=== PATIENT | male | born 1960 | race Caucasian/White ===

== ENCOUNTER 2018-08-04 04:44 | Emergency (ER) | payer BC, OTHER ==
[2018-08-04 05:49] LABS: #Basophils 0.1 thou/uL (0.0-0.2); #Eosinphils 0.1 thou/uL (0.0-0.7); #Lymphocytes 2.5 thou/uL (1.20-3.40); #Monocytes 0.6 thou/uL (0.11-0.59); #Neutrophils 7.9 thou/uL (1.40-6.50); %Basophils 0.7 % (0.0-1.0); %Eosinophils 1.3 % (0.0-10.0); %Lymphocytes 22.4 % (21.0-51.0); %Monocytes 5.3 % (0.0-10.0); %Neutrophils 70.4 % (42.0-75.0); Hemoglobin 14.5 g/dL (14.0-18.0); Mean Corpuscular HGB CONC 32.4 g/dL (32.0-36.0); Mean Corpuscular Hemoglobin 28.9 pg (27.0-31.0); Mean Corpuscular Volume 89.2 fL (78.0-98.0); Mean Platelet Volume 8.7 fL (7.4-10.4); Platelet Count 233 thou/uL (130-400); RBC Distribution Width 12.1 % (11.5-14.5); Red Blood Cell (RBC) Count 5.01 mill/uL (4.70-6.10); White Blood Cell (WBC) Count 11.2 thou/uL (4.8-10.8)
[2018-08-04 06:09] LABS: Acetaminophen Less than 6.0 mcg/mL (10.0-30.0); Alcohol Less than 10 mg/dL (Less than 10); Salicylate Less than 8.0 mg/dL (15.0-30.0)
[2018-08-04 06:10] LABS: ALT (SGPT) 14 U/L (8-55); AST (SGOT) 13 U/L (5-34); Albumin 3.9 g/dL (3.5-5.0); Alkaline Phosphatase 89 U/L (40-150); Anion Gap 16 mmol/L (10-20); BUN (Urea Nitrogen) 16 mg/dL (8.4-25.7); Bilirubin, Total 0.4 mg/dL (0.2-1.2); Calc. Creatinine Clearance 0 mL/min (70-130); Calcium 9.7 mg/dL (7.8-10.44); Carbon Dioxide 24 mmol/L (22-29); Chloride 101 mmol/L (98-107); Estimated GFR-MDRD 76; Globulin 3.4 g/dL (2.4-3.5); Glucose 103 mg/dL (70-105); Lipase 8 U/L (8-78); Magnesium 1.6 mg/dL (1.6-2.6); Potassium 3.8 mmol/L (3.5-5.1); Protein, Total 7.3 g/dL (6.0-8.3); Sodium 137 mmol/L (136-145)
[2018-08-04] MEDS ORDERED: Aspirin Chewable 81 MG TAB ONE (06:43)
[2018-08-04 06:58] LABS: Bilirubin Negative (Negative); Blood, Urine Trace (Negative); Clarity CLEAR (Clear); Glucose, Urine (Dipstick) Negative (Negative); Leukocyte Negative (Negative); Nitrite Negative (Negative); Protein, Urine (Dipstick) 100 mg/dL (Neg-Trace); Specific Gravity, Urine 1.013 (1.002-1.036); pH, Urine 5.5 (5.0-9.0)
[2018-08-04 07:01] LABS: Bacteria/HPF None Seen HPF (None Seen); Hyaline Casts/LPF 4-6 HYALINE CAST LPF (0-3 Hyaline); Pathc Cast-AUWi Flag 0.68 (0-2.49); Squamous Epithelial None Seen HPF (0-3)
--- NOTE | 2018-08-04 07:46 | CT ---
CT OF HEAD NONCONTRAST: INDICATION: Lethargy, altered mental status. COMPARISON: 10/10/2011. FINDINGS: There are multifocal small areas of decreased attenuation involving the bilateral deep wakefield nuclei an d the adjacent white matter. There is no acute intracranial hemorrhage or mass effect. There is a m ega cisterna magna. No ventriculomegaly. Grossly stable pineal cyst is noted. IMPRESSION: Multifocal age-indeterminate bilateral lacunar infarctions. Recommend brain MRI for further characte rization, as these findings have developed since the interval, comparison exam. POS: VALERIE
--- NOTE | 2018-08-04 07:48 | RAD ---
XR Chest 1 View Portable HISTORY: Altered mental status COMPARISON: 10/10/2011 FINDINGS: The heart size is normal. The lungs are well expanded without focal areas of consolidation, pneumothorax or pleural effusions. IMPRESSION: No radiographic evidence of acute cardiopulmonary process.
--- NOTE | 2018-08-09 12:26 | EKG ---
Test Reason : AMS Blood Pressure : / mmHG Vent. Rate : 085 BPM Atrial Rate : 085 BPM P-R Int : 140 ms QRS Dur : 088 ms QT Int : 402 ms P-R-T Axes : 044 -08 092 degrees QTc Int : 478 ms Normal sinus rhythm Nonspecific ST and T wave abnormality Prolonged QT Abnormal ECG Confirmed by GISELLE SANTOS ([id number]), health editor DIDIER HUNTER ([id number]) on 08/09/2018 12:26:15 PM Referred By: Confirmed By:GISELLE SANTOS
== END 2018-08-04 06:59 | disposition home or self-care (01) ==
LOC: ERS 04:44
DX: G45.9 Transient cerebral ischemic attack, unspecified (principal); E10.9 Type 1 diabetes mellitus without complications; F41.9 Anxiety disorder, unspecified; Z79.84 Long term (current) use of oral hypoglycemic drugs
CPT/HCPCS: 36415; 36416; 70450; 71045; 80053; 80307; 81003; 81015; 83690; 83735; 84443; 84484; 85025; 87040; 87086; 93005

== ENCOUNTER 2019-09-08 15:30 | Observation (INO) | payer BC ==
[2019-09-08] MEDS ORDERED: Dextrose 50% Abboject 50 ML SYRINGE ONE (15:45)
[2019-09-08 16:23] LABS: #Eosinphils 0.1 thou/uL (0.0-0.7); #Lymphocytes 1.7 thou/uL (1.20-3.40); #Monocytes 0.6 thou/uL (0.11-0.59); #Neutrophils 5.9 thou/uL (1.40-6.50); %Basophils 0.3 % (0.0-1.0); %Eosinophils 1.4 % (0.0-10.0); %Lymphocytes 20.9 % (21.0-51.0); %Monocytes 6.6 % (0.0-10.0); %Neutrophils 70.8 % (42.0-75.0); Hemoglobin 14.6 g/dL (14.0-18.0); Mean Corpuscular HGB CONC 32.1 g/dL (32.0-36.0); Mean Corpuscular Hemoglobin 28.3 pg (27.0-31.0); Mean Corpuscular Volume 88.1 fL (78.0-98.0); Mean Platelet Volume 9.5 fL (7.4-10.4); Platelet Count 194 thou/uL (130-400); RBC Distribution Width 14.6 % (11.5-14.5); Red Blood Cell (RBC) Count 5.16 mill/uL (4.70-6.10); White Blood Cell (WBC) Count 8.3 thou/uL (4.8-10.8)
[2019-09-08] MEDS ORDERED: Dextrose 5 % And 0.9 % NaCl 1,000 ML IV SCH (16:30)
[2019-09-08 16:49] LABS: ALT (SGPT) 12 U/L (8-55); AST (SGOT) 17 U/L (5-34); Albumin 3.4 g/dL (3.4-4.8); Alcohol Less than 10 mg/dL (Less than 10); Alkaline Phosphatase 91 U/L (40-110); Anion Gap 13 mmol/L (10-20); BUN (Urea Nitrogen) 17 mg/dL (8.4-25.7); Bilirubin, Total 0.7 mg/dL (0.2-1.2); CK (CPK) 188 U/L (30-200); Calc. Creatinine Clearance 0 mL/min (70-130); Calcium 8.8 mg/dL (7.8-10.44); Carbon Dioxide 26 mmol/L (23-31); Chloride 104 mmol/L (98-107); Estimated GFR-MDRD 88; Globulin 3.3 g/dL (2.4-3.5); Glucose 152 mg/dL (80-115); Lipase Less than 4 U/L (8-78); Potassium 3.8 mmol/L (3.5-5.1); Protein, Total 6.7 g/dL (5.8-8.1); Sodium 139 mmol/L (136-145)
[2019-09-08 17:06] LABS: CKMB 5.4 ng/mL (0-6.6)
[2019-09-08 17:20] LABS: Bacteria/HPF None Seen HPF (None Seen); Bilirubin Negative (Negative); Blood, Urine 1+ (Negative); Clarity Clear (Clear); Glucose, Urine (Dipstick) 100 mg/dL (Negative); Ketone, Urine Negative (Negative); Leukocyte Negative Leu/uL (Negative); Nitrite Negative (Negative); Protein, Urine (Dipstick) 300 mg/dL (Neg-Trace); RBC/HPF 0-3 HPF (0-3); Specific Gravity, Urine 1.014 (1.002-1.036); Squamous Epithelial 0-3 HPF (0-3); Urobilinogen Normal mg/dL (Less than 2); WBC/HPF 0-3 HPF (0-3); pH, Urine 6.5 (5.0-9.0)
[2019-09-08 17:24] LABS: Medtox Reader # READER 4
[2019-09-08 17:25] LABS: Amphetamine Not Detected (NotDetected); Barbiturates Screen Not Detected (NotDetected); Benzodiazepine Screen Not Detected (NotDetected); Cocaine Metabolite Screen Not Detected (NotDetected); Medtox Control Line Valid? VALID (VALID); Methadone Not Detected (NotDetected); Methamphetamine Not Detected (NotDetected); Opiate Screen Not Detected (NotDetected); Oxycodone Screen Not Detected (NotDetected); Phencyclidine (PCP) Not Detected (NotDetected); THC/Cannabinoid Screen Not Detected (NotDetected); Tricyclic Screen Not Detected (NotDetected)
[2019-09-08 17:34] LABS: Sperm/HPF Rare HPF (None Seen)
--- NOTE | 2019-09-08 18:08 | PDOC.FPRHP ---
- History of Present Illness Chief Complaint: Found down History of Present Illness: 59-year-old male presents for altered mental status and hypoglycemia. Patient was found by family today unresponsive, EMS arrived and his blood sugar was 50, they gave him multiple rounds of D10 NS at 100 mL's, patient's blood sugar initially eventually improved to 120s. They report patient continued to be somewhat confused even after getting the dextrose. Patient does not remember anything besides getting in the ambulance. They report patient lives by himself. Patient denies taking more medications that he was supposed to. Patient takes glyburide, metformin combination for diabetes, denies insulin use. He thinks that he has been having hypoglycemia and feels out of it when that happens,stating he has had more falls lately. Notes that he only eats 1 meal a day. He reports that he does not take all of his prescribed medication bc it makes him feel shaky that improves with food. pt reports BG is 120 in the morning when he does check it. Denies any trauma to the head. He also endorses concerns that his legs are becoming weaker. His bilateral leg weakness is not new but is progressing. Patient say he is a "loner" and that he last thought about suicide in the last month. Denies depression at this time, just "wants to go home". Patient reports that he sleeps 3 hrs a night 2/2 anxiety, eats 1 meal/day. Per ER report, patient had 2 empty bottles of sulfonylureas at house, unable to confirm with family. Per nruse, pt states he recently put a gun to his head and considered suicide. Per son, he found patient last week with a knife in his hand stating that he was going to kill himself and he had low sugars at the time and after eating was okay. Patient states he wants no lifesaving measures, notes that he has discussed this with his son. Called his son, and son denied ever having that conversation. ED Course: Patient given 1 amp of D50 in ED, started on drip, last sugar in 120s, patient also given ocreotide - Allergies/Adverse Reactions Allergies Allergy/AdvReac Type Severity Reaction Status Date / Time No Known Allergies Allergy Unverified 09/08/19 16:24 - History PMHx: diabetes (possible peripheral neuropathy), anxiety, HTN, TIA (2019) PSHx: none FHx: noncontributory Social: endorses tobacco use, dips, goes through 1 can every couple days. denies etoh, ellicit drug use - Review of Systems General: reports: weight/appetite/sleep changes, fatigue. denies: fever/chills Eyes: denies: eye pain, vision changes ENT: denies: nasal congestion, rhinorrhea Respiratory: denies: cough, congestion, shortness of breath Cardiovascular: denies: chest pain, palpitation, edema Gastrointestinal: denies: nausea, vomiting, diarrhea Genitourinary: denies: incontinence, dysuria, polyuria Skin: denies: rashes, lesions Musculoskeletal: denies: pain, tenderness Neurological: reports: weakness (in BLE). denies: numbness, syncope, seizure Psychological: reports: anxiety. denies: depression - Vital signs BP: H 196/110 R: 92 RR: 18 Tmax: 98.3 Pox: 98% on RA Wt: 86.2kg - Physical Exam Constitutional: NAD, awake, alert and oriented, well developed HEENT: normocephalic and atraumatic, PERRLA, EOMI, conjunctiva clear Neck: supple, FROM Chest: no-tender to palpation, no lesions Heart: RRR, normal S1/S2, no murmurs/rubs/gallops Lungs: CTAB, no respiratory distress, good air movement Abdomen: soft, non-tender, bowel sounds present Musculoskeletal: other (Exam limited by L shoulder pain d/t rotator cuff injury , R leg 3-4/5 strength, L leg 5/5 strenght; however poor effort on exam) Neurological: CN II-XII intact, other (decreased sensation in bilateral LEs below the knee) Skin: no rash/lesions, good turgor Heme/Lymphatic: no unusual bruising or bleeding Psychiatric: other (AxO x 4) FMR H&P: Results - Labs Result Diagrams: 09/08/19 16:11 09/08/19 16:11 Lab results: WBC 8.3 thou/uL (4.8-10.8) 09/08/19 16:11 Hgb 14.6 g/dL (14.0-18.0) 09/08/19 16:11 Hct 45.5 % (42.0-52.0) 09/08/19 16:11 MCV 88.1 fL (78.0-98.0) 09/08/19 16:11 Plt Count 194 thou/uL (130-400) 09/08/19 16:11 Neutrophils % 70.8 % (42.0-75.0) 09/08/19 16:11 Sodium 139 mmol/L (136-145) 09/08/19 16:11 Potassium 3.8 mmol/L (3.5-5.1) 09/08/19 16:11 Chloride 104 mmol/L (98-107) 09/08/19 16:11 Carbon Dioxide 26 mmol/L (23-31) 09/08/19 16:11 BUN 17 mg/dL (8.4-25.7) 09/08/19 16:11 Creatinine 0.88 mg/dL (0.7-1.3) 09/08/19 16:11 Glucose 152 mg/dL (80-115) H 09/08/19 16:11 Lactic Acid 1.2 mmol/L (0.5-2.2) 09/08/19 16:11 Calcium 8.8 mg/dL (7.8-10.44) 09/08/19 16:11 Total Bilirubin 0.7 mg/dL (0.2-1.2) 09/08/19 16:11 AST 17 U/L (5-34) 09/08/19 16:11 ALT 12 U/L (8-55) 09/08/19 16:11 Alkaline Phosphatase 91 U/L (40-110) 09/08/19 16:11 Creatine Kinase 188 U/L (30-200) 09/08/19 16:11 CK-MB (CK-2) 5.4 ng/mL (0-6.6) 09/08/19 16:11 Serum Total Protein 6.7 g/dL (5.8-8.1) 09/08/19 16:11 Albumin 3.4 g/dL (3.4-4.8) 09/08/19 16:11 Lipase Less than 4 U/L (8-78) L 09/08/19 16:11 Urine Ketones Negative mg/dL (Negative) 09/08/19 17:00 Urine Blood 1+ (Negative) A 09/08/19 17:00 Urine Nitrite Negative (Negative) 09/08/19 17:00 Ur Leukocyte Esterase Negative Clyde/uL (Negative) 09/08/19 17:00 Urine RBC 0-3 HPF (0-3) 09/08/19 17:00 Urine WBC 0-3 HPF (0-3) 09/08/19 17:00 Ur Squamous Epith Cells 0-3 HPF (0-3) 09/08/19 17:00 Urine Bacteria None Seen HPF (None Seen) 09/08/19 17:00 - EKG Interpretation EKG: NS, LAD FMR H&P: A/P - Plan Hypoglycemia Possibly 2/2 medication overdose, per ER report 2 empty bottles of sulfonlyureas found, unable to confirm this BG 50 on arrival of EMS, patient unresponsive, now Ax0 x4 with BG in 120s Per patient only eats one meal per day, frequent hypoglycemia, takes 2 of his 4 sugar pills - On D5 drip @100, will give amp D50 if sugars drop again - glucose checks q2hr - hold SS/ home meds, will likely need to adjust home meds at d/c Anxiety/Depression, Reported SI - report from son that patient attempted suicided last week, per nurse patient reported holding a gun to his head a few days ago, patient denies recent attempts, notes he considered suicide 1 month ago, unwilling to further discuss it - sitter in room - [facility] consult once patient is medically stable Weakness Previous TIA in 2019, CT Brain showed lacunar infarcts, patient left AMA, L sided weakness at that time Poor effort on exam, some R sided weakness detected - Reevaluate weakness in the am, once sugars have stabilized - PT/OT consulted HTN 196/110 on admission - hydralazine prn - will restart home bp medications after med rec, order for med rec placed DMII - on glyburide and metformin at home, holding - a1c ordered - q2hr glucose checks Dispo: admit to medical, obs. LOS pending [facility] consult, patient currently lives home alone Code Status: Full code due to SI Prophylaxis: lovenox PCP: Richard Case discussed with Dr. Cleaning. FMR H&P: Upper Level - Plan Date/Time: 09/08/19 1801 I, Alessia aGmboa MD, have evaluated this patient and agree with findings/plan as outlined by creative intern resident. Pertinent changes/additions are listed here. This is a 59yo M here today with PMH of DM1, HTN who was found altered by family. Patient states that he has been taking glyburide for his DM and has been taking his medications as directed. No recent changes in medications. Patient denied any SI or HI. Denied hallucinations/delusions. Patient reports hx of SI. Per nurse, he told her that he put a gun to his head earlier in the week. Patient denied this. Son also reported knife in his hand earlier in the week and wanted to hurt himself. Patient denies. PE: General: sitting up on side of bed, NAD Cardio:RRR, no murmurs, rubs or gallops Resp: CTAB Abd: soft, non distended, normal BS MSK: FROM, no edema Neuro: dec sensation in LE, R sided motor 4/5 vs L side 5/5 - poor effort overall Psych: axox4, denies depresssion, endorses anxiety, denies SI/HI/hallucinations/ delusions Plan: Encephalopathy 2/2 Hypoglycemia likely due to sulfonurea Sugars 50 per EMS. - Started on D5 drip in the ER. Will continue this and slowly titrate down. Will give amps of D50 as needed. Can increase to D10 if needed as well. - q2hr glucose checks, will space out as long as sugars increasing. - Will need to adjust DM medication regimen. Likely dc sulfonurea. A1c pending. Reported Suicidal Ideation - Will consult [facility] in the AM after sugars have improved DM - A1c pending HTN - aware, restart home meds Dispo: admit to medical, obs. LOS < 48hrs PCP: Richard ([facility]) Diet: CC Ppx: lovenox Case discussed with Dr. Cleaning Addendum - Attending - Attending Attestation Date/Time: 09/08/192128 I personally evaluated the patient and discussed the management with the team. I agree with the History, Examination, Assessment and Plan documented above with any addition or exceptions noted below. Acute encephalopathy 2/2 hypoglycemia, improved -continue d5, inc to d10 prn with d50 if recurrent symptomatic hypoglycemia C/f suicidal behavior -sitter at bedside, cannot leave hospital AMA, [facility] when medically cleared
--- NOTE | 2019-09-08 18:10 | CT ---
CT BRAIN WITHOUT CONTRAST: 09/08/19 HISTORY: Altered mental status. COMPARISON: 08/04/18. Changes of chronic small vessel ischemic disease and old lacunar infarcts are again seen. The ventric ular size is stable and the basilar cisterns are patent. No evidence of acute infarct, hemorrhage, mi dline shift, or abnormal extra-axial fluid collections are seen. A pineal cyst is stable. Geovany cister na magna is again seen. IMPRESSION: Stable exam. No CT evidence of acute intracranial process. POS: MACYA
[2019-09-08 20:10] LABS: Troponin I 0.071 ng/mL (< 0.028)
[2019-09-08 20:58] LABS: Hemoglobin A1c 7.6 % (4.0-6.0)
[2019-09-08] MEDS ORDERED: Acetaminophen 325 MG TAB PO PRN (21:31)
[2019-09-08] MEDS ORDERED: Enoxaparin Sodium 40 MG/0.4 ML SYRINGE SC SCH (21:39)
[2019-09-08] MEDS ORDERED: hydrALAZINE 20 MG/ML VIAL SLOW IVP PRN (21:39)
[2019-09-08] MEDS ORDERED: Dextrose 50% Abboject 50 ML SYRINGE SLOW IVP PRN (21:39)
[2019-09-08] MEDS ORDERED: Dextrose 5 %-0.45 % NaCl 1,000 ML IV SCH (21:45)
[2019-09-08 22:30] VITALS: BMI 32.2
[2019-09-08 22:41] LABS: Troponin I 0.069 ng/mL (< 0.028)
--- NOTE | 2019-09-09 05:47 | PDOC.FM ---
- Subjective Subjective: Pt seen sitting in chair next to bed this morning. He stated that he wanted to go home because he is worried about paying his medical bills. Upon further questioning, pt states that he feels like he is a burden to his family and has a lot of worries related to him having to be dependent on them. He also stated that he eats about 1 meal per day because he does not usually have an appetite. He cannot remember what happened yesterday to bring him into the hospital and denies taking his DM medication at all yesterday as he usually takes this medication at night. He states that he is feeling better today with no complaints. - Objective Vital Signs & Weight: Vital Signs (12 hours) Temp Pulse Resp BP BP BP Pulse Ox 09/09/19 04:29 98.8 F 81 16 160/85 H 95 09/09/19 00:05 87 157/83 H 09/08/19 22:37 187/102 H 09/08/19 22:34 83 187/102 H 09/08/19 21:39 99.0 F 83 18 196/113 H 98 Weight Weight 96.1 kg Result Diagrams: 09/08/19 16:11 09/08/19 16:11 Phys Exam - Physical Examination Constitutional: NAD HEENT: PERRLA Respiratory: no wheezing, no rales, no rhonchi, clear to auscultation bilateral Cardiovascular: RRR, no significant murmur Gastrointestinal: soft, non-tender, no distention, positive bowel sounds Musculoskeletal: no edema Neurological: moves all 4 limbs (pt has decreased sense of touch to R leg. UE strength 4/5 bl LE strength 4/5 bl) Psychiatric: A&O x 3 (flat affect) Dx/Plan - Plan Plan: 59 y/o M with PMHx of DM, Depression, TIA, HTN presented to ED for hypoglycemia after being found down by family yesterday. ##Hypoglycemia Possibly 2/2 medication overdose, per ER report 2 empty bottles of sulfonlyureas found, unable to confirm this Per patient only eats one meal per day, frequent hypoglycemia, takes 2 of his 4 sugar pills - On D5 drip @100, will give amp D50 if sugars drop again - glucose checks q2hr - hold SS/ home meds, will likely need to adjust home meds at d/c ##Anxiety/Depression, Reported SI Report from son that patient attempted suicided last week, per nurse patient reported holding a gun to his head a few days ago, patient denies recent attempts, notes he considered suicide 1 month ago, unwilling to further discuss it - sitter in room - MR consult once patient is medically stable - home medication sertraline ##Weakness Previous TIA in 2019, CT Brain showed lacunar infarcts, patient left AMA, L sided weakness at that time Poor effort on exam, some R sided weakness detected - PT/OT consulted ##HTN 196/110 on admission - hydralazine prn - home medication amlodipine 2.5mg restarted, may need additional med for BP control ##DMII - on glyburide and metformin at home, holding - a1c 7.6 - q2hr glucose checks - UA showed protein, glucose, hyaline casts - microalbumin/patient liaison ratio Code Status: Full code due to SI VTE PPX: Lovenox Diet: CC PCP: Richard Dispo: monitor glucose closely. glucagon ordered. BP control. pending MR consult Addendum - Attending - Attending Attestation Date/Time: 09/09/19 1200 I personally evaluated the patient and discussed the management with Dr. Stewart. I agree with the History, Examination, Assessment and Plan documented above with any addition or exceptions noted below. Patient stable. Ensuring his glucose levels stay stable and then can have evaluation by MR.
[2019-09-09] MEDS ORDERED: Lisinopril 10 MG TAB PO SCH (09:00)
[2019-09-09] MEDS ORDERED: Multivit, Therapeutic 1 TAB PO SCH (09:00)
[2019-09-09] MEDS ORDERED: Aspirin 81 mg Enteric Coated Tablet PO SCH (09:00)
[2019-09-09 18:46] LABS: Creatinine, Urine 124.39 mg/dL (63-166); Microalbumin Urine Greater than 200.0 mg/dL (0.5-50.0)
[2019-09-09] MEDS ORDERED: Amlodipine 5 MG TAB PO SCH (21:00)
[2019-09-09 22:14] VITALS: BP 173/98; TEMP 98.7
--- NOTE | 2019-09-10 13:44 | DIS ---
DATE OF ADMISSION: 09/08/2019 DATE OF DISCHARGE: 09/09/2019 RESIDENT: Rhiannon Stewart DO ADMITTING ATTENDING: Meet Cleaning MD DISCHARGE ATTENDING: Nirav Graff MD. PROCEDURES: CT brain without contrast showed stable exam, no CT evidence of acute intracranial process. PRIMARY DIAGNOSES: Hypoglycemia, depression, reported suicidal ideation, weakness. SECONDARY. DIAGNOSES: Hypertension and diabetes mellitus, type 2. DISCHARGE MEDICATIONS: 1. Aspirin 81 mg p.o. daily. 2. Multivitamin 1 tab p.o. daily. 3. Zoloft 50 mg p.o. daily. 4. Amlodipine 2.5 mg p.o. at bedtime. 5. Metformin 1000 mg p.o. b.i.d. 6. Lisinopril 10 mg p.o. daily. DISCONTINUED MEDICATIONS: Glyburide/metformin. HISTORY OF PRESENT ILLNESS: This is a 59-year-old male who presented for altered mental status and hypoglycemia. He was found by family unresponsive with a blood sugar of 50. The patient said that he did not remember anything besides getting into ambulance. He denied taking medication prior to this episode and stated that he takes glyburide-metformin combination for diabetes and denies insulin use. He thought that he had been having hypoglycemia episodes more often and feels out of it, stating that the has had more falls lately and notes that he only eats one meal a day. While in the ED, he said that he has a lot of depression and just wanted to go home because he was worried that his medical expenses were going to increase during his stay in the hospital. In addition, per a conversation had with son upon admission, he had found the patient last week with a knife in his hands, stating he wanted to kill himself and had also held a gun to his head earlier in the week, but attributed that to the patient's hypoglycemic episodes. For this reason [facility] was consulted. HOSPITAL COURSE: During the patient's hospitalization, he was given multiple rounds of D50 initially until his BS improved and then patient started eating well on his own. He had to be given one dose of glucagon and afterwards, his BS stabled out. Pt UA showed proteinuria, glucosuria, and a microalbumin greater than 200. Lisinopril 10mg was started due to this, and added to his medication regimen with amlodipine. He was cleared medically for MR who went through a safety plan with the patient and deemed him stable for discharge. DISPOSITION: Stable. DISCHARGE INSTRUCTIONS: 1. Location: Home. 2. Diet: Consistent carb. 3. Activity: As tolerated. 4. Followup: In 1-2 week with, Dr. Luiz Ramos. Job ID: [id number] MTDD
== END 2019-09-09 20:20 | disposition home or self-care (01) ==
LOC: ERS 15:30 → 2NO 17:31
PROVIDERS: ADMIT Emergency Medicine; ATTEND Emergency Medicine
DX: E11.649 Type 2 diabetes mellitus with hypoglycemia without coma (principal); G93.40 Encephalopathy, unspecified; R45.851 Suicidal ideations; I10 Essential (primary) hypertension; F41.9 Anxiety disorder, unspecified; F32.9 Major depressive disorder, single episode, unspecified; F17.220 Nicotine dependence, chewing tobacco, uncomplicated; Z79.82 Long term (current) use of aspirin; Z79.84 Long term (current) use of oral hypoglycemic drugs; Z79.899 Other long term (current) drug therapy; Z86.73 Personal history of transient ischemic attack (TIA), and cerebral infarction without residual deficits
CPT/HCPCS: 36415; 36416; 70450; 80053; 80306; 80307; 81003; 81015; 82043; 82550; 82553; 82607; 83036; 83605; 83690; 84443; 84484; 85025; 93005; 96372; 96375; 96376; G0378; J0360; J1610; J1650

== ENCOUNTER 2019-11-25 17:27 | Inpatient (IN) | payer MEDICARE, OTHER ==
[~2019-11-25 17:27] MED LIST: Iopamidol-370 76% 500 ML 1 ML ONE
[2019-11-25 18:04] LABS: #Basophils 0.1 thou/uL (0.0-0.2); #Eosinphils 0.1 thou/uL (0.0-0.7); #Lymphocytes 2.4 thou/uL (1.20-3.40); #Monocytes 0.7 thou/uL (0.11-0.59); #Neutrophils 5.6 thou/uL (1.40-6.50); %Basophils 0.6 % (0.0-1.0); %Eosinophils 0.7 % (0.0-10.0); %Lymphocytes 27.1 % (21.0-51.0); %Monocytes 7.7 % (0.0-10.0); Hemoglobin 15.1 g/dL (14.0-18.0); Mean Corpuscular HGB CONC 33.8 g/dL (32.0-36.0); Mean Corpuscular Volume 88.8 fL (78.0-98.0); Mean Platelet Volume 9.4 fL (7.4-10.4); Platelet Count 211 thou/uL (130-400); RBC Distribution Width 12.2 % (11.5-14.5); Red Blood Cell (RBC) Count 5.03 mill/uL (4.70-6.10); White Blood Cell (WBC) Count 8.8 thou/uL (4.8-10.8)
--- NOTE | 2019-11-25 18:10 | RAD ---
Exam: Chest one view HISTORY:Increased weakness. Multiple falls. Decreased appetite. Comparison: 08/04/2018 FINDINGS: Cardiac silhouette: Normal Aorta: Unremarkable Pulmonary vessels: Normal Costophrenic angles: Clear LUNGS: No masses or consolidation. Pneumothorax: None Osseous abnormalities: Old left rib fractures. Chronic changes involving both shoulders. IMPRESSION: No acute cardiopulmonary process.
[2019-11-25 18:20] LABS: ALT (SGPT) 11 U/L (8-55); AST (SGOT) 20 U/L (5-34); Albumin 3.2 g/dL (3.4-4.8); Alkaline Phosphatase 121 U/L (40-110); Anion Gap 12 mmol/L (10-20); BUN (Urea Nitrogen) 16 mg/dL (8.4-25.7); Bilirubin, Total 1.1 mg/dL (0.2-1.2); Calc. Creatinine Clearance 0 mL/min (70-130); Calcium 8.5 mg/dL (7.8-10.44); Carbon Dioxide 28 mmol/L (23-31); Chloride 97 mmol/L (98-107); Estimated GFR-MDRD 66; Globulin 3.1 g/dL (2.4-3.5); Glucose 178 mg/dL (80-115); Lipase 6 U/L (8-78); Magnesium 1.2 mg/dL (1.6-2.6); Potassium 3.5 mmol/L (3.5-5.1); Protein, Total 6.3 g/dL (5.8-8.1); Sodium 133 mmol/L (136-145)
[2019-11-25 18:28] LABS: CKMB 6.8 ng/mL (0-6.6)
--- NOTE | 2019-11-25 19:18 | CT ---
Exam: Head CT without contrast HISTORY: Fall. Pain. COMPARISON: 09/08/2019 FINDINGS: Hemorrhage: There is an intraparenchymal hematoma centered in the right deep wakefield matter structures m easuring 1.6 x 1.0 cm. Brain parenchyma: Cortical wakefield-white matter differentiation is preserved. No mass effect or midline shift. Basilar cisterns are patent.Hypodensities involving the deep wakefield structures due to remote lacunar infarcts. Chronic small vessel ischemic changes of white matter Ventricular system: Ventricles and sulci are patent and symmetric. Calvarium: Intact. Sinuses and mastoid air cells: Adequate aeration. IMPRESSION: 1. Parenchymal hemorrhage centered in the right deep wakefield matter structures. Results study discussed with Dr. Bolanos 11/25/2019 at 7:12 PM Code CR
--- NOTE | 2019-11-25 19:24 | CT ---
Exam: Chest CT with contrast Abdomen CT with contrast Pelvic CT with contrast HISTORY: Weight loss Correlation: None COMPARISON: None FINDINGS: Chest CT: Mediastinum: No mass, lymphadenopathy, hematoma. Aorta: Scattered atherosclerosis. No aneurysm, dissection or periaortic fat stranding Heart: Normal heart size. There are coronary calcifications. No significant pericardial fluid Trachea and central bronchi: Patent Pleural spaces: No effusion Right lung: Dependent atelectatic changes. No masses or consolidation. Left lung:Minimal linear densities in the lingula likely representing scar or atelectasis. Dependent atelectatic changes. No masses or consolidation. Pneumothorax: None Abdomen CT: Gallbladder: Unremarkable Portal vein: Patent Liver: Appropriate enhancement. Spleen: Appropriate enhancement Pancreas: Appropriate enhancement Adrenal glands: Appropriate enhancement Lymphadenopathy: No gastrohepatic, retrocrural or periportal lymphadenopathy Kidneys: Symmetric enhancement. Bilaterally no obstructive uropathy. Incompletely evaluated hypodensi ty in the left renal pelvis measuring 2.0 x 2.1 cm. The possibility of a complex parapelvic cyst is raised. Mesentery: No mass, lymphadenopathy, free air or free fluid Alimentary canal: Limited evaluation by the lack of oral contrast. Gastric mucosa and duodenum and sm all bowel loops are grossly unremarkable. Ileocecal junction appears to be grossly unremarkable. Normal caliber appendix. Scattered fecal material in a nondistended, nondilated colon. Occasional div erticulum. No diverticulitis. Pelvis CT: Normal-appearing urinary bladder. No pelvic mass, lymphadenopathy, free air or free fluid. Presacral fat is preserved. Osseous structures:No lytic or blastic lesions in the osseous structures. There are extensive degener ative changes throughout the thoracic and lumbar spine. There does appear to be a indeterminate L4 vertebral body fracture without significant loss of vertebral body height. Right ribs are intact There are fractures involving the left eighth, ninth, tenth ribs. IMPRESSION: 1. Left rib fractures 2. Indeterminate L4 vertebral body fracture. 3. Indeterminate complex parapelvic cyst involving the left kidney. Better interrogation with abdomen MRI. Transcribed Date/Time: 11/25/2019 7:55 PM
[2019-11-25] MEDS ORDERED: Magnesium 2 GM/50 ML BAG (IN WATER) ONE (19:28)
[2019-11-25] MEDS ORDERED: niCARdipine 20MG In NaCl 20 MG/200 ML BAG ONE (19:28)
--- NOTE | 2019-11-25 20:14 | PDOC.FPRHP ---
- History of Present Illness Chief Complaint: Gneralized weakness and falls x severl months History of Present Illness: Pt presented d/t generalized weakness that started several months ago and has been worsening. Currently, he is too weak to stand and is non-weight bearing. At baseline, he can walk with a cane. He has also noticed a decreased appetite stating 1 can of [place] soup lasts him 2 days and if I drink a Dr. Pepper that will make me full for 2 days. He has lost considerable weight over the last few months, but is unsure how much. He has a hx of T2DM but has not taken his Metformin in about 2mo because he has not been eating. He has HTN but does not take any medications because, per patient, he is too sensitive to him. On arrival to the ED, his SBP was 189 so he was started on a Cardene drip with a goal SBP <150. Head CT showed a R-sided parietal hemorrhage which is suspected to be d/t his HTN. He denies recent falls or hitting his head. His other vitals were nml and stable. Endorses difficulty initiating urinary stream; endorses peripheral neuropathy. Denies WATERS/vision changes, N/V/D, hematochezia/melena, hematuria. A&O x4. Trauma was consulted and they said they would follow although they suspect the ICH isnt d/t trauma. Neurosurgery was consulted and recommended BP management, agreeing with a goal SBP <150. ED Course: Mg sulfate 2g, Cardene drip - Allergies/Adverse Reactions Allergies Allergy/AdvReac Type Severity Reaction Status Date / Time No Known Allergies Allergy Verified 09/08/19 23:39 - Home Medications Medication Instructions Recorded Confirmed Type Amlodipine [Norvasc] 2.5 mg PO HS 09/08/19 11/26/19 History Sertraline HCl [Zoloft] 50 mg PO DAILY 09/08/19 11/26/19 History Lisinopril [Zestril] 10 mg PO DAILY 30 Days #30 tab 09/09/19 11/26/19 Rx metFORMIN [Glucophage] 500 mg PO BID-WM 11/26/19 11/26/19 History tiZANidine HCl [Tizanidine HCl] 4 mg PO HS PRN 11/26/19 11/26/19 History - History PMHx: T2DM, HTN, depression/anxiety. No hx of heart/kidney/liver disease or cancer PSHx: "Something as a teenager" Social: Tobacco (dip) since 13yo, no other drugs/EtOH. Lives home alone Allergies: None Meds: ASA 325, Metformin 500, possible SSRI? - Review of Systems General: reports: weight/appetite/sleep changes. denies: fever/chills Eyes: denies: vision changes ENT: denies: nasal congestion Respiratory: denies: cough, shortness of breath Cardiovascular: denies: chest pain, edema Gastrointestinal: denies: nausea, vomiting, diarrhea, GI bleeding Genitourinary: reports: other (Difficulty inititating stream). denies: dysuria Neurological: reports: numbness (peripheral), weakness. denies: syncope, seizure Psychological: reports: anxiety, depression - Vital signs BP 122-133/74-86, HR 92-99, RR 15-25, SpO2 97-98% RA - Physical Exam Constitutional: NAD, awake, alert and oriented, well developed HEENT: normocephalic and atraumatic, PERRLA, EOMI, MMM (Mildly dry), oropharynx clear Neck: supple, no LAD (supraclavicular, posterior auricular, submental, submandibular), no thyromegaly -Neck: No visible or palpable masses in neck Chest: no-tender to palpation, no lesions Heart: RRR (Difficult to auscultate), normal S1/S2, no murmurs/rubs/gallops Lungs: CTAB, no respiratory distress, good air movement Abdomen: soft, non-tender, bowel sounds present, no masses/distention Musculoskeletal: normal structure, normal tone -Musculoskeletal: ROM decreased, appears to be d/t weakness inhibiting movement Neurological: no focal deficit -Skin: Has 2 healed lesions on L foot and one on R foot. Pt says his shoes had not been removed in ~1 mo. Significantly dry skin with sloughing. Inspected back/sacrum, did not see any ulcer Heme/Lymphatic: no unusual bruising or bleeding Psychiatric: intact recent and remote memory -Psychiatric: Has hx of depression/anxiety. Repeatedly states he does not want to be and does not like to be a burden to anyone. States he is DNAR because he does not want to be a burden to anyone, but also because "I don't want any of that unnatural stuff. If it's my time to go, I want to go". A&O x4. FMR H&P: Results - Labs Result Diagrams: 11/26/19 01:43 11/26/19 01:43 Lab results: WBC 8.8 thou/uL (4.8-10.8) 11/25/19 17:52 Hgb 15.1 g/dL (14.0-18.0) 11/25/19 17:52 Hct 44.7 % (42.0-52.0) 11/25/19 17:52 MCV 88.8 fL (78.0-98.0) 11/25/19 17:52 Plt Count 211 thou/uL (130-400) 11/25/19 17:52 Neutrophils % 64.0 % (42.0-75.0) 11/25/19 17:52 Sodium 133 mmol/L (136-145) L 11/25/19 17:52 Potassium 3.5 mmol/L (3.5-5.1) 11/25/19 17:52 Chloride 97 mmol/L (98-107) L 11/25/19 17:52 Carbon Dioxide 28 mmol/L (23-31) 11/25/19 17:52 BUN 16 mg/dL (8.4-25.7) 11/25/19 17:52 Creatinine 1.13 mg/dL (0.7-1.3) 11/25/19 17:52 Glucose 178 mg/dL (80-115) H 11/25/19 17:52 Calcium 8.5 mg/dL (7.8-10.44) 11/25/19 17:52 Total Bilirubin 1.1 mg/dL (0.2-1.2) 11/25/19 17:52 AST 20 U/L (5-34) 11/25/19 17:52 ALT 11 U/L (8-55) 11/25/19 17:52 Alkaline Phosphatase 121 U/L (40-110) H 11/25/19 17:52 CK-MB (CK-2) 6.8 ng/mL (0-6.6) H* 11/25/19 17:52 Serum Total Protein 6.3 g/dL (5.8-8.1) 11/25/19 17:52 Albumin 3.2 g/dL (3.4-4.8) L 11/25/19 17:52 Lipase 6 U/L (8-78) L 11/25/19 17:52 FMR H&P: A/P - Plan Intraparenchymal hemorrhage Head CT w/o contrast showed R sided parietal hemorrhage measuring 1.6x1.0 cm, likely 2/2 HTN Trauma consulted and will follow although suspect this is not d/t trauma. Appreciate recs Neurosurgery consulted Recommend BP management with goal SBP <[address] in am Admit to ICU for [facility] Pulmonology consulted, appreciate recs Q2h neuro checks Precautions: fall, seizure, stroke NPO for PIECE MAKER evaluation for dysphagia Hypertensive emergency SBP 189 on arrival Likely the cause of his hemorrhage, see above Generalized weakness Diffuse, possibly from stroke vs intraparenchymal hemorrhage vs physical deconditioning vs neuromuscular degenerative disease vs. peripheral neuropathy Unclear whether peripheral neuropathy is 2/2 T2DM. A1c ordered Postacute screen ordered PIECE MAKER ordered to evaluate for dysphagia CK elev at 590 TSH nml at 0.8815 fT3 and fT4 ordered Vit B6 and B12 ordered HIV, RPR, Hep C Ab ordered UA and UCx ordered Hypomagnesemia Mg 1.2 on arrival Received 2g Mg sulfate in ED Continue to monitor with am labs and replace as needed Anorexia and weight loss Concern for possible malignancy CT chest/abd/pelvis with contrast showed L rib fx, indeterminate L4 vertebral body fx, indeterminate complex parapelvic cyst involving L kidney HIV, RPR, Hep C ordered TSH nml. fT3 and fT4 ordered Anxiety MD aware Verify is he takes home medication for this Will likely require outpt f/u Mild hyponatremia Likely 2/2 malnutrition. Consult dietary in am Receiving LR @ 125mL/h Will monitor with am labs and replace as needed Mild hyperphosphatasemia Alk Phos 121 GGT ordered T2DM Home Metformin 500, although he has not taken it x2 mo. Will restart Mild SSI A1c ordered Hyperglycemia protocol ordered AcHS glucose checks Dispo: ICU, LOS > 48hrs PCP: None Diet: NPO for PIECE MAKER eval, then based on dietary recs DVT Ppx: SCDs GI Ppx: Pepcid Code: DNAR FMR H&P: Upper Level - Plan I, Susana Botello MD, have evaluated this patient and agree with findings/plan as outlined by internet researcher resident. Pertinent changes/additions are listed here. HPI: 59 yo M with PMH of uncontrolled HTN, DM2, anxiety, and tobacco abuse presents for generalized weakness that has been worsening over the past month. He reports he has not been taking any of his medications for HTN or DM2. Patient reports his weakness in his arms and legs is now so bad that he cannot get out of bed. Associated symptoms include numbness of the hands and feet. He reports decreased appetite and weight loss for the past few months. He denies fever, headache, vision changes, chest pain, palpitations, abdominal pain, nausea/vomiting, or rashes. Reports an isolated episode of SOB yesterday evening. He has used chewing tobacco since age 13, up to 1 container/day, now he states a pack lasts him 3 weeks. Physical exam: Vitals: BP 122/86, HR 87, RR 15, O2 98% General: Cachectic male, poor hygiene Head: NCAT, poor dentition Lungs: BCTA Cardiac: RRR Abd: soft and nontender Neuro/MSK: 2/5 weakness BLE, 4/5 weakness BUE. Muscle wasting of hands. Numbness of hands/feet bilat Labs: Trop: 0.085-> 0.079-> 0.098 A1C 8.1 CBC: Nml Na 133 K 3.5 Mg 1.2 Cl 97 Lipase 6 Alk Phos 121 CK-MB 6.8 TSH 0.882 Vit B6, B12, TSH, fT3, fT4: WNL CK: 590 A1C 8.1 Phos: 2.7 LA: 1.1 A/P: Intraparenchymal Hemorrhage likely 2/2 HTN Emergency -Hx uncontrolled HTN, BP 180s on arrival -CT head shows Intraparenchymal hemorrhage -Neurosurgery consulted, appreciate recs -monitoring SBP tightly, keep SBP <150 per neuro -CT head in AM -Transfer to ICU on Cardene drip -Trauma consulted from ED, appreciate recs -Pulmonology consulted, appreciate recs -NPO for speech -Neuro checks q2h -PT/PTT/INR -Seizure precautions Generalized Weakness -diffuse; from neuromuscular disorder vs stroke vs deconditioning vs vitamin deficiency vs diabetic neuropathy vs other -PT/OT consulted, strict bed rest -TSH, B12 wnl. CK mildly elevated. -A1C 8.1 -HIV/RPR/Hep C pending -UA and U Cx pending -Request records from PCP/BS&W in AM -Consider neurology consult Indeterminate trop, likely 2/2 NSTEMI type 2 -Elevated CKMB, Trop indeterminate -EKG shows NSR, LAD, nonspecific ST and T wave abnormality. -CXR no acute findings. -Trend troponin HTN Emergency -currently on cardene drip -BP goal SBP <150 per neurosurgery -Will need to be started on a home regimen prior to discharge with close follow up Hypomagnesemia -Monitor and replace Weight loss Severe protein/calorie malnutrition -Patient is only eating 1 can of soup per 2 days, cooks for himself -CT chest abd/pelv did not show any obvious malignancy -HIV/RPR/hep C pending -TSH wnl -B6 and B12 pending -May need further work up outpatient Anxiety -aware, on an unknown medication, possibly a benzo Mild hyponatremia -suspect malnutrition, consult fruit and vegetable classer -Monitor Alk phos elevation -121 -consider GGT Diabetes Mellitus Type 2 -A1C 8.1 -Hyperglycemia protocol, ACHS accuchecks, mild SSI -will need to be restarted on metformin prior to DC L4 Vertebral fracture -aware -consider MRI follow up per rads recs Diet: NPO for speech DVT ppx: SCDs, NO GI ppx: famotidine Code status: DNAR PCP: none Dispo: Admit to ICU. LOS likely >48 hours L Ayan LOPEZ PGY3 Addendum - Attending - Attending Attestation Date/Time: 11/26/192006 I personally evaluated the patient and discussed the management with Dr. Gaines and Ayan last night at time of admission. See separate note.
[2019-11-25] MEDS ORDERED: Dextrose 5% in Water 1,000 ML IV PRN (20:57)
[2019-11-25] MEDS ORDERED: Dextrose 50% Abboject 50 ML SYRINGE SLOW IVP PRN (20:57)
[2019-11-25] MEDS ORDERED: Lactated Ringer's 1,000 ML IV SCH (21:00)
[2019-11-25] MEDS ORDERED: Electrolyte Replacement Protoc 1 EACH EACH IVPB PRN (22:17)
[2019-11-25 22:18] LABS: Troponin I 0.079 ng/mL (< 0.028)
[2019-11-25] MEDS ORDERED: Famotidine/PF 20 mg/2ml Vial SLOW IVP SCH (22:30)
[2019-11-25 22:43] LABS: Hemoglobin A1c 8.1 % (4.0-6.0)
[2019-11-25 22:48] LABS: CK (CPK) 590 U/L (30-200); Phosphorus 2.7 mg/dL (2.3-4.7)
[2019-11-25 22:51] LABS: Lactic Acid 1.1 mmol/L (0.5-2.2)
[2019-11-25 22:59] LABS: Troponin I 0.098 ng/mL (< 0.028)
[2019-11-25 23:14] LABS: Free T4 (Free Thyroxine) 1.09 ng/dL (0.70-1.48)
[2019-11-25 23:15] LABS: Syphilis Antibody Nonreactive (Nonreactive)
[2019-11-25] MEDS: Sodium Chloride 0.9% 1,000 ML IV SCH (23:19)
[2019-11-25 23:21] LABS: Vitamin B12 454 pg/mL (211-911)
[2019-11-25 23:22] LABS: HIV (1/2) Antibody/Antigen Non-Reactive (NonReactive); HIV 1/2 INDEX 0.24 S/CO (<1.00); Hep C IgG Ab Non-Reactive (NonReactive); Hep C Index 0.07 S/CO (0-0.79)
--- NOTE | 2019-11-26 | PDOC.BPN ---
- Brief Progress Note Date/Time: 11/25/19 5953 I personally evaluated the patient and discussed the management with Dr. Gaines at time of admission. I agree with the History, Examination, Assessment and Plan documented above with any addition or exceptions noted below. His weakness has been progressive over the past several years. Has followed with Dr Victor Manuel Ramos at [facility] for many years, but recently stopped seeing him. 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 He denies ever seeing a neurologist and does not think any neurodegenerative diagnosis was ever made. He is on disability for his weakness. 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 He affirmed his code status as DNR. He is willing to have some rehab as long as it is not too long.
--- NOTE | 2019-11-26 00:55 | CON ---
DATE OF CONSULTATION: 11/25/2019 CHIEF COMPLAINT: Generalized weakness, multiple recent falls. HISTORY OF PRESENT ILLNESS: Mr. Angel is a 59-year-old gentleman who presents for generalized weakness and multiple falls over recent months. 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 He also reports bilateral leg weakness. He is no longer able to stand or ambulate. He reports longstanding loss of sensation in his bilateral lower legs and feet. Given his history of diabetes, this sounds consistent with diabetic neuropathy. He denies headache, dizziness, or vision changes at this time. He was found to have a right thalamic hemorrhage on CT scan completed this evening. His blood pressure upon arrival was reported as 189/112. He was started on a Cardene drip with improvement of blood pressure to 136/63. He reports taking 325 mg aspirin daily. He denies any other anticoagulant use. PHYSICAL EXAMINATION: GENERAL: The patient is awake, alert, and appropriate. He appears to be comfortable, resting in bed, in no acute distress. HEENT: Pupils are 2 mm, equal, round, and reactive to light. Extraocular movements are intact. NEUROLOGIC: Cranial nerves 2 through 12 are grossly intact. The patient exhibits decreased strength in triceps and hand supervisor airplane flight attendant bilaterally. He has bilateral hand contractures. He exhibits good strength in his biceps bilaterally. He has weakness throughout his bilateral lower extremity myotomes. He is barely able to bend his knees up off the bed. Gait was not assessed. He reports a subjective loss of sensation from both knees down. Sensation to light touch is intact in the bilateral thighs. IMPRESSION: 1. Right thalamic hemorrhage, likely hypertensive. 2. Generalized weakness. 3. Multiple recent falls. 4. History of hypertension. 5. History of diabetes mellitus. 6. On 325 mg aspirin daily. PLAN: The case has been discussed and imaging reviewed with Dr. Juarez. As noted above, CT of the brain completed upon ED presentation reveals a right thalamic hemorrhage measuring approximately 1.6 x 1.0 cm. This is likely hypertensive in nature given its thalamic location, the patient's history of hypertension, and the patient's elevated blood pressure upon presentation. No emergent neurosurgical intervention is necessary at this time. A repeat CT of brain without contrast will be obtained tomorrow morning. Blood pressure parameters will be to maintain systolic less than 150 mmHg and diastolic less than 90 mmHg. Hold aspirin and all anticoagulation. Head of bed 30 degrees. Given the patient's reports of multiple recent falls along with his weakness throughout his upper and lower extremities on examination, consideration could be given to obtaining an MRIs of the cervical and lumbar spines at some point during his hospitalization. However, we will hold on this at this time and focus our attention on his right thalamic bleed for the time being. Please call for any neurologic changes or other concerns. This was a 50-minute initial consult note, in which 50% of the time was spent in review of records, review of imaging, evaluation, examination, and formulation of a plan. The remaining time was spent in counseling and coordination of care. Job ID: [id number] [facility]OVE HOSPITALSushila
[2019-11-26 06:30] LABS: #Basophils 0.1 thou/uL (0.0-0.2); #Eosinphils 0.1 thou/uL (0.0-0.7); #Lymphocytes 2.5 thou/uL (1.20-3.40); #Monocytes 0.7 thou/uL (0.11-0.59); #Neutrophils 5.2 thou/uL (1.40-6.50); %Basophils 1.1 % (0.0-1.0); %Eosinophils 0.9 % (0.0-10.0); %Lymphocytes 29.2 % (21.0-51.0); %Monocytes 8.2 % (0.0-10.0); %Neutrophils 60.7 % (42.0-75.0); Hemoglobin 14.9 g/dL (14.0-18.0); Mean Corpuscular HGB CONC 33.2 g/dL (32.0-36.0); Mean Corpuscular Volume 90.5 fL (78.0-98.0); Mean Platelet Volume 9.1 fL (7.4-10.4); Platelet Count 192 thou/uL (130-400); RBC Distribution Width 12.3 % (11.5-14.5); Red Blood Cell (RBC) Count 4.96 mill/uL (4.70-6.10); White Blood Cell (WBC) Count 8.6 thou/uL (4.8-10.8)
[2019-11-26 07:25] LABS: Anion Gap 13 mmol/L (10-20); BUN (Urea Nitrogen) 17 mg/dL (8.4-25.7); Calc. Creatinine Clearance 77 mL/min (70-130); Calcium 8.7 mg/dL (7.8-10.44); Carbon Dioxide 28 mmol/L (23-31); Chloride 96 mmol/L (98-107); Estimated GFR-MDRD 66; Glucose 119 mg/dL (80-115); Potassium 3.3 mmol/L (3.5-5.1); Sodium 134 mmol/L (136-145)
[2019-11-26 07:29] LABS: Troponin I 0.104 ng/mL (< 0.028)
[2019-11-26] MEDS: Sodium Chloride 0.9% 1,000 ML IV SCH ×2 (07:29→07:56)
--- NOTE | 2019-11-26 07:29 | CT ---
PRELIMINARY REPORT/[facility]/EMERGENCY AFTER HOURS PROCEDURE: EXAM: CT Head Without Intravenous Contrast. CLINICAL HISTORY: F/U RT THALLAMIC HEMORRHAGE TECHNIQUE: Axial computed tomography images of the head/brain without intravenous contrast. COMPARISON: November 25, 2019 FINDINGS: BRAIN: Small intraparenchymal hematoma within the periphery of the right thalamus is again noted and is unch anged. No newly appearing intraparenchymal abnormalities identified. VENTRICLES: No hydrocephalus. ORBITS: The orbits are unremarkable. SINUSES AND MASTOIDS: The paranasal sinuses and mastoid air cells are clear. SOFT TISSUES: No significant facial or scalp soft tissue swelling evident. No radiopaque foreign body is seen. BONES: No acute skull fracture. IMPRESSION: Stable exam. ELECTRONICALLY SIGNED BY: Joseluis Ortiz MD Nov 26, 2019 3:43:01 AM CDT This report is intended for review by the ordering physician only, in accordance of law. If you recei ve this report in error, please call [facility] at [phone]. FINAL REPORT EMERGENCY AFTER HOURS CT BRAIN: I agree with the preliminary report provided by [facility]. The intraparenchymal hematoma centered within the region of the right posterior globus pallidus is st able in size. No midline shift or hydrocephalus is evident. Chronic ischemic change is similar appear ing. Mastoid air cells are clear. Paranasal sinuses are clear. IMPRESSION: Stable intraparenchymal hematoma. POS: YAZ
--- NOTE | 2019-11-26 07:42 | PDOC.FM ---
- Subjective Subjective: Pt states that he is doing ok this morning. He has problems with his hands where he is unable to open them, and he feels weakness in his legs. - Objective MAR Reviewed: Yes Vital Signs & Weight: Vital Signs (12 hours) Temp Pulse Ox 11/26/19 04:00 98.8 F 11/26/19 00:00 98.7 F 11/25/19 22:00 98.6 F 100 Weight Weight 79 kg Most Recent Monitor Data Heart Rate from ECG 89 NIBP 143/79 NIBP BP-Mean 100 Respiration from ECG 11 SpO2 97 I&O: 11/25/19 11/26/19 11/27/19 06:59 06:59 06:59 Intake Total 571.2 Output Total 870 Balance -298.8 Result Diagrams: 11/26/19 01:43 11/26/19 01:43 Phys Exam - Physical Examination Constitutional: NAD HEENT: moist MMs, sclera anicteric Neck: no nodes, supple Respiratory: no wheezing, no rales, no rhonchi, clear to auscultation bilateral Cardiovascular: RRR, no significant murmur Gastrointestinal: soft, non-tender, positive bowel sounds Musculoskeletal: no edema strength is 3-4/5 in all extremities, he does not have any internet marketer strength Lymphatic: no nodes Psychiatric: normal affect Skin: no rash, normal turgor Dx/Plan (1) Intraparenchymal hemorrhage of brain Code(s): I61.9 - NONTRAUMATIC INTRACEREBRAL HEMORRHAGE, UNSPECIFIED Status: Acute (2) Generalized weakness Code(s): R53.1 - WEAKNESS Status: Acute (3) Hypertensive emergency Code(s): I16.1 - HYPERTENSIVE EMERGENCY Status: Acute (4) Weight loss Status: Acute (5) Diabetes mellitus Code(s): E11.9 - TYPE 2 DIABETES MELLITUS WITHOUT COMPLICATIONS Status: Acute (6) Anxiety Code(s): F41.9 - ANXIETY DISORDER, UNSPECIFIED Status: Acute (7) Alkaline phosphatase elevation Code(s): R74.8 - ABNORMAL LEVELS OF OTHER SERUM ENZYMES Status: Acute (8) Vertebral fracture Code(s): QSS1109 - Status: Acute Qualifiers: Lumbar vertebra fracture level: L4 - Plan Plan: Mr. Angel is a 59 yo M who presents with generalized weakness 1. Intraparenchymal Hemorrhage likely 2/2 HTN Emergency -Hx uncontrolled HTN, BP 180s on arrival -CT head shows Intraparenchymal hemorrhage -Neurosurgery consulted, appreciate recs -monitoring SBP tightly, keep SBP <150 per neuro -CT head in AM -Transfer to ICU on Cardene drip -Trauma consulted from ED, appreciate recs -Pulmonology consulted, appreciate recs -NPO for speech -Neuro checks q2h -PT/PTT/INR -Seizure precautions -Neurology consulted -Medication Management: * Started Statin * Will hold ASA * A1C was 8.1 we will treat with sliding scale insulin for now. D/c on Metformin 2. Generalized Weakness -diffuse; from neuromuscular disorder vs stroke vs deconditioning vs vitamin deficiency vs diabetic neuropathy vs other -PT/OT consulted, up with assist. Chair as tolerated -TSH, B12 wnl. CK mildly elevated. -A1C 8.1 -HIV/RPR/Hep C: Non-reactive -UA and U Cx: pending -Request records from PCP/BS&W in AM -Neurology Consulted * Recommend outpt EEG & Nerve conduction studies -Hx of chemical and lead exposure. Will check 3. Indeterminate trop, likely 2/2 NSTEMI type 2 due to Stroke -Elevated CKMB, Trop indeterminate -EKG shows NSR, LAD, nonspecific ST and T wave abnormality. -CXR no acute findings. 4. HTN Emergency -Currently on cardene drip -BP goal SBP <150 per neurosurgery -Will start medications once speech comes by and evaluates 5. Hypomagnesemia -Monitor and replace 6. Weight loss Severe protein/calorie malnutrition -Patient is only eating 1 can of soup per 2 days, cooks for himself -CT chest abd/pelv: cyst present in L kidney -HIV/RPR/hep C pending -TSH wnl -B6 pending and B12 wnl -May need further work up outpatient 7. Anxiety -aware, on an unknown medication, possibly a benzo 8. Mild hyponatremia -suspect malnutrition, consult quarrying specialist -Monitor 9. Alk phos elevation -121 -consider GGT 10. Diabetes Mellitus Type 2 -A1C 8.1 -Hyperglycemia protocol, ACHS accuchecks, mild SSI -will need to be restarted on metformin prior to DC 11. L4 Vertebral fracture -aware -consider MRI follow up per rads recs Diet: NPO for speech DVT ppx: SCDs GI ppx: Famotidine Code Status: DNAR PCP: None Dispo: Will start blood pressure medications PO once he has been evaluated by speech. Consulted Neurology due to weakness and stroke. Will get PT/OT recommendations. Addendum - Attending - Attending Attestation Date/Time: 11/26/19 1121 I personally evaluated the patient and discussed the management with Dr. Parish. I agree with the History, Examination, Assessment and Plan documented above with any addition or exceptions noted below.
[2019-11-26] MEDS: niCARdipine 25 MG in Sodium Chloride 0.9% 250 ML 240 ML IVPB PRN ×2 (07:56→14:18)
[2019-11-26] MEDS: Potassium Chloride 20 MEQ in Premix Bag 1 BAG IVPB SCH ×2 (07:57→10:59)
[2019-11-26] MEDS: Famotidine/PF 20 mg/2ml Vial SLOW IVP SCH (07:58)
--- NOTE | 2019-11-26 09:39 | CON ---
DATE OF CONSULTATION: 11/26/2019 REQUESTING: Family Medicine. CHIEF COMPLAINT: Generalized weakness and falls for several months, rib fractures. HISTORY OF PRESENT ILLNESS: The patient presented to the emergency room with generalized weakness that started several months ago which has worsened. The patient has been too weak to stand. The patient reports a decreased appetite, only eating 1 can of Joseph soup that last him 2 days. The patient reports that he is not eating because he does not want his family to have to help clean him up. The patient previously had an injury with left-sided rib fractures. The patient also sustained a hypertensive intracranial hemorrhage. Trauma Services was consulted for rib fractures. Neurosurgical Services also consulted in managing his intracranial hemorrhage. The patient denies any rib pain, chest pain or shortness of breath at this time. REVIEW OF SYSTEMS: A 10-point review of systems is negative unless otherwise indicated in the above HPI. ALLERGIES: NO KNOWN DRUG ALLERGIES. HOME MEDICATIONS: 1. Norvasc 2.5 mg p.o. at bedtime. 2. Aspirin 81 mg p.o. daily. 3. Multivitamin 1 tab daily. PAST MEDICAL HISTORY: Type 2 diabetes, hypertension, depression, anxiety. SURGICAL HISTORY: None. SOCIAL HISTORY: Oral tobacco since 13 years old. Denies drug use, denies alcohol use. Lives at home alone. PHYSICAL EXAMINATION: VITAL SIGNS: Pulse 87, blood pressure 118/73, respirations 18, SpO2 of 96% on room air. GENERAL: Awake, alert, in no distress, middle-aged male, frail appearing. HEENT: Head is atraumatic, normocephalic. Pupils equal bilateral. Oropharynx is clear. Mucous membranes slightly dry. NECK: Normal range of motion. No posterior tenderness. Trachea midline. No JVD. RESPIRATORY: Equal chest rise and fall. Bilateral breath sounds clear. No wheezing, rales or rhonchi. No distress. ABDOMEN: Soft, nontender, nondistended. No peritoneal signs. EXTREMITIES: Moves all extremities. Neurovascularly intact x4. Generalized weakness. Healed lesions to the left foot and right foot. NEUROLOGIC: No focal deficits. GCS 15. LABORATORY DATA: WBC 8.6, RBC 4.91, hemoglobin 14.9, hematocrit 44.9, platelets 192. Sodium 134, potassium 3.3, chloride 96, creatinine 1.13, estimated GFR 66, BUN 17, glucose 119, calcium 8.7. DIAGNOSTIC DATA: Chest x-ray, impression, no acute cardiopulmonary process. Old left rib fractures. Chest, abdomen and pelvis CT, fractures involving the left 8th, 9th and 10th ribs. ASSESSMENT: 1. Generalized weakness with multiple falls. 2. Left-sided rib fractures, 8th, 9th and 10th ribs, denies pain. 3. Intraparenchymal hemorrhage, likely secondary to hypertensive emergency. PLAN: Recommend incentive spirometer use every hour x10 while awake. Increase activity. Pain control with rib fracture protocol as needed, Tylenol, tramadol, and gabapentin. Trauma Services will sign off at this time. Thank you for the consult. Please let us know if we can be of further assistance. The plan was discussed with Dr. Olmedo. Job ID: [id number] [facility]ITALS[facility]ila
[2019-11-26] MEDS ORDERED: Magnesium 2 GM/50 ML 2 GM in Premix Bag 1 BAG IVPB SCH (10:15)
--- NOTE | 2019-11-26 11:16 | CON ---
DATE OF CONSULTATION: 11/26/2019 CONSULTING: [employer] Professor Service. REASON FOR CONSULTATION: ICU placement after the patient had an intracranial hemorrhage. HISTORY OF PRESENT ILLNESS: The patient is a 59-year-old male, who presents from home with generalized weakness after multiple recent falls, found to have a right thalamic hemorrhage on CT scan. He had a grossly elevated blood pressure at time of admission and was placed on a nicardipine drip. PAST MEDICAL HISTORY: 1. Hypertension. 2. Diabetes mellitus type 2. 3. Depression. 4. Anxiety. PAST SURGICAL HISTORY: Not known. SOCIAL HISTORY: Uses smokeless tobacco. Does not consume alcohol. Lives alone. ALLERGIES: NONE. MEDICATIONS: 1. Aspirin. 2. Metformin. 3. Possibly antidepressant. REVIEW OF SYSTEMS: Remarkable for weakness, difficulty ambulating, multiple falls. PHYSICAL EXAMINATION: VITAL SIGNS: Pulse 89, blood pressure 146/73, O2 saturation 97%, respiratory rate 18, and temperature 98.8. GENERAL: He is a pleasant gentleman who is in no distress. HEENT: Pupils reactive. Sclerae anicteric. Oropharynx clear. NECK: No adenopathy or JVD. LUNGS: Clear anteriorly. CARDIOVASCULAR: S1 and S2. Regular. ABDOMEN: Soft, nontender to palpation. EXTREMITIES: No clubbing, cyanosis, or edema. 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 LABORATORY DATA: White blood cell count 8.6, hematocrit 44, platelet count 192. Sodium 134, potassium 3.3, chloride 96, CO2 of 28, BUN 17, creatinine 1.1, and glucose 102. HIV was negative. CT shows a right thalamic hemorrhage. ASSESSMENT: 1. Hypertension, out of control. 2. Right thalamic hemorrhage. PLAN: 1. Blood pressure control with nicardipine with eventual conversion to oral medications. 2. Needs a coronavirus test. 3. Stroke care per Neurology/Neurosurgery. Job ID: [id number]
--- NOTE | 2019-11-26 12:11 | CON ---
NEUROLOGY CONSULTATION DATE OF CONSULTATION: 11/26/2019 REASON FOR CONSULTATION: Intraparenchymal hemorrhage/generalized weakness and falls. HISTORY OF PRESENT ILLNESS: Mr. Abran Angel is a 59-year-old male with medical history significant for hypertension, depression, anxiety, diabetes, presented with generalized weakness. Per the patient, he is able to walk with a cane, but since the last 2 days, he was unable to walk and felt extremely weak. He did lose considerable weight over the last few months and reports generalized weakness. He also has not taken his hypertensive medications since he was concerned about the side effects. On arrival to the emergency room, his systolic blood pressure was 189, so Cardene drip was started with a goal of systolic blood pressure less than 150. Head CT was done in the emergency room, which shows right-sided hemorrhage, likely due to hypertension. The patient denies recent falls or hitting his head. He denies any focal numbness, focal paresthesias, nausea, vomiting, headache, chest pain, abdominal pain, but does report numbness and paresthesias in the stocking distribution. The patient denies loss of vision or loss of consciousness or involuntary movements. Neurosurgery was consulted and recommended conservative measures with blood pressure management. In the Emergency, he was given 2 g of magnesium sulfate and Cardene drip and transferred to CCU for further management. ALLERGIES: NO KNOWN DRUG ALLERGIES. HOME MEDICATIONS: 1. Amlodipine 2.5 mg p.o. at bedtime. 2. Aspirin 81 mg p.o. daily. 3. Multivitamin one tab p.o. daily. 4. Lisinopril 10 mg p.o. daily. 5. Sertraline 50 mg p.o. daily. 6. Metformin 1000 mg p.o. b.i.d. PAST MEDICAL HISTORY: Diabetes mellitus, hypertension, depression, and anxiety. PAST SURGICAL HISTORY: He had some operation as a teenager, but does not recall the details. SOCIAL HISTORY: Tobacco dip since 13 years of age. Denies alcohol or illegal drug use. He lives alone at home. ALLERGIES: NO KNOWN DRUG ALLERGIES. REVIEW OF SYSTEMS: All 14 systems were reviewed and were negative except the pertinent positives and negatives mentioned per the HPI. Vital Signs & Weight: Vital Signs (12 hours) Temp Pulse Ox 11/26/19 04:00 98.8 F 11/26/19 00:00 98.7 F 11/25/19 22:00 98.6 F 100 Weight Weight 79 kg Most Recent Monitor Data Heart Rate from ECG 89 NIBP 143/79 NIBP BP-Mean 100 Respiration from ECG 11 SpO2 97 I&O: 11/25/19 11/26/19 11/27/19 06:59 06:59 06:59 Intake Total 571.2 Output Total 870 Balance -298.8 - Physical Examination Constitutional: NAD HEENT: moist MMs, sclera anicteric Neck: no nodes, supple Respiratory: no wheezing, no rales, no rhonchi, clear to auscultation bilateral Cardiovascular: RRR, no significant murmur Gastrointestinal: soft, non-tender, positive bowel sounds Musculoskeletal: no edema strength is 3-4/5 in all extremities, he does not have any felt cutter strength Lymphatic: no nodes Psychiatric: normal affect Skin: no rash, normal turgor NEUROLOGIC: Mental status, the patient is alert and oriented to person, place, and time. Speech is clear. Cranial nerves 2 through 12 intact. Motor, muscle tone and bulk are normal. Limited movements of all 4 extremities. Cerebellar, did not cooperate secondary to weakness. Gait deferred due to the patient's safety reason. Sensory, decreased sensation to pinprick, light touch in a stocking distribution. DATA REVIEWED: I reviewed the labs, which were significant for hyponatremia 133 and hyperglycemia 176. Rest of the labs were essentially unremarkable. ASSESSMENT AND PLAN: (1) Intraparenchymal hemorrhage of brain Code(s): I61.9 - NONTRAUMATIC INTRACEREBRAL HEMORRHAGE, UNSPECIFIED Status: Acute (2) Generalized weakness Code(s): R53.1 - WEAKNESS Status: Acute (3) Hypertensive emergency Code(s): I16.1 - HYPERTENSIVE EMERGENCY Status: Acute (4) Weight loss Status: Acute (5) Diabetes mellitus Code(s): E11.9 - TYPE 2 DIABETES MELLITUS WITHOUT COMPLICATIONS Status: Acute (6) Anxiety Code(s): F41.9 - ANXIETY DISORDER, UNSPECIFIED Status: Acute (7) Alkaline phosphatase elevation Code(s): R74.8 - ABNORMAL LEVELS OF OTHER SERUM ENZYMES Status: Acute (8) Vertebral fracture Code(s): CIJ6728 - Status: Acute Qualifiers: Lumbar vertebra fracture level: L4 Mr. Abran Angel is a 59-year-old male with a history significant for hypertension, diabetes, and depression, presented with progressive weakness and head CT shows intraparenchymal hemorrhage. Neurosurgery on board and they do not feel the need of surgical intervention at this time. Strict control of blood pressure with goal of systolic blood pressure less than 150. Neuro checks every 2 hours. Observe seizure precautions. Consider Keppra 500 mg p.o. b.i.d. for seizure prophylaxis. EEG to rule out cortical irritability due to intraparenchymal hemorrhage. N.p.o. until cleared by Speech. No anticoagulants or antiplatelets at this time because of the bleed. Continue home medications. Continue medical management. Strict control of blood glucose. Check hemoglobin A1c for generalized weakness, ongoing issue. The patient needs extensive neuromuscular workup as outpatient including the EMG nerve conduction study by an outpatient neurologist. We do not have the capability to perform neuromuscular testing at our inpatient facility. Continue medical management per primary team and Neurosurgery, PT/OT/Speech. Continue home medications. Continue malignancy workup for unintentional weight loss per primary team. Correct metabolic abnormalities. We will continue to follow. Thank you for the consult. Job ID: [id number] MTDD
--- NOTE | 2019-11-26 15:48 | EEG ---
DATE OF SERVICE: 11/26/2019 ATTENDING PHYSICIAN: Quyen Mayberry MD. This EEG was performed using 24-channel fl3ur video digital EEG machine with 24-disk electrodes. This was an extended 2 hours 5 minutes of inpatient video EEG recording. Digital analysis of the EEG was done for spike and seizure detection, which revealed no abnormalities. BACKGROUND: There is a nonsustained posterior background rhythm of 7-8 hertz. Minimal reactivity seen with eye opening and closure. HYPERVENTILATION: Not performed. PHOTIC STIMULATION: No significant response seen with photic stimulation. SLEEP: Drowsiness is observed. EEG DIAGNOSES: 1. Intermittent irregular theta activity seen during the recording. 2. Slow nonsustained posterior background rhythm. CLINICAL INTERPRETATION: This EEG is consistent with [id number] generalized nonspecific cerebral dysfunction. Job ID: [id number]
[2019-11-26] MEDS ORDERED: tiZANidine HCl 4 MG TAB PO PRN (16:10)
[2019-11-26] MEDS ORDERED: Lactated Ringer's 1,000 ML IV SCH (16:15)
[2019-11-26 17:34] LABS: SARS-CoV-2 MS2 Positive; SARS-CoV-2 N Gene Negative; SARS-CoV-2 S Gene Negative; SARS-CoV-2 by NAA Not Detected (NotDetected); SARS-CoV-2 orf1ab Negative
--- NOTE | 2019-11-26 19:33 | CT ---
Exam: Head CT without contrast HISTORY: Increased confusion. Change in mental status. Known parenchymal hemorrhage COMPARISON: 11/26/2019 FINDINGS: Hemorrhage: Stable intraparenchymal hemorrhage, measuring 1.5 x 0.8 cm, previous the measuring 1.0 x 1.6 cm. Stable associated adjacent edema. No new parenchymal hemorrhage or extra-axial hematoma. Brain parenchyma: Cortical [place]-white matter differentiation is preserved. No mass effect or midline shift. Basilar cisterns are patent.Stable hypodensities in the left and right márquez radiata. Ventricular system: Ventricles and sulci are patent and symmetric. Calvarium: Intact. Sinuses and mastoid air cells: Adequate aeration. IMPRESSION: Stable intracranial hemorrhage. No significant interval change.
[2019-11-26 20:12] LABS: Potassium 3.7 mmol/L (3.5-5.1)
[2019-11-26 20:24] LABS: Troponin I 0.067 ng/mL (< 0.028)
[2019-11-27] MEDS: Amlodipine 5 MG TAB PO SCH ×2 (00:39→21:36)
[2019-11-27] MEDS: Atorvastatin Calcium 40 MG TAB PO SCH ×2 (00:41→21:38)
[2019-11-27] MEDS: Famotidine/PF 20 mg/2ml Vial SLOW IVP SCH ×3 (00:42→21:36)
[2019-11-27 01:09] LABS: Bacteria/HPF None Seen HPF (None Seen); Bilirubin Negative (Negative); Blood, Urine 1+ (Negative); Clarity Clear (Clear); Glucose, Urine (Dipstick) 30 mg/dL (Negative); Ketone, Urine Trace mg/dL (Negative); Leukocyte 75 Leu/uL (Negative); Nitrite Negative (Negative); Protein, Urine (Dipstick) 100 mg/dL (Neg-Trace); RBC/HPF 0-3 HPF (0-3); Specific Gravity, Urine 1.035 (1.002-1.036); Squamous Epithelial None Seen HPF (0-3); Urobilinogen Normal mg/dL (Less than 2); pH, Urine 5.5 (5.0-9.0)
[2019-11-27] MEDS: Sodium Chloride 0.9% 1,000 ML IV SCH ×3 (01:25→21:38)
[2019-11-27] MEDS: Labetalol HCl 100 MG/20 ML VIAL SLOW IVP PRN ×3 (04:00→23:41)
[2019-11-27] MEDS: niCARdipine 25 MG in Sodium Chloride 0.9% 250 ML 240 ML IVPB PRN (05:25)
--- NOTE | 2019-11-27 06:35 | PDOC.FM ---
- Subjective Subjective: Pt complains of no pain currently. He states that he is hungry this morning. Discussed more in depth the work up he had with his doctor and he said that he never actually worked up his neuromuscular problems. - Objective MAR Reviewed: Yes Vital Signs & Weight: Vital Signs (12 hours) Temp Pulse BP Pulse Ox 11/27/19 04:00 98.6 F 85 150/61 H 11/27/19 00:39 85 127/63 11/27/19 00:00 98.4 F 98 11/26/19 20:00 98.1 F 100 Weight Admit Weight 78.925 kg Weight 82.7 kg Most Recent Monitor Data Heart Rate from ECG 85 NIBP 136/71 NIBP BP-Mean 92 Respiration from ECG 14 SpO2 100 I&O: 11/25/19 11/26/19 11/27/19 06:59 06:59 06:59 Intake Total 571.2 3614 Output Total 870 519 Balance -298.8 3095 Result Diagrams: 11/26/19 01:43 11/26/19 19:44 Phys Exam - Physical Examination anxious this morning HEENT: PERRLA, moist MMs, sclera anicteric Neck: no nodes, supple Respiratory: no wheezing, no rales, no rhonchi, clear to auscultation bilateral Cardiovascular: RRR, no significant murmur Gastrointestinal: soft, non-tender, positive bowel sounds Musculoskeletal: no edema, pulses present generalized weakness 3-4/5 U&LE Lymphatic: no nodes Psychiatric: A&O x 3 Deviation from normal: he is seeing things that are not there Skin: no rash, normal turgor Dx/Plan (1) Intraparenchymal hemorrhage of brain Code(s): I61.9 - NONTRAUMATIC INTRACEREBRAL HEMORRHAGE, UNSPECIFIED Status: Acute (2) Generalized weakness Code(s): R53.1 - WEAKNESS Status: Acute (3) Hypertensive emergency Code(s): I16.1 - HYPERTENSIVE EMERGENCY Status: Acute (4) Weight loss Status: Acute (5) Diabetes mellitus Code(s): E11.9 - TYPE 2 DIABETES MELLITUS WITHOUT COMPLICATIONS Status: Acute (6) Anxiety Code(s): F41.9 - ANXIETY DISORDER, UNSPECIFIED Status: Acute (7) Alkaline phosphatase elevation Code(s): R74.8 - ABNORMAL LEVELS OF OTHER SERUM ENZYMES Status: Acute (8) Vertebral fracture Code(s): [id number] - Status: Acute Qualifiers: Lumbar vertebra fracture level: L4 - Plan Plan: Mr. Angel is a 59 yo M who presents with generalized weakness 1. Intraparenchymal Hemorrhage likely 2/2 HTN Emergency -Hx uncontrolled HTN, BP 180s on arrival -CT head shows Intraparenchymal hemorrhage -Neurosurgery consulted, appreciate recs -monitoring SBP tightly, keep SBP <150 per neuro -CT head in AM -Transfer to ICU on Cardene drip -Trauma consulted from ED, appreciate recs -Pulmonology consulted, appreciate recs -NPO for speech -Neuro checks q2h -PT/PTT/INR -Seizure precautions -Neurology consulted -Medication Management: * Started Statin * Will hold ASA * A1C was 8.1 we will treat with sliding scale insulin for now. D/c on Metformin * Started home meds and d/c cardene drip 11/26 2. Generalized Weakness -diffuse; from neuromuscular disorder vs stroke vs deconditioning vs vitamin deficiency vs diabetic neuropathy vs other -PT/OT consulted, up with assist. Chair as tolerated -TSH, B12 wnl. CK mildly elevated. -A1C 8.1 -HIV/RPR/Hep C: Non-reactive -UA and U Cx: pending -Request records from PCP/[facility] in AM -Neurology Consulted * Recommend outpt EEG & Nerve conduction studies -Hx of chemical and lead exposure. Will check 3. Indeterminate trop, likely 2/2 NSTEMI type 2 due to Stroke -Elevated CKMB, Trop indeterminate -EKG shows NSR, LAD, nonspecific ST and T wave abnormality. -CXR no acute findings. 4. HTN Emergency -Currently on cardene drip -BP goal SBP <150 per neurosurgery 5. Hypomagnesemia -Monitor and replace 6. Weight loss Severe protein/calorie malnutrition -Patient is only eating 1 can of soup per 2 days, cooks for himself -CT chest abd/pelv: cyst present in L kidney -HIV/RPR/hep C pending -TSH wnl -B6 pending and B12 wnl -May need further work up outpatient 7. Anxiety -aware, on an unknown medication, possibly a benzo 8. Mild hyponatremia -suspect malnutrition, consult hematology supervisor -Monitor 9. Alk phos elevation -Will get labs and re-evaluate today. 10. Diabetes Mellitus Type 2 -A1C 8.1 -Hyperglycemia protocol, ACHS accuchecks, mild SSI -will need to be restarted on metformin prior to DC 11. L4 Vertebral fracture -aware -consider MRI follow up per rads recs Diet: NPO for speech DVT ppx: SCDs GI ppx: Famotidine Code Status: DNAR PCP: None Dispo: Will transfer to the floor with restarted home meds for blood pressure. Periods of decreased output, I believe he is behind on fluids, we will monitor output. Continue therapy. MRI today. Addendum - Attending - Attending Attestation Date/Time: 11/27/19 1234 I personally evaluated the patient and discussed the management with Dr. Parish. I agree with the History, Examination, Assessment and Plan documented above with any addition or exceptions noted below.
[2019-11-27] MEDS ORDERED: Lisinopril 10 MG TAB PO SCH (09:00)
[2019-11-27] MEDS ORDERED: FLU VACC QS2020-21(6MOS UP)/PF 60 MCG/0.5 ML SYRINGE IM ONE (09:00)
--- NOTE | 2019-11-27 09:06 | PRG ---
DATE OF SERVICE: 11/27/2019 SUBJECTIVE: The patient is doing relatively okay, all things considered. He remains on nicardipine drip. OBJECTIVE: VITAL SIGNS: Temperature 98.7, pulse 87, blood pressure 133/75, O2 saturation 98%. NEUROLOGICAL: He is generally weak throughout, but his exam is nonfocal except for the neuromuscular weakness. HEENT: Otherwise unremarkable. NECK: No JVD. CHEST: Clear. CARDIAC: S1, S2. Regular. ABDOMEN: Soft. EXTREMITIES: No edema. LABORATORY DATA: No labs were obtained today. ASSESSMENT: 1. Thalamic stroke. 2. Severe neuromuscular weakness. PLAN: 1. Wean off nicardipine as tolerated. 2. May need other investigation in the future regarding weakness - possibly cervical spine workup or ALS workup. 3. We will follow as long he is in the ICU. Job ID: [id number]
[2019-11-27] MEDS ORDERED: Bupropion 150 MG XL TAB PO SCH (10:00)
[2019-11-27] MEDS: Bupropion 150 MG XL TAB PO SCH (12:16)
--- NOTE | 2019-11-27 13:05 | PRG ---
DATE OF SERVICE: 11/27/2019 Mr. Angel is a 59-year-old man admitted for a right thalamic hemorrhage, likely related to hypertension. He also has findings of myelopathy and essentially generalized wasting on exam. He is alert and appropriate, and a head CT has been stable. I am in favor of an MRI of the cervical and lumbar spine. Job ID: [id number]
--- NOTE | 2019-11-27 15:03 | MRI ---
MRI BRAIN NONCONTRAST: DATE: 11/27/2019 HISTORY: 59-year-old male with acute hemorrhagic stroke COMPARISON: No prior brain MRIs. FINDINGS: All images are degraded by patient motion, some worse than others. There is an approximately 1.9 x 0.8 x 1.6 cm well-circumscribed lesion at the posterior lateral aspec t of the right basal ganglia involving the junction between the posterior limb of the right internal capsule and the right external capsule, with T1 hypointensity, signal void on T2 WI and FLAI R, and magnetic susceptibility blooming artifact on gradient echo sequence. The signal characteristics are consistent with deoxyhemoglobin, consistent with hemorrhage from several hours to 3 days old. (Review of CT of 11/25/2019 that this is now 3 days old). There is a thin surrounding halo of vasogenic edema. Small old lacunar infarctions with hemosiderin stains at posterior limb of right internal capsule and right thalamus. The old lacunar infarct at posterior limb of right internal capsule extends superiorly to involve the body of the right caudate nucleus. Small old lacunar infarction at upper left basal ganglia reaching periventricular white matter. Small old lacunar infarction in left thalamus. Flow voids are grossly maintained in the major arteries of [place]. No obstructive hydrocephalus. Mild to moderate chronic ischemic white matter changes of centrum semiovale, márquez radiata, and brai nstem. No mass effect or midline shift. Negative cisterna magna. No restricted diffusion: No acute ischemic infarction. IMPRESSION: 1) acute intra-axial hemorrhage near the posterior aspect of the right basal ganglia, 3 days old. 2) small old lacunar infarctions in bilateral corpus striatum and bilateral thalami. 2 of the ones on the right had prior hemorrhage
[2019-11-28] MEDS ORDERED: Amlodipine 5 MG TAB PO SCH ×2 (00:28→00:30)
[2019-11-28] MEDS ORDERED: Labetalol HCl 100 MG/20 ML VIAL SLOW IVP SCH (00:45)
[2019-11-28] MEDS: cloNIDine 0.1 MG TAB PO PRN ×2 (01:59→16:25)
[2019-11-28] MEDS: Labetalol HCl 100 MG/20 ML VIAL SLOW IVP PRN ×4 (02:52→21:47)
[2019-11-28 04:55] LABS: #Basophils 0.1 thou/uL (0.0-0.2); #Eosinphils 0.1 thou/uL (0.0-0.7); #Lymphocytes 2.1 thou/uL (1.20-3.40); #Monocytes 0.7 thou/uL (0.11-0.59); #Neutrophils 4.5 thou/uL (1.40-6.50); %Basophils 0.7 % (0.0-1.0); %Eosinophils 1.3 % (0.0-10.0); %Monocytes 9.2 % (0.0-10.0); %Neutrophils 60.8 % (42.0-75.0); Hemoglobin 12.9 g/dL (14.0-18.0); Mean Corpuscular HGB CONC 33.6 g/dL (32.0-36.0); Mean Corpuscular Hemoglobin 30.7 pg (27.0-31.0); Mean Corpuscular Volume 91.4 fL (78.0-98.0); Mean Platelet Volume 8.8 fL (7.4-10.4); Platelet Count 176 thou/uL (130-400); RBC Distribution Width 12.1 % (11.5-14.5); Red Blood Cell (RBC) Count 4.21 mill/uL (4.70-6.10); White Blood Cell (WBC) Count 7.5 thou/uL (4.8-10.8)
[2019-11-28 05:20] LABS: ALT (SGPT) 12 U/L (8-55); AST (SGOT) 23 U/L (5-34); Albumin 2.6 g/dL (3.4-4.8); Alkaline Phosphatase 94 U/L (40-110); Anion Gap 11 mmol/L (10-20); BUN (Urea Nitrogen) 14 mg/dL (8.4-25.7); Bilirubin, Total 1.1 mg/dL (0.2-1.2); Calc. Creatinine Clearance 128 mL/min (70-130); Calcium 8.2 mg/dL (7.8-10.44); Carbon Dioxide 24 mmol/L (23-31); Chloride 105 mmol/L (98-107); Estimated GFR-MDRD Greater than 90; Globulin 2.9 g/dL (2.4-3.5); Glucose 100 mg/dL (80-115); Potassium 3.4 mmol/L (3.5-5.1); Protein, Total 5.5 g/dL (5.8-8.1); Sodium 137 mmol/L (136-145)
--- NOTE | 2019-11-28 05:25 | PDOC.FM ---
- Subjective Subjective: Mr. Angel is doing well this morning. He has no complaints. He still feels weak all over. - Objective Vital Signs & Weight: Vital Signs (12 hours) Temp Pulse Resp BP BP Pulse Ox 11/28/19 03:24 98.3 F 80 16 177/84 H 95 11/28/19 02:52 81 175/96 H 11/28/19 01:59 173/94 H 11/28/19 01:05 85 170/94 H 11/27/19 23:41 178/96 H 11/27/19 21:35 86 182/96 H 11/27/19 20:00 97.7 F 86 13 193/106 H 96 Weight Admit Weight 78.925 kg Weight 82.7 kg Most Recent Monitor Data Heart Rate from ECG 89 NIBP 135/75 NIBP BP-Mean 95 Respiration from ECG 14 SpO2 98 I&O: 11/26/19 11/27/19 11/28/19 06:59 06:59 06:59 Intake Total 571.2 3614 1289 Output Total 870 519 180 Balance -298.8 3095 1109 Result Diagrams: 11/28/19 04:38 11/28/19 04:38 EKG Reviewed by me: Yes (tele: intermittent PVCs) Phys Exam - Physical Examination Constitutional: NAD HEENT: moist MMs, sclera anicteric Respiratory: no wheezing, clear to auscultation bilateral Cardiovascular: RRR, no significant murmur Gastrointestinal: soft, non-tender Musculoskeletal: no edema, pulses present decreased strength in lower limbs Psychiatric: normal affect, A&O x 3 Dx/Plan - Plan Plan: Mr. Angel is a 59 yo M who presents with generalized weakness 1. Intraparenchymal Hemorrhage likely 2/2 HTN Emergency -Hx uncontrolled HTN, BP 180s on arrival -CT head shows Intraparenchymal hemorrhage -Neurosurgery consulted, appreciate recs -repeat CT stable -was placed on cardene for BP control. Has since been discontinued and patient transferred back to floor. BPs in 170-180s/90s and not responding to clonidine and labetalol. Increased amlodipine and labetolol. -Trauma consulted from ED, appreciate recs -Pulmonology consulted, appreciate recs -Neuro checks q2h -PT/PTT/INR -Seizure precautions -Neurology consulted -Medication Management: * Started Statin * Will hold ASA * A1C was 8.1 we will treat with sliding scale insulin for now. D/c on Metformin * Started home meds and d/c cardene drip 11/26 -MRI: sub-acute basal ganglia infarct, sub-acute w/remote corpus striatum/thalamic infarcts 2. Generalized Weakness -diffuse; from neuromuscular disorder vs stroke vs deconditioning vs vitamin def iciency vs diabetic neuropathy vs other -PT/OT consulted, up with assist. Chair as tolerated -TSH, B12 wnl. CK mildly elevated. -A1C 8.1 -HIV/RPR/Hep C: Non-reactive -UA neg and U Cx pending -Request records from PCP/BS&W in AM -Neurology Consulted * Recommend outpt EEG & Nerve conduction studies -Hx of chemical and lead exposure. Lead level <1 3. Indeterminate trop, likely 2/2 NSTEMI type 2 due to Stroke -Elevated CKMB, Trop indeterminate -EKG shows NSR, LAD, nonspecific ST and T wave abnormality. -CXR no acute findings. 4. HTN Emergency -D/C cardene drip yesterday -BP goal SBP <150 per neurosurgery -Has been 170-180s/90s, not responding to prn clonidine and labetalol -increased amlodipine and lisinopril 5. Hyperkalemia -Monitor and replace 6. Hypomagnesemia -Monitor and replace 7. Weight loss Severe protein/calorie malnutrition -Patient is only eating 1 can of soup per 2 days, cooks for himself -CT chest abd/pelv: cyst present in L kidney -HIV/RPR/hep C pending -TSH wnl -B6 pending and B12 wnl -May need further work up outpatient 8. Anxiety -aware, on an unknown medication, possibly a benzo 9. Mild hyponatremia -suspect malnutrition, consult roping tender -Monitor 10. Alk phos elevation -Will get labs and re-evaluate today. 11. Diabetes Mellitus Type 2 -A1C 8.1 -Hyperglycemia protocol, ACHS accuchecks, mild SSI -will need to be restarted on metformin prior to DC 12. L4 Vertebral fracture -aware -MRI cervical and lumbar spine pending Diet: CC DVT ppx: SCDs GI ppx: Famotidine Code Status: DNAR PCP: None Dispo: Work on better blood pressure control today. MRI cervical spine pending. Addendum - Attending - Attending Attestation Date/Time: 11/28/19 [id number] I personally evaluated the patient and discussed the management with Dr. Duran. I agree with the History, Examination, Assessment and Plan documented above with any addition or exceptions noted below. Pt remains hypertensive, adjusting oral bp meds. Appreciate NS recs. Continue therapy. Getting Lumbar MRI but Cervical MRI will wait until tomorrow.
[2019-11-28] MEDS: Sodium Chloride 0.9% 1,000 ML IV SCH ×2 (07:38→16:40)
[2019-11-28] MEDS ORDERED: Potassium Chloride 40 MEQ in Sodium Chloride 0.9% 250 ML 250 ML IVPB SCH (08:00)
[2019-11-28 08:38] LABS: Lead-Whole Blood Less than 1 ug/dL (0-4)
[2019-11-28] MEDS: Famotidine/PF 20 mg/2ml Vial SLOW IVP SCH (08:59)
[2019-11-28] MEDS ORDERED: Lisinopril 20 MG TAB PO SCH (09:00)
--- NOTE | 2019-11-28 11:29 | PRG ---
DATE OF SERVICE: 11/28/2019 Brain MRI on Mr. Angel demonstrates evidence of prior infarct and a small hemorrhage again in the basal ganglia thalamic region. Evidently, an MRI of the cervical spine was not performed. Followup would be repeat head CT and we could talk to him more about spinal imaging, although he does not seem to be very enthused in regard to pursuance of that. Job ID: [id number]
[2019-11-28] MEDS: Bupropion 150 MG XL TAB PO SCH (11:52)
--- NOTE | 2019-11-28 15:39 | MRI ---
MRI lumbar spine noncontrast HISTORY: Back pain. Weakness. FINDINGS: The conus medullaris has a normal appearance. Motion artifact limits evaluation of the retr operitoneal structures. There is desiccation of the lowest 3 intervertebral discs. Ill-defined increased T2 signal and decreased T1 signal is present within the L4 and L5 vertebral bod ies. An irregular linear signal void containing small amount of fluid anteriorly correlates with a defect on the CT images from 11/25/2019 that may represent an old fracture. There is no significant lo ss of height. There is also subtle edematous signal within the bilateral paraspinal posterior musculature at the L2-L5 levels. No focal fluid collections. Extensive motion artifact at the level of the upper lumbar spine. T12-L1: Mild disc space narrowing. Posterior disc bulge and circumferential degenerative changes. Mil d to moderate stenosis of the central canal and each neural foramen. L1-2: Minimal degenerative spondylolisthesis. Posterior disc bulge and circumferential degenerative c hanges. Moderate stenosis of the central canal and each neural foramen. L2-3: Disc space narrowing. Posterior disc bulge and circumferential degenerative changes. Severe davonte nosis of the central canal. Moderate stenosis of each neural foramen. L3-4: Disc space narrowing and minimal degenerative retrolisthesis. Posterior disc bulge and circumfe rential degenerative changes. Severe stenosis of the central canal and each neural foramen. L4-5: Posterior disc bulge and circumferential degenerative changes. Mild to moderate stenosis of the central canal. Severe stenosis of each neural foramen, left greater than right. L5-S1: Posterior disc protrusion with slight inferior extension. Osteophytosis of each facet. Thecal sac is patent. Severe stenosis of each neural foramen. IMPRESSION : Prominent multilevel degenerative changes throughout the lumbar spine as detailed above, including se fabien central canal and foraminal stenoses. No acute nerve root compression is apparent. Edematous signal within the L4 and L5 vertebral bodies with the appearance of subacute injury not res ulting in significant compression deformity. Edematous signal within the posterior paraspinous musculature may also be related to an acute/subacute injury.
[2019-11-28] MEDS ORDERED: Amlodipine 10 MG TAB PO SCH (18:00)
--- NOTE | 2019-11-28 19:10 | CT ---
CT Brain WO Con History: Intraparenchymal hemorrhage Comparison: CT brain 2 days prior Findings: No significant enlargement of the right basal ganglia ovoid intraparenchymal hemorrhage giv en differences in the head angulation within the gantry. No new foci of hemorrhage. Moderate microvascular ischemic changes. Small volume vasogenic edema along the right basal ganglia hemorrhage . Calvarium is intact. Paranasal sinuses and mastoids are clear. No midline shift or mass effect Impression: No significant interval growth of the right basal ganglia hemorrhage.
[2019-11-28] MEDS: Famotidine 20 MG TAB PO SCH (21:37)
[2019-11-28] MEDS: Atorvastatin Calcium 40 MG TAB PO SCH (21:37)
[2019-11-28] MEDS: Amlodipine 10 MG TAB PO SCH (21:40)
[2019-11-29] MEDS ORDERED: Chlorthalidone 25 MG TAB PO SCH ×3 (00:10→21:00)
[2019-11-29] MEDS ORDERED: Labetalol HCl 100 MG/20 ML VIAL SLOW IVP SCH (00:15)
[2019-11-29] MEDS: cloNIDine 0.1 MG TAB PO PRN ×2 (00:22→16:10)
--- NOTE | 2019-11-29 05:37 | PDOC.FM ---
- Subjective Subjective: Mr. Angel complains of back pain this morning. He explains there's always been a problem controlling his blood pressure. - Objective Vital Signs & Weight: Vital Signs (12 hours) Temp Pulse Resp BP BP Pulse Ox 11/29/19 04:00 97.8 F 68 17 176/106 H 94 L 11/29/19 01:33 72 14 166/97 H 11/29/19 00:23 76 185/102 H 11/29/19 00:22 185/102 H 11/28/19 21:47 77 182/78 H 11/28/19 20:00 98.2 F 78 12 212/115 H 11/28/19 18:01 81 196/114 H Weight Admit Weight 78.925 kg Weight 82.7 kg Most Recent Monitor Data Heart Rate from ECG 89 NIBP 135/75 NIBP BP-Mean 95 Respiration from ECG 14 SpO2 98 I&O: 11/27/19 11/28/19 11/29/19 06:59 06:59 06:59 Intake Total 3614 1289 1291.25 Output Total 557 539 8753 Balance 3095 1109 241.25 Result Diagrams: 11/28/19 04:38 11/28/19 04:38 EKG Reviewed by me: Yes (tele: 60-70s) Radiology Reviewed by me: Yes (CT head: no growth of hemorrhage) Phys Exam - Physical Examination lying in bed complaining of back pain HEENT: moist MMs, sclera anicteric Neck: no JVD Respiratory: no wheezing, clear to auscultation bilateral Cardiovascular: RRR, no significant murmur Gastrointestinal: soft Musculoskeletal: pulses present LE weakness decreased strength throughout Psychiatric: A&O x 3 Dx/Plan - Plan Plan: Mr. Angel is a 59 yo M who presents with generalized weakness 1. Intraparenchymal Hemorrhage likely 2/2 HTN Emergency -Hx uncontrolled HTN, BP 180s on arrival -CT head shows Intraparenchymal hemorrhage -Neurosurgery consulted, appreciate recs -repeat CT stable, repeat on 11/27 showed no growth of hemorrhage -was placed on cardene for BP control. Has since been discontinued and patient transferred back to floor. -Trauma consulted from ED, appreciate recs -Pulmonology consulted, appreciate recs -Neuro checks q2h -PT/PTT/INR -Seizure precautions -Neurology consulted -Medication Management: * Started Statin * Will hold ASA * A1C was 8.1 we will treat with sliding scale insulin for now. D/c on Metformin * Started home meds and d/c cardene drip 11/26 -MRI: sub-acute basal ganglia infarct, sub-acute w/remote corpus striatum/thalamic infarcts 2. HTN BP 170-180s/100-110s. Very poor control -Current medications: amlodipine 10mg HS, lisinopril 20mg, labetolol 20mg prn, clonidine 0.1mg BID prn -Will add atenolol 25mg and chlorthalidone 12.5mg today and increase lisinopril to 40mg -BP goal SBP <150 per neurosurgery -Renal ultrasound with dopplers pending 3. Generalized Weakness -diffuse; from neuromuscular disorder vs stroke vs deconditioning vs vitamin deficiency vs diabetic neuropathy vs other -PT/OT consulted, up with assist. Chair as tolerated -TSH, B12 wnl. CK mildly elevated. -A1C 8.1 -HIV/RPR/Hep C: Non-reactive -UA neg and U Cx pending -Request records from PCP/BS&W in AM -Neurology Consulted * Recommend outpt EEG & Nerve conduction studies -Hx of chemical and lead exposure. Lead level <1, alcohol negative 4. Indeterminate trop, likely 2/2 NSTEMI type 2 due to Stroke -Elevated CKMB, Trop indeterminate -EKG shows NSR, LAD, nonspecific ST and T wave abnormality. -CXR no acute findings. 5. Hypokalemia -Monitor and replace 6. Hypomagnesemia -Monitor and replace 7. Weight loss Severe protein/calorie malnutrition -Patient is only eating 1 can of soup per 2 days, cooks for himself -CT chest abd/pelv: cyst present in L kidney -HIV/RPR/hep C pending -TSH wnl -B6 pending and B12 wnl -May need further work up outpatient 8. Anxiety -aware, on an unknown medication, possibly a benzo 9. Mild hyponatremia -suspect malnutrition, consult skin fitter -Monitor 10. Diabetes Mellitus Type 2 -A1C 8.1 -Hyperglycemia protocol, ACHS accuchecks, mild SSI -will need to be restarted on metformin prior to DC 12. L4 Vertebral fracture -aware -MRI lumbar spine: severe central canal and foraminal stenosis w/o nerve compression, subacute L4/L% and posterior paraspinal injury -MRI cervical spine pending Diet: CC DVT ppx: SCDs GI ppx: Famotidine Code Status: DNAR PCP: None Dispo: Work on better blood pressure control today. MRI cervical spine pending. Addendum - Attending - Attending Attestation Date/Time: 11/29/19 0789 I personally evaluated the patient and discussed the management with Dr. Duran. I agree with the History, Examination, Assessment and Plan documented above with any addition or exceptions noted below. Blood pressures are even higher today despite adjustments to bp regimen. Will increase lisinopril, add atenolol adn chlorthalidone and continue to titrate as indicated. CT brain was stable. Checking renal u/s with doppler to r/o renal artery stenosis.
[2019-11-29] MEDS: Labetalol HCl 100 MG/20 ML VIAL SLOW IVP PRN ×4 (07:44→20:32)
[2019-11-29] MEDS ORDERED: Potassium Chloride 40 MEQ in Sodium Chloride 0.9% 250 ML 250 ML IVPB SCH (09:00)
--- NOTE | 2019-11-29 09:58 | ULT ---
Renal sonogram with duplex evaluation HISTORY: Hypertension. FINDINGS: The right kidney is 11.5 cm length with a normal appearance. Left kidney is 11.8 cm. Parapelvic cysts are 2.6 and 2.5 cm greatest diameter. No solid mass or perin ephric fluid collection. Good color and spectral Doppler flow within the abdominal aorta and each renal artery. No abnormally elevated peak systolic velocities evident. Resistive index associated with the arcuate arteries of the right kidney is 0.6 and the left kidney is 0.7. IMPRESSION : No acute abnormalities are demonstrated. Left renal cysts.
[2019-11-29] MEDS: Atenolol 25 MG TAB PO SCH (10:04)
[2019-11-29] MEDS: Lisinopril 20 MG TAB PO SCH (10:05)
[2019-11-29] MEDS: Famotidine 20 MG TAB PO SCH ×2 (10:05→20:28)
[2019-11-29] MEDS: Bupropion 150 MG XL TAB PO SCH (10:05)
[2019-11-29] MEDS: Chlorthalidone 25 MG TAB PO SCH (10:05)
[2019-11-29] MEDS ORDERED: Carvedilol 6.25 MG TAB PO SCH (17:00)
[2019-11-29] MEDS: Atorvastatin Calcium 40 MG TAB PO SCH (20:29)
[2019-11-29] MEDS: Amlodipine 10 MG TAB PO SCH (20:29)
--- NOTE | 2019-11-30 06:11 | PDOC.FM ---
- Subjective Subjective: Mr. Angel complains of back pain this morning and stiffness in his hands. His brother lives nearby and has been coming to see him every day. Night team reported that patient complained of a black curtain covering his eye but that it has happened before and is a chronic problem. - Objective Vital Signs & Weight: Vital Signs (12 hours) Temp Pulse Resp BP BP Pulse Ox 11/30/19 03:56 97.7 F 72 18 157/91 H 98 11/29/19 23:47 97.5 F L 73 20 160/100 H 100 11/29/19 20:32 71 168/103 H 11/29/19 20:29 69 168/103 H 11/29/19 20:00 97.5 F L 69 18 168/103 H 100 Weight Admit Weight 78.925 kg Weight 84.187 kg Most Recent Monitor Data Heart Rate from ECG 89 NIBP 135/75 NIBP BP-Mean 95 Respiration from ECG 14 SpO2 98 I&O: 11/28/19 11/29/19 11/30/19 06:59 06:59 06:59 Intake Total 1289 1531.25 840 Output Total 180 2550 410 Balance 1109 -1018.75 430 Result Diagrams: 11/30/19 06:18 11/30/19 06:18 EKG Reviewed by me: Yes (tele: , DIANN) Phys Exam - Physical Examination Constitutional: NAD HEENT: moist MMs, sclera anicteric Respiratory: no wheezing, clear to auscultation bilateral Cardiovascular: RRR, no significant murmur Gastrointestinal: soft, non-tender Musculoskeletal: no edema, pulses present decreased weakness throughout Psychiatric: normal affect, A&O x 3 Dx/Plan - Plan Plan: Mr. Angel is a 59 yo M who presents with generalized weakness 1. Intraparenchymal Hemorrhage likely 2/2 HTN Emergency -Hx uncontrolled HTN, BP 180s on arrival -CT head shows Intraparenchymal hemorrhage -Neurosurgery consulted, appreciate recs -repeat CT stable, repeat on 11/27 showed no growth of hemorrhage -was placed on cardene for BP control. Has since been discontinued and patient transferred back to floor. -Trauma consulted from ED, appreciate recs -Pulmonology consulted, appreciate recs -Neuro checks q2h -PT/PTT/INR -Seizure precautions -Neurology consulted -Medication Management: * Started Statin * Will hold ASA * A1C was 8.1 we will treat with sliding scale insulin for now. D/c on Metformin * Started home meds and d/c cardene drip 11/26 -MRI: sub-acute basal ganglia infarct, sub-acute w/remote corpus striatum/thalamic infarcts 2. HTN BP 170-180s/100-110s. Very poor control -Current medications: amlodipine 10mg HS, lisinopril 40mg, atenolol 25mg, c hlorthalidone 12.5mg, labetolol 20mg prn, clonidine 0.1mg BID prn -Renal ultrasound with dopplers negative -Increase chlorthalidone to 25mg today -BP goal SBP <150 per neurosurgery 3. Generalized Weakness -diffuse; from neuromuscular disorder vs stroke vs deconditioning vs vitamin deficiency vs diabetic neuropathy vs other -PT/OT consulted, up with assist. Chair as tolerated -TSH, B12 wnl. CK mildly elevated. -A1C 8.1 -HIV/RPR/Hep C: Non-reactive -UA neg and U Cx pending -Request records from PCP/BS&W in AM -Neurology Consulted * Recommend outpt EEG & Nerve conduction studies -Hx of chemical and lead exposure. Lead level <1, alcohol negative 4. Indeterminate trop, likely 2/2 NSTEMI type 2 due to Stroke -Elevated CKMB, Trop indeterminate -EKG shows NSR, LAD, nonspecific ST and T wave abnormality. -CXR no acute findings. 5. Hypokalemia -Monitor and replace 6. Hypomagnesemia -Monitor and replace 7. Weight loss Severe protein/calorie malnutrition -Patient is only eating 1 can of soup per 2 days, cooks for himself -CT chest abd/pelv: cyst present in L kidney -HIV/RPR/hep C negative -TSH wnl -B6 pending and B12 wnl -May need further work up outpatient 8. Anxiety -aware, on an unknown medication, possibly a benzo 9. Mild hyponatremia -suspect malnutrition, consult rand tacker -Monitor 10. Diabetes Mellitus Type 2 -A1C 8.1 -Hyperglycemia protocol, ACHS accuchecks, mild SSI -will need to be restarted on metformin prior to DC 12. L4 Vertebral fracture -aware -MRI lumbar spine: severe central canal and foraminal stenosis w/o nerve compression, subacute L4/L% and posterior paraspinal injury -MRI cervical spine pending Diet: CC DVT ppx: SCDs GI ppx: Famotidine Code Status: DNAR PCP: None Dispo: Work on better blood pressure control today. MRI cervical spine pending.
[2019-11-30 06:31] LABS: #Basophils 0.1 thou/uL (0.0-0.2); #Eosinphils 0.3 thou/uL (0.0-0.7); #Monocytes 0.6 thou/uL (0.11-0.59); #Neutrophils 4.4 thou/uL (1.40-6.50); %Basophils 1.1 % (0.0-1.0); %Eosinophils 3.6 % (0.0-10.0); %Lymphocytes 27.2 % (21.0-51.0); %Monocytes 8.7 % (0.0-10.0); %Neutrophils 59.4 % (42.0-75.0); Hemoglobin 14.2 g/dL (14.0-18.0); Mean Corpuscular HGB CONC 33.2 g/dL (32.0-36.0); Mean Corpuscular Hemoglobin 30.2 pg (27.0-31.0); Mean Corpuscular Volume 90.7 fL (78.0-98.0); Mean Platelet Volume 9.3 fL (7.4-10.4); Platelet Count 203 thou/uL (130-400); RBC Distribution Width 12.2 % (11.5-14.5); Red Blood Cell (RBC) Count 4.71 mill/uL (4.70-6.10); White Blood Cell (WBC) Count 7.4 thou/uL (4.8-10.8)
[2019-11-30 06:52] LABS: ALT (SGPT) 14 U/L (8-55); AST (SGOT) 22 U/L (5-34); Albumin 2.9 g/dL (3.4-4.8); Alkaline Phosphatase 112 U/L (40-110); Anion Gap 11 mmol/L (10-20); BUN (Urea Nitrogen) 9 mg/dL (8.4-25.7); Calc. Creatinine Clearance 134 mL/min (70-130); Calcium 8.8 mg/dL (7.8-10.44); Carbon Dioxide 28 mmol/L (23-31); Chloride 101 mmol/L (98-107); Estimated GFR-MDRD Greater than 90; Globulin 3.2 g/dL (2.4-3.5); Glucose 78 mg/dL (80-115); Potassium 3.9 mmol/L (3.5-5.1); Protein, Total 6.1 g/dL (5.8-8.1); Sodium 136 mmol/L (136-145)
[2019-11-30] MEDS: Chlorthalidone 25 MG TAB PO SCH ×2 (09:36→10:37)
[2019-11-30] MEDS: Bupropion 150 MG XL TAB PO SCH (09:36)
[2019-11-30] MEDS: Atenolol 25 MG TAB PO SCH ×2 (09:36→23:00)
[2019-11-30] MEDS: Lisinopril 20 MG TAB PO SCH (09:37)
[2019-11-30] MEDS: Famotidine 20 MG TAB PO SCH ×2 (09:37→23:00)
--- NOTE | 2019-11-30 11:58 | PRG ---
DATE OF SERVICE: 11/26/2019 SUBJECTIVE: The patient was seen this afternoon. He was resting in bed, in no acute distress, however he reported significant low back pain. He states that this has been chronic for "all of his life." He states that occasionally he has bilateral leg pain that is equal in severity, localized to the anterior thighs and shins. He denies any headache, neck pain, or arm pain. Again, he has bilateral hand contractures. Discussed with the patient that his CT of the brain completed this morning revealed stable right thalamic hemorrhage. DICTATION ENDS HERE. Job ID: [id number] [facility]
--- NOTE | 2019-11-30 12:49 | ULT ---
Renal sonogram with duplex evaluation HISTORY: Hypertension. FINDINGS: The right kidney is 11.5 cm length with a normal appearance. Left kidney is 11.8 cm. Parapelvic cysts are 2.6 and 2.5 cm greatest diameter. No solid mass or perin ephric fluid collection. Good color and spectral Doppler flow within the abdominal aorta and each renal artery. No abnormally elevated peak systolic velocities evident. Resistive index associated with the arcuate arteries of the right kidney is 0.6 and the left kidney is 0.7. IMPRESSION : No acute abnormalities are demonstrated. Left renal cysts. Transcribed Date/Time: 11/30/2019 12:49 PM
[2019-11-30] MEDS: Labetalol HCl 100 MG/20 ML VIAL SLOW IVP PRN ×2 (13:00→20:01)
--- NOTE | 2019-11-30 13:49 | PRG ---
DATE OF SERVICE: 11/30/2019 Mr. Angel is in good spirits this morning. He looks remarkably well for someone who has had a hemorrhagic stroke. We are still making nearly daily changes in his antihypertensive regimen. I have also reviewed the note of Dr. Lit Duran and agree with her assessment and plan. We discussed the case. Job ID: [id number]
[2019-11-30] MEDS: Lorazepam 0.5 MG TAB PO PRN (15:21)
--- NOTE | 2019-11-30 17:38 | MRI ---
MRI CERVICAL SPINE WITHOUT CONTRAST: Indications: Weakness Comparison: None FINDINGS: Exam severely degraded due to motion artifact. Cervical vertebrae maintain height and alignment. Moderate to severe degenerative disc changes at C5- 6, C6-7, and C7-T1. Loss of disc space with prominent osteophytes at these levels. C2-3: Disc bulge and spondylosis abut the anterior cord and mildly compress the anterior cord. Mild f oraminal narrowing due to hypertrophic change. C3-4: Evidence of disc bulge and spondylosis compressing the cord. Evaluation is severely limited due to motion artifact but there appears to be significant cord compression and central canal stenosis. Evidence of left foraminal stenosis. C4-5: Evidence of disc bulge/protrusion severely compressing the cord centrally and to the left. Bila teral foraminal stenosis. Disc protrusion to the left at this level. C5-6: Posterior disc bulge and spondylosis mildly impinge on the anterior cord. Bilateral foraminal s tenosis. C6-7: Disc bulge and spondylosis abut the anterior cord. C7-T1: Posterior disc bulge and spondylosis abut the anterior cord. Review of the cord signal does not show definite evidence of myelomalacia although evaluation of the cord is severely limited. IMPRESSION: 1. Severe central canal stenosis with severe cord compression at C3-4 and C4-5. Evidence of disc prot rusion to the left at C4-5. Exam is severely limited due to motion artifact. Recommend CT cervical spine which will limit motion artifact. Recommend neurosurgical consultation and consider post myelogram CT cervical spine. POS: OFF
[2019-11-30] MEDS: cloNIDine 0.1 MG TAB PO PRN (17:48)
--- NOTE | 2019-11-30 20:18 | PDOC.EVN ---
Event Note - Event Note Event Note: Lindsay pichardo called around 0750. Went to patient bedside. Patient is usually A&O x4 but was A&Ox0 and hard to arouse as per nursing report. BP 194/110, Pulse 70, Glucose 156 @0758. On physical exam, patient's feet are flexed, pupils fixed. Heart and Lungs WNL. No withdrawl to pain or response from sternal rub. Concern for extension of his intraparenchymal hemorrhage. EKG, labs ordered. Stat CT non con head. 1x Labetalol given. Will follow up with results and proceed as indicated. Dr. Li and Dr. Agarwal present on exam.
[2019-11-30 21:12] LABS: Actual Bicarbonate (HCO3a) 27.7 mEq/L (22-28); Base Excess (BEa) 2.3 mEq/L (-2.0 to +3.0); CO2 Tension 45.5 mmHg (35.0-45.0); Calcium, Ionized (arterial) 1.18 mmol/L (1.12-1.30); Carboxyhemoglobin (COHb) 0.5 gm% (0.0-3.0); Hemoglobin (Hb) 14.4 g/dL (14.0-18.0); O2 Tension (PaO2), arterial 83.8 mmHg (> 80.0); Potassium - ABG Lab 3.82 mmol/L (3.70-5.30)
[2019-11-30 21:14] LABS: ALV-art Gradient 9.055 mmHg (0-20); Puncture Site LRA
--- NOTE | 2019-11-30 21:26 | CT ---
CT OF BRAIN PERFORMED WITHOUT CONTRAST ENHANCEMENT: History: Change in mental status. Comparison: 11-28-2019 FINDINGS: Generalized ventricular and sulcal prominence with chronic white matter change and small areas of old lacunar infarct again noted in the periventricular white matter. The bleed which is just along the r ight basal ganglia region is stable in size. No new process identified. The mastoid air cells are elyse ar. Minimal mucosal change in the ethmoid and maxillary sinuses. IMPRESSION: Stable exam. No change in the intraaxial hemorrhage near the right basal ganglia region. POS: OFF
[2019-11-30 21:35] LABS: #Eosinphils 0.2 thou/uL (0.0-0.7); #Lymphocytes 1.6 thou/uL (1.20-3.40); #Monocytes 0.5 thou/uL (0.11-0.59); #Neutrophils 4.8 thou/uL (1.40-6.50); %Basophils 0.5 % (0.0-1.0); %Eosinophils 2.9 % (0.0-10.0); %Lymphocytes 21.6 % (21.0-51.0); %Monocytes 7.5 % (0.0-10.0); %Neutrophils 67.5 % (42.0-75.0); Mean Corpuscular HGB CONC 32.3 g/dL (32.0-36.0); Mean Corpuscular Hemoglobin 29.5 pg (27.0-31.0); Mean Corpuscular Volume 91.5 fL (78.0-98.0); Mean Platelet Volume 9.8 fL (7.4-10.4); Platelet Count 211 thou/uL (130-400); RBC Distribution Width 12.3 % (11.5-14.5); Red Blood Cell (RBC) Count 4.74 mill/uL (4.70-6.10); White Blood Cell (WBC) Count 7.2 thou/uL (4.8-10.8)
[2019-11-30 21:44] LABS: ALT (SGPT) 14 U/L (8-55); AST (SGOT) 23 U/L (5-34); Albumin 3.1 g/dL (3.4-4.8); Alkaline Phosphatase 122 U/L (40-110); Anion Gap 14 mmol/L (10-20); BUN (Urea Nitrogen) 11 mg/dL (8.4-25.7); Bilirubin, Total 0.8 mg/dL (0.2-1.2); Calc. Creatinine Clearance 104 mL/min (70-130); Calcium 8.9 mg/dL (7.8-10.44); Carbon Dioxide 25 mmol/L (23-31); Chloride 99 mmol/L (98-107); Estimated GFR-MDRD 87; Globulin 3.3 g/dL (2.4-3.5); Glucose 151 mg/dL (80-115); Potassium 3.9 mmol/L (3.5-5.1); Protein, Total 6.4 g/dL (5.8-8.1); Sodium 134 mmol/L (136-145)
[2019-11-30] MEDS ORDERED: niCARdipine 25 MG in Sodium Chloride 0.9% 250 ML 250 ML IVPB SCH (22:00)
[2019-11-30 22:31] LABS: Troponin I 0.032 ng/mL (< 0.028)
[2019-11-30] MEDS: Atorvastatin Calcium 40 MG TAB PO SCH (23:00)
[2019-11-30] MEDS: Amlodipine 10 MG TAB PO SCH (23:00)
--- NOTE | 2019-12-01 07:34 | PDOC.FM ---
- Subjective Subjective: Mr. Angel is A&Ox3 this morning. He complains of back pain but otherwise feels well. - Objective Vital Signs & Weight: Vital Signs (12 hours) Temp Temp Pulse Pulse Pulse Pulse Resp 12/01/19 04:00 97.8 F 12/01/19 00:00 97.4 F L 11/30/19 22:10 11/30/19 20:01 11/30/19 19:55 97 F L 72 71 68 70 12 Resp Resp BP BP BP BP BP 12/01/19 04:00 12/01/19 00:00 11/30/19 22:10 11/30/19 20:01 191/110 H 11/30/19 19:55 12 10 L 162/90 H 173/92 H 194/110 H 177/109 H Pulse Ox Pulse Ox Pulse Ox Pulse Ox 12/01/19 04:00 12/01/19 00:00 11/30/19 22:10 100 11/30/19 20:01 11/30/19 19:55 98 96 97 Weight Admit Weight 78.925 kg Weight 84.1 kg Most Recent Monitor Data Heart Rate from ECG 73 NIBP 131/78 NIBP BP-Mean 95 Respiration from ECG 21 SpO2 100 I&O: 11/30/19 12/01/19 12/02/19 06:59 06:59 06:59 Intake Total 840 1472 Output Total 410 Balance 430 1472 Result Diagrams: 11/30/19 20:04 11/30/19 20:04 Radiology Reviewed by me: Yes Radiology: Brain Ct - no change in hemorrhage Cervical MRI - canal stenosis at C3-C4 and C4-C5, recommends Cervical CT because of artifact Phys Exam - Physical Examination Constitutional: NAD HEENT: PERRLA, moist MMs, sclera anicteric Neck: no nodes, supple Respiratory: no wheezing, no rales, no rhonchi, clear to auscultation bilateral Cardiovascular: RRR, no significant murmur Gastrointestinal: soft, non-tender, positive bowel sounds Musculoskeletal: no edema, pulses present decreased strength in upper and lower extremities Lymphatic: no nodes Dx/Plan - Plan Plan: Mr. Angel is a 59 yo M who presents with generalized weakness 1. Intraparenchymal Hemorrhage likely 2/2 HTN Emergency -Hx uncontrolled HTN-BP 180s on arrival, CT head showed Intraparenchymal hemorrhage. Patient was admitted to ICU and placed on cardene drip. He was transferred to the floor for a time but continued to have poor BP control. Repeat CT stable, repeat on 11/27 showed no growth of hemorrhage -Patient became unresponsive and hypertensive to the 190s/110s on the evening of 11/29. A repeat CT head was stable, patient was transferred by to ICU and initiated a cardene drip. -Neurosurgery consulted, appreciate recs -Trauma consulted from ED, appreciate recs -Pulmonology consulted, appreciate recs -Neurology consulted, appreciate recs -Neuro checks q2h -PT/PTT/INR -Seizure precautions -Medication Management: * Started Statin * Will hold ASA * A1C was 8.1 we will treat with sliding scale insulin for now. D/c on Metformin * Started home meds and d/c cardene drip 11/26 -MRI: sub-acute basal ganglia infarct, sub-acute w/remote corpus striatum/thalamic infarcts 2. HTN BP 170-180s/100-110s. Very poor control -Patient became unresponsive and hypertensive to the 190s/110s on the evening of 11/29. A repeat CT head was stable, patient was transferred by to ICU and initiated a cardene drip. -Will restart oral medications today: amlodipine 10mg HS, lisinopril 40mg, atenolol 25mg, chlorthalidone 25mg, labetolol 20mg prn, clonidine 0.1mg BID prn -Renal ultrasound with dopplers negative -titrate cardene drip -BP goal SBP <150 per neurosurgery 3. Generalized Weakness -diffuse; from neuromuscular disorder vs stroke vs deconditioning vs vitamin deficiency vs diabetic neuropathy vs other -PT/OT consulted, up with assist. Chair as tolerated -TSH, B12 wnl. CK mildly elevated. -A1C 8.1 -HIV/RPR/Hep C: Non-reactive -UA neg and U Cx pending -Neurology Consulted * Recommend outpt EEG & Nerve conduction studies -Hx of chemical and lead exposure. Lead level <1, alcohol negative 4. Indeterminate trop, likely 2/2 NSTEMI type 2 due to Stroke -Elevated CKMB, Trop indeterminate -EKG shows NSR, LAD, nonspecific ST and T wave abnormality. -CXR no acute findings. 5. Hypokalemia -Monitor and replace 6. Hypomagnesemia -Monitor and replace 7. Weight loss Severe protein/calorie malnutrition -Patient is only eating 1 can of soup per 2 days, cooks for himself -CT chest abd/pelv: cyst present in L kidney -HIV/RPR/hep C negative -TSH wnl -B6 pending and B12 wnl -May need further work up outpatient 8. Anxiety -aware, on an unknown medication, possibly a benzo 9. Mild hyponatremia -suspect malnutrition, consult workforce planner -Monitor 10. Diabetes Mellitus Type 2 -A1C 8.1 -Hyperglycemia protocol, ACHS accuchecks, mild SSI -will need to be restarted on metformin prior to DC 12. L4 Vertebral fracture -aware -MRI lumbar spine: severe central canal and foraminal stenosis w/o nerve compression, subacute L4/L% and posterior paraspinal injury -MRI cervical spine canal stenosis at C3-C4 and C4-C5, recommends CT cervical spine because of artifact Diet: CC DVT ppx: SCDs GI ppx: Famotidine Code Status: DNAR PCP: None Dispo: Work on better blood pressure control this morning. Will restart oral meds and titrate off cardene drip. Contact CM regarding placement.
[2019-12-01] MEDS: Bupropion 150 MG XL TAB PO SCH (09:21)
[2019-12-01] MEDS: Famotidine 20 MG TAB PO SCH ×2 (09:21→20:22)
[2019-12-01] MEDS: Atenolol 25 MG TAB PO SCH ×2 (09:21→20:22)
[2019-12-01] MEDS: Lisinopril 20 MG TAB PO SCH (09:21)
[2019-12-01] MEDS: Chlorthalidone 25 MG TAB PO SCH (09:22)
--- NOTE | 2019-12-01 15:25 | PRG ---
DATE OF SERVICE: 12/01/2019 Around 10 o'clock last night, Mr. Angel had a code green called on him. He had become very difficult to arouse and was noted to have systolic blood pressure of 194. There was concern for an extension of his bleed, which was ruled out by a stat brain CT. He was transferred to ICU, placed back on a Cardene drip, and with the bringing down of his blood pressure, he became much more oriented and alert. This morning, he is completely awake and alert, as always seemingly slightly confused. His MRI of the cervical spine is back and does show some significant cervical stenosis. We are waiting for input from the Neurosurgery team. Job ID: [id number]
[2019-12-01] MEDS: Acetaminophen 325 MG TAB PO PRN (16:56)
[2019-12-01] MEDS: Atorvastatin Calcium 40 MG TAB PO SCH (20:22)
[2019-12-01] MEDS: Amlodipine 10 MG TAB PO SCH (20:22)
--- NOTE | 2019-12-02 06:20 | PDOC.FM ---
- Subjective Subjective: Mr. Angel complains of back pain this morning. He explains that he does not want to eat because he does not want to use the bathroom because that means people have to help clean him up and he can tell that it annoys them to do so. - Objective Vital Signs & Weight: Vital Signs (12 hours) Temp Pulse Resp BP Pulse Ox 12/02/19 04:26 143/86 H 12/02/19 04:10 97.9 F 68 18 163/97 H 98 12/01/19 23:51 98.0 F 65 18 152/92 H 97 12/01/19 21:41 141/87 H 12/01/19 20:20 98 12/01/19 20:00 97.1 F L 66 12 175/99 H 98 Weight Admit Weight 78.925 kg Weight 83.915 kg Most Recent Monitor Data Heart Rate from ECG 67 NIBP 171/94 NIBP BP-Mean 119 Respiration from ECG 0 SpO2 99 I&O: 11/30/19 12/01/19 12/02/19 06:59 06:59 06:59 Intake Total 840 1472 840 Output Total 410 900 Balance 430 1472 -60 Result Diagrams: 11/30/19 20:04 11/30/19 20:04 EKG Reviewed by me: Yes (tele: , DIANN) Phys Exam - Physical Examination Constitutional: NAD HEENT: moist MMs, sclera anicteric Neck: no nodes Respiratory: no wheezing, no rales, no rhonchi, clear to auscultation bilateral Cardiovascular: RRR, no significant murmur Gastrointestinal: soft, non-tender, no distention Musculoskeletal: no edema decreased strength in all extremities Psychiatric: normal affect, A&O x 3 Dx/Plan - Plan Plan: Mr. Angel is a 59 yo M who presents with generalized weakness 1. Intraparenchymal Hemorrhage likely 2/2 HTN Emergency -Hx uncontrolled HTN-BP 180s on arrival, CT head showed Intraparenchymal hemorrhage. Patient was admitted to ICU and placed on cardene drip. He was transferred to the floor for a time but continued to have poor BP control. Repeat CT stable, repeat on 11/27 showed no growth of hemorrhage. Patient became unresponsive and hypertensive to the 190s/110s on the evening of 11/29. A repeat CT head was stable, patient was transferred by to ICU and initiated a cardene drip. He was titrated off and transferred back to stroke floor on PO medi cations. -Neurosurgery consulted, appreciate recs -Trauma consulted from ED, appreciate recs -Pulmonology consulted, appreciate recs -Neurology consulted, appreciate recs -Neuro checks q2h -PT/PTT/INR -Seizure precautions -Medication Management: * Started Statin * Will hold ASA * A1C was 8.1 we will treat with sliding scale insulin for now. D/c on Metformin -MRI: sub-acute basal ganglia infarct, sub-acute w/remote corpus striatum/thalamic infarcts 2. HTN BP 140-160s/90s. Very poor control -Oral medications: amlodipine 10mg HS, lisinopril 40mg daily, atenolol 50mg BID, chlorthalidone 25mg, labetolol 20mg prn -Renal ultrasound with dopplers negative -BP goal SBP <150 per neurosurgery 3. Generalized Weakness -diffuse; from neuromuscular disorder vs stroke vs deconditioning vs vitamin deficiency vs diabetic neuropathy vs other -PT/OT consulted, up with assist. Chair as tolerated -TSH, B12 wnl. CK mildly elevated. -A1C 8.1 -HIV/RPR/Hep C: Non-reactive -UA neg and U Cx pending -Neurology Consulted * Recommend outpt EEG & Nerve conduction studies -Hx of chemical and lead exposure. Lead level <1, alcohol negative 4. Indeterminate trop, likely 2/2 NSTEMI type 2 due to Stroke -Elevated CKMB, Trop indeterminate -EKG shows NSR, LAD, nonspecific ST and T wave abnormality. -CXR no acute findings. 5. Hypokalemia -Monitor and replace 6. Hypomagnesemia -Monitor and replace 7. Weight loss Severe protein/calorie malnutrition -Patient is only eating 1 can of soup per 2 days, cooks for himself -CT chest abd/pelv: cyst present in L kidney -HIV/RPR/hep C negative -TSH wnl -B6 pending and B12 wnl -May need further work up outpatient 8. Anxiety -aware, on an unknown medication, possibly a benzo 9. Mild hyponatremia -suspect malnutrition, consult baggage screener -Monitor 10. Diabetes Mellitus Type 2 -A1C 8.1 -Hyperglycemia protocol, ACHS accuchecks, mild SSI -will need to be restarted on metformin prior to DC 12. L4 Vertebral fracture -aware -MRI lumbar spine: severe central canal and foraminal stenosis w/o nerve compression, subacute L4/L% and posterior paraspinal injury -MRI cervical spine canal stenosis at C3-C4 and C4-C5, recommends CT cervical spine because of artifact Diet: CC DVT ppx: SCDs GI ppx: Famotidine Code Status: DNAR PCP: None Dispo: Consider discharge to rehab today. Will touch base with neurosurgery to see if discharge is appropriate.
[2019-12-02] MEDS ORDERED: Atenolol 25 MG TAB PO SCH (08:51)
[2019-12-02] MEDS: Lisinopril 20 MG TAB PO SCH (09:27)
[2019-12-02] MEDS: Famotidine 20 MG TAB PO SCH ×2 (09:27→20:50)
[2019-12-02] MEDS: Atenolol 50 MG TAB PO SCH ×2 (09:27→20:50)
[2019-12-02] MEDS: Chlorthalidone 25 MG TAB PO SCH (09:28)
[2019-12-02] MEDS: Bupropion 150 MG XL TAB PO SCH (09:28)
--- NOTE | 2019-12-02 13:51 | PRG ---
DATE OF SERVICE: 12/02/2019 Mr. Angel is awake and alert this morning in no acute distress. He has been returned from the ICU for the last two days following a mild episode of hypertensive encephalopathy. A repeat CT of the brain done at that time did not show any extension of his bleed. He is also undergoing PT, OT, and we are awaiting further placement. We were making nearly daily changes in his blood pressure regimen in order to gain better control. He is still running in the 140 to 160s over 90s. Job ID: [id number]
[2019-12-02] MEDS: Amlodipine 10 MG TAB PO SCH (20:50)
[2019-12-02] MEDS: Atorvastatin Calcium 40 MG TAB PO SCH (20:50)
--- NOTE | 2019-12-03 06:16 | PDOC.FM ---
- Subjective Subjective: Mr. Angel complains of back pain but otherwise has no complaints. He is eager to leave the hospital. - Objective Vital Signs & Weight: Vital Signs (12 hours) Temp Pulse Resp BP Pulse Ox 12/03/19 03:35 98.4 F 68 18 152/93 H 97 12/03/19 02:10 149/89 H 12/02/19 20:50 98 12/02/19 19:55 98.2 F 68 18 159/61 H 98 Weight Admit Weight 78.925 kg Weight 83.915 kg Most Recent Monitor Data Heart Rate from ECG 67 NIBP 171/94 NIBP BP-Mean 119 Respiration from ECG 0 SpO2 99 I&O: 12/01/19 12/02/19 12/03/19 06:59 06:59 06:59 Intake Total 1472 840 616 Output Total 900 1250 Balance 1472 -60 -634 Result Diagrams: 12/03/19 06:28 12/03/19 06:28 EKG Reviewed by me: Yes (tele: SR) Phys Exam - Physical Examination Constitutional: NAD HEENT: moist MMs, sclera anicteric Neck: no nodes, supple Respiratory: no wheezing, no rales, no rhonchi, clear to auscultation bilateral Cardiovascular: RRR, no significant murmur Gastrointestinal: soft, non-tender, no distention, positive bowel sounds Musculoskeletal: pulses present, edema present diffuse weakness throughout Psychiatric: normal affect, A&O x 3 Dx/Plan - Plan Plan: Mr. Angel is a 59 yo M who presents with generalized weakness 1. Intraparenchymal Hemorrhage likely 2/2 HTN Emergency -Hx uncontrolled HTN-BP 180s on arrival, CT head showed Intraparenchymal hemorrhage. Patient was admitted to ICU and placed on cardene drip. He was transferred to the floor for a time but continued to have poor BP control. Repeat CT stable, repeat on 11/27 showed no growth of hemorrhage. Patient became unresponsive and hypertensive to the 190s/110s on the evening of 11/29. A repeat CT head was stable, patient was transferred by to ICU and initiated a cardene drip. He was titrated off and transferred back to stroke floor on PO medications. -Neurosurgery consulted, will follow outpatient. Spoke with Dakota Abarca today who said he would communicate MRI results with Nadine and Dr. Juarez and have them follow him outpatient at [facility]. -Trauma consulted from ED, signed off -Pulmonology consulted, signed off -Neurology consulted, recommends outpatient follow up for possible degenerative neuromuscular disorder -Neuro checks q2h -PT/PTT/INR -Seizure precautions -Medication Management: * Started Statin * Will hold ASA * A1C was 8.1 we will treat with sliding scale insulin for now. D/c on Metformin -MRI: sub-acute basal ganglia infarct, sub-acute w/remote corpus striatum/thalamic infarcts 2. HTN BP 140-160s/90s. Very poor control -Oral medications: amlodipine 10mg HS, lisinopril 40mg daily, atenolol 50mg BID, chlorthalidone 25mg, labetolol 20mg prn -Renal ultrasound with dopplers negative -BP goal SBP <150 per neurosurgery -Will check renin-aldosterone ration then add spironolactone 25mg daily after it is completed 3. Generalized Weakness -diffuse; from neuromuscular disorder vs stroke vs deconditioning vs vitamin deficiency vs diabetic neuropathy vs other -PT/OT consulted, up with assist. Chair as tolerated -TSH, B12 wnl. CK mildly elevated. -A1C 8.1 -HIV/RPR/Hep C: Non-reactive -UA neg and U Cx pending -Neurology Consulted * Recommend outpt EEG & Nerve conduction studies -Hx of chemical and lead exposure. Lead level <1, alcohol negative 4. Indeterminate trop, likely 2/2 NSTEMI type 2 due to Stroke -Elevated CKMB, Trop indeterminate -EKG shows NSR, LAD, nonspecific ST and T wave abnormality. -CXR no acute findings. 5. Hypokalemia -Monitor and replace 6. Hypomagnesemia -Monitor and replace 7. Weight loss Severe protein/calorie malnutrition -Patient is only eating 1 can of soup per 2 days, cooks for himself -CT chest abd/pelv: cyst present in L kidney -HIV/RPR/hep C negative -TSH wnl -B6 pending and B12 wnl -May need further work up outpatient 8. Anxiety -aware, on an unknown medication, possibly a benzo 9. Mild hyponatremia -suspect malnutrition, consult civil design technician -Monitor 10. Diabetes Mellitus Type 2 -A1C 8.1 -Hyperglycemia protocol, ACHS accuchecks, mild SSI -will need to be restarted on metformin prior to DC 12. L4 Vertebral fracture -aware -MRI lumbar spine: severe central canal and foraminal stenosis w/o nerve compression, subacute L4/L% and posterior paraspinal injury -MRI cervical spine canal stenosis at C3-C4 and C4-C5, recommends CT cervical spine because of artifact Diet: CC DVT ppx: SCDs GI ppx: Famotidine Code Status: DNAR PCP: None Dispo: [facility] does not believe patient will benefit from PT. They feel he will only benefit from PT if he has surgery to correct is cervical stenosis and cord compression. Otherwise rehab would mostly be about teaching his family how to care for him and he will require 24/7 care once he goes home. Patient is adamant that he does not desire surgery. Will return to discuss further with he and his sister.
[2019-12-03 06:48] LABS: #Basophils 0.1 thou/uL (0.0-0.2); #Eosinphils 0.1 thou/uL (0.0-0.7); #Lymphocytes 2.5 thou/uL (1.20-3.40); #Monocytes 0.7 thou/uL (0.11-0.59); #Neutrophils 4.3 thou/uL (1.40-6.50); %Basophils 0.9 % (0.0-1.0); %Eosinophils 1.8 % (0.0-10.0); %Lymphocytes 32.1 % (21.0-51.0); %Monocytes 9.3 % (0.0-10.0); %Neutrophils 55.9 % (42.0-75.0); Hemoglobin 14.3 g/dL (14.0-18.0); Mean Corpuscular HGB CONC 34.1 g/dL (32.0-36.0); Mean Corpuscular Hemoglobin 31.4 pg (27.0-31.0); Mean Corpuscular Volume 92.1 fL (78.0-98.0); Mean Platelet Volume 8.6 fL (7.4-10.4); Platelet Count 233 thou/uL (130-400); RBC Distribution Width 12.1 % (11.5-14.5); Red Blood Cell (RBC) Count 4.54 mill/uL (4.70-6.10); White Blood Cell (WBC) Count 7.7 thou/uL (4.8-10.8)
[2019-12-03 07:14] LABS: Anion Gap 10 mmol/L (10-20); BUN (Urea Nitrogen) 12 mg/dL (8.4-25.7); Calc. Creatinine Clearance 118 mL/min (70-130); Calcium 8.9 mg/dL (7.8-10.44); Carbon Dioxide 30 mmol/L (23-31); Chloride 100 mmol/L (98-107); Estimated GFR-MDRD Greater than 90; Glucose 95 mg/dL (80-115); Potassium 3.8 mmol/L (3.5-5.1); Sodium 136 mmol/L (136-145)
[2019-12-03] MEDS: Atenolol 50 MG TAB PO SCH ×2 (08:55→20:22)
[2019-12-03] MEDS: Chlorthalidone 25 MG TAB PO SCH (08:55)
[2019-12-03] MEDS: Famotidine 20 MG TAB PO SCH ×2 (08:56→20:22)
[2019-12-03] MEDS: Lisinopril 20 MG TAB PO SCH (08:56)
[2019-12-03] MEDS: Bupropion 150 MG XL TAB PO SCH (08:57)
[2019-12-03] MEDS ORDERED: Spironolactone 25 MG TAB PO SCH (09:15)
--- NOTE | 2019-12-03 14:27 | PRG ---
DATE OF SERVICE: 12/03/2019 had a very long discussion with Mr. Angel about his cervical stenosis and the possible benefits of surgery. Mr. Angel is adamant. He does not want surgery feeling that there would be a poor outcome. We explained to him that while this was a possibility, he could probably expect progressive worsening of his symptoms to the point even of paralysis possibly with his current condition. Despite this, he is still adamant and refusing any surgery. Job ID: [id number]
[2019-12-03] MEDS: hydrALAZINE 25 MG TAB PO SCH ×2 (18:44→20:22)
[2019-12-03] MEDS: Atorvastatin Calcium 40 MG TAB PO SCH (20:22)
[2019-12-03] MEDS: Amlodipine 10 MG TAB PO SCH (20:22)
--- NOTE | 2019-12-04 06:34 | PDOC.FM ---
- Subjective Subjective: Mr. Angel says he wants to "get out of here." He feels that he is a burden on people here because he says he can hear them complain and express frustrations at taking care of him. He desires to go home and when asked who will take care of him at home he says, "that's my problem." - Objective Vital Signs & Weight: Vital Signs (12 hours) Temp Pulse Resp BP BP Pulse Ox 12/03/19 20:22 67 147/85 H 12/03/19 20:00 98.4 F 67 18 170/89 H 98 12/03/19 18:44 67 147/85 H Weight Admit Weight 78.925 kg Weight 83.915 kg Most Recent Monitor Data Heart Rate from ECG 67 NIBP 171/94 NIBP BP-Mean 119 Respiration from ECG 0 SpO2 99 I&O: 12/02/19 12/03/19 12/04/19 06:59 06:59 06:59 Intake Total 840 866 240 Output Total 900 1425 1500 Balance -60 -594 -9680 Result Diagrams: 12/03/19 06:28 12/03/19 06:28 EKG Reviewed by me: Yes (tele: SR, DIANN) Phys Exam - Physical Examination Constitutional: NAD HEENT: moist MMs, sclera anicteric Neck: no nodes, supple Respiratory: no wheezing, no rales, no rhonchi, clear to auscultation bilateral Cardiovascular: RRR, no significant murmur Gastrointestinal: soft, non-tender, no distention, positive bowel sounds Musculoskeletal: no edema, pulses present generalized weakness Psychiatric: normal affect, A&O x 3 Dx/Plan - Plan Plan: Mr. Angel is a 59 yo M who presents with generalized weakness 1. Intraparenchymal Hemorrhage likely 2/2 HTN Emergency -Hx uncontrolled HTN-BP 180s on arrival, CT head showed Intraparenchymal hemorrhage. Patient was admitted to ICU and placed on cardene drip. He was transferred to the floor for a time but continued to have poor BP control. Repeat CT stable, repeat on 11/27 showed no growth of hemorrhage. Patient became unresponsive and hypertensive to the 190s/110s on the evening of 11/29. A repeat CT head was stable, patient was transferred by to ICU and initiated a cardene drip. He was titrated off and transferred back to stroke floor on PO medications. -Neurosurgery consulted, will follow outpatient. Followed up with Dakota Abarca yesterday who expressed he would communicate to Nadine Duvall and Dr. Juarez to evaluate him for surgery. Patient does desire surgery but expresses he wants to wait until he gets his Medicare straightened out. -Trauma consulted from ED, signed off -Pulmonology consulted, signed off -Neurology consulted, recommends outpatient follow up for possible degenerative neuromuscular disorder -Neuro checks q2h -PT/PTT/INR -Seizure precautions -Medication Management: * Started Statin * Will hold ASA * A1C was 8.1 we will treat with sliding scale insulin for now. D/c on Metformin -MRI: sub-acute basal ganglia infarct, sub-acute w/remote corpus st riatum/thalamic infarcts 2. HTN BP 140-160s/90s. Very poor control -Oral medications: amlodipine 10mg HS, lisinopril 40mg daily, atenolol 50mg BID, chlorthalidone 25mg, labetolol 20mg prn -Renal ultrasound with dopplers negative -BP goal SBP <150 per neurosurgery -Will check renin-aldosterone ration then add spironolactone 25mg daily after it is completed. -Added hydralazine 25mg QID yesterday. 3. Generalized Weakness -diffuse; from neuromuscular disorder vs stroke vs deconditioning vs vitamin deficiency vs diabetic neuropathy vs other -PT/OT consulted, up with assist. Chair as tolerated -TSH, B12 wnl. CK mildly elevated. -A1C 8.1 -HIV/RPR/Hep C: Non-reactive -UA neg and U Cx pending -Neurology Consulted * Recommend outpt EEG & Nerve conduction studies -Hx of chemical and lead exposure. Lead level <1, alcohol negative 4. Indeterminate trop, likely 2/2 NSTEMI type 2 due to Stroke -Elevated CKMB, Trop indeterminate -EKG shows NSR, LAD, nonspecific ST and T wave abnormality. -CXR no acute findings. 5. Hypokalemia -Monitor and replace 6. Hypomagnesemia -Monitor and replace 7. Weight loss Severe protein/calorie malnutrition -Patient is only eating 1 can of soup per 2 days, cooks for himself -CT chest abd/pelv: cyst present in L kidney -HIV/RPR/hep C negative -TSH wnl -B6 pending and B12 wnl -May need further work up outpatient 8. Anxiety -aware, on an unknown medication, possibly a benzo 9. Mild hyponatremia -suspect malnutrition, consult chucking and sawing machine operator -Monitor 10. Diabetes Mellitus Type 2 -A1C 8.1 -Hyperglycemia protocol, ACHS accuchecks, mild SSI -will need to be restarted on metformin prior to DC 12. L4 Vertebral fracture -aware -MRI lumbar spine: severe central canal and foraminal stenosis w/o nerve compression, subacute L4/L% and posterior paraspinal injury -MRI cervical spine canal stenosis at C3-C4 and C4-C5, recommends CT cervical spine because of artifact Diet: CC DVT ppx: SCDs GI ppx: Famotidine Code Status: DNAR PCP: None Dispo: [facility] does not believe patient will benefit from PT. They feel he will only benefit from PT if he has surgery to correct is cervical stenosis and cord compression. Otherwise rehab would mostly be about teaching his family how to care for him and he will require 24/7 care once he goes home. Patient is agreeable to surgery but does not seem interested in completing it during this hospitalization. Will follow-up with CM today regarding placement options for the patient.
[2019-12-04] MEDS: Bupropion 150 MG XL TAB PO SCH (08:46)
[2019-12-04] MEDS: Atenolol 50 MG TAB PO SCH ×2 (08:46→23:28)
[2019-12-04] MEDS: Lisinopril 20 MG TAB PO SCH (08:46)
[2019-12-04] MEDS: Famotidine 20 MG TAB PO SCH ×2 (08:47→23:28)
[2019-12-04] MEDS: hydrALAZINE 25 MG TAB PO SCH ×4 (08:47→23:27)
[2019-12-04] MEDS: Chlorthalidone 25 MG TAB PO SCH (08:47)
[2019-12-04] MEDS ORDERED: Spironolactone 25 MG TAB PO SCH (09:00)
[2019-12-04] MEDS: Acetaminophen 325 MG TAB PO PRN (11:14)
--- NOTE | 2019-12-04 11:39 | PRG ---
DATE OF SERVICE: 12/04/2019 Mr. Angel is in good spirits this morning with no distress. Evidently, he had a discussion with his sister regarding his cervical stenosis and now wants to consider surgery. We have been trying to contact Neurosurgery to come by and discuss this with the patient. We will continue to do so. Job ID: [id number]
--- NOTE | 2019-12-04 16:13 | PDOC.BPN ---
- Brief Progress Note Transition of Care Note: 59 yo M with a history of DMII, HTN, and depression/anxiety who presented for generalized weakness that started several months ago and has been worsening to the point that he is non-weight bearing and too weak to stand when he could previously walk with a cane. Patient also reported a decrease in appetite only eating 1 can of campbells soup over 2 days and significant weight loss. Patient has not been taking his diabetes medicine because he has not been eating much and has not been taking his blood pressure medicine because he is too sensitive to them. On arrival to the ED, his SBP was 189 and he was placed on a cardene drip. Head CT revealed a R-sided parietal hemorrhage. Patient denies any recent falls or hitting his head and the bleed was suspected to be due to HTN. Patient was admitted to ICU and placed on cardene drip. He was transferred to the floor for a time but continued to have poor BP control. Repeat CT stable, repeat on 11/27 showed no growth of hemorrhage. Patient became unresponsive and hypertensive to the 190s/110s on the evening of 11/29. A repeat CT head was stable, patient was transferred back to ICU and initiated a cardene drip. He was titrated off and transferred back to stroke floor the next morning on PO medications, including amlodipine, lisinopril, hydralazine chlorthalidone, atenolol, spironolactone, and prn labetolol. MRI brain revealed a sub-acute basal ganglia infarct and sub-acute w/ remote corpus striatum and thalamic infarcts. Workup for patients generalized weakness included normal TSH and B12, a negative HIV, RPR, and Hep C, and a negative lead and alcohol level. Neurology recommended outpatient work-up for patients generalized weakness, including EEG and nerve conduction studies. Neurosurgery required MRI cervical and lumbar spine which revealed canal stenosis in C3-C5 with cord compression and severe central canal and foraminal stenosis w/o nerve compression as well as a subacute L4/L5 and posterior paraspinal injury. Neurosurgery plans to speak with patient on Sunday 12/03 regarding his options for surgery. Patient is not a candidate for inpatient rehab as he cannot participate in PT. Patient requires 24/7 care due to his weakness. Consider snf placement. Patient is interested in possible surgery to treat his cervical cord compression but it is unknown if that will be completed during this hospitalization or at a later date. Regarding patients refractory hypertension, renal ultrasound with dopplers was negative and renin- aldosterone ratio labs have been drawn and are pending.
[2019-12-04 20:43] LABS: Actual Bicarbonate (HCO3a) 31.3 mEq/L (22-28); Base Excess (BEa) 5.2 mEq/L (-2.0 to +3.0); CO2 Tension 51.4 mmHg (35.0-45.0); Carboxyhemoglobin (COHb) 0.7 gm% (0.0-3.0); Hemoglobin (Hb) 14.9 g/dL (14.0-18.0); O2 Tension (PaO2), arterial 83.3 mmHg (> 80.0); Potassium - ABG Lab 3.58 mmol/L (3.70-5.30)
[2019-12-04 20:46] LABS: Puncture Site RRA
[2019-12-04 21:07] LABS: Troponin I 0.039 ng/mL (< 0.028)
--- NOTE | 2019-12-04 21:08 | CT ---
CT head noncontrast HISTORY: Altered mental status. COMPARISON: 11/30/2019. FINDINGS: The oval hyperdense fluid collection at the lateral aspect of the right basal ganglia is no w 1.9 cm greatest AP diameter and shows less well defined margins than on the prior study. No new areas of hemorrhage. Chronic ischemic small vessel disease and old lacunar infarcts are again demonstrated. Ventricles are unremarkable. IMPRESSION : Interval evolution/retraction of the right basal ganglia hematoma. No new abnormalities.
--- NOTE | 2019-12-04 21:27 | PDOC.BPN ---
- Brief Progress Note Encounter Date: 12/04/19 Encounter Time: 08:30 Called to bedside for decreased responsiveness. Nurse reports GCS of 14 on shift change. R 10, O2 Sat 97% on RA, SBP 150s, P 60s. Code green was called. On exam Eyes PERRLA, minimally reactive to sternal rub. Pulses 2+ in all extremities. GCS 7. BS was 147. EKG showed nonspecific ST changes, LAD Ordered CBC, CMP, Trop, ABG, and head CT.
[2019-12-04] MEDS ORDERED: LEVETIRACETAM IVPB SCH (22:45)
[2019-12-04] MEDS ORDERED: NACL IVPB SCH (22:45)
[2019-12-04 22:48] LABS: #Eosinphils 0.2 thou/uL (0.0-0.7); #Lymphocytes 2.1 thou/uL (1.20-3.40); #Monocytes 0.6 thou/uL (0.11-0.59); #Neutrophils 3.4 thou/uL (1.40-6.50); %Basophils 0.6 % (0.0-1.0); %Eosinophils 3.1 % (0.0-10.0); %Lymphocytes 33.3 % (21.0-51.0); %Neutrophils 53.9 % (42.0-75.0); Hemoglobin 14.5 g/dL (14.0-18.0); Mean Corpuscular HGB CONC 33.1 g/dL (32.0-36.0); Mean Corpuscular Hemoglobin 29.9 pg (27.0-31.0); Mean Corpuscular Volume 90.4 fL (78.0-98.0); Platelet Count 260 thou/uL (130-400); RBC Distribution Width 12.1 % (11.5-14.5); Red Blood Cell (RBC) Count 4.83 mill/uL (4.70-6.10); White Blood Cell (WBC) Count 6.3 thou/uL (4.8-10.8)
[2019-12-04 23:10] LABS: ALT (SGPT) 18 U/L (8-55); AST (SGOT) 21 U/L (5-34); Albumin 3.1 g/dL (3.4-4.8); Alkaline Phosphatase 135 U/L (40-110); Anion Gap 11 mmol/L (10-20); BUN (Urea Nitrogen) 15 mg/dL (8.4-25.7); Bilirubin, Total 0.5 mg/dL (0.2-1.2); Calc. Creatinine Clearance 98 mL/min (70-130); Calcium 8.6 mg/dL (7.8-10.44); Carbon Dioxide 30 mmol/L (23-31); Chloride 98 mmol/L (98-107); Estimated GFR-MDRD 82; Glucose 172 mg/dL (80-115); Protein, Total 6.1 g/dL (5.8-8.1); Sodium 135 mmol/L (136-145)
[2019-12-04] MEDS: Amlodipine 10 MG TAB PO SCH (23:26)
[2019-12-04] MEDS: levETIRAcetam 1,750 MG in Sodium Chloride 0.9% 100 ML IVPB SCH (23:28)
[2019-12-04] MEDS: Atorvastatin Calcium 40 MG TAB PO SCH (23:28)
[2019-12-04] MEDS ORDERED: levETIRAcetam 500 MG in Sodium Chloride 0.9% 100 ML IVPB SCH (23:45)
[2019-12-05 01:46] LABS: Troponin I 0.028 ng/mL (< 0.028)
[2019-12-05] MEDS: levETIRAcetam 1,750 MG in Sodium Chloride 0.9% 100 ML IVPB SCH (03:15)
--- NOTE | 2019-12-05 05:57 | PDOC.FM ---
- Subjective Subjective: Pt resting comfortably this morning. Able to awaken. Sleepy but AO x3. No complaints - Objective Vital Signs & Weight: Vital Signs (12 hours) Temp Pulse Pulse Pulse Pulse Resp Resp 12/05/19 04:08 98 F 63 12 12/05/19 02:19 12/05/19 00:17 98 F 61 12 12/04/19 23:27 64 12/04/19 23:26 64 12/04/19 22:18 61 12/04/19 21:03 59 L 59 L 61 10 L 12/04/19 20:44 97.9 F 62 10 L 12/04/19 19:25 BP BP BP BP BP Pulse Ox Pulse Ox 12/05/19 04:08 147/83 H 98 12/05/19 02:19 160/85 H 12/05/19 00:17 191/94 H 99 12/04/19 23:27 175/89 H 12/04/19 23:26 175/89 H 12/04/19 22:18 175/84 H 12/04/19 21:03 152/86 H 144/90 H 153/87 H 96 12/04/19 20:44 138/83 93 L 12/04/19 19:25 98 Weight Admit Weight 78.925 kg Weight 83.915 kg Most Recent Monitor Data Heart Rate from ECG 67 NIBP 171/94 NIBP BP-Mean 119 Respiration from ECG 0 SpO2 99 I&O: 12/03/19 12/04/19 12/05/19 06:59 06:59 06:59 Intake Total 866 240 558 Output Total 1425 1500 Balance -559 -1269 558 Result Diagrams: 12/04/19 20:42 12/04/19 20:42 Phys Exam - Physical Examination Constitutional: NAD sleepy, kept eyes closed throughout exam but responded to questions HEENT: moist MMs, sclera anicteric Neck: supple, full ROM Respiratory: no wheezing, clear to auscultation bilateral Cardiovascular: RRR, no significant murmur Gastrointestinal: soft, non-tender, no distention Musculoskeletal: no edema, pulses present generalized weakness, pupils equal and reactive Psychiatric: A&O x 3 Skin: no rash, cap refill <2 seconds Dx/Plan - Plan Plan: 1. Intraparenchymal Hemorrhage likely 2/2 HTN Emergency -Hx uncontrolled HTN-BP 180s on arrival, CT head showed Intraparenchymal hemorrhage. - last night code green: Patient became unresponsive and hypertensive, Repeat CT stable/slight improvement, this was the second time this happened during current hospitalization. Started on keppra -Neurosurgery consulted, Dr Juarez plans to see patient on Saturday. Pt has some concern about insurance coverage -Trauma consulted from ED, signed off -Pulmonology consulted, signed off -Neurology consulted, recommends outpatient follow up for possible degenerative neuromuscular disorder -Neuro checks q2h -PT/PTT/INR -Seizure precautions -Medication Management: * Started Statin * Will hold ASA * A1C was 8.1 we will treat with sliding scale insulin for now. D/c on Metformin -MRI: sub-acute basal ganglia infarct, sub-acute w/remote corpus striatum/thalamic infarcts 2. HTN BP 140-160s/90s. Very poor control -Oral medications: amlodipine 10mg HS, lisinopril 40mg daily, atenolol 50mg BID, chlorthalidone 25mg, labetolol 20mg prn -Renal ultrasound with dopplers negative -BP goal SBP <150 per neurosurgery -Will check renin-aldosterone ration then add spironolactone 25mg daily after it is completed. 3. Generalized Weakness -diffuse; from neuromuscular disorder vs stroke vs deconditioning vs vitamin deficiency vs diabetic neuropathy vs other -PT/OT consulted, up with assist. Chair as tolerated -TSH, B12 wnl. CK mildly elevated. -A1C 8.1 -HIV/RPR/Hep C: Non-reactive -UA neg and U Cx pending -Neurology Consulted * Recommend outpt EEG & Nerve conduction studies -Hx of chemical and lead exposure. Lead level <1, alcohol negative 4. Indeterminate trop, likely 2/2 NSTEMI type 2 due to Stroke -Elevated CKMB, Trop indeterminate -EKG shows NSR, LAD, nonspecific ST and T wave abnormality. -CXR no acute findings. 5. Hypokalemia -Monitor and replace 6. Hypomagnesemia -Monitor and replace 7. Weight loss Severe protein/calorie malnutrition -Patient is only eating 1 can of soup per 2 days, cooks for himself -CT chest abd/pelv: cyst present in L kidney -HIV/RPR/hep C negative -TSH wnl -B6 pending and B12 wnl -May need further work up outpatient 8. Anxiety -aware, on an unknown medication, possibly a benzo 9. Mild hyponatremia -suspect malnutrition, consult picking machine operator helper -Monitor 10. Diabetes Mellitus Type 2 -A1C 8.1 -Hyperglycemia protocol, ACHS accuchecks, mild SSI -will need to be restarted on metformin prior to DC 12. L4 Vertebral fracture -aware -MRI lumbar spine: severe central canal and foraminal stenosis w/o nerve compression, subacute L4/L% and posterior paraspinal injury -MRI cervical spine canal stenosis at C3-C4 and C4-C5, recommends CT cervical spine because of artifact Diet: CC DVT ppx: SCDs GI ppx: Famotidine Code Status: DNAR PCP: None Dispo: Code green last night, sleepy on exam today but arousable, continue to monitor mental status, neurosurg to see on Saturday Addendum - Attending - Attending Attestation Date/Time: 12/05/19 0081 I personally evaluated the patient and discussed the management with Dr. Sifuentes I agree with the History, Examination, Assessment and Plan documented above with any addition or exceptions noted below.
[2019-12-05] MEDS: Famotidine 20 MG TAB PO SCH ×2 (10:07→22:34)
[2019-12-05] MEDS: Lisinopril 20 MG TAB PO SCH (10:07)
[2019-12-05] MEDS: Bupropion 150 MG XL TAB PO SCH (10:08)
[2019-12-05] MEDS: Chlorthalidone 25 MG TAB PO SCH (10:08)
[2019-12-05] MEDS: Atenolol 50 MG TAB PO SCH ×2 (10:09→22:34)
[2019-12-05] MEDS: Spironolactone 25 MG TAB PO SCH (10:09)
[2019-12-05] MEDS: hydrALAZINE 25 MG TAB PO SCH ×4 (10:09→22:35)
--- NOTE | 2019-12-05 13:03 | EKG ---
Test Reason : Blood Pressure : / mmHG Vent. Rate : 088 BPM Atrial Rate : 088 BPM P-R Int : 150 ms QRS Dur : 092 ms QT Int : 386 ms P-R-T Axes : -21 -30 200 degrees QTc Int : 467 ms Normal sinus rhythm Left axis deviation Septal infarct , age undetermined Abnormal ECG Confirmed by SUSAN LOPEZ, BRIANNA ([id number]), news video editor DIDIER HUNTER ([id number]) on 12/05/2019 1:02:32 PM Referred By: Confirmed By:BRIANNA DAVIS MD
[2019-12-05] MEDS: Atorvastatin Calcium 40 MG TAB PO SCH (22:34)
[2019-12-05] MEDS: Acetaminophen 325 MG TAB PO PRN (22:34)
[2019-12-05] MEDS: Amlodipine 10 MG TAB PO SCH (22:34)
--- NOTE | 2019-12-06 05:46 | PDOC.FM ---
- Subjective Subjective: Pt awake this morning, AOx2. Feeling frustrated with being in hospital, wanting to go home. States he is hungry. No acute events overnight. - Objective Vital Signs & Weight: Vital Signs (12 hours) Temp Pulse Resp BP BP Pulse Ox 12/06/19 04:00 96.8 F L 53 L 16 139/79 98 12/06/19 00:00 97.5 F L 62 12 132/71 97 12/05/19 22:34 61 159/95 H 12/05/19 20:00 97.7 F 62 12 150/80 H 96 12/05/19 18:05 59 L 107/82 12/05/19 18:00 59 L 107/82 Weight Admit Weight 78.925 kg Weight 83.915 kg Most Recent Monitor Data Heart Rate from ECG 67 NIBP 171/94 NIBP BP-Mean 119 Respiration from ECG 0 SpO2 99 I&O: 12/04/19 12/05/19 12/06/19 06:59 06:59 06:59 Intake Total 240 658 100 Output Total 1500 800 375 Balance -5105 -149 -333 Result Diagrams: 12/04/19 20:42 12/04/19 20:42 Phys Exam - Physical Examination Constitutional: NAD HEENT: moist MMs, sclera anicteric Neck: supple, full ROM Respiratory: no wheezing, clear to auscultation bilateral Cardiovascular: RRR, no significant murmur Gastrointestinal: soft, non-tender, no distention Musculoskeletal: no edema, pulses present diffuse weakness UE and LE, decreased sensation LE Deviation from normal: oriented to person and place Skin: no rash, cap refill <2 seconds Dx/Plan - Plan Plan: 1. Intraparenchymal Hemorrhage likely 2/2 HTN Emergency -Hx uncontrolled HTN, CT head showed Intraparenchymal hemorrhage. -episode of decreased responsiveness on 12/04, thought possible postictal state following unwitnessed seizure, keppra started, seizure precautions -Neurosurgery consulted, Dr Juarez plans to see patient on Saturday to evaluate for surgery for spinal stenosis -Trauma consulted from ED, signed off -Pulmonology consulted, signed off -Neurology consulted, recommends outpatient follow up for possible degenerative neuromuscular disorder -Neuro checks q2h -Medication Management: * Started Statin * Will hold ASA * A1C was 8.1 we will treat with sliding scale insulin for now. D/c on Metformin -MRI: sub-acute basal ganglia infarct, sub-acute w/remote corpus striatum/thalamic infarcts 2. HTN - BP 140-160s/90s. Very poor control -Oral medications: amlodipine 10mg HS, lisinopril 40mg daily, atenolol 50mg BID, chlorthalidone 25mg -labetolol 20mg IV q4h prn SBP >160 -Renal ultrasound with dopplers negative -BP goal SBP <150 per neurosurgery -pending renin-aldosterone 3. Generalized Weakness -diffuse; from cervical stenosis vs deconditioning vs vitamin deficiency vs anthony betic neuropathy -PT/OT consulted, up with assist. Chair as tolerated -TSH, B12 wnl. CK mildly elevated, HIV/RPR/Hep C: Non-reactive -A1C 8.1 -UA neg and U Cx no growth -Neurology Consulted: Recommend outpt EEG & Nerve conduction studies -neurosurg as above -Lead level <1, alcohol negative 4. Indeterminate trop, likely 2/2 NSTEMI type 2 due to Stroke -Elevated CKMB, Trop indeterminate -EKG shows NSR, LAD, nonspecific ST and T wave abnormality. -CXR no acute findings. 5. Hypokalemia -resolved, continue to monitor 6. Hypomagnesemia -1.2 on admission, given replacement in ED -repeat Mg pending, will treat as needed 7. Weight loss -Severe protein/calorie malnutrition -Patient is only eating 1 can of soup per 2 days, cooks for himself -CT chest abd/pelv: cyst present in L kidney -HIV/RPR/hep C negative -TSH wnl -B6 pending and B12 wnl -May need further work up outpatient 8. Anxiety -aware, on an unknown medication, possibly a benzo 9. Mild hyponatremia -suspect malnutrition, consult meter/relay technician -Monitor 10. Diabetes Mellitus Type 2 -A1C 8.1 -Hyperglycemia protocol, ACHS accuchecks, mild SSI -will need to be restarted on metformin prior to DC Diet: CC DVT ppx: SCDs GI ppx: Famotidine Code Status: DNAR PCP: None Dispo: admit to stroke, stable, continue to monitor mental status, neurosurg to see on Saturday Addendum - Attending - Attending Attestation Date/Time: 12/06/19 1514 I personally evaluated the patient and discussed the management with Dr. Sifuentes I agree with the History, Examination, Assessment and Plan documented above with any addition or exceptions noted below. Patient more alert and responsive discussed care plan.
[2019-12-06] MEDS ORDERED: Magnesium 2 GM/50 ML 2 GM in Premix Bag 1 BAG IVPB SCH (07:45)
[2019-12-06] MEDS ORDERED: Magnesium Oxide 400 MG TAB PO SCH (08:15)
[2019-12-06] MEDS: Lisinopril 20 MG TAB PO SCH (09:25)
[2019-12-06] MEDS: Atenolol 50 MG TAB PO SCH ×2 (09:26→22:11)
[2019-12-06] MEDS: Bupropion 150 MG XL TAB PO SCH (09:26)
[2019-12-06] MEDS: Famotidine 20 MG TAB PO SCH ×2 (09:26→22:11)
[2019-12-06] MEDS: hydrALAZINE 25 MG TAB PO SCH ×4 (09:28→22:11)
[2019-12-06] MEDS: Chlorthalidone 25 MG TAB PO SCH (09:29)
[2019-12-06] MEDS: Spironolactone 25 MG TAB PO SCH (09:29)
[2019-12-06] MEDS: Atorvastatin Calcium 40 MG TAB PO SCH (22:11)
[2019-12-06] MEDS: Amlodipine 10 MG TAB PO SCH (22:12)
[2019-12-07 04:32] LABS: #Basophils 0.1 thou/uL (0.0-0.2); #Eosinphils 0.3 thou/uL (0.0-0.7); #Lymphocytes 2.4 thou/uL (1.20-3.40); #Monocytes 0.6 thou/uL (0.11-0.59); #Neutrophils 3.1 thou/uL (1.40-6.50); %Eosinophils 3.9 % (0.0-10.0); %Lymphocytes 37.3 % (21.0-51.0); %Monocytes 9.5 % (0.0-10.0); %Neutrophils 48.3 % (42.0-75.0); Hemoglobin 14.3 g/dL (14.0-18.0); Mean Corpuscular HGB CONC 32.9 g/dL (32.0-36.0); Mean Corpuscular Hemoglobin 29.7 pg (27.0-31.0); Mean Corpuscular Volume 90.3 fL (78.0-98.0); Mean Platelet Volume 8.3 fL (7.4-10.4); Platelet Count 278 thou/uL (130-400); Red Blood Cell (RBC) Count 4.81 mill/uL (4.70-6.10); White Blood Cell (WBC) Count 6.4 thou/uL (4.8-10.8)
[2019-12-07 04:57] LABS: Anion Gap 11 mmol/L (10-20); BUN (Urea Nitrogen) 14 mg/dL (8.4-25.7); Calc. Creatinine Clearance 102 mL/min (70-130); Calcium 8.8 mg/dL (7.8-10.44); Carbon Dioxide 30 mmol/L (23-31); Chloride 96 mmol/L (98-107); Estimated GFR-MDRD 83; Glucose 188 mg/dL (80-115); Potassium 3.8 mmol/L (3.5-5.1); Sodium 133 mmol/L (136-145)
--- NOTE | 2019-12-07 05:21 | PDOC.FM ---
- Subjective Subjective: Pt awake and alert. Denies pain, N/V, diarrhea, headache. Has multiple questions about neurosurgery and is nervous about "getting cut on". - Objective Vital Signs & Weight: Vital Signs (12 hours) Temp Pulse Resp BP Pulse Ox 12/07/19 04:32 97.6 F 60 12 143/84 H 98 12/07/19 01:08 97.6 F 62 14 156/88 H 97 12/06/19 22:12 62 12/06/19 22:11 62 12/06/19 22:09 97.7 F 62 12 129/73 96 Weight Admit Weight 78.925 kg Weight 86.183 kg Most Recent Monitor Data Heart Rate from ECG 67 NIBP 171/94 NIBP BP-Mean 119 Respiration from ECG 0 SpO2 99 I&O: 12/05/19 12/06/19 12/07/19 06:59 06:59 06:59 Intake Total 658 220 510 Output Total 800 375 225 Balance -142 -155 285 Result Diagrams: 12/07/19 04:20 12/07/19 04:20 Phys Exam - Physical Examination Constitutional: NAD HEENT: moist MMs, sclera anicteric Neck: supple, full ROM Respiratory: no wheezing, clear to auscultation bilateral Cardiovascular: RRR, no significant murmur Gastrointestinal: soft, non-tender, no distention Musculoskeletal: no edema, pulses present motor deficit UE and LE, decreased sensation LE Psychiatric: A&O x 3 Deviation from normal: flat affect Skin: no rash, cap refill <2 seconds Dx/Plan - Plan Plan: 59yo male w/ cerebral hemorrhage 2/2 HTN emergency 1. Intraparenchymal Hemorrhage likely 2/2 HTN Emergency -Hx uncontrolled HTN, CT head showed Intraparenchymal hemorrhage. -Neurosurgery consulted, Dr Juarez will see today after repeat imaging -Neurology consulted, recommends outpatient follow up for possible degenerative neuromuscular disorder 2. HTN -BP goal SBP <150 per neurosurgery -labetolol 20mg IV q4h prn SBP >150 -Renal ultrasound with dopplers negative, pending renin-aldosterone 3. Generalized Weakness -PT/OT consulted, up with assist. Chair as tolerated -Neurology Consulted: Recommend outpt EEG & Nerve conduction studies -neurosurg as above -CM consulted for placement 4. Indeterminate trop, likely 2/2 NSTEMI type 2 due to Stroke -Elevated CKMB, Trop indeterminate -EKG shows NSR, LAD, nonspecific ST and T wave abnormality. -CXR no acute findings. 5. Hypokalemia -resolved, continue to monitor 6. Hypomagnesemia -resolved, 1.2-->1.5-->2.0 -will continue to monitor 7. Weight loss -Severe protein/calorie malnutrition, pt lives alone and has not eating well -May need further work up outpatient 8. Anxiety -aware, on an unknown medication, possibly a benzo 9. Mild hyponatremia -on chlorthalidone, consider stopping it if continues to decline -Monitor 10. Diabetes Mellitus Type 2 -A1C 8.1 -Hyperglycemia protocol, ACHS accuchecks, mild SSI -will need to be restarted on metformin prior to DC Diet: CC DVT ppx: SCDs GI ppx: Famotidine Code Status: DNAR PCP: None Dispo: admit to stroke, stable, continue to monitor mental status, neurosurg to see today, appreciate recs, will need placement.
[2019-12-07] MEDS ORDERED: Magnesium 2 GM/50 ML 2 GM in Premix Bag 1 BAG IVPB SCH (06:30)
[2019-12-07] MEDS: Famotidine 20 MG TAB PO SCH ×2 (08:26→23:03)
[2019-12-07] MEDS: Bupropion 150 MG XL TAB PO SCH (08:26)
[2019-12-07] MEDS: Spironolactone 25 MG TAB PO SCH (08:26)
[2019-12-07] MEDS: hydrALAZINE 25 MG TAB PO SCH ×4 (08:26→23:04)
[2019-12-07] MEDS: Lisinopril 20 MG TAB PO SCH (08:26)
[2019-12-07] MEDS: Atenolol 50 MG TAB PO SCH ×2 (08:26→23:03)
[2019-12-07] MEDS: Chlorthalidone 25 MG TAB PO SCH (08:27)
--- NOTE | 2019-12-07 10:32 | CT ---
CT angiogram neck: 12/07/2019 HISTORY: Recent intracranial hemorrhage, cervical spine degenerative change TECHNIQUE: Axial CT imaging at 1.25 mm intervals from skull base through lung apices with IV contrast using CT angiogram protocol. Coronal and sagittal 3-D reformatted imaging obtained. FINDINGS: The imaged lung apices appear grossly unremarkable. The partially imaged paranasal sinuses/mastoid air cells are well aerated. The retroantral fat and parapharyngeal fat appears clear bilaterally. The parotid glands and submandi bular glands appear grossly unremarkable as does the epiglottis, the preepiglottic fat, hyoid bone, the thyroid cartilage, the cricoid cartilage, the level of the glottis, and the thyroid gland. The origin of the innominate artery, right subclavian artery, right common carotid artery, left commo n carotid artery, and left subclavian artery demonstrate no hemodynamically significant stenosis. There is no significant stenosis seen at the origin of either vertebral artery. Bilateral vertebral a rteries are patent with no hemodynamically significant stenosis noted. The common carotid artery demonstrates no evidence for hemodynamically significant stenosis on either side on the basis of NASCET criteria. The internal carotid artery is patent bilaterally and demonstrates no hemodynamically significant davonte nosis on the basis of NASCET criteria. Partially imaged intracranial arterial structures appear grossly unremarkable. No lymphadenopathy is noted within the neck. Review of the osseous structures demonstrates severe degenerative change within the cervical spine. At C2-3 there is mild bilateral uncovertebral osteophyte formation. At C3-4 there is disc space narrowing with disc bulge. There is bilateral uncovertebral and facet ost eophyte formation, right greater than left. Significant central canal stenosis is suspected at C3-4. At C4-5 there is disc space narrowing with disc bulge and bilateral facet/uncovertebral osteophyte fo rmation leading to prominent bilateral neural foraminal stenosis, right greater than left, as well as severe central canal stenosis, not optimally assessed on this exam. Vacuum disc formation noted. At C5-6 there is anterior osteophyte formation and prominent bilateral uncovertebral osteophyte forma tion with severe bilateral neural foraminal stenosis. Disc osteophyte complex causes at least moderate central canal stenosis. At the C6-7 level there is a disc osteophyte complex causing at least mild central canal stenosis. Th ere is disc space narrowing and anterior osteophyte formation. There is significant bilateral neural foraminal stenosis on the basis of facet and uncovertebral osteophyte formation. At C7-T1 there is disc space narrowing and degenerative endplate change with anterior and posterior o steophyte formation as well as bilateral facet and uncovertebral osteophyte formation leading to at least mild bilateral neural foraminal stenosis and mild central canal stenosis. Evaluation for central canal and/or neural foraminal stenosis is limited on this exam. CT myelogram o r cervical spine MRI would be required for full assessment. IMPRESSION: No hemodynamically significant stenosis involving the arterial structures on the of the n [place] on the basis of NASCET criteria. Severe cervical spine degenerative change which appears most prominent at C3-4 and C4-5, incompletely assessed on this examination.
--- NOTE | 2019-12-07 10:37 | PRG ---
DATE OF SERVICE: 12/07/2019 Mr. 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 He fits this clinically as well. CTA of the neck demonstrates calcification as well of the yellow ligament, which would make an anterior approach individually very difficult to complete or to satisfactorily decompress some. Further, his neural foramina mainly made up of osteophytic spurring. I recommended a C3-C7 ACDF and C3-C7 laminectomy and fusion posteriorly. We could do this tomorrow. We will talk with the patient to see if he would like to do this. I do think the chance of improvement in his quality of life is substantial with surgery, although the patient has been very reluctant to discuss any surgical options. We will speak with him today that we have the imaging. Job ID: [id number]
[2019-12-07] MEDS ORDERED: Iopamidol-370 76% 500 ML 1 ML ONE (10:50)
[2019-12-07] MEDS: Amlodipine 10 MG TAB PO SCH (23:04)
[2019-12-07] MEDS: Atorvastatin Calcium 40 MG TAB PO SCH (23:04)
--- NOTE | 2019-12-08 05:38 | PDOC.FM ---
- Subjective Subjective: Pt resting comfortably. He was talking to his son on the phone. He told me he was ready to have the surgery. I then spoke to his son on the phone and answered all of his questions. I answered all of pt's questions and he was then consented by the nurse and Dr Juarez for surgery. - Objective Vital Signs & Weight: Vital Signs (12 hours) Temp Pulse Resp BP BP Pulse Ox 12/07/19 23:03 60 124/68 12/07/19 20:53 97.6 F 63 14 125/71 96 12/07/19 20:00 97.7 F 62 13 130/91 H 98 Weight Admit Weight 78.925 kg Weight 87.09 kg Most Recent Monitor Data Heart Rate from ECG 67 NIBP 171/94 NIBP BP-Mean 119 Respiration from ECG 0 SpO2 99 I&O: 12/06/19 12/07/19 12/08/19 06:59 06:59 06:59 Intake Total 220 510 376 Output Total 375 455 225 Balance -155 55 151 Result Diagrams: 12/07/19 04:20 12/08/19 05:53 Phys Exam - Physical Examination Constitutional: NAD HEENT: moist MMs, sclera anicteric Neck: supple, full ROM Respiratory: no wheezing, clear to auscultation bilateral Cardiovascular: RRR, no significant murmur Gastrointestinal: soft, non-tender, no distention Musculoskeletal: no edema, pulses present decreased motor of UE and LE, decreased senation LE Psychiatric: A&O x 3 Deviation from normal: flat affect Skin: no rash, cap refill <2 seconds Dx/Plan - Plan Plan: 59yo male w/ cerebral hemorrhage 2/2 HTN emergency 1. Generalized Weakness 2/2 spinal stenosis -Neurosurgery: Dr Juarez plans for surgery today -CTA neck: no hemodynamically significant stenosis of arteries of neck -MRI: severe stenosis C3-C5 -CM consulted for placement -PT/OT consulted, up with assist. Chair as tolerated 2. Intraparenchymal Hemorrhage likely 2/2 HTN Emergency -Hx uncontrolled HTN, CT head: Intraparenchymal hemorrhage. -neurosugery consulted 3. HTN -BP goal SBP <150 per neurosurgery -labetolol 20mg IV q4h prn SBP >150 -pending renin-aldosterone 4. Indeterminate trop, likely 2/2 NSTEMI type 2 due to Stroke -Elevated CKMB, Trop indeterminate -EKG shows NSR, LAD, nonspecific ST and T wave abnormality. -CXR no acute findings. 5. Hypokalemia -resolved, continue to monitor 6. Hypomagnesemia -resolved, 1.2-->1.5-->2.0 -will continue to monitor 7. Weight loss -Severe protein/calorie malnutrition, pt lives alone and has not eating well -May need further work up outpatient 8. Anxiety -aware, on an unknown medication, possibly a benzo 9. Mild hyponatremia -on chlorthalidone, consider stopping it if continues to decline -Monitor 10. Diabetes Mellitus Type 2 -A1C 8.1 -Hyperglycemia protocol, ACHS accuchecks, mild SSI -will need to be restarted on metformin prior to DC Diet: NPO DVT ppx: SCDs GI ppx: Famotidine Code Status: DNAR PCP: None Dispo: admit to stroke, stable, Dr Juarez surgery today, will need placement.
[2019-12-08 06:33] LABS: Anion Gap 10 mmol/L (10-20); BUN (Urea Nitrogen) 15 mg/dL (8.4-25.7); Calc. Creatinine Clearance 90 mL/min (70-130); Calcium 8.8 mg/dL (7.8-10.44); Carbon Dioxide 32 mmol/L (23-31); Chloride 98 mmol/L (98-107); Estimated GFR-MDRD 71; Glucose 108 mg/dL (80-115); Potassium 3.8 mmol/L (3.5-5.1); Sodium 136 mmol/L (136-145)
[2019-12-08] MEDS ORDERED: Esmolol 100 MG/10 ML VIAL ONE (08:44)
[2019-12-08] MEDS ORDERED: PROPOFOL 200 MG/20 ML VIAL ONE (08:44)
[2019-12-08] MEDS ORDERED: Lidocaine 1% PF 5 ML VIAL ONE (08:44)
[2019-12-08] MEDS ORDERED: Ondansetron PF 4 MG/2 ML Vial ONE (08:44)
[2019-12-08] MEDS ORDERED: Rocuronium Bromide 10 MG/ML (10ML VIAL) ONE (08:44)
[2019-12-08] MEDS ORDERED: Dexamethasone 20 MG/5 ML VIAL ONE (08:44)
[2019-12-08] MEDS ORDERED: Glycopyrrolate 0.2 MG/ML 5 ML SYRINGE ONE (08:44)
[2019-12-08] MEDS ORDERED: EPHEDRINE 25 MG/5 ML SYRINGE ONE (08:44)
[2019-12-08] MEDS ORDERED: PHENYLEPHRINE-NS 100 MCG/ML 10 ML SYRINGE ONE ×3 (08:44→11:12)
[2019-12-08] MEDS ORDERED: Bacitracin Zinc Ointment 30 gm TUBE ONE (10:16)
[2019-12-08] MEDS ORDERED: Thrombin 5000 UNITS/5 ML VIAL ONE (10:16)
[2019-12-08] MEDS ORDERED: Meperidine HCl/PF 25 MG/ML VIAL SLOW IVP PRN (10:28)
[2019-12-08] MEDS ORDERED: Promethazine HCl 25 MG/ML VIAL SLOW IVP PRN ×2 (10:28→17:56)
[2019-12-08] MEDS ORDERED: Promethazine HCl 25 MG/ML VIAL IM PRN ×2 (10:28→17:56)
[2019-12-08] MEDS ORDERED: Ondansetron HCl/PF 4 MG/2 ML Vial IVP PRN ×2 (10:28→17:56)
[2019-12-08] MEDS ORDERED: Fentanyl 250 MCG/5 ML VIAL ONE (11:11)
[2019-12-08] MEDS ORDERED: Phenylephrine 10 MG/ML VIAL ONE (11:12)
[2019-12-08] MEDS: Spironolactone 25 MG TAB PO SCH (11:21)
[2019-12-08] MEDS: Atenolol 50 MG TAB PO SCH ×2 (11:22→22:05)
[2019-12-08] MEDS: Chlorthalidone 25 MG TAB PO SCH (11:22)
[2019-12-08] MEDS: hydrALAZINE 25 MG TAB PO SCH ×3 (11:22→22:06)
[2019-12-08] MEDS: Bupropion 150 MG XL TAB PO SCH (11:22)
[2019-12-08] MEDS: Famotidine 20 MG TAB PO SCH ×2 (11:22→22:05)
[2019-12-08] MEDS: Lisinopril 20 MG TAB PO SCH (11:23)
[2019-12-08] MEDS ORDERED: SUGAMMADEX SODIUM 200 MG/2 ML VIAL ONE (12:49)
[2019-12-08] MEDS ORDERED: Rocuronium Bromide 50 MG/5 ML VIAL ONE (15:30)
[2019-12-08] MEDS ORDERED: Fentanyl 100 MCG/2 ML VIAL ONE ×2 (15:44→18:42)
--- NOTE | 2019-12-08 16:16 | PRG ---
DATE OF SERVICE: 12/08/2019 I extensively reviewed Mr. Angel's craniospinal imaging. He has a right basal ganglia hemorrhage due to hypertension, but also has not ambulated in 10 months due to profound myelopathy. He has reluctance to pursue care as he states he is mistrustful of doctors. When I inquire about this he really does not provide any more of a reason. However, I have let him know that he has severe spinal cord compression. I would explain his profound weakness in all 4 limbs in particular his hand intrinsics. On exam, he is alert this morning. He is oriented. He states that he is his decision maker. I have reached out to his son and a sister. I have been unsuccessful in getting a hold of them to discuss the patient's care, although the patient is able to partially antigravity lift his arms up at the shoulders and bend his elbows partially but has significant wrist drop and hand weakness with really no movement. In his legs, he is able to barely hip flex in the left and is contractured on the right with very little movement throughout his leg, essentially has significant quadriparesis related to his C3 through C7 circumferential stenosis. The C3 through C5 stenosis is the worst. However, he has profound neuroforaminal stenosis from C5 through C7. I recommended an anterior-posterior decompression fusion to adequately decompress his cord and maximize his recovery. We discussed in the presence of Dr. Sifuentes, the chance of improvement. I think it is certainly substantial, but not as great as the chance of our clinical worsening if he does nothing. After much deliberation, the patient would like to pursue surgery. He is able to consent to this and both Dr. Sifuentes and I have spoken with the patient together in the presence of the nursing team. The patient again understands that the he will require a period of time of recovery and there will be pain involved in the recovery, but that pain typically subsides as it heals. Rehab will be very important to him in recovering any type of function is high risk given his diabetes and his overall poor health status, but again the option is do nothing or do something and I have let the patient know this. The goals, indications, risks, alternatives, and complications were discussed in detail with the patient. He understands the risks are up to and including, but not limited to, wound healing issues like infection, bleeding, spinal fluid leak, injury to the spinal cord, both temporary and permanent neurologic deficit beyond what he has now, but also understands the chance of him improving, I think is substantial. The goal is to try and get him some independence, but again it will require not only the surgery but extended rehab. Again, he wishes to proceed with surgery. There are no barriers to our discussion. He understands the risks of medical complications are also there. He will proceed with the surgery. DIAGNOSIS: 1. Cervical stenosis myelopathy. 2. Right basal ganglia hemorrhage, resolving. Job ID: [id number]
[2019-12-08] MEDS ORDERED: Morphine 2 MG/ML VIAL SLOW IVP PRN (17:36)
[2019-12-08] MEDS ORDERED: Acetaminophen/Codeine 30-300mg Tablet PO PRN (17:36)
[2019-12-08] MEDS ORDERED: traMADol HCl 50 MG TAB PO PRN (17:36)
[2019-12-08] MEDS ORDERED: Diazepam 5 MG TAB PO PRN (17:36)
[2019-12-08] MEDS ORDERED: PACU-Morphine 4MG/ML VIAL SLOW IVP PRN (17:56)
[2019-12-08 18:08] LABS: Actual Bicarbonate (HCO3a) 25.5 mEq/L (22-28); Base Excess (BEa) 2.7 mEq/L (-2.0 to +3.0); CO2 Tension 33.6 mmHg (35.0-45.0); Calcium, Ionized (arterial) 1.14 mmol/L (1.12-1.30); Carboxyhemoglobin (COHb) 0.1 gm% (0.0-3.0); O2 Tension (PaO2), arterial 243.2 mmHg (> 80.0)
[2019-12-08 18:09] LABS: Puncture Site LINE
[2019-12-08] MEDS ORDERED: Naloxone HCl 0.4 mg/ml Vial ONE (19:19)
[2019-12-08] MEDS: CEFAZOLIN 2 GM in Premix Bag 1 BAG IVPB SCH (21:59)
[2019-12-08] MEDS: Atorvastatin Calcium 40 MG TAB PO SCH (22:05)
[2019-12-08] MEDS: Amlodipine 10 MG TAB PO SCH (22:06)
[2019-12-09] MEDS: Ondansetron PF 4 MG/2 ML Vial IVP PRN (02:48)
[2019-12-09] MEDS: CEFAZOLIN 2 GM in Premix Bag 1 BAG IVPB SCH ×3 (02:52→18:47)
[2019-12-09] MEDS: Lactated Ringer's 1,000 ML IV SCH ×3 (02:53→18:47)
[2019-12-09] MEDS: HYDROcodone/Acetaminophen 7.5/325 mg Tablet PO PRN ×2 (03:46→11:15)
[2019-12-09] MEDS: Lorazepam 0.5 MG TAB PO PRN (03:49)
[2019-12-09] MEDS: Labetalol HCl 100 MG/20 ML VIAL SLOW IVP PRN (04:04)
--- NOTE | 2019-12-09 05:31 | PDOC.FM ---
- Subjective Subjective: Pt drowsy this morning s/p ativan and morphine. - Objective Vital Signs & Weight: Vital Signs (12 hours) Temp Pulse Pulse Ox 12/09/19 04:20 98.1 F 12/09/19 00:00 100 12/08/19 22:06 57 L 12/08/19 22:05 57 L Weight Admit Weight 78.925 kg Weight 87.09 kg Most Recent Monitor Data Heart Rate from ECG 67 NIBP 171/94 NIBP BP-Mean 119 Respiration from ECG 0 SpO2 99 I&O: 12/07/19 12/08/19 12/09/19 06:59 06:59 06:59 Intake Total 510 376 Output Total 455 225 115 Balance 55 151 -115 Result Diagrams: 12/07/19 04:20 12/08/19 05:53 Phys Exam - Physical Examination Constitutional: NAD drowsy HEENT: moist MMs, sclera anicteric venti mask bandage on anterior neck, minimal fluid in DESTINI drain Respiratory: no wheezing, clear to auscultation bilateral Cardiovascular: RRR, no significant murmur Gastrointestinal: soft, non-tender, no distention Musculoskeletal: no edema, pulses present Neurological: non-focal decreased motor UE and LE Psychiatric: A&O x 3 Deviation from normal: flat affect Skin: no rash, cap refill <2 seconds Dx/Plan - Plan Plan: 59yo male w/ cerebral hemorrhage 2/2 HTN emergency 1. Spinal Stenosis s/p ACDF C3-C7 on 12/07 -Neurosurgery: Dr Juarez, C3-C7 ACDF, laminectomies and partial facetectomies. will follow recs -transferred from PACU to IMCU due to lengthened response to surgical sedation -Abx: Cefazolin -pain: tylenol #3 prn, norco prn, tramadol prn -on venti mask 8L, has periods on room air, seems to be related to when given sedating meds, will monitor closely and wean as tolerated 2. Intraparenchymal Hemorrhage likely 2/2 HTN Emergency -Hx uncontrolled HTN, CT head: Intraparenchymal hemorrhage. -neurosugery consulted 3. HTN -BP goal SBP <150 per neurosurgery -pending renin-aldosterone 4. Indeterminate trop, likely 2/2 NSTEMI type 2 due to Stroke -Elevated CKMB, Trop indeterminate -EKG no acute changes -CXR no acute findings. 5. Hypokalemia -resolved, continue to monitor 6. Hypomagnesemia -resolved, 1.2-->1.5-->2.0 -will continue to monitor 7. Weight loss -Severe protein/calorie malnutrition -May need further work up outpatient 8. Anxiety -aware 9. Mild hyponatremia -on chlorthalidone, consider stopping it if continues to decline -Monitor 10. Diabetes Mellitus Type 2 -A1C 8.1 -Hyperglycemia protocol, ACHS accuchecks, mild SSI -will need to be restarted on metformin prior to DC Diet: Full liquid IVF: LR @ 100ml/hr DVT ppx: SCDs GI ppx: Famotidine Code Status: DNAR PCP: None Dispo: postop day 1 s/p ACDF in IMCU, will transfer to medical when appropriate. will need placement.
[2019-12-09] MEDS: HumaLOG 300 UNITS/3 ML VIAL SC PRN (06:02)
[2019-12-09] MEDS ORDERED: Diazepam 5 MG TAB PO PRN (08:05)
--- NOTE | 2019-12-09 09:36 | PRG ---
DATE OF SERVICE: 12/09/2019 Mr. Angel is postoperative day 1 from C3 to C7 anterior-posterior decompression and fusion. Surgery went well. Initially, after he was extubated, he had to be re-intubated due to a slow emergence from anesthesia. He has not been extubated. He is on closed face mask. His oxygen saturation is 100%. His hemodynamics are stable. He is obtunded this morning; however, the nurse states that he recently got morphine and Ativan. I think this is medication-induced. He does weakly try and open his eyes, but does not move his arms and legs. We need to let him wake up more, and I have encouraged the nursing to abstain from more sedation and pain medication at this point. Job ID: [id number]
[2019-12-09] MEDS: Spironolactone 25 MG TAB PO SCH (10:48)
--- NOTE | 2019-12-09 10:51 | ULT ---
EXAM: Bilateral lower extremity venous ultrasound HISTORY: Immobilization COMPARISON: None TECHNIQUE: Multiplanar grayscale and color Doppler images were obtained in a bilateral lower extremit y venous ultrasound. Spectral analysis of the Doppler waveforms were performed. FINDINGS: The bilateral common femoral vein, profunda femoral veins, superficial femoral veins, and p opliteal veins are normal in appearance without visible thrombus. These vessels demonstrate normal compression, flow, and augmentation. The bilateral posterior tibial veins, profunda femoral veins and greater saphenous veins are patent w ithout evidence of DVT. IMPRESSION: No evidence of DVT in the left or right lower extremity.
[2019-12-09] MEDS: Atenolol 50 MG TAB PO SCH ×2 (10:52→22:47)
[2019-12-09] MEDS: Famotidine 20 MG TAB PO SCH ×2 (10:54→22:48)
[2019-12-09] MEDS: Bupropion 150 MG XL TAB PO SCH (10:54)
[2019-12-09] MEDS: Chlorthalidone 25 MG TAB PO SCH (10:54)
[2019-12-09] MEDS: hydrALAZINE 25 MG TAB PO SCH ×4 (10:55→22:48)
[2019-12-09] MEDS: Lisinopril 20 MG TAB PO SCH (10:55)
[2019-12-09] MEDS: Morphine 2 MG/ML VIAL SLOW IVP PRN ×3 (11:50→21:59)
[2019-12-09] MEDS ORDERED: Enoxaparin Sodium 40 MG/0.4 ML SYRINGE SC SCH (12:15)
[2019-12-09] MEDS ORDERED: Ketorolac Tromethamine 30 MG/ML VIAL IVP SCH (13:15)
--- NOTE | 2019-12-09 16:39 | CT ---
Exam: Head CT without contrast HISTORY: Follow-up intracranial hemorrhage. Mental status change. COMPARISON: 12/04/2019 FINDINGS: Hemorrhage: Redemonstration of intraparenchymal hemorrhage centered in the right deep wakefield matter str uctures. Currently, the hemorrhage measures 1.1 x 0.6 cm (previously measuring 1.4 x 0.8 cm). Mild associated vasogenic edema. The overall degree of hyperdensity has decreased suggesting expected evol utionary changes of a intraparenchymal hemorrhage. There are no new intraparenchymal hemorrhages or extra-axial hematomas. Brain parenchyma: Cortical wakefield-white matter differentiation is preserved. No mass effect or midline shift. Basilar cisterns are patent.Chronic small vessel ischemic changes of the white matter Ventricular system: Ventricles and sulci are patent and symmetric. Calvarium: Intact. Sinuses and mastoid air cells: Adequate aeration. IMPRESSION: 1. Redemonstration of a intraparenchymal hemorrhage centered in the right deep wakefield matter structures . Hematoma is decreasing in size. 2. No new intracranial hemorrhage.
[2019-12-09] MEDS: Amlodipine 10 MG TAB PO SCH (22:47)
[2019-12-09] MEDS: Atorvastatin Calcium 40 MG TAB PO SCH (22:48)
[2019-12-10] MEDS: CEFAZOLIN 2 GM in Premix Bag 1 BAG IVPB SCH ×2 (02:12→09:14)
[2019-12-10] MEDS: Morphine 2 MG/ML VIAL SLOW IVP PRN ×3 (02:13→23:04)
[2019-12-10] MEDS: Labetalol HCl 100 MG/20 ML VIAL SLOW IVP PRN (05:27)
--- NOTE | 2019-12-10 05:44 | PDOC.FM ---
- Subjective Subjective: Pt sitting up in bed repeating same phrase over and over "help me mama". Will follow basic commands. When asked if he was in pain he stated "no". Not able to take po medications - Objective Vital Signs & Weight: Vital Signs (12 hours) Temp Pulse BP Pulse Ox 12/10/19 05:27 86 164/93 H 12/10/19 04:40 97.6 F 12/09/19 23:30 98.4 F 12/09/19 22:48 57 L 124/68 12/09/19 22:47 57 L 124/68 12/09/19 20:00 100 12/09/19 19:48 98.4 F Weight Admit Weight 79 kg Weight 88.314 kg Most Recent Monitor Data Heart Rate from ECG 87 NIBP 164/93 NIBP BP-Mean 116 Respiration from ECG 31 SpO2 100 I&O: 12/08/19 12/09/19 12/10/19 06:59 06:59 06:59 Intake Total 376 1349 1360 Output Total 225 465 220 Balance 221 979 3279 Result Diagrams: 12/10/19 06:06 12/10/19 06:06 Phys Exam - Physical Examination awake, altered HEENT: PERRLA, sclera anicteric wound dressing on ant neck, minimal drainage in DESTINI drain Respiratory: no wheezing, clear to auscultation bilateral Cardiovascular: RRR, no significant murmur Gastrointestinal: soft, non-tender, no distention Musculoskeletal: no edema, pulses present Neurological: non-focal, normal sensation Deviation from normal: A&O x 0 Skin: no rash, cap refill <2 seconds Dx/Plan - Plan Plan: 59yo male w/ cerebral hemorrhage 2/2 HTN emergency #Spinal Stenosis s/p ACDF C3-C7 on 12/07 -Neurosurgery: Dr Juarez, will follow recs -continued stay in IMCU due to altered mentation, repeat brain CT showed improvement of intercerebral hemorrhage, no acute process -CXR 12/09: no acute process -Abx: Cefazolin -pain: tylenol #3 prn, norco prn, tramadol prn, valium prn #AMS -likely due to medications, brain CT as above -pending CBC and CMP to r/o other causes #GHASSAN -BUN/Cr 32/2.05 -on LR @ 100ml/hr -not tolerating po intake -considered fluid overload but CXR normal, and clinically does not appear fluid overloaded -will continue to monitor closely #Intraparenchymal Hemorrhage likely 2/2 HTN Emergency -Hx uncontrolled HTN, CT head: Intraparenchymal hemorrhage. -neurosugery consulted #HTN -164/93 today, not able to take his po medications due to AMS, has IV labetalol prn, will continue to monitor -BP goal SBP <150 per neurosurgery -pending renin-aldosterone #Indeterminate trop, likely 2/2 NSTEMI type 2 due to Stroke -Elevated CKMB, Trop indeterminate -EKG no acute changes -CXR no acute findings. #Hypokalemia -resolved, continue to monitor # Hypomagnesemia -resolved, 1.2-->1.5-->2.0 -will continue to monitor #Weight loss -Severe protein/calorie malnutrition -May need further work up outpatient #Anxiety -aware #Mild hyponatremia -on chlorthalidone, consider stopping it if continues to decline -Monitor #Diabetes Mellitus Type 2 -A1C 8.1 -Hyperglycemia protocol, ACHS accuchecks, mild SSI -will need to be restarted on metformin prior to DC Diet: Full liquid IVF: LR @ 100ml/hr DVT ppx: SCDs GI ppx: Famotidine Code Status: DNAR PCP: None Dispo: postop day 1 s/p ACDF in IMCU, will transfer to medical when appropriate. will need placement.
[2019-12-10 06:19] LABS: #Lymphocytes 2.4 thou/uL (1.20-3.40); #Monocytes 1.1 thou/uL (0.11-0.59); #Neutrophils 9.8 thou/uL (1.40-6.50); %Basophils 0.3 % (0.0-1.0); %Eosinophils 0.1 % (0.0-10.0); %Lymphocytes 17.7 % (21.0-51.0); %Monocytes 8.2 % (0.0-10.0); %Neutrophils 73.7 % (42.0-75.0); Hemoglobin 11.8 g/dL (14.0-18.0); Mean Corpuscular HGB CONC 32.1 g/dL (32.0-36.0); Mean Corpuscular Hemoglobin 28.9 pg (27.0-31.0); Mean Corpuscular Volume 90.1 fL (78.0-98.0); Mean Platelet Volume 8.8 fL (7.4-10.4); Platelet Count 237 thou/uL (130-400); RBC Distribution Width 12.2 % (11.5-14.5); Red Blood Cell (RBC) Count 4.08 mill/uL (4.70-6.10); White Blood Cell (WBC) Count 13.3 thou/uL (4.8-10.8)
[2019-12-10 06:38] LABS: ALT (SGPT) Less than 7 U/L (8-55); AST (SGOT) 31 U/L (5-34); Albumin 2.8 g/dL (3.4-4.8); Alkaline Phosphatase 104 U/L (40-110); Anion Gap 16 mmol/L (10-20); BUN (Urea Nitrogen) 32 mg/dL (8.4-25.7); Bilirubin, Total 0.8 mg/dL (0.2-1.2); Calc. Creatinine Clearance 47 mL/min (70-130); Calcium 8.4 mg/dL (7.8-10.44); Carbon Dioxide 21 mmol/L (23-31); Chloride 101 mmol/L (98-107); Estimated GFR-MDRD 33; Globulin 3.2 g/dL (2.4-3.5); Glucose 116 mg/dL (80-115); Potassium 3.8 mmol/L (3.5-5.1); Sodium 134 mmol/L (136-145)
--- NOTE | 2019-12-10 08:35 | RAD ---
Portable frontal chest radiograph: 12/10/2019 COMPARISON: 11/25/2019 HISTORY: Hypoxia FINDINGS: Incompletely imaged cervical spine fusion hardware is present. No pneumothorax is seen. Hea rt and mediastinal contours are grossly unremarkable. Lungs appear clear. IMPRESSION: No radiographic evidence of acute cardiopulmonary disease.
[2019-12-10] MEDS: Enoxaparin Sodium 40 MG/0.4 ML SYRINGE SC SCH (09:27)
[2019-12-10] MEDS: Spironolactone 25 MG TAB PO SCH (09:27)
[2019-12-10] MEDS: Atenolol 50 MG TAB PO SCH ×2 (09:27→21:42)
[2019-12-10] MEDS: Bupropion 150 MG XL TAB PO SCH (09:27)
[2019-12-10] MEDS: Chlorthalidone 25 MG TAB PO SCH (09:27)
[2019-12-10] MEDS: Famotidine 20 MG TAB PO SCH (09:28)
[2019-12-10] MEDS: hydrALAZINE 25 MG TAB PO SCH ×4 (09:28→21:41)
[2019-12-10] MEDS: Lisinopril 20 MG TAB PO SCH (09:28)
[2019-12-10] MEDS: Insulin Glargine 10 UNITS in Pre-Filled Syringe SC SCH (09:28)
[2019-12-10] MEDS ORDERED: Multivit, Adult Inj 10 ML VIAL IV SCH (09:45)
--- NOTE | 2019-12-10 10:23 | OP ---
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 PROCEDURES PERFORMED: 1. Anterior C3-C4, C4-C5, C5-C6, and C6-C7 diskectomies for decompression of spinal cord nerve roots. 2. Anterior C3, C4, C5, C6, and C7 placement of interbody spacers x4 separate from plate for arthrodesis and fusion with spacers separate from plate, packed with local bone autograft obtained with the same incision, allograft C3 through C7. 3. Anterior cervical plate and screw fixation; C3, C4, C5, C6, and C7. 4. Use of operative microscope for microdissection. 5. C3, C4, C5, C6, and C7 laminectomies, partial facetectomies, and foraminotomies. 6. Placement of screw liliana fixation posterolateral; C3, C4, C5, C6, and C7. 7. Posterolateral arthrodesis C3-C4, C4-C5, C5-C6, and C6-C7 with allograft. DESCRIPTION OF PROCEDURE: After informed consent was obtained from the patient, the patient was brought to the OR. Proper patient, pause, and identification were carried out. He was placed under excellent general endotracheal anesthesia and positioned supine on the OR table. All appropriate points were padded. A right anterior oblique francisco was drawn out, this region was sterilely cleansed, prepared, and draped. Proper patient, pause, and identification were carried out. The wound was then opened with a combination of sharp, monopolar, and blunt dissection. We proceeded lateral to the larynx, pharynx, tracheoesophageal bundle medial to the right carotid sheath. We identified the prevertebral layer of deep cervical fascia and the longus colli muscles. Localization film confirmed area of interest. We then performed distraction at C3-C4 and the microscope was brought in for microdissection. A C3-C4 diskectomy was performed with decompression of spinal cord nerve roots into the plate. Endplates were prepared and interbody spacer appropriate dimension was placed at C3-C4, packed with local bone autograft, obtained same incision allograft C3 for arthrodesis initiation. This was separate from the plate. This was then repeated at C4-C5, C5-C6, and C6-C7 with diskectomies, decompression of spinal cord nerve roots, preparation of the endplates, and placement of interbody spacers at C3, C4, C5, C6, and C7. I got all separate from the plate. Microscope was removed and anterior cervical plate screw fixation at C3, C4, C5, C6, and C7 then occurred. This again was separate plate separate from the spacers. The wound was then closed in anatomic layers following meticulous hemostasis and copious irrigation. The wound was closed over drain. The patient was then positioned prone with the Yo Kristal head of business development secured and posterior incision was drawn out from C3 through C7. This region was sterilely cleansed, prepared, and draped. Proper patient, pause, and identification were carried out. The wound was then opened with combination of sharp, monopolar, and blunt dissection. We then exposed in subperiosteal fashion, C3, C4, C5, C6, and C7. Localization film confirmed our area of interest. We then performed C3, C4, C5, C6, and C7 laminectomies, partial facetectomies, foraminotomies, and lateral mass screw fixation C3, C4, C5, C6, and C7 with rods placed and tightening of the cap screws. Posterolateral arthrodesis was initiated by placing local bone autograft over decorticated lateral masses at C3, C4, C5, C6, and C7. Copious irrigation occurred throughout as did maximizing hemostasis. The wound was then closed in anatomic layers. The patient then emerged from anesthesia. Job ID: [id number]
--- NOTE | 2019-12-10 10:44 | PRG ---
DATE OF SERVICE: 12/10/2019 Mr. Angel is postoperative day 2 following anterior-posterior decompression and stabilization. He states that he would like somebody to help him and he flails both arms, certainly moving them better than preoperatively. He remains plegic or severely paretic in the legs. Our Family Medicine colleagues obtained a head CT. It demonstrates continued interval resolution of his basal ganglia and thalamic hemorrhage, otherwise negative. I think from a myelopathic standpoint, he is certainly improving. He is going to need inpatient rehab. We have initiated Lovenox for DVT prophylaxis. Job ID: [id number]
[2019-12-10] MEDS ORDERED: Vancomycin HCl 1.75 GM in Sodium Chloride 0.9% 500 ML IVPB SCH (11:00)
[2019-12-10] MEDS: Lactated Ringer's 1,000 ML IV SCH ×2 (12:01→14:04)
[2019-12-10] MEDS: Cefepime 2 GM in Sodium Chloride 0.9% 100 ML IVPB SCH ×2 (12:07→22:46)
[2019-12-10] MEDS: Multivitamins, Adult 10 ML, Folic Acid 1 MG, Thiamine HCl 100 MG in Dextrose 5 %-0.45 %... IV SCH (12:09)
[2019-12-10] MEDS: Acetaminophen 325 MG TAB PO PRN (12:14)
--- NOTE | 2019-12-10 13:18 | PDOC.NEUPN ---
- Subjective Encounter Date: 12/10/19 Subjective: Stanley is a 59-year-old male with history significant for stable intrapa renchymal hemorrhage was seen again for acute onset altered mental status status post surgery. The patient seems to be confused and does not follow commands. EEG at bedside reviewed briefly which did not reveal acute seizure activity. Formal report to follow after the completion of the study. Head CT reviewed which was negative for acute intracranial pathology and stable intraparenchymal hemorrhage. - Objective Vital Signs & Weight: Vital Signs (12 hours) Temp Pulse Pulse Pulse BP BP BP 12/10/19 12:09 86 164/93 H 12/10/19 09:35 88 87 134/85 157/94 H 12/10/19 09:34 87 87 157/94 H 134/85 12/10/19 09:30 99.9 F H 12/10/19 09:28 86 164/93 H 12/10/19 09:27 86 164/93 H 12/10/19 08:00 12/10/19 05:27 86 164/93 H 12/10/19 04:40 97.6 F Pulse Ox Pulse Ox 12/10/19 12:09 12/10/19 09:35 100 12/10/19 09:34 12/10/19 09:30 12/10/19 09:28 12/10/19 09:27 12/10/19 08:00 100 12/10/19 05:27 12/10/19 04:40 Weight Admit Weight 174 lb 2.643 oz Weight 189 lb 1.6 oz Most Recent Monitor Data Heart Rate from ECG 87 NIBP 148/108 NIBP BP-Mean 121 Respiration from ECG 16 SpO2 100 I&O: 12/09/19 12/10/19 12/11/19 06:59 06:59 06:59 Intake Total 1349 2610 Output Total 465 885 Balance 884 1725 Result Diagrams: 12/10/19 06:06 12/10/19 06:06 Additional Labs: Accuchecks 12/10/19 12/09/19 12/09/19 05:47 20:35 18:54 POC Glucose 110 H 140 H 138 H 12/09/19 12/08/19 16:07 18:04 POC Glucose 158 H 142 H Radiology Reviewed by me: Yes EKG Reviewed by me: Yes ROS - Review of Systems ROS unobtainable: due to mental status - Medication Medications: Active Medications Generic Name Dose Route Start Last Admin Trade Name Freq PRN Reason Stop Dose Admin Acetaminophen 650 mg 12/01/19 15:19 12/10/19 12:14 Acetaminophen 325 Mg Tab PO 650 mg Q6H PRN Administration Mild-Moderate Pain (1-5) Hydrocodone Bitart/Acetaminophen 1 tab 12/08/19 17:36 12/09/19 03:46 Hydrocodone/Acetaminophen 7.5/325 Mg Tablet PO 1 tab Q4H PRN Administration Severe Pain (7-10) Amlodipine Besylate 10 mg 11/28/19 21:00 12/09/19 22:47 Amlodipine 10 Mg Tab PO Not Given HS ALEXANDREA Atenolol 50 mg 12/02/19 09:00 12/10/19 09:27 Atenolol 50 Mg Tab PO 50 mg BID ALEXANDREA Administration Atorvastatin Calcium 40 mg 11/26/19 21:00 12/09/19 22:48 Atorvastatin Calcium 40 Mg Tab PO Not Given HS ALEXANDREA Bupropion HCl 150 mg 11/28/19 09:00 12/10/19 09:27 Bupropion 150 Mg Xl Tab PO 150 mg DAILY ALEXANDREA Administration Chlorthalidone 25 mg 11/30/19 09:00 12/10/19 09:27 Chlorthalidone 25 Mg Tab PO 25 mg DAILY ALEXANDREA Administration Enoxaparin Sodium 40 mg 12/10/19 09:00 12/10/19 09:27 Enoxaparin Sodium 40 Mg/0.4 Ml Syringe SC 40 mg 0900 ALEXANDREA Administration Famotidine 20 mg 11/28/19 21:00 12/10/19 09:28 Famotidine 20 Mg Tab PO 20 mg BID ALEXANDREA Administration Hydralazine HCl 25 mg 12/03/19 17:00 12/10/19 12:09 Hydralazine 25 Mg Tab PO 25 mg QID ALEXANDREA Administration Nicardipine HCl 25 mg/ Sodium 260 mls @ 0 mls/hr 11/30/19 22:00 11/30/19 22:46 Chloride IVPB 260 mls INF ALEXANDREA Administration Protocol Titrate Lactated Ringer's 1,000 mls @ 100 mls/hr 12/08/19 22:15 12/10/19 12:01 Lactated Ringer's IV Not Given .Q10H ALEXANDREA Insulin Glargine 10 units/ 0.1 mls @ 0 mls/hr 12/10/19 09:00 12/10/19 09:28 Miscellaneous Medication SC 0.1 mls QAM ALEXANDREA Administration Multivitamins 10 ml/ Folic 1,011.2 mls @ 100 mls/hr 12/10/19 11:00 12/10/19 12:09 Acid 1 mg/ Thiamine HCl 100 mg IV 1,011.2 mls / Dextrose/Sodium Chloride Q24HR ALEXANDREA Administration Cefepime HCl 2 gm/ Sodium 100 mls @ 200 mls/hr 12/10/19 10:00 12/10/19 12:07 Chloride IVPB 100 mls 1000,2200 ALEXANDREA Administration Insulin Human Lispro 0 units 11/25/19 20:57 12/09/19 06:02 Humalog 300 Units/3 Ml Vial SC 3 unit .MILD SLIDING SCALE PRN Administration Mild Correctional Scale Labetalol HCl 20 mg 12/06/19 08:42 12/10/19 05:27 Labetalol Hcl 100 Mg/20 Ml Vial SLOW IVP 20 mg Q4H PRN Administration Hypertension Lisinopril 40 mg 11/29/19 06:17 12/10/19 09:28 Lisinopril 20 Mg Tab PO 40 mg DAILY ALEXANDREA Administration Morphine Sulfate 2 mg 12/08/19 17:36 12/09/19 02:48 Morphine 2 Mg/Ml Vial SLOW IVP 12/11/19 17:37 2 mg ONE PRN Administration Breakthrough Pain Morphine Sulfate 2 mg 12/09/19 11:35 12/10/19 02:13 Morphine 2 Mg/Ml Vial SLOW IVP 2 mg Q2H PRN Administration Severe Pain (7-10) Ondansetron HCl 4 mg 11/25/19 22:17 12/09/19 02:48 Ondansetron Pf 4 Mg/2 Ml Vial IVP 4 mg BIDPRN PRN Administration Nausea/Vomiting Sertraline HCl 100 mg 12/05/19 09:00 12/10/19 09:28 Sertraline Hcl 100 Mg Tab PO 100 mg DAILY ALEXANDREA Administration Sodium Chloride 10 ml 11/25/19 22:17 12/06/19 22:12 Flush - Normal Saline 10 Ml Syringe IVF 10 ml PRN PRN Administration Saline Flush Spironolactone 25 mg 12/05/19 08:00 12/10/19 09:27 Spironolactone 25 Mg Tab PO 25 mg QAM-WM [facility] Administration - Exam General Appearance: ill appearing Eye: PERRL ENT: normocephalic atraumatic Neck: supple Respiratory: CTAB Cardiovascular: RRR Gastrointestinal: soft Extremities: no cyanosis Skin: normal turgor Neurological: no new deficit Musculoskeletal: normal tone, no muscle wasting PSYCH: not oriented Results - Labs Result Diagrams: 12/10/19 06:06 12/10/19 06:06 Lab results: WBC 13.3 thou/uL (4.8-10.8) H 12/10/19 06:06 Hgb 11.8 g/dL (14.0-18.0) L 12/10/19 06:06 Hct 36.8 % (42.0-52.0) L 12/10/19 06:06 MCV 90.1 fL (78.0-98.0) 12/10/19 06:06 Plt Count 237 thou/uL (130-400) 12/10/19 06:06 Neutrophils % 73.7 % (42.0-75.0) 12/10/19 06:06 ABG pH 7.50 (7.35-7.45) H 12/08/19 17:56 ABG pCO2 33.6 mmHg (35.0-45.0) L 12/08/19 17:56 ABG pO2 243.2 mmHg (> 80.0) H 12/08/19 17:56 Sodium 134 mmol/L (136-145) L 12/10/19 06:06 Potassium 3.8 mmol/L (3.5-5.1) 12/10/19 06:06 Chloride 101 mmol/L (98-107) 12/10/19 06:06 Carbon Dioxide 21 mmol/L (23-31) L 12/10/19 06:06 BUN 32 mg/dL (8.4-25.7) H 12/10/19 06:06 Creatinine 2.05 mg/dL (0.7-1.3) H 12/10/19 06:06 Glucose 116 mg/dL (80-115) H 12/10/19 06:06 Lactic Acid 1.1 mmol/L (0.5-2.2) 11/25/19 22:13 Calcium 8.4 mg/dL (7.8-10.44) 12/10/19 06:06 Total Bilirubin 0.8 mg/dL (0.2-1.2) 12/10/19 06:06 AST 31 U/L (5-34) 12/10/19 06:06 ALT Less than 7 U/L (8-55) L 12/10/19 06:06 Alkaline Phosphatase 104 U/L (40-110) 12/10/19 06:06 Ammonia 24 umol/L (18-72) 11/30/19 21:06 Creatine Kinase 590 U/L (30-200) H 11/25/19 22:12 CK-MB (CK-2) 6.8 ng/mL (0-6.6) H* 11/25/19 17:52 Troponin I 0.028 ng/mL (< 0.028) 12/05/19 00:35 Serum Total Protein 6.0 g/dL (5.8-8.1) 12/10/19 06:06 Albumin 2.8 g/dL (3.4-4.8) L 12/10/19 06:06 Lipase 6 U/L (8-78) L 11/25/19 17:52 Urine Ketones Trace mg/dL (Negative) A 11/27/19 00:52 Urine Blood 1+ (Negative) A 11/27/19 00:52 Urine Nitrite Negative (Negative) 11/27/19 00:52 Ur Leukocyte Esterase 75 Clyde/uL (Negative) A 11/27/19 00:52 Urine RBC 0-3 HPF (0-3) 11/27/19 00:52 Urine WBC 7-10 HPF (0-3) A 11/27/19 00:52 Ur Squamous Epith Cells None Seen HPF (0-3) 11/27/19 00:52 Urine Bacteria None Seen HPF (None Seen) 11/27/19 00:52 - Radiology Interpretation CT scan - head Status: image reviewed by me, report reviewed by me Additional Comment: No acute stroke or acute bleed. PN A/P - Plan Daily Plan: PT/OT, speech therapy, DVT proph w/SCDs Mr. Abran Angel s a 59-year-old male with history significant for intracranial hemorrhage consulted again for acute onset mental status changes s/p spinal surgery. Head CT reviewed did not reveal any acute intracranial changes or extension of hemorrhage. EEG reviewed briefly at bedside which did not reveal any ongoing seizure activity. Formal report to follow after completion of the study. Continue neurochecks every 2 hours. Pain control to see if that improves the mental status. Continue medical management per primary team and neurosurgery PT/OT/speech. N.p.o. till cleared by speech. Further recommendations depend on the results of the testing. Plan discussed with the primary team Dr. Gomez and Dr. Sifuentes.
--- NOTE | 2019-12-10 15:26 | PDOC.EEG ---
Neurology EEG Report - Report Report: This EEG was performed using 24 channel [employer] video digital EEG machine with 24 disc electrodes. This was an extended 2 hours 46 minutes of inpatient video EEG recording. Digital analysis of the EEG was done for Yuval and seizure detection which revealed no abnormalities. Background: The posterior background rhythm was not observed. Photic stimulation: No significant response seen with photic stimulation. Hyperventilation: Not performed. Sleep: No stage change was observed. EEG diagnosis: Intermittent irregular theta activity seen throughout the recording. Absence of posterior background rhythm. Clinical interpretation: This EEG is consistent with moderate generalized nonspecific cerebral dysfunction.
[2019-12-10] MEDS ORDERED: Vancomycin 1 GM in Premix Bag 1 BAG IVPB SCH (21:00)
[2019-12-10] MEDS: Amlodipine 10 MG TAB PO SCH (21:41)
[2019-12-10] MEDS: Atorvastatin Calcium 40 MG TAB PO SCH (21:42)
[2019-12-11] MEDS: Lactated Ringer's 1,000 ML IV SCH (03:22)
[2019-12-11] MEDS: Labetalol HCl 100 MG/20 ML VIAL SLOW IVP PRN ×3 (03:23→17:55)
--- NOTE | 2019-12-11 06:31 | PDOC.FM ---
- Subjective Subjective: Pt awake this morning. Continues to moan "mama, help". A&O x1, did answer some questions appropriately, such as his sister's name. Denies pain. Nurse stated he was able to take some of his po meds last night. - Objective Vital Signs & Weight: Vital Signs (12 hours) Temp Pulse BP Pulse Ox 12/11/19 03:46 97.4 F L 12/11/19 03:23 77 176/103 H 12/11/19 01:10 100 12/10/19 23:43 97.5 F L 12/10/19 21:42 86 164/93 H 12/10/19 21:41 86 164/93 H 12/10/19 19:47 99 12/10/19 19:26 97.2 F L Weight Admit Weight 79 kg Weight 87.18 kg Most Recent Monitor Data Heart Rate from ECG 76 NIBP 166/97 NIBP BP-Mean 120 Respiration from ECG 24 SpO2 100 I&O: 12/09/19 12/10/19 12/11/19 06:59 06:59 06:59 Intake Total 1349 2610 2418 Output Total 925 825 2387 Balance 884 7428 -201 Result Diagrams: 12/10/19 06:06 12/11/19 07:26 Phys Exam - Physical Examination moaning, repeating phrases, cooperative with parts of exam HEENT: sclera anicteric C collar in place Respiratory: no wheezing, clear to auscultation bilateral Cardiovascular: RRR, no significant murmur Gastrointestinal: soft, non-tender, no distention Musculoskeletal: no edema, pulses present decreased motor and sensation LE, decreased motor UE Deviation from normal: A&O x 1 Skin: no rash, cap refill <2 seconds Dx/Plan - Plan Plan: 59yo male w/ cerebral hemorrhage 2/2 HTN emergency #Spinal Stenosis s/p ACDF C3-C7 on 12/07 -Neurosurgery: Dr Juarez, will follow recs -continued stay in IMCU due to altered mentation, plan is to balance controlling pain vs increasing encephalopathy -abx: vanc, cefepime- increased coverage yesterday due to encephalopathy -pain: tylenol #3 prn, norco prn, tramadol prn, valium prn #AMS -likely due to medications, brain CT on 12/08 showed improvement of hemorrhage, no acute process -Dr. Mayberry saw him yesterday, EEG normal, recommend better pain control -pending BCx, UCX. Abx as above #GHASSAN -BUN/Cr 32/2.05 -on LR @ 100ml/hr -not tolerating po intake -considered fluid overload but CXR normal, and clinically does not appear fluid overloaded -will continue to monitor closely #Intraparenchymal Hemorrhage likely 2/2 HTN Emergency -Hx uncontrolled HTN, CT head: Intraparenchymal hemorrhage. -neurosugery consulted #HTN -164/93 today, not able to take his po medications due to AMS, has IV labetalol prn, will continue to monitor -BP goal SBP <150 per neurosurgery -pending renin-aldosterone #Indeterminate trop, likely 2/2 NSTEMI type 2 due to Stroke -Elevated CKMB, Trop indeterminate -EKG no acute changes -CXR no acute findings. #Hypokalemia -resolved, continue to monitor # Hypomagnesemia -resolved, 1.2-->1.5-->2.0 -will continue to monitor #Weight loss -Severe protein/calorie malnutrition -given thiamine and banana bag on 12/09 #Anxiety -aware #Mild hyponatremia -on chlorthalidone, consider stopping it if continues to decline -Monitor #Diabetes Mellitus Type 2 -A1C 8.1 -Hyperglycemia protocol, ACHS accuchecks, mild SSI -will need to be restarted on metformin prior to DC Diet: Full liquid IVF: LR @ 100ml/hr DVT ppx: SCDs GI ppx: Famotidine Code Status: DNAR PCP: None Dispo: postop day 1 s/p ACDF in IMCU, will transfer to medical when appropriate. will need placement.
[2019-12-11 07:48] LABS: Glucose 61 mg/dL (80-115)
[2019-12-11] MEDS: hydrALAZINE 25 MG TAB PO SCH ×5 (08:45→20:44)
[2019-12-11] MEDS: Lisinopril 20 MG TAB PO SCH ×2 (08:46→10:36)
[2019-12-11] MEDS: Spironolactone 25 MG TAB PO SCH ×2 (08:47→10:35)
[2019-12-11] MEDS: Famotidine 20 MG TAB PO SCH ×3 (08:47→20:45)
[2019-12-11] MEDS: Atenolol 50 MG TAB PO SCH ×3 (08:47→20:45)
[2019-12-11] MEDS: Bupropion 150 MG XL TAB PO SCH ×2 (08:48→10:35)
[2019-12-11] MEDS: Chlorthalidone 25 MG TAB PO SCH ×2 (08:48→10:35)
[2019-12-11] MEDS: Insulin Glargine 10 UNITS in Pre-Filled Syringe SC SCH (08:51)
[2019-12-11] MEDS: Enoxaparin Sodium 40 MG/0.4 ML SYRINGE SC SCH (08:53)
[2019-12-11] MEDS: Cefepime 2 GM in Sodium Chloride 0.9% 100 ML IVPB SCH ×2 (08:59→23:20)
[2019-12-11 09:36] LABS: Albumin 2.7 g/dL (3.4-4.8)
[2019-12-11 09:37] LABS: Chloride 101 mmol/L (98-107); Sodium 133 mmol/L (136-145)
[2019-12-11 09:38] LABS: Calcium 8.6 mg/dL (7.8-10.44); Glucose 69 mg/dL (80-115)
[2019-12-11 09:39] LABS: Globulin 3.3 g/dL (2.4-3.5)
[2019-12-11 09:40] LABS: Anion Gap 14 mmol/L (10-20); Bilirubin, Total 1.1 mg/dL (0.2-1.2); Carbon Dioxide 21 mmol/L (23-31)
[2019-12-11 09:41] LABS: Alkaline Phosphatase 97 U/L (40-110)
[2019-12-11 09:42] LABS: BUN (Urea Nitrogen) 23 mg/dL (8.4-25.7); Calc. Creatinine Clearance 86 mL/min (70-130); Estimated GFR-MDRD 67; Potassium 2.8 mmol/L (3.5-5.1)
[2019-12-11 09:44] LABS: ALT (SGPT) 7 U/L (8-55); AST (SGOT) 40 U/L (5-34)
[2019-12-11 11:16] LABS: Renin Activity 0.408 ng/mL/hr (0.167-5.380)
--- NOTE | 2019-12-11 11:26 | PRG ---
DATE OF SERVICE: 12/11/2019 Mr. Angel is now 2 days out from his front-back neck decompression and fusion. He is moving his arms better than he did before surgery, in which he had profound weakness in his arms and even worse in his legs. He is able to raise his right arm at the shoulder up to almost the 90-degree range. He is able to bend his elbow on both sides as well. His left shoulder and left elbow function are bit reduced compared to the right. He has profound hand intrinsic weakness. All of this is longstanding, but improved overall. He is even able to wiggle his toes weakly, which is frankly very impressive. I have removed his collar. We will remove his drain. His collar only needs to be worn along with his LSO brace when he is out of bed. He may remain on low-dose Lovenox, and at this point, he needs inpatient rehab. Job ID: [id number]
[2019-12-11] MEDS: Potassium Chloride 20 MEQ in Premix Bag 1 BAG IVPB SCH ×4 (11:30→20:08)
[2019-12-11] MEDS: Dextrose 5% in Water 1,000 ML IV SCH (11:30)
--- NOTE | 2019-12-11 11:53 | PDOC.NEUPN ---
- Subjective Encounter Date: 12/11/19 Subjective: Patient awake today and altered mental status seems to be much improved. He is oriented to his name, place and month November but thinks the year is 2020. He is somewhat agitated because he wants to eat and is currently n.p.o. because of severe aspiration risk. He is able to speak in full word sentences. - Objective Vital Signs & Weight: Vital Signs (12 hours) Temp Pulse BP Pulse Ox 12/11/19 11:30 97.0 F L 12/11/19 10:36 170/106 H 12/11/19 10:35 74 170/106 H 12/11/19 10:34 74 170/106 H 12/11/19 07:49 98.2 F 12/11/19 03:46 97.4 F L 12/11/19 03:23 77 176/103 H 12/11/19 01:10 100 Weight Admit Weight 174 lb 2.643 oz Weight 192 lb 3.2 oz Most Recent Monitor Data Heart Rate from ECG 75 NIBP 161/92 NIBP BP-Mean 115 Respiration from ECG 31 SpO2 100 I&O: 12/10/19 12/11/19 12/12/19 06:59 06:59 06:59 Intake Total 2610 2418 Output Total 885 2963 Balance 1725 -545 Result Diagrams: 12/10/19 06:06 12/11/19 09:11 Additional Labs: Accuchecks 12/10/19 12/10/19 12/10/19 20:47 16:59 14:07 POC Glucose 78 88 80 12/09/19 16:07 POC Glucose 158 H Radiology Reviewed by me: Yes EKG Reviewed by me: Yes ROS - Review of Systems Constitutional: denies: fever, chills, sweats, weakness, malaise, other Eyes: denies: pain, vision change, conjunctivae inflammation, eyelid inflammation, redness, other ENT: denies: ear pain, ear discharge, nose pain, nose discharge, nose congestion, mouth pain, mouth swelling, throat pain, throat swelling, other Respiratory: denies: cough, dry, shortness of breath, hemoptysis, SOB with excertion, pleuritic pain, sputum, wheezing, other Musculoskeletal: reports: neck pain, arm pain. denies: shoulder pain, back pain, hand pain, leg pain, foot pain, other Neurological: reports: weakness - Medication Medications: Active Medications Generic Name Dose Route Start Last Admin Trade Name Freq PRN Reason Stop Dose Admin Acetaminophen 650 mg 12/01/19 15:19 12/10/19 12:14 Acetaminophen 325 Mg Tab PO 650 mg Q6H PRN Administration Mild-Moderate Pain (1-5) Hydrocodone Bitart/Acetaminophen 1 tab 12/08/19 17:36 12/09/19 03:46 Hydrocodone/Acetaminophen 7.5/325 Mg Tablet PO 1 tab Q4H PRN Administration Severe Pain (7-10) Amlodipine Besylate 10 mg 11/28/19 21:00 12/10/19 21:41 Amlodipine 10 Mg Tab PO 10 mg HS ALEXANDREA Administration Atenolol 50 mg 12/02/19 09:00 12/11/19 10:35 Atenolol 50 Mg Tab PO Not Given BID ALEXANDREA Atorvastatin Calcium 40 mg 11/26/19 21:00 12/10/19 21:42 Atorvastatin Calcium 40 Mg Tab PO 40 mg HS ALEXANDREA Administration Bupropion HCl 150 mg 11/28/19 09:00 12/11/19 10:35 Bupropion 150 Mg Xl Tab PO Not Given DAILY ALEXANDREA Chlorthalidone 25 mg 11/30/19 09:00 12/11/19 10:35 Chlorthalidone 25 Mg Tab PO Not Given DAILY ALEXANDREA Dextrose/Water 25 gm 11/25/19 20:57 12/11/19 09:00 Dextrose 50% Abboject 50 Ml Syringe SLOW IVP 25 gm PRN PRN Administration Hypoglycemia Enoxaparin Sodium 40 mg 12/10/19 09:00 12/11/19 08:53 Enoxaparin Sodium 40 Mg/0.4 Ml Syringe SC 40 mg 0900 ALEXANDREA Administration Hydralazine HCl 25 mg 12/03/19 17:00 12/11/19 10:34 Hydralazine 25 Mg Tab PO Not Given QID ALEXANDREA Nicardipine HCl 25 mg/ Sodium 260 mls @ 0 mls/hr 11/30/19 22:00 11/30/19 22:46 Chloride IVPB 260 mls INF ALEXANDREA Administration Protocol Titrate Insulin Glargine 10 units/ 0.1 mls @ 0 mls/hr 12/10/19 09:00 12/11/19 08:51 Miscellaneous Medication SC Not Given QAM [facility] Multivitamins 10 ml/ Folic 1,011.2 mls @ 100 mls/hr 12/10/19 11:00 12/10/19 12:09 Acid 1 mg/ Thiamine HCl 100 mg IV 1,011.2 mls / Dextrose/Sodium Chloride Q24HR ALEXANDREA Administration Thiamine HCl 500 mg/ Sodium 55 mls @ 100 mls/hr 12/10/19 15:00 12/11/19 08:50 Chloride IVPB 12/12/19 09:32 55 mls TID ALEXANDREA Administration Cefepime HCl 2 gm/ Sodium 100 mls @ 200 mls/hr 12/10/19 10:00 12/11/19 08:59 Chloride IVPB 100 mls 1000,2200 ALEXANDREA Administration Potassium Chloride 20 meq/ 100 mls @ 50 mls/hr 12/11/19 11:00 12/11/19 11:30 Device IVPB 12/11/19 18:59 100 mls Q2H ALEXANDREA Administration Dextrose/Water 1,000 mls @ 100 mls/hr 12/11/19 10:30 12/11/19 11:30 D5w IV 1,000 mls .Q10H ALEXANDREA Administration Insulin Human Lispro 0 units 11/25/19 20:57 12/09/19 06:02 Humalog 300 Units/3 Ml Vial SC 3 unit .MILD SLIDING SCALE PRN Administration Mild Correctional Scale Labetalol HCl 20 mg 12/06/19 08:42 12/11/19 03:23 Labetalol Hcl 100 Mg/20 Ml Vial SLOW IVP 20 mg Q4H PRN Administration Hypertension Lisinopril 40 mg 11/29/19 06:17 12/11/19 10:36 Lisinopril 20 Mg Tab PO Not Given DAILY [facility] Morphine Sulfate 2 mg 12/08/19 17:36 12/09/19 02:48 Morphine 2 Mg/Ml Vial SLOW IVP 12/11/19 17:37 2 mg ONE PRN Administration Breakthrough Pain Morphine Sulfate 2 mg 12/09/19 11:35 12/10/19 23:04 Morphine 2 Mg/Ml Vial SLOW IVP 2 mg Q2H PRN Administration Severe Pain (7-10) Ondansetron HCl 4 mg 11/25/19 22:17 12/09/19 02:48 Ondansetron Pf 4 Mg/2 Ml Vial IVP 4 mg BIDPRN PRN Administration Nausea/Vomiting Sertraline HCl 100 mg 12/05/19 09:00 12/11/19 10:36 Sertraline Hcl 100 Mg Tab PO Not Given DAILY ALEXANDREA Sodium Chloride 10 ml 11/25/19 22:17 12/06/19 22:12 Flush - Normal Saline 10 Ml Syringe IVF 10 ml PRN PRN Administration Saline Flush Spironolactone 25 mg 12/05/19 08:00 12/11/19 10:35 Spironolactone 25 Mg Tab PO Not Given QAM-WM ALEXANDREA - Exam General Appearance: awake alert Eye: PERRL ENT: normocephalic atraumatic Neck: supple Respiratory: CTAB Cardiovascular: RRR Gastrointestinal: soft Extremities: no cyanosis Skin: normal turgor Neurological: no new deficit Musculoskeletal: no muscle wasting PSYCH: normal affect, normal behavior, oriented to person, oriented to place Results - Labs Result Diagrams: 12/10/19 06:06 12/11/19 09:11 Lab results: WBC 13.3 thou/uL (4.8-10.8) H 12/10/19 06:06 Hgb 11.8 g/dL (14.0-18.0) L 12/10/19 06:06 Hct 36.8 % (42.0-52.0) L 12/10/19 06:06 MCV 90.1 fL (78.0-98.0) 12/10/19 06:06 Plt Count 237 thou/uL (130-400) 12/10/19 06:06 Neutrophils % 73.7 % (42.0-75.0) 12/10/19 06:06 ABG pH 7.50 (7.35-7.45) H 12/08/19 17:56 ABG pCO2 33.6 mmHg (35.0-45.0) L 12/08/19 17:56 ABG pO2 243.2 mmHg (> 80.0) H 12/08/19 17:56 Sodium 133 mmol/L (136-145) L 12/11/19 09:11 Potassium 2.8 mmol/L (3.5-5.1) L* 12/11/19 09:11 Chloride 101 mmol/L (98-107) 12/11/19 09:11 Carbon Dioxide 21 mmol/L (23-31) L 12/11/19 09:11 BUN 23 mg/dL (8.4-25.7) 12/11/19 09:11 Creatinine 1.11 mg/dL (0.7-1.3) 12/11/19 09:11 Glucose 69 mg/dL (80-115) L 12/11/19 09:11 Lactic Acid 1.1 mmol/L (0.5-2.2) 11/25/19 22:13 Calcium 8.6 mg/dL (7.8-10.44) 12/11/19 09:11 Total Bilirubin 1.1 mg/dL (0.2-1.2) 12/11/19 09:11 AST 40 U/L (5-34) H 12/11/19 09:11 ALT 7 U/L (8-55) L 12/11/19 09:11 Alkaline Phosphatase 97 U/L (40-110) 12/11/19 09:11 Ammonia 24 umol/L (18-72) 11/30/19 21:06 Creatine Kinase 590 U/L (30-200) H 11/25/19 22:12 CK-MB (CK-2) 6.8 ng/mL (0-6.6) H* 11/25/19 17:52 Troponin I 0.028 ng/mL (< 0.028) 12/05/19 00:35 Serum Total Protein 6.0 g/dL (5.8-8.1) 12/11/19 09:11 Albumin 2.7 g/dL (3.4-4.8) L 12/11/19 09:11 Lipase 6 U/L (8-78) L 11/25/19 17:52 Urine Ketones Trace mg/dL (Negative) A 11/27/19 00:52 Urine Blood 1+ (Negative) A 11/27/19 00:52 Urine Nitrite Negative (Negative) 11/27/19 00:52 Ur Leukocyte Esterase 75 Clyde/uL (Negative) A 11/27/19 00:52 Urine RBC 0-3 HPF (0-3) 11/27/19 00:52 Urine WBC 7-10 HPF (0-3) A 11/27/19 00:52 Ur Squamous Epith Cells None Seen HPF (0-3) 11/27/19 00:52 Urine Bacteria None Seen HPF (None Seen) 11/27/19 00:52 PN A/P - Plan Daily Plan: PT/OT, speech therapy, DVT proph w/SCDs Mr. Abran Angel s a 59-year-old male with history significant for intracranial hemorrhage consulted today for acute onset mental status changes s/p spinal surgery which is now almost resolved and patient is alert and oriented to person, place hospital, month November but not oriented to the year 2020. Patient talking in full word sentences and wants to eat but is currently n.p.o. because of severe aspiration risk. Head CT reviewed did not reveal any acute intracranial changes or extension of hemorrhage. EEG reviewed and was negative for seizure activity Continue neurochecks every 4 hours. Pain control Continue medical management per primary team and neurosurgery PT/OT/speech. Plan discussed with the patient and the nursing staff.
[2019-12-11] MEDS ORDERED: Potassium Chloride 40 MEQ in Premix Bag 1 BAG IVPB SCH (12:00)
--- NOTE | 2019-12-11 13:21 | EKG ---
Test Reason : STAT Blood Pressure : / mmHG Vent. Rate : 061 BPM Atrial Rate : 061 BPM P-R Int : 156 ms QRS Dur : 104 ms QT Int : 430 ms P-R-T Axes : -28 -34 129 degrees QTc Int : 432 ms Normal sinus rhythm Left axis deviation Pulmonary disease pattern Abnormal ECG When compared with ECG of 25-NOV-2019 17:49, ST no longer depressed in Inferior leads T wave inversion no longer evident in Inferior leads Confirmed by DR. Elie STUBBS ([id number]) on 12/11/2019 1:21:11 PM Referred By: Confirmed By:DR. Elie STUBBS
[2019-12-11] MEDS: Potassium Chloride 20 MEQ TAB PO SCH (13:26)
[2019-12-11] MEDS ORDERED: Magnesium Sulfate 4 GM in Sodium Chloride 0.9% 250 ML 250 ML IVPB SCH (13:30)
[2019-12-11] MEDS ORDERED: Magnesium 2 GM/50 ML 2 GM in Premix Bag 1 BAG IVPB SCH (13:30)
[2019-12-11] MEDS: Multivitamins, Adult 10 ML, Folic Acid 1 MG, Thiamine HCl 100 MG in Dextrose 5 %-0.45 %... IV SCH (14:16)
[2019-12-11] MEDS: Vancomycin HCl 1.25 GM in Sodium Chloride 0.9% 250 ML 250 ML IVPB SCH (14:17)
[2019-12-11] MEDS ORDERED: Magnesium Sulfate 3 GM in Sodium Chloride 0.9% 100 ML IVPB SCH (16:45)
[2019-12-11 18:29] LABS: Bilirubin Negative (Negative); Blood, Urine 2+ (Negative); Clarity Clear (Clear); Glucose, Urine (Dipstick) 30 mg/dL (Negative); Ketone, Urine Negative (Negative); Leukocyte Negative Leu/uL (Negative); Nitrite Negative (Negative); Protein, Urine (Dipstick) 70 mg/dL (Neg-Trace); RBC/HPF 0-3 HPF (0-3); Specific Gravity, Urine 1.015 (1.002-1.036); Squamous Epithelial 0-3 HPF (0-3); Urobilinogen Normal mg/dL (Less than 2)
[2019-12-11 18:30] LABS: Bacteria/HPF 1+ HPF (None Seen)
[2019-12-11] MEDS: Atorvastatin Calcium 40 MG TAB PO SCH (20:44)
[2019-12-11] MEDS: Amlodipine 10 MG TAB PO SCH (20:45)
--- NOTE | 2019-12-11 21:00 | PDOC.CNTRL ---
Central Line Procedure Note - Procedure Date: 12/11/19 Time: 16:00 - PreProcedure Diagnosis: Central Line Placement - Description Focused site: femoral vein: Right Ultrasound guidance: Yes Patient tolerated procedure: no complications Procedure in Details: INDICATION: Initiation of TPN PROCEDURE NURSE HEAD: Ashley Sifuentes, PGY1 UPPER LEVEL: Lavonne Ibarra, PGY3 ATTENDING PHYSICIAN: Dr Ken Gomez In Attendance Y Ultrasound Used: Y CONSENT: Consent was obtained from patient and his sister prior to the procedure. Indications, risks, and benefits were explained at length. PROCEDURE SUMMARY: The [facility] Central Line Insertion Practices form was completed by an independent observer starting with the first handwash prior to starting sterile technique. A time out was performed. My hands were washed immediately prior to the procedure. I wore a surgical cap, mask with protective eyewear, sterile gown and sterile gloves throughout the procedure. The right inguinal region was prepped using chlorhexidine scrub and draped in sterile fashion using a full drape and sterile probe cover employed. The femoral pulse was identified. Anesthesia was achieved using 1% lidocaine. Palpating the femoral pulse throughout the procedure, the introducer needle was inserted medial to the femoral artery, inferior to the inguinal crease and into the femoral vein. Venous blood was withdrawn. The syringe was removed and a guidewire was advanced into the introducer needle. A small incision was made at the skin surface with a scalpel and the introducer needle was exchanged for a dilator over the guidewire. After appropriate dilation was obtained, the dilator was exchanged over the wire for a central venous catheter. The wire was removed and the catheter was sutured in place. A sterile sorbaview shield was placed over the catheter at the insertion site. The patient tolerated the procedure without any hemodynamic compromise. At time of procedure completion, all ports aspirated and flushed properly. Estimated blood loss is <10mL.
[2019-12-12 00:02] LABS: Potassium 3.7 mmol/L (3.5-5.1)
[2019-12-12] MEDS: Morphine 2 MG/ML VIAL SLOW IVP PRN (00:51)
--- NOTE | 2019-12-12 05:19 | PDOC.FM ---
- Subjective Subjective: Pt doing well today. He is s/p ACDF on 12/09. He has a drain in place with scant sanguinous fluid, output recorded as 0mL. Says weakness has improved and he is back at his baseline. Minimal pain. Patient had not been eating and a central line was placed yesterday to administer TPN. Denies WATERS, vision changes, CP, SOB, edema. SCDs in place. A&0x3 - Objective MAR Reviewed: Yes Vital Signs & Weight: Vital Signs (12 hours) Temp Pulse BP Pulse Ox 12/12/19 03:50 98.8 F 12/12/19 00:23 99 12/12/19 00:01 98.5 F 12/11/19 20:45 73 156/95 H 12/11/19 20:44 73 156/95 H 12/11/19 20:00 100 12/11/19 19:52 97.7 F 12/11/19 17:55 73 156/95 H Weight Admit Weight 79 kg Weight 89.63 kg Most Recent Monitor Data Heart Rate from ECG 63 NIBP 140/76 NIBP BP-Mean 97 Respiration from ECG 0 SpO2 100 I&O: 12/10/19 12/11/19 12/12/19 06:59 06:59 06:59 Intake Total 2610 2418 1400 Output Total 885 2963 1100 Balance 1725 -545 300 Result Diagrams: 12/10/19 06:06 12/12/19 05:21 Phys Exam - Physical Examination Constitutional: NAD HEENT: PERRLA dry on exam did not appreciate ROM as patient just had surgery Respiratory: no wheezing, no rales Cardiovascular: RRR, no significant murmur Gastrointestinal: soft, non-tender SCDs in place Neurological: moves all 4 limbs weakness b/l UE/LE 2/5 strength, patient endorses this is close to baseline Psychiatric: A&O x 3 Skin: no rash, normal turgor Dx/Plan - Plan Plan: 59yo male w/ cerebral hemorrhage 2/2 HTN emergency #Spinal Stenosis s/p ACDF C3-C7 on 12/07 -Neurosurgery: Dr Juarez, will follow recs -continued stay in IMCU due to altered mentation, plan is to balance controlling pain vs increasing encephalopathy -abx: vanc, cefepime- increased coverage yesterday due to encephalopathy -pain: tylenol #3 prn, norco prn, tramadol prn, valium prn -DESTINI drain with scant sanguinous blood, as per neurosurg note they will remove - wear collar and LSO when out of bed, continue work with PT/OT #AMS, improved -likely due to medications, brain CT on 12/08 showed improvement of hemorrhage, no acute process -Dr. Mayberry saw him yesterday, EEG normal, recommend better pain control -pending BCx, UCX. Abx as above #GHASSAN -resolved -not tolerating po intake, central line in place to initiate TPN -considered fluid overload but CXR normal, and clinically does not appear fluid overloaded -will continue to monitor closely #Intraparenchymal Hemorrhage likely 2/2 HTN Emergency -Hx uncontrolled HTN, CT head: Intraparenchymal hemorrhage. -neurosugery consulted #HTN -refusing po medications, has IV labetalol prn, will continue to monitor -BP goal SBP <150 per neurosurgery -pending renin-aldosterone #Indeterminate trop, likely 2/2 NSTEMI type 2 due to Stroke -Elevated CKMB, Trop indeterminate -EKG no acute changes -CXR no acute findings, no CP #Hypokalemia -replace as indicated, will continue to monitor # Hypomagnesemia -replace as indicated, will continue to monitor #Weight loss -Severe protein/calorie malnutrition -follow up on prealbumin -given thiamine and banana bag on 12/09 -s/p central line on 12/10 to initiate TPN managed by pharmacy, appreciate the help #Anxiety -aware #Mild hyponatremia -patient has been not eating -on chlorthalidone, consider stopping it if continues to decline -continue to monitor #Diabetes Mellitus Type 2 -A1C 8.1 -Hyperglycemia protocol, [facility] accuchecks, mild SSI -will need to be restarted on metformin prior to DC Diet: NPO, central line placed on 12/10 to initiate TPN managed by Pharmacy IVF: D5W @ 100ml/hr DVT ppx: SCDs vs Lovenox. Neurosurg put in for Lovenox, but held given patient's history of brain bleed. Will follow up with them today. GI ppx: Famotidine Code Status: DNAR PCP: None Dispo: postop day 1 s/p ACDF in IMCU, will transfer to medical when appropriate. will need placement.
[2019-12-12 06:15] LABS: ALT (SGPT) Less than 7 U/L (8-55); AST (SGOT) 24 U/L (5-34); Albumin 2.3 g/dL (3.4-4.8); Alkaline Phosphatase 83 U/L (40-110); Anion Gap 9 mmol/L (10-20); BUN (Urea Nitrogen) 18 mg/dL (8.4-25.7); Bilirubin, Total 0.8 mg/dL (0.2-1.2); Calc. Creatinine Clearance 100 mL/min (70-130); Calcium 7.7 mg/dL (7.8-10.44); Carbon Dioxide 22 mmol/L (23-31); Chloride 97 mmol/L (98-107); Estimated GFR-MDRD 78; Globulin 2.9 g/dL (2.4-3.5); Glucose 379 mg/dL (80-115); Potassium 3.3 mmol/L (3.5-5.1); Protein, Total 5.2 g/dL (5.8-8.1); Sodium 125 mmol/L (136-145)
[2019-12-12] MEDS ORDERED: Potassium Chloride 20 MEQ TAB PO SCH (06:30)
[2019-12-12] MEDS ORDERED: Potassium Chloride 40 MEQ in Sodium Chloride 0.9% 250 ML 250 ML IVPB SCH (08:30)
[2019-12-12 08:36] LABS: Magnesium 1.8 mg/dL (1.6-2.6); Phosphorus 3.2 mg/dL (2.3-4.7)
[2019-12-12] MEDS ORDERED: Magnesium 2 GM/50 ML 2 GM in Premix Bag 1 BAG IVPB SCH (09:00)
[2019-12-12] MEDS: Spironolactone 25 MG TAB PO SCH (10:05)
[2019-12-12] MEDS: Bupropion 150 MG XL TAB PO SCH (10:05)
[2019-12-12] MEDS: Atenolol 50 MG TAB PO SCH ×2 (10:05→20:48)
[2019-12-12] MEDS: Lisinopril 20 MG TAB PO SCH (10:06)
[2019-12-12] MEDS: Chlorthalidone 25 MG TAB PO SCH (10:06)
[2019-12-12] MEDS: Insulin Glargine 10 UNITS in Pre-Filled Syringe SC SCH (10:06)
[2019-12-12] MEDS: Famotidine 20 MG TAB PO SCH ×2 (10:06→22:44)
[2019-12-12] MEDS: hydrALAZINE 25 MG TAB PO SCH ×3 (10:06→15:38)
[2019-12-12] MEDS: Cefepime 2 GM in Sodium Chloride 0.9% 100 ML IVPB SCH ×2 (10:07→20:49)
[2019-12-12] MEDS: Dextrose 5% in Water 1,000 ML IV SCH ×3 (10:16→15:38)
[2019-12-12] MEDS: Labetalol HCl 100 MG/20 ML VIAL SLOW IVP PRN ×3 (10:17→22:46)
--- NOTE | 2019-12-12 10:40 | PRG ---
DATE OF SERVICE: 12/12/2019 : I saw Mr. Abran Angel this morning on rounds. He is anxious to get the drain out of his neck and worried about infections. When I saw him, there had been no fevers recorded among the electronically noted vital signs. Blood pressures have been in the 120s to 140s. Neurologically, there was improving strength of the upper extremities and hands. Drain output was minimal in previous 24 hours. White blood cell count went up to 13.3 on laboratory tests yesterday. Sodium is 125. Mr. Angel can have the drain removed. I will defer to the medical team regarding management and workup of his leukocytosis. Inpatient rehabilitation will be of benefit for him eventually. The collar does not need to be on when the patient is resting comfortably in bed, but should be on when sitting and standing and participating in his physical therapy. Job ID: [id number] MTDD
[2019-12-12] MEDS: Vancomycin HCl 1.25 GM in Sodium Chloride 0.9% 250 ML 250 ML IVPB SCH (10:49)
[2019-12-12 11:07] LABS: Vancomycin, Trough 13.7 ug/mL
[2019-12-12] MEDS: Multivitamins, Adult 10 ML, Folic Acid 1 MG, Thiamine HCl 100 MG in Dextrose 5 %-0.45 %... IV SCH (12:44)
[2019-12-12] MEDS: Sodium Acetate 2 mEq/ml 40 MEQ, Sodium Chloride 30 MEQ, Potassium Chloride 20 MEQ, Pota... IV SCH (14:41)
[2019-12-12] MEDS: Enoxaparin Sodium 40 MG/0.4 ML SYRINGE SC SCH (14:44)
[2019-12-12] MEDS: HumaLOG 300 UNITS/3 ML VIAL SC PRN ×2 (18:31→21:12)
[2019-12-12] MEDS: Atorvastatin Calcium 40 MG TAB PO SCH (20:48)
[2019-12-12] MEDS: Amlodipine 10 MG TAB PO SCH (20:48)
[2019-12-12] MEDS ORDERED: Famotidine/PF 20 mg/2ml Vial SLOW IVP SCH (21:00)
[2019-12-12] MEDS ORDERED: Vancomycin 1 GM in Premix Bag 1 BAG IVPB SCH (22:00)
[2019-12-12] MEDS: Vancomycin 1 GM in Premix Bag 1 BAG IVPB SCH (22:47)
[2019-12-13] MEDS: Labetalol HCl 100 MG/20 ML VIAL SLOW IVP PRN (02:30)
[2019-12-13] MEDS: hydrALAZINE 20 MG/ML VIAL SLOW IVP PRN (04:19)
[2019-12-13 05:05] LABS: ALT (SGPT) Less than 7 U/L (8-55); AST (SGOT) 15 U/L (5-34); Albumin 2.5 g/dL (3.4-4.8); Alkaline Phosphatase 89 U/L (40-110); Anion Gap 12 mmol/L (10-20); BUN (Urea Nitrogen) 16 mg/dL (8.4-25.7); Bilirubin, Total 0.7 mg/dL (0.2-1.2); Calc. Creatinine Clearance 117 mL/min (70-130); Calcium 8.6 mg/dL (7.8-10.44); Carbon Dioxide 24 mmol/L (23-31); Chloride 100 mmol/L (98-107); Estimated GFR-MDRD Greater than 90; Globulin 3.5 g/dL (2.4-3.5); Glucose 344 mg/dL (80-115); Potassium 3.8 mmol/L (3.5-5.1); Sodium 132 mmol/L (136-145)
[2019-12-13] MEDS: Morphine 2 MG/ML VIAL SLOW IVP PRN (05:28)
--- NOTE | 2019-12-13 06:12 | PDOC.FM ---
- Subjective Subjective: Patient doing well today. Has no complaints. Says he does not feel as weak. Wants to go home. Denies CP, SOB, abdominal pain, vision changes. - Objective MAR Reviewed: Yes Vital Signs & Weight: Vital Signs (12 hours) Temp Pulse BP Pulse Ox 12/13/19 04:19 71 184/101 H 12/13/19 03:36 97.8 F 12/13/19 02:30 75 159/91 H 12/12/19 22:46 74 154/85 H 12/12/19 20:00 100 12/12/19 19:58 97.8 F Weight Admit Weight 79 kg Weight 87.997 kg Most Recent Monitor Data Heart Rate from ECG 76 NIBP 109/64 NIBP BP-Mean 79 Respiration from ECG 16 SpO2 100 I&O: 12/11/19 12/12/19 12/13/19 06:59 06:59 06:59 Intake Total 2418 3161 1300 Output Total 2963 1960 1200 Balance -545 1201 100 Result Diagrams: 12/10/19 06:06 12/13/19 04:30 Phys Exam - Physical Examination Constitutional: NAD HEENT: PERRLA Neck: supple, full ROM Respiratory: no wheezing, clear to auscultation bilateral Cardiovascular: RRR, no significant murmur Gastrointestinal: soft, non-tender Musculoskeletal: no edema, pulses present SCDs in place Neurological: moves all 4 limbs improved strength in b/l UE. 3/5 strength in b/l LE Psychiatric: A&O x 3 Skin: normal turgor Dx/Plan - Plan Plan: 59 yo male w/ cerebral hemorrhage 2/2 HTN emergency #Spinal Stenosis s/p ACDF C3-C7 on 12/07 -Neurosurgery: Dr Juarez, will follow recs -continued stay in IMCU due to altered mentation, plan is to balance controlling pain vs increasing encephalopathy -abx: vanc, cefepime -pain: tylenol #3 prn, norco prn, tramadol prn, valium prn -DESTINI drain pulled on 12/11 - wear collar and LSO when out of bed, continue work with PT/OT #HTN -BP goal SBP <150 per neurosurgery -pending renin-aldosterone -scheduled Labetalol q4H and PRN Hydralazine IV while waiting on speech recs. -Held PO meds pending swallow eval as patient is currently strict NPO #AMS, improved -likely due to medications, brain CT on 12/08 showed improvement of hemorrhage, no acute process -Dr. Mayberry saw him yesterday, EEG normal, recommend better pain control -Ucx negative, Bcx no growth at 48 hours #GHASSAN -resolved -not tolerating po intake -considered fluid overload but CXR normal, and clinically does not appear fluid overloaded -will continue to monitor closely #Intraparenchymal Hemorrhage likely 2/2 HTN Emergency -Hx uncontrolled HTN, CT head: Intraparenchymal hemorrhage. -neurosugery consulted #Indeterminate trop, likely 2/2 NSTEMI type 2 due to Stroke -Elevated CKMB, Trop indeterminate -EKG no acute changes -CXR no acute findings, no CP #Hypokalemia -replace as indicated, will continue to monitor # Hypomagnesemia -replace as indicated, will continue to monitor #Weight loss -Severe protein/calorie malnutrition -prealbumin low at 7 -given thiamine and banana bag on 12/09 -s/p central line on 12/10 for TPN managed by pharmacy, appreciate the help #Anxiety -aware #Mild hyponatremia -patient has been not eating, now on TPN -on chlorthalidone, consider stopping it if continues to decline -continue to monitor #Diabetes Mellitus Type 2 -A1C 8.1 -Hyperglycemia protocol, [facility] accuchecks, mild SSI -will need to be restarted on metformin prior to DC -restarted Glargine 10U with initiation of TPN Diet: TPN IVF: TPN DVT ppx: SCDs vs Lovenox. Neurosurg put in for Lovenox, but held given patient's history of brain bleed. Will follow up with them on Saturday. GI ppx: Famotidine Code Status: DNAR PCP: None Dispo: s/p ACDF in IMCU, will transfer to medical when appropriate. will need placement.
[2019-12-13 06:36] LABS: Magnesium 1.8 mg/dL (1.6-2.6); Phosphorus 3.2 mg/dL (2.3-4.7)
[2019-12-13] MEDS: HumaLOG 300 UNITS/3 ML VIAL SC PRN ×3 (06:38→17:20)
[2019-12-13] MEDS ORDERED: Magnesium 2 GM/50 ML 2 GM in Premix Bag 1 BAG IVPB SCH (08:00)
[2019-12-13] MEDS ORDERED: Labetalol HCl 100 MG/20 ML VIAL SLOW IVP PRN (09:00)
[2019-12-13] MEDS ORDERED: Famotidine/PF 20 mg/2ml Vial SLOW IVP SCH (09:00)
[2019-12-13] MEDS: Spironolactone 25 MG TAB PO SCH (09:12)
[2019-12-13] MEDS: Cefepime 2 GM in Sodium Chloride 0.9% 100 ML IVPB SCH ×2 (09:14→22:52)
[2019-12-13] MEDS: Insulin Glargine 10 UNITS in Pre-Filled Syringe SC SCH (09:15)
[2019-12-13] MEDS: Famotidine/PF 20 mg/2ml Vial SLOW IVP SCH ×2 (09:15→20:14)
[2019-12-13] MEDS: Vancomycin 1 GM in Premix Bag 1 BAG IVPB SCH (10:34)
[2019-12-13] MEDS: Sodium Acetate 2 mEq/ml 40 MEQ, Sodium Chloride 30 MEQ, Potassium Chloride 20 MEQ, Pota... IV SCH (14:58)
[2019-12-13] MEDS: Labetalol HCl 100 MG/20 ML VIAL SLOW IVP SCH ×2 (17:19→20:16)
[2019-12-13] MEDS: hydrALAZINE 25 MG TAB PO SCH (20:15)
[2019-12-13 22:14] LABS: Vancomycin, Trough 20.6 ug/mL
[2019-12-14] MEDS: Vancomycin 1 GM in Premix Bag 1 BAG IVPB SCH ×2 (00:49→12:23)
[2019-12-14] MEDS: Labetalol HCl 100 MG/20 ML VIAL SLOW IVP SCH ×6 (00:49→20:40)
[2019-12-14] MEDS: HumaLOG 300 UNITS/3 ML VIAL SC PRN ×5 (00:50→23:52)
[2019-12-14 04:23] LABS: ALT (SGPT) Less than 7 U/L (8-55); AST (SGOT) 12 U/L (5-34); Albumin 2.5 g/dL (3.4-4.8); Alkaline Phosphatase 85 U/L (40-110); Anion Gap 11 mmol/L (10-20); BUN (Urea Nitrogen) 23 mg/dL (8.4-25.7); Bilirubin, Total 0.6 mg/dL (0.2-1.2); Calc. Creatinine Clearance 129 mL/min (70-130); Calcium 8.4 mg/dL (7.8-10.44); Carbon Dioxide 26 mmol/L (23-31); Chloride 100 mmol/L (98-107); Estimated GFR-MDRD Greater than 90; Globulin 3.4 g/dL (2.4-3.5); Glucose 132 mg/dL (80-115); Potassium 3.9 mmol/L (3.5-5.1); Protein, Total 5.9 g/dL (5.8-8.1); Sodium 133 mmol/L (136-145)
--- NOTE | 2019-12-14 05:38 | PDOC.FM ---
- Subjective Subjective: Pt resing comfortably. Complains of back pain. Not taking anything by mouth. UE and LE motor improving. - Objective Vital Signs & Weight: Vital Signs (12 hours) Temp Pulse Resp BP BP Pulse Ox 12/14/19 05:27 70 129/76 12/14/19 03:13 98.5 F 70 16 129/76 98 12/14/19 00:49 69 163/79 H 12/13/19 23:11 99 F 70 16 163/79 H 99 12/13/19 20:16 70 167/74 H 12/13/19 20:15 167/74 H 12/13/19 20:14 99 12/13/19 19:17 98.7 F 70 16 167/74 H 99 Weight Admit Weight 79 kg Weight 87.997 kg Most Recent Monitor Data Heart Rate from ECG 72 NIBP 142/84 NIBP BP-Mean 103 Respiration from ECG 17 SpO2 97 I&O: 12/12/19 12/13/19 12/14/19 06:59 06:59 06:59 Intake Total 3161 2518 1144 Output Total 1960 2150 1000 Balance 1201 368 144 Result Diagrams: 12/10/19 06:06 12/14/19 03:46 Phys Exam - Physical Examination Constitutional: NAD HEENT: sclera anicteric dry MM steristrips on ant neck Respiratory: no wheezing, clear to auscultation bilateral Cardiovascular: RRR, no significant murmur Gastrointestinal: soft, non-tender, no distention Musculoskeletal: no edema, pulses present Neurological: non-focal, normal sensation motor significantly improved in UE, also improved in LE Psychiatric: normal affect, A&O x 3 Skin: no rash, cap refill <2 seconds Dx/Plan - Plan Plan: 59 yo male w/ cerebral hemorrhage 2/2 HTN emergency #Spinal Stenosis s/p ACDF C3-C7 on 12/07 -Neurosurgery: Dr Juarez, will follow recs -abx: vanc, cefepime, consider stopping based on neurosurg recs -pain: tylenol #3 prn, norco prn, tramadol prn, valium prn -DESTINI drain pulled on 12/11 -wear collar and LSO when out of bed, continue work with PT/OT #HTN -BP goal SBP <150 per neurosurgery -renin-aldosterone: WNL -scheduled Labetalol q4H and PRN Hydralazine IV while waiting on speech recs. -Held PO meds pending swallow eval #AMS, improved -likely due to medications, brain CT on 12/08 showed improvement of hemorrhage, no acute process -Dr. Mayberry, EEG normal, recommend better pain control -Ucx negative, Bcx no growth at 48 hours #GHASSAN -resolved -will continue to monitor closely #Intraparenchymal Hemorrhage likely 2/2 HTN Emergency -Hx uncontrolled HTN, CT head: Intraparenchymal hemorrhage. -neurosugery consulted #Indeterminate trop, likely 2/2 NSTEMI type 2 due to Stroke -Elevated CKMB, Trop indeterminate -EKG no acute changes -CXR no acute findings, no CP #Hypokalemia -replace as indicated, will continue to monitor # Hypomagnesemia -replace as indicated, will continue to monitor #Weight loss -Severe protein/calorie malnutrition -prealbumin low at 7 -given thiamine and banana bag on 12/09 -s/p central line on 12/10 for TPN managed by granulating machine operator, appreciate recs #Anxiety -aware #Mild hyponatremia -patient has been not eating, now on TPN -on chlorthalidone, consider stopping it if continues to decline -continue to monitor #Diabetes Mellitus Type 2 -A1C 8.1 -Hyperglycemia protocol, ACHS accuchecks, mild SSI -will need to be restarted on metformin prior to DC -restarted Glargine 10U with initiation of TPN Diet: TPN IVF: TPN DVT ppx: SCDs vs Lovenox.Pending neurosurg recs GI ppx: Famotidine Code Status: DNAR PCP: None Dispo: s/p ACDF, on TPN, pending speech eval to restart po. will need placement Addendum - Attending - Attending Attestation Date/Time: 12/14/19 1122 I personally evaluated the patient and discussed the management with Dr. Sifuentes. I agree with the History, Examination, Assessment and Plan documented above with any addition or exceptions noted below.
[2019-12-14] MEDS: Insulin Glargine 10 UNITS in Pre-Filled Syringe SC SCH (08:53)
[2019-12-14] MEDS: Famotidine/PF 20 mg/2ml Vial SLOW IVP SCH ×2 (08:56→20:40)
[2019-12-14] MEDS: hydrALAZINE 25 MG TAB PO SCH ×4 (08:58→20:41)
[2019-12-14] MEDS: hydrALAZINE 20 MG/ML VIAL SLOW IVP PRN (11:41)
[2019-12-14] MEDS: Cefepime 2 GM in Sodium Chloride 0.9% 100 ML IVPB SCH (12:22)
[2019-12-14] MEDS: Sodium Acetate 2 mEq/ml 40 MEQ, Sodium Chloride 30 MEQ, Potassium Chloride 20 MEQ, Pota... IV SCH (14:12)
[2019-12-14] MEDS: Morphine 2 MG/ML VIAL SLOW IVP PRN (19:59)
[2019-12-14] MEDS: CEFAZOLIN 2 GM in Premix Bag 1 BAG IVPB SCH (21:45)
[2019-12-15] MEDS: Labetalol HCl 100 MG/20 ML VIAL SLOW IVP SCH ×6 (00:48→20:37)
[2019-12-15] MEDS: CEFAZOLIN 2 GM in Premix Bag 1 BAG IVPB SCH ×2 (05:16→13:55)
[2019-12-15] MEDS: HumaLOG 300 UNITS/3 ML VIAL SC PRN ×3 (05:30→18:07)
--- NOTE | 2019-12-15 05:35 | PDOC.FM ---
- Subjective Subjective: Pt's mentation improved this morning. States his pain in controlled. He has been using his incentive spirometer. Still not able to take anything by mouth. - Objective Vital Signs & Weight: Vital Signs (12 hours) Temp Pulse Resp BP Pulse Ox 12/15/19 03:27 98.2 F 73 18 148/72 H 97 12/15/19 00:48 71 12/14/19 23:30 98.5 F 71 18 139/68 97 12/14/19 20:41 75 12/14/19 20:40 75 12/14/19 20:00 99 12/14/19 19:22 98.3 F 75 18 150/78 H 99 Weight Admit Weight 79 kg Weight 87.407 kg Most Recent Monitor Data Heart Rate from ECG 72 NIBP 142/84 NIBP BP-Mean 103 Respiration from ECG 17 SpO2 97 I&O: 12/13/19 12/14/19 12/15/19 06:59 06:59 06:59 Intake Total 2518 2550 1706 Output Total 2150 1750 1000 Balance 368 800 706 Result Diagrams: 12/10/19 06:06 12/15/19 03:30 Phys Exam - Physical Examination Constitutional: NAD HEENT: sclera anicteric dry MM steri strips on ant neck Respiratory: no wheezing, clear to auscultation bilateral Cardiovascular: RRR, no significant murmur Gastrointestinal: soft, non-tender, no distention Musculoskeletal: no edema, pulses present Neurological: non-focal, normal sensation Psychiatric: normal affect, A&O x 3 Skin: no rash, cap refill <2 seconds Dx/Plan - Plan Plan: 59 yo male w/ cerebral hemorrhage 2/2 HTN emergency #Spinal Stenosis s/p ACDF C3-C7 on 12/07 -Neurosurgery: Dr Juarez, will follow recs -pain: tylenol #3 prn, norco prn, tramadol prn, valium prn -wear collar and LSO when out of bed, continue work with PT/OT #Dysphagia -likely due to prolonged course of npo due to acute encephalopathy vs post surgery edema -consult speech pathologist, failed swallow study yesterday, plan to begin re- training with ice chips, appreciate recs -is currently receiving TPN, if dysphagia continues, will discuss NG or PEG tube placement #HTN -BP goal SBP <150 per neurosurgery -scheduled Labetalol q4H and PRN Hydralazine IV while waiting on speech recs. -Held PO meds pending swallow eval #AMS, improved -likely due to medications, brain CT on 12/08 showed improvement of hemorrhage, no acute process -Dr. Mayberry, EEG normal, recommend better pain control -Ucx negative, Bcx no growth at 48 hours #GHASSAN -resolved -will continue to monitor closely #Intraparenchymal Hemorrhage likely 2/2 HTN Emergency -Hx uncontrolled HTN, CT head: Intraparenchymal hemorrhage. -neurosugery consulted #Indeterminate trop, likely 2/2 NSTEMI type 2 due to Stroke -Elevated CKMB, Trop indeterminate -EKG no acute changes -CXR no acute findings, no CP #Hypokalemia -replace as indicated, will continue to monitor # Hypomagnesemia -replace as indicated, will continue to monitor #Weight loss -Severe protein/calorie malnutrition -prealbumin low at 7 -given thiamine and banana bag on 12/09 -s/p central line on 12/10 for TPN managed by health information manager, appreciate recs #Anxiety -aware #Mild hyponatremia -patient has been not eating, now on TPN -on chlorthalidone, consider stopping it if continues to decline -continue to monitor #Diabetes Mellitus Type 2 -A1C 8.1 -Hyperglycemia protocol, ACHS accuchecks, mild SSI -will need to be restarted on metformin prior to DC -will increase Glargine, BG increasing since initiating TPN Diet: TPN IVF: TPN DVT ppx: SCDs vs Lovenox.Pending neurosurg recs GI ppx: Famotidine Code Status: DNAR PCP: None Dispo: s/p ACDF, on TPN, pending speech eval to restart po. will need placement Addendum - Attending - Attending Attestation Date/Time: 12/15/19 [id number] I personally evaluated the patient and discussed the management with Dr. Sifuentes. I agree with the History, Examination, Assessment and Plan documented above with any addition or exceptions noted below.
[2019-12-15 05:56] LABS: ALT (SGPT) 8 U/L (8-55); AST (SGOT) 14 U/L (5-34); Albumin 2.5 g/dL (3.4-4.8); Alkaline Phosphatase 86 U/L (40-110); Anion Gap 10 mmol/L (10-20); BUN (Urea Nitrogen) 30 mg/dL (8.4-25.7); Bilirubin, Total 0.6 mg/dL (0.2-1.2); Calc. Creatinine Clearance 126 mL/min (70-130); Calcium 8.6 mg/dL (7.8-10.44); Carbon Dioxide 26 mmol/L (23-31); Chloride 98 mmol/L (98-107); Estimated GFR-MDRD Greater than 90; Globulin 3.3 g/dL (2.4-3.5); Glucose 293 mg/dL (80-115); Potassium 4.2 mmol/L (3.5-5.1); Protein, Total 5.8 g/dL (5.8-8.1); Sodium 130 mmol/L (136-145)
[2019-12-15] MEDS: Famotidine 20 MG TAB PO SCH ×2 (08:48→20:36)
[2019-12-15] MEDS: Insulin Glargine 10 UNITS in Pre-Filled Syringe SC SCH (08:57)
[2019-12-15] MEDS: Famotidine/PF 20 mg/2ml Vial SLOW IVP SCH ×2 (08:59→20:36)
[2019-12-15] MEDS ORDERED: Insulin Glargine 15 UNITS in Pre-Filled Syringe 1 EACH SC SCH ×2 (10:14→10:30)
[2019-12-15] MEDS: hydrALAZINE 20 MG/ML VIAL SLOW IVP PRN (11:24)
[2019-12-15] MEDS: Atenolol 50 MG TAB PO SCH ×2 (11:56→20:36)
[2019-12-15] MEDS: Lisinopril 20 MG TAB PO SCH (11:56)
[2019-12-15] MEDS: Chlorthalidone 25 MG TAB PO SCH (11:56)
[2019-12-15] MEDS: hydrALAZINE 25 MG TAB PO SCH ×4 (11:56→20:36)
[2019-12-15] MEDS: Enoxaparin Sodium 40 MG/0.4 ML SYRINGE SC SCH (11:57)
[2019-12-15] MEDS: Bupropion 150 MG XL TAB PO SCH (12:08)
[2019-12-15] MEDS ORDERED: Enoxaparin Sodium 40 MG/0.4 ML SYRINGE SC SCH (12:15)
[2019-12-15] MEDS: Sodium Acetate 2 mEq/ml 40 MEQ, Sodium Chloride 30 MEQ, Potassium Chloride 20 MEQ, Pota... IV SCH (15:59)
--- NOTE | 2019-12-15 17:07 | PRG ---
DATE OF SERVICE: 12/15/2019 SUBJECTIVE: Mr. Angel is postoperative day #7 after undergoing C3 through C7 ACDF and C3 through C7 laminectomies and posterior lateral instrumented fusion on December 08, 2019. He is now on the surgical floor. He denies any complaints of pain at this time, including neck pain. He reports improvement in his strength and has been able to sit up at the bedside during therapies. He states that he would like to continue with therapies. He continues to exhibit dysphagia. He states that it is hard to swallow cold liquids. I obtained lukewarm faucet water for him to attempt drinking and watched him take two sips this morning. He reported swallowing lukewarm water was somewhat easier than cold water. However, he continues to work with Speech Therapy and has been undergoing swallowing therapies with minimal advancement in his ability to intake . He remains on TPN. His anterior cervical DESTINI drain was removed over the weekend. PHYSICAL EXAMINATION: The patient is awake, alert, and responding to questions appropriately. However, at the end of our conversation, he did note that there are "creatures crawling around at night" in his room. Perhaps this is consistent with auditory hallucinations. Otherwise, the patient was much more alert and appropriate compared to prior evaluations. His strength is improving in his upper and lower extremity myotomes. he has mild hand intrinsic weakness, however, his hand plaster maker strength is improving compared to before surgery. He has 5-/5 strength in both biceps, and 4/5 strength in bilateral triceps. He has 3/5 strength in his right iliopsoas, 5-/5 strength in his left iliopsoas. He has 4/5 strength with dorsiflexion and plantar flexion of both feet. His anterior cervical wound has Steri-Strips in place, but no signs of infection including eduardo-incisional erythema or swelling. No drainage noted from the wound. The patient will continue with therapies while in the hospital. Eventual plan will be for him to attend inpatient rehab for further therapies and mobilization prior to returning home. With regard to his dysphagia, we will attempt a few more days of swallowing therapies and attempt to advance his oral intake. If he continues to have significant difficulty with swallowing, consideration can be given to placement of a PEG tube. His Ancef has been discontinued, given his DESTINI drain was removed over the weekend. He was restarted on Lovenox 40 mg subcutaneous once daily beginning today for DVT prophylaxis. Our team will continue to monitor the patient while he remains in the hospital. Please call for any neurologic changes or other concerns. Job ID: [id number]
[2019-12-15] MEDS: Amlodipine 10 MG TAB PO SCH (20:30)
[2019-12-15] MEDS: Atorvastatin Calcium 40 MG TAB PO SCH (20:36)
[2019-12-16] MEDS: HumaLOG 300 UNITS/3 ML VIAL SC PRN ×4 (00:43→18:54)
[2019-12-16] MEDS: Labetalol HCl 100 MG/20 ML VIAL SLOW IVP SCH ×6 (00:58→22:00)
--- NOTE | 2019-12-16 05:39 | PDOC.FM ---
- Subjective Subjective: He is awake and alert this morning. He said he was able to swallow some of his meds with milk yesterday. Pain is controlled. Has desire to continue to work with PT/OT to improve his stregth with the goal of getting back home. Discussed PEG tube placement in the event he is not able to safely swallow, he is resistant. - Objective Vital Signs & Weight: Vital Signs (12 hours) Temp Pulse Resp BP Pulse Ox 12/16/19 03:47 98.6 F 69 16 146/77 H 99 12/15/19 22:58 98.7 F 70 16 137/75 97 12/15/19 20:42 98.7 F 71 16 136/74 98 12/15/19 20:36 74 12/15/19 20:00 98 12/15/19 19:26 98.6 F 71 16 131/74 98 12/15/19 17:42 74 18 147/74 H 95 12/15/19 17:41 74 12/15/19 17:39 74 Weight Admit Weight 79 kg Weight 86.75 kg Most Recent Monitor Data Heart Rate from ECG 72 NIBP 142/84 NIBP BP-Mean 103 Respiration from ECG 17 SpO2 97 I&O: 12/14/19 12/15/19 12/16/19 06:59 06:59 06:59 Intake Total 2550 3052 Output Total 1750 2225 1250 Balance 800 827 -1250 Result Diagrams: 12/10/19 06:06 12/15/19 03:30 Phys Exam - Physical Examination Constitutional: NAD HEENT: moist MMs, sclera anicteric Neck: no JVD Respiratory: no wheezing, clear to auscultation bilateral Cardiovascular: RRR, no significant murmur Gastrointestinal: soft, non-tender, no distention Musculoskeletal: no edema, pulses present Neurological: moves all 4 limbs improving motor strength Psychiatric: normal affect, A&O x 3 Skin: no rash, cap refill <2 seconds Dx/Plan - Plan Plan: 59 yo male w/ cerebral hemorrhage 2/2 HTN emergency #Spinal Stenosis s/p ACDF C3-C7 on 12/07 -Neurosurgery: Dr Juarez, will follow recs -pain: tylenol #3 prn, norco prn, tramadol prn, valium prn -wear collar and LSO when out of bed, continue work with PT/OT #Dysphagia -neurosurgery: likely due to chronic neuropathy due to severe stenosis and now with correction could take 2-3 months to resolve, consider temporary PEG tube placement -speech therapy: failed swallow, unable to complete extensive dysphagia rehab due to recent surgery, recommend PEG -is currently receiving TPN #HTN -BP goal SBP <150 per neurosurgery -scheduled Labetalol q4H and PRN Hydralazine IV while waiting on speech recs. -Held PO meds pending swallow eval #AMS, improved -likely due to medications, brain CT on 12/08 showed improvement of hemorrhage, no acute process -Dr. Mayberry, EEG normal, recommend better pain control -Ucx negative, Bcx no growth at 48 hours #GHASSAN -resolved -will continue to monitor closely #Intraparenchymal Hemorrhage likely 2/2 HTN Emergency -Hx uncontrolled HTN, CT head: Intraparenchymal hemorrhage. -neurosugery consulted #Indeterminate trop, likely 2/2 NSTEMI type 2 due to Stroke -Elevated CKMB, Trop indeterminate -EKG no acute changes -CXR no acute findings, no CP #Hypokalemia -replace as indicated, will continue to monitor # Hypomagnesemia -replace as indicated, will continue to monitor #Weight loss -Severe protein/calorie malnutrition -s/p central line on 12/10 for TPN managed by ekg/ecg technician, appreciate recs #Anxiety -aware #Mild hyponatremia -patient has been not eating, now on TPN -on chlorthalidone, consider stopping it if continues to decline -continue to monitor #Diabetes Mellitus Type 2 -A1C 8.1 -Hyperglycemia protocol, ACHS accuchecks, mild SSI -will need to be restarted on metformin prior to DC -will increase Glargine, BG increasing since initiating TPN Diet: TPN IVF: TPN DVT ppx: lovenox GI ppx: Famotidine Code Status: DNAR PCP: None Dispo: s/p ACDF, on TPN, speech working on swallow training. will need placement Addendum - Attending - Attending Attestation Date/Time: 12/16/19 2300 I personally evaluated the patient and discussed the management with Dr. Sifuentes. I agree with the History, Examination, Assessment and Plan documented above with any addition or exceptions noted below.
[2019-12-16] MEDS ORDERED: Insulin Glargine 15 UNITS in Pre-Filled Syringe 1 EACH SC SCH (09:00)
[2019-12-16] MEDS: Enoxaparin Sodium 40 MG/0.4 ML SYRINGE SC SCH (09:08)
[2019-12-16] MEDS: Famotidine/PF 20 mg/2ml Vial SLOW IVP SCH ×2 (09:09→21:35)
[2019-12-16] MEDS ORDERED: Insulin Glargine 25 UNITS in Pre-Filled Syringe 1 EACH SC SCH (09:15)
--- NOTE | 2019-12-16 10:47 | PRG ---
DATE OF SERVICE: 12/16/2019 Mr. Angel is now 8 days out from anterior-posterior decompression and fusion for spinal cord compression. He is doing remarkably well. He is able to move his arms, although he is encephalopathic this morning, which he tends to vacillate between more lucidity and encephalopathy for reasons unknown to me as we have scanned his head. It is likely a metabolic or neurophysiologic issue, but nevertheless, he is able to wiggle his toes yesterday. My team tells me that he sat on the edge of the bed with physical therapy. Overall, I think he is doing well. He is on Lovenox. We will order an ultrasound of the legs just to ensure of no DVT. I would recommend PEG tube placement should be necessary for augmenting his nutrition. Job ID: [id number]
--- NOTE | 2019-12-16 11:47 | ULT ---
EXAM: Bilateral lower extremity venous Doppler HISTORY: bilateral lower extremity edema and pain FINDINGS: Grayscale, color-flow, Doppler evaluation, spectral analysis of the bilateral lower extremity venous structures is performed with 2-D imaging. The bilateral common femoral, superficial femoral, popliteal, posterior tibial, proximal greater saphenous and profunda femoral veins are imaged. Mid left lower extremity posterior tibial vein not well evaluated on this examination. There is other webster normal luminal compressibility, flow, and augmentation in the visualized deep venous structures of the bilateral lower extremities. IMPRESSION: Left lower extremity mid posterior tibial vein not well evaluated on this exam to evaluate for DVT at this level. There is otherwise no evidence of a deep vein thrombosis in the visualized deep venous structures bilateral lower extremities.
[2019-12-16] MEDS: Famotidine 20 MG TAB PO SCH ×2 (12:02→21:59)
[2019-12-16] MEDS ORDERED: Sodium Acetate 2 mEq/ml 40 MEQ, Sodium Chloride 30 MEQ, Potassium Chloride 20 MEQ, Pota... IV SCH (14:00)
[2019-12-16] MEDS: Lisinopril 20 MG TAB PO SCH (14:01)
[2019-12-16] MEDS: Atenolol 50 MG TAB PO SCH ×2 (14:01→21:59)
[2019-12-16] MEDS: Chlorthalidone 25 MG TAB PO SCH (14:01)
[2019-12-16] MEDS: hydrALAZINE 25 MG TAB PO SCH ×4 (14:01→21:59)
[2019-12-16] MEDS: Bupropion 150 MG XL TAB PO SCH (14:02)
[2019-12-16] MEDS: Spironolactone 25 MG TAB PO SCH (14:07)
[2019-12-16] MEDS ORDERED: Fentanyl 100 MCG/2 ML VIAL ONE (14:42)
[2019-12-16] MEDS ORDERED: Polyethylene Glycol 3350 17 GM Packet PO PRN (17:54)
[2019-12-16] MEDS ORDERED: Senokot 8.6 MG TAB PO PRN (17:54)
[2019-12-16] MEDS: Amlodipine 10 MG TAB PO SCH (21:58)
[2019-12-16] MEDS: Atorvastatin Calcium 40 MG TAB PO SCH (21:59)
[2019-12-17] MEDS: HumaLOG 300 UNITS/3 ML VIAL SC PRN ×4 (00:27→18:57)
[2019-12-17] MEDS: Labetalol HCl 100 MG/20 ML VIAL SLOW IVP SCH ×2 (02:12→06:10)
[2019-12-17 04:57] LABS: Anion Gap 10 mmol/L (10-20); BUN (Urea Nitrogen) 33 mg/dL (8.4-25.7); Calc. Creatinine Clearance 122 mL/min (70-130); Calcium 8.6 mg/dL (7.8-10.44); Carbon Dioxide 28 mmol/L (23-31); Chloride 98 mmol/L (98-107); Estimated GFR-MDRD Greater than 90; Glucose 209 mg/dL (80-115); Potassium 4.4 mmol/L (3.5-5.1); Sodium 132 mmol/L (136-145)
[2019-12-17] MEDS ORDERED: Senokot 8.6 MG TAB PO SCH (05:45)
[2019-12-17] MEDS ORDERED: Polyethylene Glycol 3350 17 GM Packet PO SCH (05:45)
[2019-12-17] MEDS: Morphine 2 MG/ML VIAL SLOW IVP PRN ×2 (05:46→22:49)
--- NOTE | 2019-12-17 05:47 | PDOC.FM ---
- Subjective Subjective: Pt resting comfortably. Alert and cooperative. States his pain is controlled. Has no recorded bowel movement in several days, but he does not complain of abdominal discomfort. He continues to be resistant to PEG tube placement and insists he will be able to swallow. - Objective Vital Signs & Weight: Vital Signs (12 hours) Temp Pulse Resp BP BP Pulse Ox 12/17/19 03:36 97.8 F 69 16 127/73 97 12/17/19 02:12 68 144/78 H 12/16/19 23:19 98.5 F 68 16 147/78 H 97 12/16/19 22:00 69 146/75 H 12/16/19 21:59 69 146/75 H 12/16/19 21:58 69 146/75 H 12/16/19 19:40 98.1 F 69 16 146/75 H 99 Weight Admit Weight 79 kg Weight 87.997 kg Most Recent Monitor Data Heart Rate from ECG 72 NIBP 142/84 NIBP BP-Mean 103 Respiration from ECG 17 SpO2 97 I&O: 12/15/19 12/16/19 12/17/19 06:59 06:59 06:59 Intake Total 3052 3036 3031 Output Total 2225 2475 2425 Balance 827 561 606 Result Diagrams: 12/10/19 06:06 12/17/19 04:14 Phys Exam - Physical Examination Constitutional: NAD HEENT: moist MMs, sclera anicteric Neck: supple Respiratory: no wheezing, clear to auscultation bilateral Cardiovascular: RRR, no significant murmur Gastrointestinal: soft, non-tender, no distention Musculoskeletal: no edema, pulses present Neurological: non-focal, moves all 4 limbs Psychiatric: normal affect, A&O x 3 Skin: no rash, cap refill <2 seconds Dx/Plan - Plan Plan: 59 yo male w/ cerebral hemorrhage 2/2 HTN emergency #Spinal Stenosis s/p ACDF C3-C7 on 12/07 -Neurosurgery: Dr Juarez, will follow recs -pain: tylenol #3 prn, norco prn, tramadol prn, valium prn -wear collar and LSO when out of bed, continue work with PT/OT -will need placement for rehab #Dysphagia -neurosurgery: likely due to chronic neuropathy due to severe stenosis and now with correction could take 2-3 months to resolve, consider temporary PEG tube placement -speech therapy: failed swallow, unable to complete extensive dysphagia rehab due to recent surgery, recommend PEG -is currently receiving TPN #HTN -BP goal SBP <150 per neurosurgery -Labetalol and hydralazine IV PRN -give po meds pending speech eval #AMS, improved -likely due to medications, brain CT on 12/08 showed improvement of hemorrhage, no acute process -Dr. Mayberry, EEG normal, recommend better pain control -Ucx negative, Bcx no growth at 48 hours #GHASSAN -resolved -will continue to monitor closely #Intraparenchymal Hemorrhage likely 2/2 HTN Emergency -Hx uncontrolled HTN, CT head: Intraparenchymal hemorrhage. -neurosugery consulted #Indeterminate trop, likely 2/2 NSTEMI type 2 due to Stroke -Elevated CKMB, Trop indeterminate -EKG no acute changes -CXR no acute findings, no CP #Hypokalemia -replace as indicated, will continue to monitor # Hypomagnesemia -replace as indicated, will continue to monitor #Weight loss -Severe protein/calorie malnutrition -s/p central line on 12/10 for TPN managed by container filler, appreciate recs #Anxiety -aware #Mild hyponatremia -patient has been not eating, now on TPN -on chlorthalidone, consider stopping it if continues to decline -continue to monitor #Diabetes Mellitus Type 2 -A1C 8.1 -Hyperglycemia protocol, ACHS accuchecks, mod SSI -will need to be restarted on metformin prior to DC -will increase Glargine, BG increasing since initiating TPN Diet: TPN IVF: TPN DVT ppx: lovenox GI ppx: Famotidine Code Status: DNAR PCP: None Dispo: s/p ACDF, on TPN, speech working on swallow training. will need placement Addendum - Attending - Attending Attestation Date/Time: 12/17/19 8468 I personally evaluated the patient and discussed the management with Dr. Sifuentes. I agree with the History, Examination, Assessment and Plan documented above with any addition or exceptions noted below.
--- NOTE | 2019-12-17 06:48 | ULT ---
LEFT LOWER EXTREMITY VENOUS ULTRASOUND: Date: 12/17/2019 HISTORY: Left lower extremity pain and immobility. COMPARISON: 12/16/2019. TECHNIQUE: Multiplanar Larsen scale and color Doppler images were obtained in a left lower extremity venous ultras ound. Spectral analysis of the Doppler waveforms performed. FINDINGS: The left common femoral vein, profunda femoral vein, superficial femoral vein, and popliteal vein are normal in appearance without visible thrombus. These vessels demonstrate normal compression, flow, a nd augmentation. The posterior tibial vein and greater saphenous vein are also patent. IMPRESSION: No evidence of deep venous thrombosis. POS: EAA
[2019-12-17] MEDS: Bupropion 150 MG XL TAB PO SCH (10:35)
[2019-12-17] MEDS: Lisinopril 20 MG TAB PO SCH (10:39)
[2019-12-17] MEDS: Famotidine/PF 20 mg/2ml Vial SLOW IVP SCH ×2 (10:47→22:00)
[2019-12-17] MEDS: Famotidine 20 MG TAB PO SCH ×2 (10:48→21:57)
[2019-12-17] MEDS: Enoxaparin Sodium 40 MG/0.4 ML SYRINGE SC SCH (10:48)
[2019-12-17] MEDS: Insulin Glargine 25 UNITS in Pre-Filled Syringe 1 EACH SC SCH (10:49)
[2019-12-17] MEDS: Atenolol 50 MG TAB PO SCH ×2 (10:50→21:56)
[2019-12-17] MEDS: Spironolactone 25 MG TAB PO SCH (10:50)
[2019-12-17] MEDS: hydrALAZINE 25 MG TAB PO SCH (10:51)
[2019-12-17] MEDS: Chlorthalidone 25 MG TAB PO SCH (10:51)
[2019-12-17] MEDS: Fat Emulsion 250 ML, Multivitamins, Adult 10 ML, TRACE ELEMENT CONCENTRATE 1 ML in D15W... IV SCH (15:41)
--- NOTE | 2019-12-17 18:32 | PRG ---
DATE OF SERVICE: 12/17/2019 Mr. Angel continues to recover quite well from his anterior-posterior decompression fusion of the cervical spine. This has not been placed PEG tube and then inpatient rehab negative. Job ID: [id number]
[2019-12-17] MEDS: Atorvastatin Calcium 40 MG TAB PO SCH (21:56)
[2019-12-17] MEDS ORDERED: Fat Emulsion 250 ML in D15W-AA 5% with Lytes 2,000 ML IV SCH (22:00)
[2019-12-18] MEDS: HumaLOG 300 UNITS/3 ML VIAL SC PRN ×3 (00:42→18:31)
[2019-12-18] MEDS: Morphine 2 MG/ML VIAL SLOW IVP PRN ×2 (05:28→22:35)
--- NOTE | 2019-12-18 06:35 | PDOC.FM ---
- Subjective Subjective: Pt awake and alert this morning. Says he has minimal pain in his neck. He said he had been considering the PEG tube and had questions. I answered all of his questions and discussed risks and benefits. He agreed to have it placed but would like to ask the general surgeon a few questions/ - Objective Vital Signs & Weight: Vital Signs (12 hours) Temp Pulse Resp BP Pulse Ox 12/18/19 05:35 98.6 F 70 16 137/74 96 12/18/19 00:37 98.6 F 69 16 147/84 H 97 12/17/19 21:56 69 Weight Admit Weight 79 kg Weight 86.863 kg Most Recent Monitor Data Heart Rate from ECG 72 NIBP 142/84 NIBP BP-Mean 103 Respiration from ECG 17 SpO2 97 I&O: 12/16/19 12/17/19 12/18/19 06:59 06:59 06:59 Intake Total 3036 3031 2328 Output Total 2475 2425 1500 Balance 561 606 828 Result Diagrams: 12/10/19 06:06 12/17/19 04:14 Phys Exam - Physical Examination Constitutional: NAD HEENT: moist MMs, sclera anicteric steristrips on ant neck Respiratory: no wheezing, clear to auscultation bilateral Cardiovascular: RRR, no significant murmur Gastrointestinal: soft, non-tender, no distention Musculoskeletal: no edema, pulses present Neurological: non-focal, moves all 4 limbs improving UE and LE motor strength Psychiatric: normal affect, A&O x 3 Skin: no rash, cap refill <2 seconds Dx/Plan - Plan Plan: 59 yo male w/ cerebral hemorrhage 2/2 HTN emergency #Spinal Stenosis s/p ACDF C3-C7 on 12/07 -Neurosurgery: Dr Juarez, will follow recs -pain: tylenol #3 prn, norco prn, tramadol prn, valium prn -wear collar and LSO when out of bed, continue work with PT/OT -will need placement for rehab #Dysphagia -neurosurgery: likely due to chronic neuropathy due to severe stenosis and now with correction could take 2-3 months to resolve, consider temporary PEG tube placement -speech therapy: failed swallow, recommend PEG -pt agreed to PEG tube placement, will consult GI -is currently receiving TPN #HTN -BP goal SBP <150 per neurosurgery -Labetalol and hydralazine IV PRN -give po meds pending speech eval #AMS, improved -likely due to medications, brain CT on 12/08 showed improvement of hemorrhage, no acute process -Dr. Mayberry, EEG normal, recommend better pain control -Ucx negative, Bcx no growth at 48 hours #GHASSAN -resolved -will continue to monitor closely #Intraparenchymal Hemorrhage likely 2/2 HTN Emergency -Hx uncontrolled HTN, CT head: Intraparenchymal hemorrhage. -neurosugery consulted #Indeterminate trop, likely 2/2 NSTEMI type 2 due to Stroke -Elevated CKMB, Trop indeterminate -EKG no acute changes -CXR no acute findings, no CP #Hypokalemia -replace as indicated, will continue to monitor # Hypomagnesemia -replace as indicated, will continue to monitor #Weight loss -Severe protein/calorie malnutrition -s/p central line on 12/10 for TPN managed by stone and concrete washer, appreciate recs #Anxiety -aware #Mild hyponatremia -patient has been not eating, now on TPN -on chlorthalidone, consider stopping it if continues to decline -continue to monitor #Diabetes Mellitus Type 2 -A1C 8.1 -Hyperglycemia protocol, ACHS accuchecks, mod SSI -will need to be restarted on metformin prior to DC -will increase Glargine, BG increasing since initiating TPN Diet: NPO IVF: TPN DVT ppx: lovenox GI ppx: Famotidine Code Status: DNAR PCP: None Dispo: s/p ACDF, on TPN, pending PEG tube. will need placement Addendum - Attending - Attending Attestation Date/Time: 12/18/19 3722 I personally evaluated the patient and discussed the management with Dr. Sifuentes. I agree with the History, Examination, Assessment and Plan documented above with any addition or exceptions noted below. Patient continues to improve. He is now on board with PEG placement for temporary purposes until his swallow function returns. Continues on TPN. Needs bladder training and continued therapy.
[2019-12-18] MEDS: Insulin Glargine 25 UNITS in Pre-Filled Syringe 1 EACH SC SCH (08:50)
[2019-12-18] MEDS: Enoxaparin Sodium 40 MG/0.4 ML SYRINGE SC SCH (08:51)
[2019-12-18] MEDS: Famotidine/PF 20 mg/2ml Vial SLOW IVP SCH (08:51)
[2019-12-18] MEDS: Famotidine 20 MG TAB PO SCH ×2 (09:34→20:05)
[2019-12-18] MEDS: Lisinopril 20 MG TAB PO SCH (09:34)
[2019-12-18] MEDS: Bupropion 150 MG XL TAB PO SCH (09:34)
[2019-12-18] MEDS: Atenolol 50 MG TAB PO SCH ×2 (09:34→20:05)
--- NOTE | 2019-12-18 11:15 | CON ---
DATE OF CONSULTATION: 12/18/2019 REASON FOR CONSULTATION: Consider PEG tube placement. HISTORY OF PRESENT ILLNESS: Abran Angel is a 59-year-old man who was admitted to the hospital back on 11/25/2019 with a thalamic hemorrhagic CVA. In the process of evaluation and treatment, he was also found to have severe cervical spondylitic myelopathy, identified on MRI of the cervical spine. He was seen by Neurosurgery, and underwent ACDF of C3 through C7 on 12/07. Since that time, he has had significant improvement in extremity neuropathy, but he is also having problems with oropharyngeal dysphagia. This is thought to be potentially secondary to the surgery and expected to slowly resolve with time. He has been working with Speech Pathology who at this point on evaluation have recommended that he is not safe for any consistencies either solid or liquid. PEG tube placement had been recommended. He has been receiving TPN so far without any issues. The patient has so far been hesitant to consider PEG tube placement, but now would like to proceed if possible. REVIEW OF SYSTEMS: Full review of systems including constitutional; head, eyes, ears, nose, and throat; GI; ; cardiovascular; respiratory; musculoskeletal; neurologic systems is negative except as noted in the HPI. PAST MEDICAL HISTORY: 1. Hypertension. 2. Diabetes, type 2. 3. Depression and anxiety. 4. Tobacco abuse. 5. 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 6. Cervical myelopathy status post cervical spine surgery on 12/08/2019. SOCIAL HISTORY: The patient has used tobacco. No alcohol or drug use. FAMILY HISTORY: He says his brother was treated for rectal cancer. ALLERGIES: NO KNOWN DRUG ALLERGIES. MEDICATIONS: 1. [place] p.r.n. 2. Lovenox 40 mg subcutaneously daily. 3. Pepcid 20 mg IV q.12 h. 4. TPN. 5. Hydralazine p.r.n. 6. Sliding scale insulin. 7. Morphine p.r.n. 8. Thiamine 250 mg IV b.i.d. PHYSICAL EXAMINATION: VITAL SIGNS: Temperature 98.5, pulse 70, blood pressure 126/73, and 97% oxygen saturation on room air. GENERAL: Chronically ill 59-year-old man, lying in bed comfortably, in no distress. SKIN: No jaundice. No rash visible or palpable. Incision to the neck appears to be healing well. EYES: No scleral icterus. Extraocular movements intact. ENT: Mucous membranes moist. LYMPHATIC: No submandibular or supraclavicular lymphadenopathy. THYROID: Nontender to palpation. HEART: Regular rate and rhythm. LUNGS: Clear to auscultation bilaterally. ABDOMEN: Flat. Bowel sounds are present. Soft and nontender to deep palpation throughout. No surgical scars to the upper abdomen. EXTREMITIES: No peripheral edema. VESSELS: Radial pulses 2+ bilaterally. LABORATORY STUDIES: Sodium 132, potassium 4.4, BUN 33, creatinine 0.79, and glucose 220. Last CBC was from 12/10/2019: WBC was 13.3, hemoglobin 11.8, and platelets 237. ASSESSMENT AND PLAN: 1. Oropharyngeal dysphagia, following cervical spine surgery. 2. Recent cervical spine surgery for cervical myelopathy. 3. Recent hemorrhagic cerebrovascular accident. I had a long discussion with the patient regarding the benefits and potential risks of percutaneous endoscopic gastrostomy tube placement. I do think he would benefit from percutaneous endoscopic gastrostomy placement for the purposes of delivering nutrition enterally while continuing to work with Speech Pathology and hopefully eventually achieving resolution of his oropharyngeal dysphagia. We discussed the percutaneous endoscopic gastrostomy tube is not necessarily permanent, but it is potentially a permanent solution if his swallowing function does not adequately recover. In the end, he does desire to proceed. We will schedule this for tomorrow. Hold morning Lovenox prior to the procedure. Thank you for the consultation. Please call anytime with questions or concerns. Job ID: [id number]
[2019-12-18] MEDS ORDERED: D15W AA IV SCH (14:00)
[2019-12-18] MEDS ORDERED: FAT EMULSION IV SCH (14:00)
[2019-12-18] MEDS ORDERED: MULTIVITAMINS IV SCH (14:00)
[2019-12-18] MEDS ORDERED: LYTES IV SCH (14:00)
[2019-12-18] MEDS: Fat Emulsion 250 ML, Multivitamins, Adult 10 ML, TRACE ELEMENT CONCENTRATE 1 ML in D15W... IV SCH (15:19)
[2019-12-18] MEDS: Atorvastatin Calcium 40 MG TAB PO SCH (20:05)
[2019-12-18] MEDS: Labetalol HCl 100 MG/20 ML VIAL SLOW IVP PRN (20:09)
[2019-12-19] MEDS: HumaLOG 300 UNITS/3 ML VIAL SC PRN ×3 (01:02→11:04)
--- NOTE | 2019-12-19 05:19 | PDOC.FM ---
- Subjective Subjective: Pt resting comfortably. Has some anxiety about his PEG tube placement today. This is his normal reaction to most medical procedures/decisions throughout his hospital stay. I answered all of his questions and he voiced understanding. States pain is controlled. Continues to want to work with speech therapy for swallow. - Objective Vital Signs & Weight: Vital Signs (12 hours) Temp Pulse Resp BP BP Pulse Ox 12/19/19 04:23 97.9 F 73 18 123/72 99 12/19/19 00:29 98.0 F 73 19 133/82 99 12/18/19 20:20 98.5 F 72 16 161/81 H 98 12/18/19 20:09 72 161/81 H 12/18/19 20:05 73 Weight Admit Weight 79 kg Weight 86.863 kg Most Recent Monitor Data Heart Rate from ECG 72 NIBP 142/84 NIBP BP-Mean 103 Respiration from ECG 17 SpO2 97 I&O: 12/17/19 12/18/19 12/19/19 06:59 06:59 06:59 Intake Total 3031 2328 1128 Output Total 2425 1500 1550 Balance 606 828 -422 Result Diagrams: 12/10/19 06:06 12/17/19 04:14 Phys Exam - Physical Examination Constitutional: NAD HEENT: moist MMs, sclera anicteric Neck: supple Respiratory: no wheezing, clear to auscultation bilateral Cardiovascular: RRR, no significant murmur Gastrointestinal: soft, non-tender, no distention Musculoskeletal: no edema, pulses present Neurological: non-focal, moves all 4 limbs Psychiatric: normal affect, A&O x 3 Skin: no rash, cap refill <2 seconds Dx/Plan - Plan Plan: 59 yo male w/ cerebral hemorrhage 2/2 HTN emergency #Spinal Stenosis s/p ACDF C3-C7 on 12/07 -Neurosurgery: Dr Juarez, will follow recs -pain: tylenol #3 prn, norco prn, tramadol prn, valium prn -wear collar and LSO when out of bed, continue work with PT/OT -CM consulted: [facility] has been [facility] #Dysphagia -GI, Case: plan to place PEG tube today -speech therapy: failed swallow, recommend PEG -is currently receiving TPN #HTN -BP goal SBP <150 per neurosurgery -Labetalol and hydralazine IV PRN -give po meds per tube once approved by GI #AMS, improved -likely due to medications, brain CT on 12/08 showed improvement of hemorrhage, no acute process -EEG normal #GHASSAN -resolved -will continue to monitor closely #Intraparenchymal Hemorrhage likely 2/2 HTN Emergency -Hx uncontrolled HTN, CT head: Intraparenchymal hemorrhage. -neurosugery consulted #Indeterminate trop, likely 2/2 NSTEMI type 2 due to Stroke -Elevated CKMB, Trop indeterminate -EKG no acute changes -CXR no acute findings, no CP #Hypokalemia -replace as indicated, will continue to monitor # Hypomagnesemia -replace as indicated, will continue to monitor #Weight loss -Severe protein/calorie malnutrition -s/p central line on 12/10 for TPN managed by shipping processor, appreciate recs #Anxiety -aware #Mild hyponatremia -patient has been not eating, now on TPN -on chlorthalidone, consider stopping it if continues to decline -continue to monitor #Diabetes Mellitus Type 2 -A1C 8.1 -Hyperglycemia protocol, ACHS accuchecks, mod SSI -will need to be restarted on metformin prior to DC -will increase Glargine, BG increasing since initiating TPN Diet: NPO IVF: TPN DVT ppx: lovenox GI ppx: Famotidine Code Status: DNAR PCP: None Dispo: s/p ACDF, on TPN, pending PEG tube. will need placement Addendum - Attending - Attending Attestation Date/Time: 12/19/19 8995 I personally evaluated the patient and discussed the management with Dr. Sifuentes. I agree with the History, Examination, Assessment and Plan documented above with any addition or exceptions noted below. Patient resting comfortably. Awaiting PEG today. Continue therapy and work on placement.
[2019-12-19] MEDS ORDERED: Promethazine HCl 25 MG/ML VIAL SLOW IVP PRN (08:33)
[2019-12-19] MEDS ORDERED: Promethazine HCl 25 MG/ML VIAL IM PRN (08:33)
[2019-12-19] MEDS ORDERED: Ondansetron HCl/PF 4 MG/2 ML Vial IVP PRN ×2 (08:33→09:15)
[2019-12-19] MEDS ORDERED: Non-Formulary Medication 1 EACH PO PRN (09:11)
[2019-12-19] MEDS ORDERED: Promethazine HCl 25 MG/ML VIAL IM/IV PRN (09:15)
--- NOTE | 2019-12-19 10:00 | OP ---
DATE OF PROCEDURE: 12/19/2019 SECURITY SOLUTIONS ARCHITECT SURGEON: None. PROCEDURES PERFORMED: Esophagogastroduodenoscopy with percutaneous endoscopic gastrostomy tube placement. INDICATIONS: 1. Oropharyngeal dysphagia. 2. Recent cervical spine surgery. 3. Recent hemorrhagic stroke. MEDICATIONS: 1. See Anesthesia record. 2. Ancef 2 g IV. FINDINGS: After discussion of the risks, benefits, and alternatives of the procedure, informed consent was obtained and witnessed. Pre-endoscopic cardiopulmonary examination was satisfactory. Time-out was performed before sedation was achieved. Sedation was achieved with Anesthesia assistance in the endoscopy unit. The patient was left in the supine position. A Pentax adult upper endoscope was placed into the oropharynx and passed through the cricopharyngeus under direct visualization. The esophageal mucosa appeared normal with a normal-appearing Z-line at 40 cm from the incisors. The endoscope was advanced into the stomach. Forward and retroflexed views of the entire gastric mucosa were obtained. The patient has a J-shaped stomach. There are no other significant mucosal abnormalities. The endoscope was advanced through the pylorus, into the first and second portions of the duodenum, which appeared normal. The endoscope was then withdrawn back into the stomach. Using one-to-one pressure and transillumination methods, suitable site for PEG placement was located in the left upper quadrant. The site was prepped and draped in a sterile fashion, then anesthetized with subcutaneous lidocaine. A 1 cm vertical incision was made. Then, the introducer needle and catheter were introduced transcutaneously into the gastric lumen. The needle was removed. The wire was passed through the catheter and grasped with a snare via the endoscope. The wire was then removed out of the mouth, and a 20-Urdu traction PEG was affixed to the wire, and pulled through into position without difficulty in the usual fashion. The endoscope was then passed back down into the stomach for visualization of the internal bumper, which appeared to be in good position without any complication. The endoscope was withdrawn. The external bumper was placed at a distance of 3.5 cm. The clamp and external ports were then affixed to the PEG tube and the procedure was completed. The patient tolerated the procedure well. There were no immediate postprocedure complications. IMPRESSION: 1. J-shaped stomach. 2. Successful placement of 20-Urdu PEG tube to the left upper quadrant with external bumper at 3.5 cm. RECOMMENDATION: 1. PEG tube may be used for medications now. 2. PEG tube may be used for feeding in 4 hours. 3. Flush tube regularly. 4. I will plan to come by tomorrow to check the PEG site, and likely loosen the external bumper a bit. Please call anytime with questions or concerns. Job ID: [id number]
[2019-12-19] MEDS ORDERED: buPROPion 75 MG TAB PO SCH (10:30)
[2019-12-19] MEDS ORDERED: PROPOFOL 200 MG/20 ML VIAL ONE (10:34)
[2019-12-19] MEDS ORDERED: Lidocaine 1% PF 5 ML VIAL ONE (10:34)
[2019-12-19] MEDS: Insulin Glargine 25 UNITS in Pre-Filled Syringe 1 EACH SC SCH (11:02)
[2019-12-19] MEDS: Atenolol 50 MG TAB PO SCH ×2 (11:03→20:34)
[2019-12-19] MEDS: Famotidine 20 MG TAB PO SCH ×2 (11:03→20:28)
[2019-12-19] MEDS: Lisinopril 20 MG TAB PO SCH (11:03)
[2019-12-19] MEDS: Morphine 2 MG/ML VIAL SLOW IVP PRN ×2 (11:11→18:31)
[2019-12-19] MEDS: Bupropion 150 MG XL TAB PO SCH (13:44)
[2019-12-19] MEDS: Atorvastatin Calcium 40 MG TAB PO SCH (20:28)
--- NOTE | 2019-12-20 05:20 | PDOC.FM ---
- Subjective Subjective: Pt doing well after PEG tube placement yesterday. Denies any pain. Tolerating tube feeds. Strength is improving. He has started bladder training and says he can feel when his bladder gets full. - Objective Vital Signs & Weight: Vital Signs (12 hours) Temp Pulse Resp BP BP Pulse Ox 12/20/19 03:46 98.6 F 73 16 145/76 H 98 12/19/19 23:56 98.3 F 67 16 118/68 97 12/19/19 20:34 74 107/60 12/19/19 20:00 97.4 F L 74 16 107/60 96 Weight Admit Weight 79 kg Weight 86 kg Most Recent Monitor Data Heart Rate from ECG 72 NIBP 142/84 NIBP BP-Mean 103 Respiration from ECG 17 SpO2 97 I&O: 12/18/19 12/19/19 12/20/19 06:59 06:59 05:59 Intake Total 2328 2254 1038 Output Total 1500 2700 700 Balance 828 446 338 Result Diagrams: 12/20/19 06:15 12/20/19 06:15 Phys Exam - Physical Examination Constitutional: NAD HEENT: moist MMs, sclera anicteric Neck: supple Respiratory: no wheezing, clear to auscultation bilateral Cardiovascular: RRR, no significant murmur Gastrointestinal: soft, non-tender, no distention PEG tube insertion site- no erythema or exudate Musculoskeletal: no edema, pulses present Neurological: non-focal, moves all 4 limbs Psychiatric: normal affect, A&O x 3 Skin: no rash, cap refill <2 seconds Dx/Plan - Plan Plan: 59 yo male w/ cerebral hemorrhage 2/2 HTN emergency #Spinal Stenosis s/p ACDF C3-C7 on 12/07 -Neurosurgery: Dr Juarez, will follow recs -pain: tylenol #3 prn, norco prn, tramadol prn, valium prn -wear collar and LSO when out of bed, continue work with PT/OT -CM consulted: [facility] has been approved #Dysphagia -Dr NISHA Case: PEG placed on 12/18 -consult [facility]: tube feed recs -will remove femoral line if tolerating tube feeds #Transaminitis -AST/ALT 156/104, previously normal -Alk Phos 192 -abdomen non-tender, no distention, no N/V -likely due to surgical procedure and anesthesia yesterday. -will review all medications and recheck in am #Diabetes Mellitus Type 2 -BG this morning 66 -held glargine for now due to switch from TPN to tube feeds -Hyperglycemia protocol, ACHS accuchecks, mod SSI -will need to be restarted on metformin prior to DC #HTN -BP goal SBP <150 per neurosurgery -Labetalol and hydralazine IV PRN -give po meds per tube once approved by GI #AMS, improved -likely due to medications, brain CT on 12/08 showed improvement of hemorrhage, no acute process -EEG normal #GHASSAN -resolved -will continue to monitor closely #Intraparenchymal Hemorrhage likely 2/2 HTN Emergency -Hx uncontrolled HTN, CT head: Intraparenchymal hemorrhage. -neurosugery consulted #Indeterminate trop, likely 2/2 NSTEMI type 2 due to Stroke -Elevated CKMB, Trop indeterminate -EKG no acute changes -CXR no acute findings, no CP #Hypokalemia -replace as indicated, will continue to monitor # Hypomagnesemia -replace as indicated, will continue to monitor #Weight loss -Severe protein/calorie malnutrition -s/p central line on 12/10 for TPN managed by platinumsmith, appreciate recs #Anxiety -aware #Mild hyponatremia -patient has been not eating, now on TPN -on chlorthalidone, consider stopping it if continues to decline -continue to monitor Diet: PEG tube feeds IVF: SL DVT ppx: lovenox GI ppx: Famotidine Code Status: DNAR PCP: None Dispo: Stable, s/p ACDF, s/p PEG. will need placement Addendum - Attending - Attending Attestation Date/Time: 12/20/19 6504 I personally evaluated the patient and discussed the management with Dr. Sifuentes. I agree with the History, Examination, Assessment and Plan documented above with any addition or exceptions noted below. Patient doing well status post peg tube placement. Continue tube feeds as tolerated. Continue therapy. Continue serial swallow evaluations. Hopeful to transfer to rehabilitation Center and the next couple of days.
[2019-12-20 06:42] LABS: #Basophils 0.1 thou/uL (0.0-0.2); #Eosinphils 0.3 thou/uL (0.0-0.7); #Lymphocytes 1.9 thou/uL (1.20-3.40); #Monocytes 0.6 thou/uL (0.11-0.59); #Neutrophils 5.2 thou/uL (1.40-6.50); %Basophils 0.7 % (0.0-1.0); %Eosinophils 3.5 % (0.0-10.0); %Lymphocytes 23.6 % (21.0-51.0); %Monocytes 7.1 % (0.0-10.0); %Neutrophils 65.1 % (42.0-75.0); Hemoglobin 10.5 g/dL (14.0-18.0); Mean Corpuscular HGB CONC 34.4 g/dL (32.0-36.0); Mean Corpuscular Hemoglobin 31.2 pg (27.0-31.0); Mean Corpuscular Volume 90.9 fL (78.0-98.0); Mean Platelet Volume 7.6 fL (7.4-10.4); Platelet Count 260 thou/uL (130-400); RBC Distribution Width 11.9 % (11.5-14.5); Red Blood Cell (RBC) Count 3.35 mill/uL (4.70-6.10)
[2019-12-20 07:13] LABS: ALT (SGPT) 104 U/L (8-55); AST (SGOT) 156 U/L (5-34); Albumin 2.6 g/dL (3.4-4.8); Alkaline Phosphatase 192 U/L (40-110); Anion Gap 11 mmol/L (10-20); BUN (Urea Nitrogen) 49 mg/dL (8.4-25.7); Bilirubin, Total 0.4 mg/dL (0.2-1.2); Calc. Creatinine Clearance 97 mL/min (70-130); Calcium 8.2 mg/dL (7.8-10.44); Carbon Dioxide 29 mmol/L (23-31); Chloride 99 mmol/L (98-107); Estimated GFR-MDRD 84; Globulin 3.4 g/dL (2.4-3.5); Glucose 66 mg/dL (80-115); Potassium 4.8 mmol/L (3.5-5.1); Sodium 134 mmol/L (136-145)
--- NOTE | 2019-12-20 09:34 | PRG ---
DATE OF SERVICE: 12/20/2019 SUBJECTIVE: Mr. Angel has some nausea, but no vomiting. He has been having loose bowel movements. There is a little bit of mild tenderness to the site, but not much. OBJECTIVE: VITAL SIGNS: Temperature 98.2, pulse 73, blood pressure 107/60, and 97% oxygen saturation on room air. GENERAL: No acute distress. HEART: Regular rate and rhythm. LUNGS: Clear to auscultation bilaterally. ABDOMEN: The PEG site was examined. There is no bleeding or drainage. Skin around the site looks good. I loosened the external bumper slightly to 4.5 cm, which should be a good distance for him. EXTREMITIES: No peripheral edema. LABORATORY STUDIES: WBC 8.0, hemoglobin 10.5, platelets 260. Sodium 134, potassium 4.8, BUN 49, creatinine 0.92, total bilirubin 0.4, alkaline phosphatase 192, AST 156, ALT 104, albumin 2.6, lipase 13. ASSESSMENT AND PLAN: 1. Oropharyngeal dysphagia following recent stroke and cervical spine surgery. 2. Successful PEG tube placement yesterday 12/19/2019. The PEG site looks good. He is tolerating feeds. I told him it may take a few days to get used to the sensation, but nausea should improve. GI will sign off. Please call back anytime with questions or concerns. Job ID: [id number]
[2019-12-20] MEDS: Lisinopril 20 MG TAB PO SCH (10:02)
[2019-12-20] MEDS: Famotidine 20 MG TAB PO SCH ×2 (10:02→21:56)
[2019-12-20] MEDS: buPROPion 75 MG TAB PO SCH (10:03)
[2019-12-20] MEDS: Atenolol 50 MG TAB PO SCH ×2 (10:03→21:56)
[2019-12-20] MEDS: Enoxaparin Sodium 40 MG/0.4 ML SYRINGE SC SCH (10:25)
[2019-12-20] MEDS: Morphine 2 MG/ML VIAL SLOW IVP PRN (14:01)
--- NOTE | 2019-12-20 19:56 | PDOC.BPN ---
- Brief Progress Note 59 yo M with a history of DMII, HTN, and depression/anxiety who presented for generalized weakness that started several months ago and has been worsening to the point that he is non-weight bearing and too weak to stand when he could previously walk with a cane. Patient also reported a decrease in appetite only eating 1 can of campbells soup over 2 days and significant weight loss. Patient has not been taking his diabetes medicine because he has not been eating much and has not been taking his blood pressure medicine because he is too sensitive to them. On arrival to the ED, his SBP was 189 and he was placed on a cardene drip. Head CT revealed a R-sided parietal hemorrhage. Patient denies any recent falls or hitting his head and the bleed was suspected to be due to HTN. Patient was admitted to ICU and placed on cardene drip. He was transferred to the floor for a time but continued to have poor BP control. Repeat CT stable, repeat on 11/27 showed no growth of hemorrhage. Patient became unresponsive and hypertensive to the 190s/110s on the evening of 11/29. A repeat CT head was stable, patient was transferred back to ICU and initiated a cardene drip. He was titrated off and transferred back to stroke floor the next morning on PO medications, including amlodipine, lisinopril, hydralazine chlorthalidone, atenolol, spironolactone, and prn labetolol. MRI brain revealed a sub-acute basal ganglia infarct and sub-acute w/ remote corpus striatum and thalamic infarcts. Workup for patients generalized weakness included normal TSH and B12, a negative HIV, RPR, and Hep C, and a negative lead and alcohol level. Neurology recommended outpatient work-up for patients generalized weakness, including EEG and nerve conduction studies. Neurosurgery required MRI cervical and lumbar spine which revealed canal stenosis in C3-C5 with cord compression and severe central canal and foraminal stenosis w/o nerve compression as well as a subacute L4/L5 and posterior paraspinal injury. Regarding patients refractory hypertension, renal ultrasound with dopplers was negative and renin-aldosterone ratio labs were normal. On 12/03, jesse pichardo called. Patient became unresponsive and hypertensive. Repeat CT showed stable/slight improvement of hemorrhage, this was the second time this happened during current hospitalization. On 12/07, Dr Juarez with neurosurgery completed C3-C7 ACDF, laminectomies and partial facetectomies for severe spinal stenosis. Had to be transferred from PACU to [facility] due to lengthened response to surgical sedation. Had continued encephalopathy, worked up by neurology including repeat EEG which was normal. Repeat brain CT showed improvement of intercerebral hemorrhage, no acute process. Considered encephalopathy due to poor nutrition so central line placed on 12/10 to initiate TPN. Over time with nutrition and adequate pain control, encephalopathy resolved. Motor strength began to improve day by day and he was able to work with PT/OT. CM consulted and [facility] has been approved. Dysphagia continued, speech therapy tried multiple swallow studies with continued failure. Neurosurgery consulted and said likely due to severe spinal stenosis for prolonged time and would take 2-3 months to correct after surgery, PEG tube recommended. GI consulted and PEG tube placed on 12/18. TPN stopped and tube feeds started. New diagnosis of DM2 during this hospitalization. Had been started on glargine with TPN but stopped with tube feeds due to better glycemic control. Will need to be restarted on metformin before discharge. Pt stable and very close to discharge to rehab for continue PT/OT, tube feeds and continued swallow training. Currently working on bladder training for possible removal of ybarra catheter. BP now controlled with only lisinopril and atenolol. Likely due to autonomic dysfunction due to severe spinal stenosis.
[2019-12-20] MEDS: Atorvastatin Calcium 40 MG TAB PO SCH (21:57)
[2019-12-21] MEDS: Morphine 2 MG/ML VIAL SLOW IVP PRN (00:25)
[2019-12-21 04:07] LABS: ALT (SGPT) 89 U/L (8-55); AST (SGOT) 98 U/L (5-34); Albumin 2.5 g/dL (3.4-4.8); Alkaline Phosphatase 194 U/L (40-110); Anion Gap 11 mmol/L (10-20); BUN (Urea Nitrogen) 44 mg/dL (8.4-25.7); Bilirubin, Total 0.6 mg/dL (0.2-1.2); Calc. Creatinine Clearance 106 mL/min (70-130); Calcium 8.4 mg/dL (7.8-10.44); Carbon Dioxide 29 mmol/L (23-31); Chloride 99 mmol/L (98-107); Estimated GFR-MDRD Greater than 90; Globulin 3.6 g/dL (2.4-3.5); Glucose 94 mg/dL (80-115); Potassium 4.8 mmol/L (3.5-5.1); Protein, Total 6.1 g/dL (5.8-8.1); Sodium 134 mmol/L (136-145)
--- NOTE | 2019-12-21 06:38 | PDOC.FM ---
- Subjective Subjective: Patient doing well this morning. States his nausea is improved. He refused one feed overnight. Says he wants a male nurse to help change him when he has diarrhea and help him get up to his chair. He says he wants to leave the hospital. - Objective MAR Reviewed: Yes Vital Signs & Weight: Vital Signs (12 hours) Temp Pulse Resp BP BP Pulse Ox 12/21/19 00:15 98.5 F 67 16 144/77 H 97 12/20/19 21:56 73 139/67 12/20/19 19:45 99.0 F 73 16 139/67 97 Weight Admit Weight 79 kg Weight 82.508 kg Most Recent Monitor Data Heart Rate from ECG 72 NIBP 142/84 NIBP BP-Mean 103 Respiration from ECG 17 SpO2 97 I&O: 12/19/19 12/20/19 12/21/19 07:59 06:59 06:59 Intake Total 1020 Output Total 1100 Balance -80 Result Diagrams: 12/20/19 06:15 12/21/19 03:20 Phys Exam - Physical Examination Constitutional: NAD HEENT: moist MMs Neck: full ROM Respiratory: no wheezing, clear to auscultation bilateral Cardiovascular: RRR Gastrointestinal: soft, non-tender PEG tube is clean and dry Musculoskeletal: pulses present Neurological: moves all 4 limbs improved strength in all extremities Psychiatric: normal affect, A&O x 3 Skin: normal turgor Dx/Plan - Plan Plan: #Spinal Stenosis s/p ACDF C3-C7 on 12/07 -Neurosurgery: Dr Juarez, will follow recs -pain: tylenol #3 prn, norco prn, tramadol prn, valium prn -wear collar and LSO when out of bed, continue work with PT/OT -CM consulted: [facility] has been approved #Dysphagia -GI, Case: PEG placed on 12/18 -consult floral manager: tube feed recs #Transaminitis, improving -AST/ALT 156/104, previously normal -Alk Phos 192 -abdomen non-tender, no distention, no N/V -likely due to surgical procedure and anesthesia yesterday. -will continue to monitor #Diabetes Mellitus Type 2 -BG this morning 66 -held glargine for now due to switch from TPN to tube feeds -Hyperglycemia protocol, ACHS accuchecks, mild SSI -restarted home Metformin #HTN -BP goal SBP <150 per neurosurgery -Labetalol and hydralazine IV PRN -give po meds per tube once approved by GI #AMS, improved -likely due to medications, brain CT on 12/08 showed improvement of hemorrhage, no acute process -EEG normal #GHASSAN -resolved -will continue to monitor closely #Intraparenchymal Hemorrhage likely 2/2 HTN Emergency -Hx uncontrolled HTN, CT head: Intraparenchymal hemorrhage. -neurosugery consulted #Indeterminate trop, likely 2/2 NSTEMI type 2 due to Stroke -Elevated CKMB, Trop indeterminate -EKG no acute changes -CXR no acute findings, no CP #Hypokalemia -replace as indicated, will continue to monitor # Hypomagnesemia -replace as indicated, will continue to monitor #Weight loss -Severe protein/calorie malnutrition -s/p central line on 12/10 for TPN managed by floral manager, appreciate recs #Anxiety -aware #Mild hyponatremia -continue to monitor Diet: PEG tube feeds IVF: SL DVT ppx: lovenox GI ppx: Famotidine Code Status: DNAR PCP: None Dispo: Stable, s/p ACDF, s/p PEG. will need placement, follow up with case management Addendum - Attending - Attending Attestation Date/Time: 12/21/191912 I personally evaluated the patient and discussed the management with Dr. Greene I agree with the History, Examination, Assessment and Plan documented above with any addition or exceptions noted below - Patient concerned regarding nausea and diarrhea since starting on tube feeds. Afebrile VSS. A/P: 1) Hemorrhagic CVA- stable; improving. 2) HTN- controlled with current meds. Continue to monitor. 3) Dysphagia - s/p PEG tube placement- will discuss with nutrition possible alternate formula or titrating to goal with boluses. 3) Spinal stenosis s/p decompression and fixation - continue PT/OT. Plan for rehab placement soon.
[2019-12-21] MEDS: Lisinopril 20 MG TAB PO SCH (08:52)
[2019-12-21] MEDS: Atenolol 50 MG TAB PO SCH ×2 (08:53→21:56)
[2019-12-21] MEDS: buPROPion 75 MG TAB PO SCH (08:53)
[2019-12-21] MEDS: Famotidine 20 MG TAB PO SCH ×2 (08:53→21:56)
[2019-12-21] MEDS: Enoxaparin Sodium 40 MG/0.4 ML SYRINGE SC SCH (08:54)
[2019-12-21] MEDS ORDERED: HumaLOG 300 UNITS/3 ML VIAL SC PRN (09:12)
[2019-12-21] MEDS ORDERED: Fentanyl 100 MCG/2 ML VIAL ONE (09:49)
[2019-12-21] MEDS: metFORMIN 500 MG TAB PO SCH (17:39)
[2019-12-21] MEDS: Atorvastatin Calcium 40 MG TAB PO SCH (21:56)
[2019-12-22] MEDS: Morphine 2 MG/ML VIAL SLOW IVP PRN ×2 (00:45→21:49)
--- NOTE | 2019-12-22 06:24 | PDOC.FM ---
- Subjective Subjective: Patient does not want to talk this morning. He said he has some nausea but is tolerating his feeds better and has not had diarrhea. - Objective MAR Reviewed: Yes Vital Signs & Weight: Vital Signs (12 hours) Temp Pulse Resp BP Pulse Ox 12/22/19 03:24 98.3 F 70 18 137/75 98 12/21/19 23:19 97.5 F L 69 18 147/76 H 97 12/21/19 21:56 70 12/21/19 19:38 99.0 F 70 18 164/84 H 94 L Weight Admit Weight 79 kg Weight 82.508 kg Most Recent Monitor Data Heart Rate from ECG 72 NIBP 142/84 NIBP BP-Mean 103 Respiration from ECG 17 SpO2 97 I&O: 12/20/19 12/21/19 12/22/19 06:59 06:59 06:59 Intake Total 1020 1404 Output Total 1475 1325 Balance -455 79 Result Diagrams: 12/20/19 06:15 12/21/19 03:20 Phys Exam - Physical Examination Constitutional: NAD HEENT: moist MMs Neck: supple, full ROM Respiratory: no wheezing, clear to auscultation bilateral Cardiovascular: RRR, no significant murmur Gastrointestinal: soft, non-tender skin around PEG tube clean dry intact Musculoskeletal: no edema Neurological: moves all 4 limbs Skin: no rash, normal turgor Dx/Plan - Plan Plan: #Spinal Stenosis s/p ACDF C3-C7 on 12/07 -Neurosurgery: Dr Juarez, will follow recs -pain: tylenol #3 prn, norco prn, tramadol prn, valium prn -wear collar and LSO when out of bed, continue work with PT/OT -CM consulted for placement #Dysphagia -GI, Case: PEG placed on 12/18 -consult certified driver examiner: tube feed recs -tolerating feeds #Transaminitis, improving -abdomen non-tender, no distention, no N/V -likely due to surgical procedure and anesthesia yesterday. -will continue to monitor #Diabetes Mellitus Type 2 -BG this morning 66 -held glargine for now due to switch from TPN to tube feeds -Hyperglycemia protocol, ACHS accuchecks, mild SSI -restarted home Metformin #HTN -BP goal SBP <150 per neurosurgery -Labetalol and hydralazine IV PRN -give po meds per tube once approved by GI #AMS, improved -likely due to medications, brain CT on 12/08 showed improvement of hemorrhage, no acute process -EEG normal #GHASSAN -resolved -will continue to monitor closely #Intraparenchymal Hemorrhage likely 2/2 HTN Emergency -Hx uncontrolled HTN, CT head: Intraparenchymal hemorrhage. -neurosugery consulted #Indeterminate trop, likely 2/2 NSTEMI type 2 due to Stroke -Elevated CKMB, Trop indeterminate -EKG no acute changes -CXR no acute findings, no CP #Hypokalemia -replace as indicated, will continue to monitor # Hypomagnesemia -replace as indicated, will continue to monitor #Weight loss -Severe protein/calorie malnutrition -s/p central line on 12/10 for TPN managed by certified driver examiner, appreciate recs #Anxiety -aware #Mild hyponatremia -continue to monitor Diet: PEG tube feeds IVF: SL DVT ppx: lovenox GI ppx: Famotidine Code Status: DNAR PCP: None Dispo: Stable, s/p ACDF, s/p PEG. will need placement, follow up with case management. Patient will need outpatient Urology as he will likely be d/c with ybarra as bladder training has been unsuccessful Addendum - Attending - Attending Attestation Date/Time: 12/22/19 9664 I personally evaluated the patient and discussed the management with Dr. Greene I agree with the History, Examination, Assessment and Plan documented above with any addition or exceptions noted below- Patient having less nausea and no further diarrhea. Afebrile VSS. A/P: 1) s/p hemorrhagic CVA- stable; continue PT. 2) S/p ant-post decompression and fixation for spinal stenosis- stable; continue PT/OT. 3) Dysphagia s/p PEG tube- tolerating tube feedings better; continue current feedings. 4) D/c planning- awaiting approval for rehab
[2019-12-22] MEDS: buPROPion 75 MG TAB PO SCH (08:12)
[2019-12-22] MEDS: metFORMIN 500 MG TAB PO SCH ×2 (08:12→17:12)
[2019-12-22] MEDS: Famotidine 20 MG TAB PO SCH ×2 (08:12→21:49)
[2019-12-22] MEDS: Lisinopril 20 MG TAB PO SCH (08:12)
[2019-12-22] MEDS: Atenolol 50 MG TAB PO SCH ×2 (08:12→21:48)
[2019-12-22] MEDS: Enoxaparin Sodium 40 MG/0.4 ML SYRINGE SC SCH (08:14)
[2019-12-22] MEDS: Acetaminophen 325 MG TAB PO PRN (17:12)
[2019-12-22] MEDS: Atorvastatin Calcium 40 MG TAB PO SCH (21:49)
--- NOTE | 2019-12-23 06:25 | PDOC.FM ---
- Subjective Subjective: Patient doing well this morning. No complaints. Tolerating feeds. No N/V, diarrhea. Pt is approved with [facility]- waiting to see about if a payment plan can be put in place as patient cannot afford 500$ downpayment in order to go to rehab. - Objective MAR Reviewed: Yes Vital Signs & Weight: Vital Signs (12 hours) Temp Pulse Resp BP Pulse Ox 12/23/19 03:35 98.5 F 69 18 150/79 H 98 12/22/19 23:36 98.8 F 72 18 149/76 H 96 12/22/19 21:48 86 12/22/19 20:25 98 12/22/19 19:39 98.5 F 86 18 161/86 H 98 Weight Admit Weight 79 kg Weight 82.485 kg Most Recent Monitor Data Heart Rate from ECG 72 NIBP 142/84 NIBP BP-Mean 103 Respiration from ECG 17 SpO2 97 I&O: 12/21/19 12/22/19 12/23/19 06:59 06:59 06:59 Intake Total 1020 1404 1015 Output Total 1475 1325 1375 Balance -455 79 -360 Result Diagrams: 12/20/19 06:15 12/23/19 06:31 Phys Exam - Physical Examination Constitutional: NAD HEENT: moist MMs Neck: full ROM Respiratory: no wheezing, clear to auscultation bilateral Cardiovascular: RRR, no significant murmur Gastrointestinal: soft, non-tender Musculoskeletal: pulses present Neurological: moves all 4 limbs improved strength in all extremities compared to admission Psychiatric: normal affect, A&O x 3 Skin: no rash, normal turgor -: skin around PEG tube clean and dry Dx/Plan - Plan Plan: #Spinal Stenosis s/p ACDF C3-C7 on 12/07 -Neurosurgery: Dr Juarez, will follow recs -pain: tylenol #3 prn, norco prn, tramadol prn, valium prn -wear collar and LSO when out of bed, continue work with PT/OT -CM consulted for placement #Dysphagia -GI, Case: PEG placed on 12/18 -consult waistline joiner overlock: tube feed recs -tolerating feeds #Transaminitis, improving -abdomen non-tender, no distention, no N/V -likely due to surgical procedure and anesthesia yesterday. -will continue to monitor #Diabetes Mellitus Type 2 -BG this morning 66 -held glargine for now due to switch from TPN to tube feeds -Hyperglycemia protocol, ACHS accuchecks, mild SSI -restarted home Metformin #HTN -BP goal SBP <150 per neurosurgery -Labetalol and hydralazine IV PRN -give po meds per tube once approved by GI #AMS, improved -likely due to medications, brain CT on 12/08 showed improvement of hemorrhage, no acute process -EEG normal #GHASSAN -resolved -will continue to monitor closely #Intraparenchymal Hemorrhage likely 2/2 HTN Emergency -Hx uncontrolled HTN, CT head: Intraparenchymal hemorrhage. -neurosugery consulted #Indeterminate trop, likely 2/2 NSTEMI type 2 due to Stroke -Elevated CKMB, Trop indeterminate -EKG no acute changes -CXR no acute findings, no CP #Hypokalemia -replace as indicated, will continue to monitor # Hypomagnesemia -replace as indicated, will continue to monitor #Weight loss -Severe protein/calorie malnutrition -s/p central line on 12/10 for TPN managed by waistline joiner overlock, appreciate recs #Anxiety -aware #Mild hyponatremia -continue to monitor Diet: PEG tube feeds IVF: SL DVT ppx: lovenox GI ppx: Famotidine Code Status: DNAR PCP: None Dispo: Stable, s/p ACDF, s/p PEG. will need placement, follow up with case management. Awaiting information about possibility of payment plan in order for patient to afford the 500$ downpayment to get into the rehab center ([facility]) Patient will need outpatient Urology as he will likely be d/c with ybarra as bladder training has been unsuccessful Addendum - Attending - Attending Attestation Date/Time: 12/23/19 [id number] I personally evaluated the patient and discussed the management with Dr. Greene I agree with the History, Examination, Assessment and Plan documented above with any addition or exceptions noted below - Patient without complaints. Has been doing exercises with PT but is afraid of falling and so is reluctant to sit on edge of bed or stand. Afebrile VSS. A/P: 1) s/p hemorrhagic CVA- stable. 2) Sp inal stenosis with myelopathy s/p decompression and fusion- encouraged to continue to work with PT. Awaiting possible rehab placement. 3) Dysphagia s/p PEG tube placement- having high residuals intermittently and no BM for last 2 days and intermittent colicky pain. Will start some reglan and monitor.
[2019-12-23 07:03] LABS: ALT (SGPT) 65 U/L (8-55); AST (SGOT) 54 U/L (5-34); Albumin 2.7 g/dL (3.4-4.8); Alkaline Phosphatase 215 U/L (40-110); Anion Gap 16 mmol/L (10-20); BUN (Urea Nitrogen) 30 mg/dL (8.4-25.7); Bilirubin, Total 0.4 mg/dL (0.2-1.2); Calc. Creatinine Clearance 122 mL/min (70-130); Calcium 8.6 mg/dL (7.8-10.44); Carbon Dioxide 26 mmol/L (23-31); Chloride 100 mmol/L (98-107); Estimated GFR-MDRD Greater than 90; Globulin 3.8 g/dL (2.4-3.5); Glucose 98 mg/dL (80-115); Potassium 4.7 mmol/L (3.5-5.1); Protein, Total 6.5 g/dL (5.8-8.1); Sodium 137 mmol/L (136-145)
[2019-12-23] MEDS: metFORMIN 500 MG TAB PO SCH ×2 (09:06→17:14)
[2019-12-23] MEDS: buPROPion 75 MG TAB PO SCH (09:06)
[2019-12-23] MEDS: Famotidine 20 MG TAB PO SCH ×2 (09:06→20:34)
[2019-12-23] MEDS: Lisinopril 20 MG TAB PO SCH (09:06)
[2019-12-23] MEDS: Atenolol 50 MG TAB PO SCH ×2 (09:07→20:34)
[2019-12-23] MEDS: Enoxaparin Sodium 40 MG/0.4 ML SYRINGE SC SCH (09:07)
[2019-12-23] MEDS: Metoclopramide 10 MG/10 ML UDCUP PER TUBE SCH ×2 (15:24→20:34)
[2019-12-23] MEDS: Ondansetron PF 4 MG/2 ML Vial IVP PRN (15:30)
[2019-12-23] MEDS: Atorvastatin Calcium 40 MG TAB PO SCH (20:34)
--- NOTE | 2019-12-24 06:24 | PDOC.FM ---
- Subjective Subjective: Patient doing well this morning. He says he wants to go home. States the Reglan helped his stomach cramps a little bit. Looks like he tolerated his feeds well in the last 24 hr. - Objective MAR Reviewed: Yes Vital Signs & Weight: Vital Signs (12 hours) Temp Pulse Resp BP BP Pulse Ox 12/24/19 03:21 97.7 F 72 18 160/80 H 98 12/23/19 23:32 97.6 F 71 18 169/82 H 96 12/23/19 20:34 82 132/82 12/23/19 20:15 98 12/23/19 19:57 98.7 F 82 18 132/82 98 Weight Admit Weight 79 kg Weight 81.828 kg Most Recent Monitor Data Heart Rate from ECG 72 NIBP 142/84 NIBP BP-Mean 103 Respiration from ECG 17 SpO2 97 I&O: 12/22/19 12/23/19 12/24/19 06:59 06:59 06:59 Intake Total 1404 1015 1867 Output Total 1325 1375 450 Balance 79 -360 1417 Result Diagrams: 12/24/19 11:09 12/24/19 11:09 Phys Exam - Physical Examination Constitutional: NAD HEENT: moist MMs Neck: full ROM Respiratory: no wheezing, clear to auscultation bilateral Cardiovascular: RRR Gastrointestinal: soft, non-tender skin around PEG tube clean and dry Musculoskeletal: no edema, pulses present Neurological: moves all 4 limbs Psychiatric: normal affect, A&O x 3 Skin: normal turgor Dx/Plan - Plan Plan: #Spinal Stenosis s/p ACDF C3-C7 on 12/07 -Neurosurgery: Dr Juarez, will follow recs -pain: tylenol #3 prn, norco prn, tramadol prn, valium prn -wear collar and LSO when out of bed, continue work with PT/OT -CM consulted for placement, approved to [facility] #Dysphagia -GI, Case: PEG placed on 12/18 -consult flat knitter helper: tube feed recs -tolerating feeds well -Reglan TID to help with abdominal cramps associated with feeds #Transaminitis, improving -abdomen non-tender, no distention, no N/V -likely due to surgical procedure and anesthesia yesterday. -will continue to monitor #Diabetes Mellitus Type 2 -BG this morning 64 -held glargine for now due to switch from TPN to tube feeds -Hyperglycemia protocol, ACHS accuchecks, mild SSI -restarted home Metformin #HTN -BP goal SBP <150 per neurosurgery -Labetalol and hydralazine IV PRN -give po meds per tube once approved by GI #AMS, improved -likely due to medications, brain CT on 12/08 showed improvement of hemorrhage, no acute process -EEG normal #GHASSAN -resolved -will continue to monitor closely #Intraparenchymal Hemorrhage likely 2/2 HTN Emergency -Hx uncontrolled HTN, CT head: Intraparenchymal hemorrhage. -neurosugery consulted #Indeterminate trop, likely 2/2 NSTEMI type 2 due to Stroke -Elevated CKMB, Trop indeterminate -EKG no acute changes -CXR no acute findings, no CP #Hypokalemia -replace as indicated, will continue to monitor # Hypomagnesemia -replace as indicated, will continue to monitor #Weight loss -Severe protein/calorie malnutrition -s/p central line on 12/10 for TPN managed by flat knitter helper, appreciate recs #Anxiety -aware #Mild hyponatremia -continue to monitor Diet: PEG tube feeds IVF: SL DVT ppx: lovenox GI ppx: Famotidine Code Status: DNAR PCP: None Dispo: Stable, s/p ACDF, s/p PEG. will need placement, follow up with case management. Approved to [facility], discharge today Patient will need outpatient Urology as he will likely be d/c with ybarra as bladder training has been unsuccessful Addendum - Attending - Attending Attestation Date/Time: 12/24/19 2314 I personally evaluated the patient and discussed the management with Dr. Greene I agree with the History, Examination, Assessment and Plan documented above with any addition or exceptions noted below - Patient without complaints. Tolerating feeds. Decreased colicky pain. Afebrile VSS A/P: 1) s/p hemorrhagic CVA- stable. 2) Spinal stenosis with myelopathy s/p decompression- stable; continue PT. Accepted by rehab; awaiting bed. 3) DM- stable. 4) Dysphagia- tolerating tube feeds; continue reglan.
[2019-12-24] MEDS: Enoxaparin Sodium 40 MG/0.4 ML SYRINGE SC SCH (08:49)
[2019-12-24] MEDS: Polyethylene Glycol 3350 17 GM Packet PO SCH (08:49)
[2019-12-24] MEDS: Atenolol 50 MG TAB PO SCH ×2 (08:50→21:47)
[2019-12-24] MEDS: metFORMIN 500 MG TAB PO SCH ×2 (08:50→16:27)
[2019-12-24] MEDS: buPROPion 75 MG TAB PO SCH (08:50)
[2019-12-24] MEDS: Lisinopril 20 MG TAB PO SCH (08:52)
[2019-12-24] MEDS: Famotidine 20 MG TAB PO SCH ×2 (08:52→21:48)
[2019-12-24] MEDS: Metoclopramide 10 MG/10 ML UDCUP PER TUBE SCH ×3 (08:52→21:48)
[2019-12-24 11:26] LABS: #Eosinphils 0.1 thou/uL (0.0-0.7); #Lymphocytes 1.8 thou/uL (1.20-3.40); #Monocytes 0.7 thou/uL (0.11-0.59); #Neutrophils 7.1 thou/uL (1.40-6.50); %Basophils 0.5 % (0.0-1.0); %Eosinophils 0.7 % (0.0-10.0); %Lymphocytes 18.5 % (21.0-51.0); %Monocytes 6.8 % (0.0-10.0); %Neutrophils 73.5 % (42.0-75.0); Hemoglobin 10.5 g/dL (14.0-18.0); Mean Corpuscular HGB CONC 33.9 g/dL (32.0-36.0); Mean Corpuscular Hemoglobin 31.2 pg (27.0-31.0); Mean Corpuscular Volume 92.2 fL (78.0-98.0); Mean Platelet Volume 8.1 fL (7.4-10.4); Platelet Count 295 thou/uL (130-400); RBC Distribution Width 11.8 % (11.5-14.5); Red Blood Cell (RBC) Count 3.37 mill/uL (4.70-6.10); White Blood Cell (WBC) Count 9.6 thou/uL (4.8-10.8)
--- NOTE | 2019-12-24 11:30 | CT ---
CT BRAIN NONCONTRAST: DATE: 12/24/2019 HISTORY: 59-year-old male with recent brain hemorrhage. Follow-up. Rule out new stroke. COMPARISON: 12/09/2019 FINDINGS: There has been further interval decrease in the density of the small subacute intra-axial hemorrhage in the posterior aspect of the right basal ganglia. It currently measures approximately 1.6 x 0.7 cm, and is now heterogeneous and moderately hypodense rather than hyperdense. Again noted are the multiple small and tiny old lacunar infarctions in bilateral basal ganglia and bi lateral thalami, as well as in right and left márquez radiata. Small to moderate size region of moderately low attenuation in the right márquez radiata and right per iventricular white matter has been unchanged going back to 11/30/2019. There is no new acute hemorrhage, mass effect, midline shift, extra-axial fluid collection, or obstru ctive hydrocephalus. IMPRESSION: 1) continued degradation of blood products involving the small intra-axial hematoma in the posterior aspect of right basal ganglia. 2.) Multiple old lacunar infarctions in the bilateral basal ganglia, thalami, and periventricular whi te matter. 3) no acute hemorrhage or mass effect.
--- NOTE | 2019-12-24 11:31 | PDOC.BPN ---
<Daphne Greene - Last Filed: 12/24/19 11:27> - Brief Progress Note Encounter Date: 12/24/19 Encounter Time: 11:00 Lindsay pichardo called around 1100. Medicine team to bedside with Dr. Agarwal, attending. Patient was hard to arouse with sternal rub as per nurse. Pupils equal round and reactive to light. Wakes to Dr. Garrido's voice and sternal rub, although still drowsy. Winces and withdraws with painful stimui. Following commands. BP 144/90, 76 pulse, satting well on room air. Spontaneously breathing. Sinus rhythm. BG 158. Stat labs CBC, Mag, and CMP drawn and stat CT non con head. Will follow up with results. <Yaa Agarwal - Last Filed: 12/24/19 16:47> Addendum - Attending - Attending Attestation Date/Time: 12/24/19 4436 I personally evaluated the patient and discussed the management with Dr. Greene and Reza I agree with the History, Examination, Assessment and Plan documented above with any addition or exceptions noted below - events reviewed with nursing and residents. With h/o hemorrhagic CVA earlier in hospitalization and nursing report of increased facial droop - will send for stat head CT. If unchanged, possible post-ictal state from seizure- will discuss with neurology.
[2019-12-24 11:48] LABS: ALT (SGPT) 63 U/L (8-55); AST (SGOT) 45 U/L (5-34); Albumin 2.7 g/dL (3.4-4.8); Alkaline Phosphatase 237 U/L (40-110); Anion Gap 11 mmol/L (10-20); BUN (Urea Nitrogen) 33 mg/dL (8.4-25.7); Bilirubin, Total 0.3 mg/dL (0.2-1.2); Calc. Creatinine Clearance 117 mL/min (70-130); Calcium 8.9 mg/dL (7.8-10.44); Carbon Dioxide 33 mmol/L (23-31); Chloride 98 mmol/L (98-107); Estimated GFR-MDRD Greater than 90; Globulin 3.8 g/dL (2.4-3.5); Glucose 176 mg/dL (80-115); Magnesium 1.8 mg/dL (1.6-2.6); Potassium 4.4 mmol/L (3.5-5.1); Protein, Total 6.5 g/dL (5.8-8.1); Sodium 138 mmol/L (136-145)
[2019-12-24] MEDS: Ondansetron PF 4 MG/2 ML Vial IVP PRN (15:18)
[2019-12-24] MEDS: Morphine 2 MG/ML VIAL SLOW IVP PRN ×2 (15:18→23:57)
[2019-12-24] MEDS: Atorvastatin Calcium 40 MG TAB PO SCH (21:48)
[2019-12-24] MEDS: Tamsulosin HCl 0.4 MG CAP PO SCH (21:48)
[2019-12-25] MEDS: Labetalol HCl 100 MG/20 ML VIAL SLOW IVP PRN ×2 (00:20→20:41)
--- NOTE | 2019-12-25 06:27 | PDOC.FM ---
- Subjective Subjective: Patient resting comfortably in bed this morning. Ready to go home. Tolerating feeds well. Stomach cramps resolved. - Objective MAR Reviewed: Yes Vital Signs & Weight: Vital Signs (12 hours) Temp Pulse Resp BP BP Pulse Ox 12/25/19 03:58 97.6 F 73 19 134/75 98 12/25/19 01:17 150/86 H 12/25/19 00:23 98.5 F 73 18 177/91 H 99 12/25/19 00:20 72 177/91 H 12/24/19 21:47 71 153/81 H 12/24/19 20:31 98.1 F 71 19 153/81 H 97 12/24/19 20:25 97 Weight Admit Weight 79 kg Weight 81.828 kg Most Recent Monitor Data Heart Rate from ECG 72 NIBP 142/84 NIBP BP-Mean 103 Respiration from ECG 17 SpO2 97 I&O: 12/23/19 12/24/19 12/25/19 06:59 06:59 06:59 Intake Total 1015 3175 2199 Output Total 1375 800 400 Balance -360 0805 1799 Result Diagrams: 12/25/19 08:28 12/25/19 08:27 Phys Exam - Physical Examination Constitutional: NAD Neck: full ROM Respiratory: no wheezing, clear to auscultation bilateral Cardiovascular: RRR, no significant murmur Gastrointestinal: soft PEG tube Musculoskeletal: no edema, pulses present Neurological: moves all 4 limbs Psychiatric: normal affect, A&O x 3 Skin: normal turgor Dx/Plan - Plan Plan: # Seizure likely 2/2 hemorrhagic stroke -proloactin elevated during code green where patient was hard to arouse, likely post ictal state -neuro consult, suggested Keppra 500mg BID, will continue on discharge appreciate the recs -continue to monitor #Failed bladder training -patient will go home on ybarra -follow up with Urology in 1-2 weeks -will sent home on Flomax #Spinal Stenosis s/p ACDF C3-C7 on 12/07 -Neurosurgery: Dr Juarez, will follow recs -pain: tylenol #3 prn, norco prn, tramadol prn, valium prn -wear collar and LSO when out of bed, continue work with PT/OT #Dysphagia -GI, Dr Case: PEG placed on 12/18 -consult first assistant manager: tube feed recs -tolerating feeds well -Reglan TID to help with abdominal cramps associated with feeds #Transaminitis, improving -abdomen non-tender, no distention, no N/V -likely due to surgical procedure and anesthesia yesterday. -will continue to monitor #Diabetes Mellitus Type 2 -BG this morning 66 -held glargine for now due to switch from TPN to tube feeds -Hyperglycemia protocol, ACHS accuchecks, mild SSI -restarted home Metformin #HTN -BP goal SBP <150 per neurosurgery -Labetalol and hydralazine IV PRN -give po meds per tube once approved by GI #AMS, improved -likely due to medications, brain CT on 12/08 showed improvement of hemorrhage, no acute process -EEG normal #GHASSAN -resolved -will continue to monitor closely #Intraparenchymal Hemorrhage likely 2/2 HTN Emergency -Hx uncontrolled HTN, CT head: Intraparenchymal hemorrhage. -neurosugery consulted #Indeterminate trop, likely 2/2 NSTEMI type 2 due to Stroke -Elevated CKMB, Trop indeterminate -EKG no acute changes -CXR no acute findings, no CP #Hypokalemia -replace as indicated, will continue to monitor # Hypomagnesemia -replace as indicated, will continue to monitor #Weight loss -Severe protein/calorie malnutrition -s/p central line on 12/10 for TPN managed by first assistant manager, appreciate recs #Anxiety -aware #Mild hyponatremia -continue to monitor Diet: PEG tube feeds IVF: SL DVT ppx: lovenox GI ppx: Famotidine Code Status: DNAR PCP: None Dispo: Stable, s/p ACDF, s/p PEG. will need placement, follow up with case management. Approved to [facility], anticipate discharge today Addendum - Attending - Attending Attestation Date/Time: 12/25/19 3045 I personally evaluated the patient and discussed the management with Dr. Greene I agree with the History, Examination, Assessment and Plan documented above with any addition or exceptions noted below - Patient having EEG. Afebrile VSS. A/P: 1) Hemorrhagic CVA -resolving. 2) Possible seizure- improved today and last night. EEG negative but strong suspicion for possible seziure. Appreciate neurology assistance/recommendations. Continue keppra. 3) Spinal stenosis with myelopathy- s/p decompression; continue PT awaiting bed at rehab. Ready for transfer when bed available.
[2019-12-25 09:01] LABS: ALT (SGPT) 56 U/L (8-55); AST (SGOT) 39 U/L (5-34); Albumin 2.7 g/dL (3.4-4.8); Alkaline Phosphatase 235 U/L (40-110); Anion Gap 9 mmol/L (10-20); BUN (Urea Nitrogen) 39 mg/dL (8.4-25.7); Bilirubin, Total 0.2 mg/dL (0.2-1.2); Calc. Creatinine Clearance 114 mL/min (70-130); Calcium 8.8 mg/dL (7.8-10.44); Carbon Dioxide 36 mmol/L (23-31); Chloride 97 mmol/L (98-107); Estimated GFR-MDRD Greater than 90; Globulin 3.7 g/dL (2.4-3.5); Glucose 157 mg/dL (80-115); Potassium 4.8 mmol/L (3.5-5.1); Protein, Total 6.4 g/dL (5.8-8.1); Sodium 137 mmol/L (136-145)
[2019-12-25] MEDS: Lisinopril 20 MG TAB PO SCH (09:38)
[2019-12-25] MEDS: buPROPion 75 MG TAB PO SCH (09:39)
[2019-12-25] MEDS: metFORMIN 500 MG TAB PO SCH ×2 (09:39→18:03)
[2019-12-25] MEDS: Atenolol 50 MG TAB PO SCH ×2 (09:40→20:40)
[2019-12-25] MEDS: Famotidine 20 MG TAB PO SCH ×2 (09:41→20:41)
[2019-12-25] MEDS: Enoxaparin Sodium 40 MG/0.4 ML SYRINGE SC SCH (09:41)
[2019-12-25] MEDS: Metoclopramide 10 MG/10 ML UDCUP PER TUBE SCH ×3 (09:41→20:40)
[2019-12-25] MEDS: Polyethylene Glycol 3350 17 GM Packet PO SCH (09:42)
[2019-12-25 10:31] LABS: Hemoglobin 10.3 g/dL (14.0-18.0); Hypochromia SLIGHT = 6-15 cells (100X) (0-5/hpf); Lymphocytes 24 % (21-51); MDiff Complete? YES; Mean Corpuscular Hemoglobin 30.8 pg (27.0-31.0); Mean Corpuscular Volume 93.3 fL (78.0-98.0); Mean Platelet Volume 8.2 fL (7.4-10.4); Metamyelocyte 1 % (0-0); Monocytes 7 % (0-10); Neutrophil 67 % (42-75); Platelet Count 282 thou/uL (130-400); Platelet Morphology Comment Appears Adequate; RBC Distribution Width 11.8 % (11.5-14.5); Red Blood Cell (RBC) Count 3.34 mill/uL (4.70-6.10); White Blood Cell (WBC) Count 7.4 thou/uL (4.8-10.8)
[2019-12-25] MEDS: Acetaminophen 325 MG TAB PO PRN (10:58)
--- NOTE | 2019-12-25 14:10 | PDOC.NEUPN ---
- Subjective Encounter Date: 12/25/19 Subjective: Mr. Angel complain of severe back pain and seems to be agitated and not following commands. EEG negative for seizure activity. - Objective Vital Signs & Weight: Vital Signs (12 hours) Temp Pulse Resp BP Pulse Ox 12/25/19 10:47 97.8 F 73 14 154/82 H 99 12/25/19 07:17 97.8 F 71 14 162/80 H 98 12/25/19 03:58 97.6 F 73 19 134/75 98 Weight Admit Weight 174 lb 2.643 oz Weight 180 lb 6.4 oz Most Recent Monitor Data Heart Rate from ECG 72 NIBP 142/84 NIBP BP-Mean 103 Respiration from ECG 17 SpO2 97 I&O: 12/24/19 12/25/19 12/26/19 06:59 06:59 06:59 Intake Total 3175 2556 Output Total 800 825 Balance 2375 1731 Result Diagrams: 12/25/19 08:28 12/25/19 08:27 Additional Labs: Accuchecks 12/25/19 12/25/19 12/25/19 10:51 05:24 00:22 POC Glucose 156 H 158 H 111 H 12/24/19 12/24/19 12/24/19 18:00 15:43 11:01 POC Glucose 150 H 128 H 157 H Radiology Reviewed by me: Yes EKG Reviewed by me: Yes ROS - Review of Systems ROS unobtainable: due to mental status - Medication Medications: Active Medications Generic Name Dose Route Start Last Admin Trade Name Freq PRN Reason Stop Dose Admin Acetaminophen 650 mg 12/01/19 15:19 12/25/19 10:58 Acetaminophen 325 Mg Tab PO 650 mg Q6H PRN Administration Mild-Moderate Pain (1-5) Atenolol 25 mg 12/17/19 21:00 12/25/19 09:40 Atenolol 50 Mg Tab PO 25 mg BID ALEXANDREA Administration Atorvastatin Calcium 40 mg 11/26/19 21:00 12/24/19 21:48 Atorvastatin Calcium 40 Mg Tab PO 40 mg HS ALEXANDREA Administration Bupropion HCl 150 mg 12/20/19 09:00 12/25/19 09:39 Bupropion 75 Mg Tab PO 150 mg DAILY ALEXANDREA Administration Dextrose/Water 25 gm 11/25/19 20:57 12/11/19 09:00 Dextrose 50% Abboject 50 Ml Syringe SLOW IVP 25 gm PRN PRN Administration Hypoglycemia Enoxaparin Sodium 40 mg 12/10/19 09:00 12/25/19 09:41 Enoxaparin Sodium 40 Mg/0.4 Ml Syringe SC 40 mg 0900 ALEXANDREA Administration Famotidine 20 mg 12/11/19 21:00 12/25/19 09:41 Famotidine 20 Mg Tab PO 20 mg BID ALEXANDREA Administration Hydralazine HCl 20 mg 12/13/19 04:05 12/15/19 11:24 Hydralazine 20 Mg/Ml Vial SLOW IVP 20 mg Q6H PRN Administration SBP GREATER THAN 160 Levetiracetam 500 mg/ Device 100 mls @ 200 mls/hr 12/24/19 21:00 12/25/19 09:42 IVPB 100 mls BID ALEXANDREA Administration Insulin Human Lispro 0 units 12/21/19 09:12 12/25/19 06:02 Humalog 300 Units/3 Ml Vial SC 2 unit .MILD SLIDING SCALE PRN Administration Mild Correctional Scale Labetalol HCl 20 mg 12/17/19 05:35 12/25/19 00:20 Labetalol Hcl 100 Mg/20 Ml Vial SLOW IVP 20 mg Q4HR PRN Administration Hypertension Lisinopril 40 mg 11/29/19 06:17 12/25/19 09:38 Lisinopril 20 Mg Tab PO 40 mg DAILY ALEXANDREA Administration Metformin HCl 500 mg 12/21/19 17:00 12/25/19 09:39 Metformin 500 Mg Tab PO 500 mg BID-WM ALEXANDREA Administration Metoclopramide HCl 5 mg 12/23/19 15:00 12/25/19 09:41 Metoclopramide 10 Mg/10 Ml Udcup PER TUBE 5 mg TID ALEXANDREA Administration Morphine Sulfate 2 mg 12/09/19 11:35 12/24/19 23:57 Morphine 2 Mg/Ml Vial SLOW IVP 2 mg Q2H PRN Administration Severe Pain (7-10) Ondansetron HCl 4 mg 11/25/19 22:17 12/24/19 15:18 Ondansetron Pf 4 Mg/2 Ml Vial IVP 4 mg BIDPRN PRN Administration Nausea/Vomiting Polyethylene Glycol 17 gm 12/24/19 09:00 12/25/19 09:42 Polyethylene Glycol 3350 17 Gm Packet PO 17 gm DAILY ALEXANDREA Administration Sertraline HCl 100 mg 12/05/19 09:00 12/25/19 09:39 Sertraline Hcl 100 Mg Tab PO 100 mg DAILY ALEXANDREA Administration Sodium Chloride 10 ml 11/25/19 22:17 12/24/19 23:58 Flush - Normal Saline 10 Ml Syringe IVF 10 ml PRN PRN Administration Saline Flush Tamsulosin HCl 0.4 mg 12/24/19 21:00 12/24/19 21:48 Tamsulosin Hcl 0.4 Mg Cap PO 0.4 mg HS ALEXANDREA Administration - Exam General Appearance: NAD Eye: PERRL ENT: normocephalic atraumatic Neck: supple Respiratory: CTAB Cardiovascular: RRR Gastrointestinal: soft Extremities: no cyanosis Skin: normal turgor Neurological: no new deficit Musculoskeletal: normal tone, normal strength, no muscle wasting PSYCH: not oriented Results - Labs Result Diagrams: 12/25/19 08:28 12/25/19 08:27 Lab results: WBC 7.4 thou/uL (4.8-10.8) 12/25/19 08:28 Hgb 10.3 g/dL (14.0-18.0) L 12/25/19 08:28 Hct 31.1 % (42.0-52.0) L 12/25/19 08:28 MCV 93.3 fL (78.0-98.0) 12/25/19 08:28 Plt Count 282 thou/uL (130-400) 12/25/19 08:28 Neutrophils % 73.5 % (42.0-75.0) 12/24/19 11:09 ABG pH 7.50 (7.35-7.45) H 12/08/19 17:56 ABG pCO2 33.6 mmHg (35.0-45.0) L 12/08/19 17:56 ABG pO2 243.2 mmHg (> 80.0) H 12/08/19 17:56 Sodium 137 mmol/L (136-145) 12/25/19 08:27 Potassium 4.8 mmol/L (3.5-5.1) 12/25/19 08:27 Chloride 97 mmol/L (98-107) L 12/25/19 08:27 Carbon Dioxide 36 mmol/L (23-31) H 12/25/19 08:27 BUN 39 mg/dL (8.4-25.7) H 12/25/19 08:27 Creatinine 0.79 mg/dL (0.7-1.3) 12/25/19 08:27 Glucose 157 mg/dL (80-115) H 12/25/19 08:27 Lactic Acid 1.1 mmol/L (0.5-2.2) 11/25/19 22:13 Calcium 8.8 mg/dL (7.8-10.44) 12/25/19 08:27 Total Bilirubin 0.2 mg/dL (0.2-1.2) 12/25/19 08:27 AST 39 U/L (5-34) H 12/25/19 08:27 ALT 56 U/L (8-55) H 12/25/19 08:27 Alkaline Phosphatase 235 U/L (40-110) H 12/25/19 08:27 Ammonia 24 umol/L (18-72) 11/30/19 21:06 Creatine Kinase 590 U/L (30-200) H 11/25/19 22:12 CK-MB (CK-2) 6.8 ng/mL (0-6.6) H* 11/25/19 17:52 Troponin I 0.028 ng/mL (< 0.028) 12/05/19 00:35 Serum Total Protein 6.4 g/dL (5.8-8.1) 12/25/19 08:27 Albumin 2.7 g/dL (3.4-4.8) L 12/25/19 08:27 Lipase 13 U/L (8-78) 12/20/19 06:15 Urine Ketones Negative mg/dL (Negative) 12/11/19 18:00 Urine Blood 2+ (Negative) A 12/11/19 18:00 Urine Nitrite Negative (Negative) 12/11/19 18:00 Ur Leukocyte Esterase Negative Clyde/uL (Negative) 12/11/19 18:00 Urine RBC 0-3 HPF (0-3) 12/11/19 18:00 Urine WBC 4-6 HPF (0-3) A 12/11/19 18:00 Ur Squamous Epith Cells 0-3 HPF (0-3) 12/11/19 18:00 Urine Bacteria 1+ HPF (None Seen) A 12/11/19 18:00 PN A/P (1) AMS (altered mental status) Code(s): R41.82 - ALTERED MENTAL STATUS, UNSPECIFIED Status: Acute (2) Hemorrhagic stroke Code(s): I61.9 - NONTRAUMATIC INTRACEREBRAL HEMORRHAGE, UNSPECIFIED Status: Acute (3) Seizure Code(s): R56.9 - UNSPECIFIED CONVULSIONS Status: Acute - Plan Daily Plan: PT/OT, speech therapy, DVT proph w/SCDs Mr. Abran Angel s a 59-year-old male with history significant for intracranial hemorrhage consulted again for an episode of staring. He does have history of intracranial hemorrhage and is at risk of having seizures. Multiple EEGs were negative but we were unable to capture the event on the EEG recording so yield is low for positive EEG. He was started on Keppra trial to see if that controls his spells of altered awareness which seems by semiology most likely complex partial seizures. He was started on Keppra 500 mg twice daily which he tolerat ed well without any side effects. Head CT reviewed which was consistent with prior intracranial hemorrhage Follow-up EEG reviewed which was negative for seizure activity. Continue Keppra 500 mg p.o. twice daily. Observe seizure precautions. Ativan 2 mg IV for seizure greater than 2 minutes. Neurochecks every 4 hours. Continue pain control. Continue medical management per primary team and neurosurgery. PT/OT/speech. Plan discussed with the primary team.
--- NOTE | 2019-12-25 15:44 | PDOC.BPN ---
- Brief Progress Note Please see Dr. Sifuentes's brief progress note on 12/19 to see hospital course prior to this day. Mr. Angel remained in the hospital [facility] and figuring out how patient could afford the 500$ downpayment. His sister was able to pay and patient was accepted to the facility. Patient was having some difficulty tolerating tube feeds because of complaints of diarrhea, nausea, and stomach cramps which resolved with the help of scheduled Reglan and he began to tolerate his feeds well with minimal residual. He was stable until 12/24/19 when a code green was called for him being hard to arouse. He seemed to be post ictal with an elevated prolactin, head CT was negative for any acute process and other labs and vitals WNL. The medicine team concluded it was likely a seizure and re- consulted neurology who suggested to start him on Keppra 500mg BID, first dose on 12/24/19. On 12/25/19 patient had an EEG done which was negative. He was supposed to discharge on 12/25/19, but patient needed a repeat COVID swab for the rehab center, and there is not a bed available.
[2019-12-25] MEDS: Atorvastatin Calcium 40 MG TAB PO SCH (20:40)
[2019-12-25] MEDS: Tamsulosin HCl 0.4 MG CAP PO SCH (20:43)
[2019-12-26 04:22] VITALS: BMI 27.3
[2019-12-26] MEDS: Labetalol HCl 100 MG/20 ML VIAL SLOW IVP PRN (04:30)
--- NOTE | 2019-12-26 06:01 | PDOC.FM ---
- Subjective Subjective: Patient reports that he is doing well this morning. He denies chest and abdominal pain, but reports back pain. Patient was reminded of the medication he has available for pain. Currently waiting on bed for placement. - Objective MAR Reviewed: Yes Vital Signs & Weight: Vital Signs (12 hours) Temp Pulse Resp BP BP Pulse Ox 12/26/19 04:30 71 166/90 H 12/26/19 04:21 98.0 F 71 18 166/90 H 96 12/26/19 00:05 97.6 F 73 19 164/82 H 97 12/25/19 20:41 75 172/97 H 12/25/19 20:40 75 172/97 H 12/25/19 20:28 97.7 F 75 18 172/97 H 99 12/25/19 20:00 99 Weight Admit Weight 79 kg Weight 81.647 kg Most Recent Monitor Data Heart Rate from ECG 72 NIBP 142/84 NIBP BP-Mean 103 Respiration from ECG 17 SpO2 97 I&O: 12/24/19 12/25/19 12/26/19 06:59 06:59 06:59 Intake Total 3175 2556 2515 Output Total 373 104 4965 Balance 2375 1731 240 Result Diagrams: 12/25/19 08:28 12/25/19 08:27 Phys Exam - Physical Examination Constitutional: NAD HEENT: moist MMs Respiratory: no wheezing, no rales, no rhonchi Cardiovascular: no significant murmur Gastrointestinal: soft, non-tender PEG tube in place Musculoskeletal: no edema Psychiatric: normal affect, A&O x 3 Skin: no rash Dx/Plan - Plan Plan: Seizure likely 2/2 hemorrhagic stroke -proloactin elevated during code green where patient was hard to arouse, likely post ictal state -neuro consult, suggested Keppra 500mg BID, will continue on discharge appreciate the recs -will continue seizure precautions and prn ativan Failed bladder training -patient will go home on ybarra -follow up with Urology in 1-2 weeks -will send home on Flomax Spinal Stenosis s/p ACDF C3-C7 on 12/07 -Neurosurgery: Dr Juarez, will follow recs -pain: tylenol prn and morphine prn for pain -wear collar and LSO when out of bed, continue work with PT/OT Dysphagia -GI, Case: PEG placed on 12/18 -consult full service vending driver: tube feed recs -tolerating feeds well -Reglan TID to help with abdominal cramps associated with feeds Transaminitis, improving -abdomen non-tender, no distention, no N/V -likely due to surgical procedure and anesthesia Diabetes Mellitus Type 2 -Hyperglycemia protocol, ACHS accuchecks, mild SSI -restarted home Metformin HTN -BP goal SBP <150 per neurosurgery -Labetalol and hydralazine IV PRN -PO meds of atenolol, lisinopril, -will add chlorthalidone for better control AMS, improved -likely due to medications, brain CT on 12/08 showed improvement of hemorrhage, no acute process -EEG normal GHASSAN -resolved -will continue to monitor closely Intraparenchymal Hemorrhage likely 2/2 HTN Emergency -Hx uncontrolled HTN, CT head: Intraparenchymal hemorrhage. -neurosugery consulted Indeterminate trop, likely 2/2 NSTEMI type 2 due to Stroke -Elevated CKMB, Trop indeterminate -EKG no acute changes -CXR no acute findings, no CP Hypokalemia -replace as indicated, will continue to monitor Hypomagnesemia -replace as indicated, will continue to monitor Weight loss -Severe protein/calorie malnutrition -s/p central line on 12/10 for TPN managed by full service vending driver, now removed -now has PEG placed Anxiety -aware Mild hyponatremia -continue to monitor Diet: PEG tube feeds IVF: SL DVT ppx: lovenox GI ppx: Famotidine Code Status: DNAR PCP: None Dispo: Stable, s/p ACDF, s/p PEG. Approved to [facility], pending bed and COVID test Addendum - Attending - Attending Attestation Date/Time: 12/26/191916 I personally evaluated the patient and discussed the management with Dr. Dejesus I agree with the History, Examination, Assessment and Plan documented above with any addition or exceptions noted below - Patient without complaints. Ready to go to reb. Afebrile VSS. A/P: 1) Hemorrhagic CVA- stable. 2) Spinal stenosis with myelopathy- s/p decompression; continue PT. Awaiting bed at rehab ready for transfer. 3) Seizure- continue keppra.
[2019-12-26] MEDS: Polyethylene Glycol 3350 17 GM Packet PO SCH (09:50)
[2019-12-26] MEDS: Metoclopramide 10 MG/10 ML UDCUP PER TUBE SCH ×4 (09:50→20:28)
[2019-12-26] MEDS: Chlorthalidone 25 MG TAB PO SCH (09:50)
[2019-12-26] MEDS: Lisinopril 20 MG TAB PO SCH (09:51)
[2019-12-26] MEDS: Enoxaparin Sodium 40 MG/0.4 ML SYRINGE SC SCH (09:51)
[2019-12-26] MEDS: buPROPion 75 MG TAB PO SCH (09:51)
[2019-12-26] MEDS: metFORMIN 500 MG TAB PO SCH ×2 (09:51→18:12)
[2019-12-26] MEDS: Famotidine 20 MG TAB PO SCH ×2 (09:51→20:27)
[2019-12-26] MEDS: Atenolol 50 MG TAB PO SCH ×2 (09:57→20:27)
[2019-12-26 13:53] LABS: SARS-CoV-2 MS2 Positive; SARS-CoV-2 N Gene Negative; SARS-CoV-2 S Gene Negative; SARS-CoV-2 by NAA Not Detected (NotDetected); SARS-CoV-2 orf1ab Negative
[2019-12-26] MEDS: Ondansetron PF 4 MG/2 ML Vial IVP PRN (20:27)
[2019-12-26] MEDS: Atorvastatin Calcium 40 MG TAB PO SCH (20:27)
[2019-12-26] MEDS: Tamsulosin HCl 0.4 MG CAP PO SCH (20:28)
--- NOTE | 2019-12-27 04:14 | PDOC.BPN ---
- Brief Progress Note Paged by nurse that patient was having acute severe chest pain. Went to bedside. Patient complaining of severe chest pain in the center of his chest that started acutely after the nurses were rolling him over after changing him. Patient's vitals are stable, heart sounds are RRR no M/R/G, lungs are CTAB, chest wall pain is reproducible. Will get stat Troponin, EKG and CXR to r/o ACS, however likely 2/2 MSK.
[2019-12-27 04:50] LABS: Troponin I 0.039 ng/mL (< 0.028)
--- NOTE | 2019-12-27 06:09 | PDOC.FM ---
- Subjective Subjective: Patient resting comfortably in bed on exam. Denies chest, abdominal, and back pain. Overnight, residents were called to evaluate patient due to sever chest pain. EKG, CXR, and Trops were obtained. EKG and CXR did not show any ST changes or cardiopulmonary process. Trop was at patient's baseline. Pain was reproducible with palpation and thought to be 2/2 to musculoskeletal pain. Patient reports all pain has resolved since last night's episode. Patient does appear to be more depressed today making comments regarding "how much time" he has left. - Objective MAR Reviewed: Yes Vital Signs & Weight: Vital Signs (12 hours) Temp Pulse Resp BP BP Pulse Ox 12/27/19 04:00 98 F 73 16 113/67 94 L 12/27/19 00:00 98.1 F 73 16 148/76 H 97 12/26/19 20:27 77 111/66 12/26/19 20:00 98 F 77 16 111/66 95 Weight Admit Weight 79 kg Weight 81.647 kg Most Recent Monitor Data Heart Rate from ECG 72 NIBP 142/84 NIBP BP-Mean 103 Respiration from ECG 17 SpO2 97 I&O: 12/25/19 12/26/19 12/27/19 06:59 06:59 06:59 Intake Total 2556 2515 1460 Output Total 825 2275 850 Balance 1731 240 610 Result Diagrams: 12/25/19 08:28 12/25/19 08:27 Phys Exam - Physical Examination Constitutional: NAD HEENT: moist MMs Neck: supple, full ROM Respiratory: no wheezing, no rales, no rhonchi, clear to auscultation bilateral Cardiovascular: RRR, no significant murmur Gastrointestinal: soft, non-tender PEG tube Musculoskeletal: no edema SCDs in place Deviation from normal: Depressed, flat affect Skin: no rash Dx/Plan - Plan Plan: Chest Pain, atypical -episode of severe chest pain overnight, resolved -EKG, trop, and Cxr ordered -Trop: 0.039, unchanged from baseline -EKG: no acute ST changes -CXR: no official read, no apparent cardiopulmonary process -likely 2/2 to musculoskeletal pain Seizure likely 2/2 hemorrhagic stroke -proloactin elevated during code green where patient was hard to arouse, likely post ictal state -neuro consult, suggested Keppra 500mg BID, will continue on discharge appreciate the recs -will continue seizure precautions and prn ativan Failed bladder training -patient will go home on ybarra -follow up with Urology in 1-2 weeks -will send home on Flomax Spinal Stenosis s/p ACDF C3-C7 on 12/07 -Neurosurgery: Dr Juarez, will follow recs -pain: tylenol prn and morphine prn for pain -wear collar and LSO when out of bed, continue work with PT/OT Dysphagia -GI, Dr Case: PEG placed on 12/18 -consult acid etch operator: tube feed recs -tolerating feeds well -Reglan TID to help with abdominal cramps associated with feeds Transaminitis, improving -abdomen non-tender, no distention, no N/V -likely due to surgical procedure and anesthesia Diabetes Mellitus Type 2 -Hyperglycemia protocol, ACHS accuchecks, mild SSI -restarted home Metformin HTN -BP goal SBP <150 per neurosurgery -Labetalol and hydralazine IV PRN -PO meds of atenolol, lisinopril, -will add chlorthalidone for better control AMS, improved -likely due to medications, brain CT on 12/08 showed improvement of hemorrhage, no acute process -EEG normal GHASSAN -resolved -will continue to monitor closely Intraparenchymal Hemorrhage likely 2/2 HTN Emergency -Hx uncontrolled HTN, CT head: Intraparenchymal hemorrhage. -neurosugery consulted Indeterminate trop, likely 2/2 NSTEMI type 2 due to Stroke -Elevated CKMB, Trop indeterminate -EKG no acute changes -CXR no acute findings, no CP Hypokalemia -replace as indicated, will continue to monitor Hypomagnesemia -replace as indicated, will continue to monitor Weight loss -Severe protein/calorie malnutrition -s/p central line on 12/10 for TPN managed by acid etch operator, now removed -now has PEG placed Anxiety/Depression -continue wellbutrin and sertraline -aware Mild hyponatremia -continue to monitor Diet: PEG tube feeds IVF: SL DVT ppx: lovenox GI ppx: Famotidine Code Status: DNAR PCP: None Dispo: Stable, s/p ACDF, s/p PEG. Approved to [facility], COVID test negative; awaiting bed
[2019-12-27] MEDS: metFORMIN 500 MG TAB PO SCH (08:42)
[2019-12-27] MEDS: Atenolol 50 MG TAB PO SCH (08:42)
[2019-12-27] MEDS: Famotidine 20 MG TAB PO SCH (08:43)
[2019-12-27] MEDS: Chlorthalidone 25 MG TAB PO SCH (08:43)
[2019-12-27] MEDS: Lisinopril 20 MG TAB PO SCH (08:43)
[2019-12-27] MEDS: Polyethylene Glycol 3350 17 GM Packet PO SCH (08:44)
[2019-12-27] MEDS: Metoclopramide 10 MG/10 ML UDCUP PER TUBE SCH (08:44)
[2019-12-27] MEDS: Enoxaparin Sodium 40 MG/0.4 ML SYRINGE SC SCH (08:44)
--- NOTE | 2019-12-27 09:31 | RAD ---
RADIOGRAPH CHEST 1 VIEW: DATE: 12/27/2019 HISTORY: 59-year-old male with chest pain FINDINGS: There are no airspace densities, pulmonary edema, pneumothorax, or cardiomegaly. The lateral costophr enic angles are sharp. IMPRESSION: No acute cardiopulmonary findings.
[2019-12-27] MEDS: buPROPion 75 MG TAB PO SCH (10:51)
[2019-12-27 11:37] VITALS: BP 143/80; TEMP 98.9
== END 2019-12-27 13:32 | DRG 28 ==
LOC: ERS 17:27 → CCU 20:02 → 2SE 11-27 16:33 → CCU 11-30 22:23 → 2SE 12-01 12:26 → SURG A 12-08 21:55 → IMCU/EMU 12-08 23:17 → SURG A 12-13 15:44
PROVIDERS: ADMIT Family Medicine; ATTEND Family Medicine
PROC: 02HV33Z Insertion of Infusion Device into Superior Vena Cava, Percutaneous Approach (ICD-10-PCS; 2019-11-25)
PROC: 3E0436Z Introduction of Nutritional Substance into Central Vein, Percutaneous Approach (ICD-10-PCS; 2019-11-25)
PROC: 0RG2070 Fusion of 2 or more Cervical Vertebral Joints with Autologous Tissue Substitute, Anterior Approach, Anterior Column, Open Approach (ICD-10-PCS; principal; 2019-12-08)
PROC: 0RG20K1 Fusion of 2 or more Cervical Vertebral Joints with Nonautologous Tissue Substitute, Posterior Approach, Posterior Column, Open Approach (ICD-10-PCS; 2019-12-08)
PROC: 0RB30ZZ Excision of Cervical Vertebral Disc, Open Approach (ICD-10-PCS; 2019-12-08)
PROC: 0DH63UZ Insertion of Feeding Device into Stomach, Percutaneous Approach (ICD-10-PCS; 2019-12-19)
DX: I61.8 Other nontraumatic intracerebral hemorrhage (principal); I21.A1 Myocardial infarction type 2; E43 Unspecified severe protein-calorie malnutrition; G82.50 Quadriplegia, unspecified; S22.42XA Multiple fractures of ribs, left side, initial encounter for closed fracture; S32.049A Unspecified fracture of fourth lumbar vertebra, initial encounter for closed fracture; I16.1 Hypertensive emergency; E87.1 Hypo-osmolality and hyponatremia; M50.023 Cervical disc disorder at C6-C7 level with myelopathy; M47.12 Other spondylosis with myelopathy, cervical region; I67.4 Hypertensive encephalopathy; N17.9 Acute kidney failure, unspecified; R29.6 Repeated falls; Z66 Do not resuscitate; Z20.828 Contact with and (suspected) exposure to other viral communicable diseases; R40.2412 Glasgow coma scale score 13-15, at arrival to emergency department; F17.220 Nicotine dependence, chewing tobacco, uncomplicated; E83.42 Hypomagnesemia; F41.9 Anxiety disorder, unspecified; F32.9 Major depressive disorder, single episode, unspecified; E11.42 Type 2 diabetes mellitus with diabetic polyneuropathy; E83.39 Other disorders of phosphorus metabolism; W19.XXXA Unspecified fall, initial encounter; M24.541 Contracture, right hand; M48.02 Spinal stenosis, cervical region; M48.061 Spinal stenosis, lumbar region without neurogenic claudication; M24.542 Contracture, left hand; R29.706 NIHSS score 6; G93.89 Other specified disorders of brain; E87.5 Hyperkalemia; E87.6 Hypokalemia; R74.01 Elevation of levels of liver transaminase levels; R13.12 Dysphagia, oropharyngeal phase; R07.89 Other chest pain; R41.82 Altered mental status, unspecified; T50.915A Adverse effect of multiple unspecified drugs, medicaments and biological substances, initial encounter; Z91.14 Patient's other noncompliance with medication regimen; Z79.82 Long term (current) use of aspirin; Z79.84 Long term (current) use of oral hypoglycemic drugs; Z68.27 Body mass index [BMI] 27.0-27.9, adult
CPT/HCPCS: 36415; 36416; 70450; 70498; 70551; 71045; 71260; 72141; 72148; 74177; 76000; 76770; 80048; 80053; 80202; 81001; 82088; 82140; 82550; 82553; 82607; 82805; 83036; 83605; 83655; 83690; 83735; 84100; 84134; 84146; 84207; 84244; 84439; 84443; 84481; 84484; 85007; 85025; 85027; 86780; 86803; 86850; 86900; 86901; 87040; 87086; 87324; 87389; 87449; 87635; 93005; 93010; 93970; 93975; 95712; 95816; 95819; 95957; 96365; 96366; 96368; A4217; C1713; C1768; C1776; G0390; J0360; J0690; J0692; J1100; J1650; J1815; J1885; J1953; J2001; J2270; J2310; J2370; J2405; J2704; J3010; J3370; J3411; J3475; J3480; J3490; J7030; J7042; J7050; L0639; Q9967; S0028; U0003

== ENCOUNTER 2019-12-30 10:35 | Observation (INO) | payer MEDICARE, SELFPAY ==
--- NOTE | 2019-12-30 11:09 | CT ---
CT Brain WO Con History: Not following commands. Comparison: CT brain 6 days prior Findings: Slight size decrease of the right basal ganglia cavity from recent infarction. Moderate lina ateral microangiopathic changes involving the márquez radiata and basal ganglia. 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 No new acute hemorrhage or infarct. No midline shift or mass effect. Impression: Mild size decrease of the right basal ganglia cavitation from recent infarction. No acute superimposed hemorrhage or infarct. Amanda Tamayo notified of findings via telephone at 11:02 AM
[2019-12-30 11:12] LABS: #Eosinphils 0.2 thou/uL (0.0-0.7); #Lymphocytes 1.8 thou/uL (1.20-3.40); #Monocytes 0.9 thou/uL (0.11-0.59); %Basophils 0.3 % (0.0-1.0); %Eosinophils 1.8 % (0.0-10.0); %Lymphocytes 17.9 % (21.0-51.0); Hemoglobin 11.3 g/dL (14.0-18.0); Mean Corpuscular HGB CONC 32.9 g/dL (32.0-36.0); Mean Corpuscular Hemoglobin 30.3 pg (27.0-31.0); Mean Corpuscular Volume 92.1 fL (78.0-98.0); Mean Platelet Volume 8.5 fL (7.4-10.4); Platelet Count 359 thou/uL (130-400); RBC Distribution Width 11.9 % (11.5-14.5); Red Blood Cell (RBC) Count 3.74 mill/uL (4.70-6.10); White Blood Cell (WBC) Count 9.9 thou/uL (4.8-10.8)
[2019-12-30 11:40] LABS: ALT (SGPT) 44 U/L (8-55); AST (SGOT) 39 U/L (5-34); Albumin 3.1 g/dL (3.4-4.8); Alkaline Phosphatase 211 U/L (40-110); Anion Gap 10 mmol/L (10-20); BUN (Urea Nitrogen) 39 mg/dL (8.4-25.7); Bilirubin, Total 0.3 mg/dL (0.2-1.2); Calc. Creatinine Clearance 0 mL/min (70-130); Calcium 9.2 mg/dL (7.8-10.44); Carbon Dioxide 35 mmol/L (23-31); Chloride 94 mmol/L (98-107); Globulin 4.2 g/dL (2.4-3.5); Glucose 205 mg/dL (80-115); Potassium 4.2 mmol/L (3.5-5.1); Protein, Total 7.3 g/dL (5.8-8.1); Sodium 135 mmol/L (136-145)
[2019-12-30 11:54] LABS: Bacteria/HPF 2+ HPF (None Seen); Bilirubin Negative (Negative); Blood, Urine 2+ (Negative); Clarity Turbid (Clear); Glucose, Urine (Dipstick) Normal (Negative); Ketone, Urine Negative (Negative); Leukocyte 500 Leu/uL (Negative); Nitrite Negative (Negative); Protein, Urine (Dipstick) 30 mg/dL (Neg-Trace); RBC/HPF 21-50 HPF (0-3); Specific Gravity, Urine 1.008 (1.002-1.036); Squamous Epithelial None Seen HPF (0-3); Urobilinogen Normal mg/dL (Less than 2); WBC/HPF Greater than 50 HPF (0-3)
--- NOTE | 2019-12-30 12:22 | PDOC.FPRHP ---
- History of Present Illness Chief Complaint: Altered History of Present Illness: 59 yo male who presents for AMS from [facility] accompanied by his son. The nurse at the rehab center got him up this morning at breakfast, then helped him back to his bed and shortly after patient was unresponsive and brought to the ED. It is not known what time this episode was at. Pt seems to be post ictal and reports he is having a headache with no visual impairments. Pt denies abdominal pain, dysuria, and fever. Pt also denies any recent falls or head trauma. Questioning is limited due to being likely post ictal. He had a few episodes like this when he was recently admitted to the hospital over the last month and he was recently started on Keppra. 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 Came from [facility] Famil: non contributory - Review of Systems ROS unobtainable: other (limited due to mental status) Respiratory: denies: cough, congestion Cardiovascular: denies: chest pain Gastrointestinal: denies: nausea, vomiting, abdominal pain Genitourinary: denies: dysuria Neurological: reports: weakness. denies: syncope Psychological: reports: anxiety (anxious affect) - Vital signs BP: 123/79 HR: 71 RR: 16 Tmax: [] Pox: 98% on RA Wt: 81.65kg - Physical Exam -Constitutional: hard to arouse, but responsive to sternal rub HEENT: normocephalic and atraumatic, PERRLA, EOMI, conjunctiva clear, MMM Neck: supple -Neck: anterior scar from recent surgery Heart: RRR, normal S1/S2 Lungs: CTAB Abdomen: soft -Abdomen: PEG tube in place Musculoskeletal: normal tone Skin: good turgor -Psychiatric: A&Ox1 to person only FMR H&P: Results - Labs Result Diagrams: 12/31/19 04:38 12/31/19 04:38 Lab results: WBC 9.9 thou/uL (4.8-10.8) 12/30/19 10:50 Hgb 11.3 g/dL (14.0-18.0) L 12/30/19 10:50 Hct 34.4 % (42.0-52.0) L 12/30/19 10:50 MCV 92.1 fL (78.0-98.0) 12/30/19 10:50 Plt Count 359 thou/uL (130-400) 12/30/19 10:50 Neutrophils % 71.0 % (42.0-75.0) 12/30/19 10:50 Sodium 135 mmol/L (136-145) L 12/30/19 10:50 Potassium 4.2 mmol/L (3.5-5.1) 12/30/19 10:50 Chloride 94 mmol/L (98-107) L 12/30/19 10:50 Carbon Dioxide 35 mmol/L (23-31) H 12/30/19 10:50 BUN 39 mg/dL (8.4-25.7) H 12/30/19 10:50 Creatinine 1.17 mg/dL (0.7-1.3) 12/30/19 10:50 Glucose 205 mg/dL (80-115) H 12/30/19 10:50 Lactic Acid 1.1 mmol/L (0.5-2.2) 12/30/19 11:09 Calcium 9.2 mg/dL (7.8-10.44) 12/30/19 10:50 Total Bilirubin 0.3 mg/dL (0.2-1.2) 12/30/19 10:50 AST 39 U/L (5-34) H 12/30/19 10:50 ALT 44 U/L (8-55) 12/30/19 10:50 Alkaline Phosphatase 211 U/L (40-110) H 12/30/19 10:50 Serum Total Protein 7.3 g/dL (5.8-8.1) 12/30/19 10:50 Albumin 3.1 g/dL (3.4-4.8) L 12/30/19 10:50 Urine Ketones Negative mg/dL (Negative) 12/30/19 11:05 Urine Blood 2+ (Negative) A 12/30/19 11:05 Urine Nitrite Negative (Negative) 12/30/19 11:05 Ur Leukocyte Esterase 500 Clyde/uL (Negative) A 12/30/19 11:05 Urine RBC 21-50 HPF (0-3) A 12/30/19 11:05 Urine WBC Greater than 50 HPF (0-3) A 12/30/19 11:05 Ur Squamous Epith Cells None Seen HPF (0-3) 12/30/19 11:05 Urine Bacteria 2+ HPF (None Seen) A 12/30/19 11:05 - EKG Interpretation EKG: Normal sinus thythm. inverted T waves in V4-V6. MD 158ms. QTc 439ms. - Radiology Interpretation CT scan - head Status: image reviewed by me, report reviewed by me Additional comment: No new acute hemorrhage or infarct. FMR H&P: A/P - Plan Encephalopathy likely 2/2 seizure -history of elevated prolactin and similar episodes during recent ho spitalization -discharged on Keppra 500mg BID, consider increase pending Keppra level and prolactin -Brain CT no acute changes -will continue seizure precautions and prn ativan UTI -UA suggestive of UTI -patient recently went home on ybarra with plans to follow up with Urology in 1-2 weeks -resume Flomax -Continue Bactrim given most recent sensitivities from last admission -follow up Ucx GHASSAN -continue to monitor -MIVF @ 120mL/hr Dysphagia -GI, Case: PEG placed on 12/18 -consult supplier relationship director: tube feed recs -Reglan TID to help with abdominal cramps associated with feeds Spinal Stenosis s/p ACDF C3-C7 on 12/07 -aware, PT/OT -pain: tylenol prn -wear collar and LSO when out of bed, continue work with PT/OT Diabetes Mellitus Type 2 -Hyperglycemia protocol, ACHS accuchecks, mild SSI -restarted home Metformin Anxiety/Depression -continue wellbutrin and sertraline -aware Diet: PEG tube feeds IVF: MIVF DVT ppx: lovenox Code Status: DNAR PCP: None Dispo: stroke, obs anticipated LOS <48 hours FMR H&P: Upper Level - Plan Date/Time: 12/30/19 1219 I, [Xochitl Cobb], have evaluated this patient and agree with findings/plan as outlined by physician/internist resident. Pertinent changes/additions are listed here. 59 yo M with hx of hemorrhagic stroke, quadriplegia with PEG tube placement sent by EMS from [facility] after altered episode. Per ERMD he nurse in rehab had transferred him to his chair when he became unresponsive. It is unclear how long he was like this for. Of note patient was recently discharged from the hospital a week ago after hemorrhagic stroke, PEG tube placement, s/p neurosurgery procedures with liliana placement for sevree cervical stenosis with spondylitis myelopathy. He has a recent diagnosis of seizures last ho spitalization in which he was started on Keppra 500mg po BID. Patient is a slow to respond but per son has become more alert as time has passed. A&O x3, denies any complaints or concerns. In the ER they gave him 1gm of rocephin for a UA c/w with UTI but patient also has a ybarra. He denies dysuria, abd pain, fevers, chills. CT head negative for acute infarct or hemorrhage. Patient will be admitted for encephalopathic episode likely 2/2 seizures. 1. Encephalopathy likely 2/2 seizures -Post ictal, elevated prolactin, CT brain with no acute findings, no FND on exam -Pending keppra level, may need adjustment in regimen 2. 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 GHASSAN -Above baseline -mIVF, repeat 4. Dysphagia with PEG tube -Dietary consulted -Continue feeds as tolerated Please see physician/internist note for rest of chronic problems and plan Diet: PEG tube feeds IVF: MIVF DVT ppx: lovenox Abx: Bactrim Code Status: DNAR PCP: None Addendum - Attending - Attending Attestation Date/Time: 12/30/19 6862 I personally evaluated the patient and discussed the management with resident team I agree with the History, Examination, Assessment and Plan documented above with any addition or exceptions noted below. - concern for continue seizure activity despite anticonvulsant. Will consult neurology to evaluate need for second agent. Keppra level pending. Prolactin elevated. - Cath associated UTI. Remove ybarra. Treat. - Depolarization abnormal on EKG. New from previous stay. Trend. Monitor cardiac enzymes. Asymptomatic. Needs ECHO if not previous done. Consider chem stress. Oneil
[2019-12-30] MEDS ORDERED: cefTRIAXone\\ROCEPHIN 1 GM VIAL ONE (12:26)
[2019-12-30] MEDS ORDERED: Acetaminophen 650 MG Suppository PR PRN (12:42)
[2019-12-30] MEDS ORDERED: Ondansetron ODT 4 MG TAB PO PRN (12:42)
[2019-12-30] MEDS ORDERED: Acetaminophen 325 MG TAB PO PRN (12:42)
[2019-12-30] MEDS ORDERED: Dextrose 50% Abboject 50 ML SYRINGE SLOW IVP PRN (13:02)
[2019-12-30] MEDS ORDERED: HumaLOG 300 UNITS/3 ML VIAL SC PRN ×2 (13:02)
[2019-12-30] MEDS ORDERED: Dextrose 5% in Water 1,000 ML IV PRN (13:02)
[2019-12-30] MEDS ORDERED: Lorazepam 2 MG/ML VIAL SLOW IVP PRN (13:20)
[2019-12-30] MEDS ORDERED: Metoclopramide 10 MG/10 ML UDCUP PER TUBE SCH (15:00)
[2019-12-30] MEDS ORDERED: Metoclopramide HCl 10 MG/2 ML VIAL ONE (15:26)
[2019-12-30] MEDS: Lactated Ringer's 1,000 ML IV SCH ×2 (15:45→23:14)
[2019-12-30] MEDS ORDERED: Sodium Chloride 0.9% 500 ML IV SCH (16:30)
[2019-12-30] MEDS ORDERED: tiZANidine HCl 4 MG TAB PO SCH (17:30)
--- NOTE | 2019-12-30 17:44 | ULT ---
Venous duplex sonogram bilateral lower extremity HISTORY: Bilateral leg pain and edema. FINDINGS: Each common femoral vein and greater saphenous junction were evaluated along femoral, deep femoral, popliteal, and posterior tibial vein. There is good color and spectral Doppler flow, compression, and augmentation. IMPRESSION : Normal exam.
[2019-12-30 18:31] LABS: Magnesium 1.7 mg/dL (1.6-2.6); Phosphorus 2.9 mg/dL (2.3-4.7)
[2019-12-30] MEDS ORDERED: levETIRAcetam 500 MG TAB PO SCH ×2 (21:00)
[2019-12-30] MEDS ORDERED: Sulfameth/Trimethoprim DS 800-160mg TAB PO SCH (21:00)
[2019-12-30] MEDS: levETIRAcetam in NS 1,000 MG in Premix Bag 1 BAG IVPB SCH (23:06)
[2019-12-30] MEDS: Piperacillin/Tazobactam 4.5 GM in Sodium Chloride 0.9% 100 ML IVPB SCH (23:06)
[2019-12-30] MEDS: Metoclopramide 10 MG/10 ML UDCUP PER TUBE SCH (23:07)
[2019-12-30] MEDS: Atorvastatin Calcium 40 MG TAB PO SCH (23:08)
[2019-12-30] MEDS: Famotidine 20 MG TAB PO SCH (23:08)
[2019-12-30] MEDS: Atenolol 50 MG TAB PO SCH (23:09)
[2019-12-30] MEDS: Amlodipine 5 MG TAB PO SCH (23:09)
[2019-12-30] MEDS: Tamsulosin HCl 0.4 MG CAP PO SCH (23:09)
[2019-12-30 23:59] VITALS: BMI 26.9
[2019-12-31] MEDS: Piperacillin/Tazobactam 4.5 GM in Sodium Chloride 0.9% 100 ML IVPB SCH ×4 (02:41→22:56)
[2019-12-31] MEDS ORDERED: Ondansetron PF 4 MG/2 ML Vial IVP PRN (03:19)
[2019-12-31] MEDS: Lactated Ringer's 1,000 ML IV SCH ×3 (03:46→22:59)
[2019-12-31 05:17] LABS: #Eosinphils 0.2 thou/uL (0.0-0.7); #Lymphocytes 2.1 thou/uL (1.20-3.40); #Monocytes 0.7 thou/uL (0.11-0.59); #Neutrophils 5.6 thou/uL (1.40-6.50); %Basophils 0.5 % (0.0-1.0); %Eosinophils 1.8 % (0.0-10.0); %Lymphocytes 24.2 % (21.0-51.0); %Monocytes 8.1 % (0.0-10.0); %Neutrophils 65.4 % (42.0-75.0); Mean Corpuscular HGB CONC 32.4 g/dL (32.0-36.0); Mean Corpuscular Hemoglobin 29.5 pg (27.0-31.0); Mean Corpuscular Volume 91.1 fL (78.0-98.0); Mean Platelet Volume 8.6 fL (7.4-10.4); Platelet Count 314 thou/uL (130-400); RBC Distribution Width 11.7 % (11.5-14.5); Red Blood Cell (RBC) Count 3.38 mill/uL (4.70-6.10); White Blood Cell (WBC) Count 8.6 thou/uL (4.8-10.8)
[2019-12-31 05:42] LABS: ALT (SGPT) 34 U/L (8-55); AST (SGOT) 25 U/L (5-34); Albumin 2.7 g/dL (3.4-4.8); Alkaline Phosphatase 162 U/L (40-110); Anion Gap 11 mmol/L (10-20); BUN (Urea Nitrogen) 32 mg/dL (8.4-25.7); Bilirubin, Total 0.5 mg/dL (0.2-1.2); Calc. Creatinine Clearance 93 mL/min (70-130); Calcium 8.7 mg/dL (7.8-10.44); Carbon Dioxide 31 mmol/L (23-31); Chloride 98 mmol/L (98-107); Globulin 3.6 g/dL (2.4-3.5); Glucose 110 mg/dL (80-115); Protein, Total 6.3 g/dL (5.8-8.1); Sodium 136 mmol/L (136-145)
--- NOTE | 2019-12-31 06:04 | PDOC.FM ---
- Subjective Subjective: Patient doing well this morning. Has no complaints. Wants to start on a diet. Denies CP, SOB. No acute events as per tele. This morning nurse Osmin Texted informing me of patient's PT tech at rehab center testing positive for COVID. Patient placed on precautions, pending COVID swab. - Objective MAR Reviewed: Yes Vital Signs & Weight: Vital Signs (12 hours) Temp Pulse Resp BP Pulse Ox 12/31/19 04:00 98.5 F 67 18 123/72 96 12/31/19 00:00 98.2 F 68 16 132/75 95 12/30/19 23:09 70 12/30/19 20:00 97.9 F 70 16 155/90 H 98 12/30/19 18:45 98.2 F 76 20 169/105 H 100 12/30/19 18:44 95 Weight Weight 80.422 kg Result Diagrams: 12/31/19 04:38 12/31/19 04:38 Phys Exam - Physical Examination Constitutional: NAD HEENT: moist MMs Neck: full ROM Respiratory: no wheezing, clear to auscultation bilateral Cardiovascular: RRR, no significant murmur Gastrointestinal: soft PEG tube Musculoskeletal: pulses present Neurological: moves all 4 limbs at baseline Psychiatric: normal affect, A&O x 3 Dx/Plan - Plan Plan: Encephalopathy likely 2/2 seizure, resolved -history of elevated prolactin and similar episodes during recent hospitalization -discharged on Keppra 500mg BID, increase here to 1000mg BID -Brain CT no acute changes -Prolactin on admission 46, Keppra level 24 -will continue seizure precautions and prn ativan -neuro consulted, appreciate the recs UTI -UA suggestive of UTI -patient recently went home on ybarra with plans to follow up with Urology in 1-2 weeks -resume Flomax -Continue Zosyn pending sensitivities given complicated nature of UTI -follow up Ucx GHASSAN, improved -continue to monitor -MIVF @ 120mL/hr Dysphagia -Dr NISHA Case: PEG placed on 12/18 -consult home economist: tube feed recs, advance diet as tolerated as per speech -Reglan TID to help with abdominal cramps associated with feeds Elevated DDimer -2.47 on admission -Venous doppler negative -pending COVID swab given recent exposure with his PT tech at rehab testing positive for COVID Inverted T waves -aware -patient not complaining of chest pain -Trop .024>.023>.022 Spinal Stenosis s/p ACDF C3-C7 on 12/07 -aware, PT/OT -pain: tylenol prn -wear collar and LSO when out of bed, continue work with PT/OT Diabetes Mellitus Type 2 -Hyperglycemia protocol, ACHS accuchecks, mild SSI -restarted home Metformin Anxiety/Depression -continue wellbutrin and sertraline -aware Diet: PEG tube feeds IVF: MIVF DVT ppx: lovenox Code Status: DNAR PCP: None Dispo: stroke, obs anticipated LOS <48 hours CM consulted to help with placement hopefully back to [facility]. Palliative consulted to discuss goals of care. Addendum - Attending - Attending Attestation Date/Time: 12/31/19 3532 I personally evaluated the patient and discussed the management with Dr. Greene. I agree with the History, Examination, Assessment and Plan documented above with any addition or exceptions noted below. Patient COVID pending due to exposure but no symptoms. He had apparent seizure at rehab. Keppra increased. Treat his catheter associated UTI. Cultures pending. Continue PT/OT. Will need to be re-placed at rehab once stable for discharge.
[2019-12-31] MEDS ORDERED: Bupropion 150 MG XL TAB PO SCH (09:00)
[2019-12-31] MEDS ORDERED: cefTRIAXone\\ROCEPHIN 1 GM in Sodium Chloride 0.9% 100 ML IVPB SCH (09:00)
[2019-12-31] MEDS: Enoxaparin Sodium 40 MG/0.4 ML SYRINGE SC SCH (09:09)
[2019-12-31] MEDS: Metoclopramide 10 MG/10 ML UDCUP PER TUBE SCH ×3 (09:09→22:58)
[2019-12-31] MEDS: Famotidine 20 MG TAB PO SCH ×2 (09:10→22:57)
[2019-12-31] MEDS: Chlorthalidone 25 MG TAB PO SCH (09:10)
[2019-12-31] MEDS: Atenolol 50 MG TAB PO SCH ×2 (09:11→22:59)
--- NOTE | 2019-12-31 11:26 | PDOC.PALFU ---
Palliative Care Follow-up Note Palliative received consult for patient, will follow up 01/01/2020 for further evaluation and discussion in relation to goal of care.
[2019-12-31] MEDS: levETIRAcetam in NS 1,000 MG in Premix Bag 1 BAG IVPB SCH ×2 (11:34→22:56)
--- NOTE | 2019-12-31 12:45 | CON ---
NEUROLOGY CONSULTATION DATE OF CONSULTATION: 12/31/2019 REASON FOR CONSULTATION: Altered mental status/breakthrough seizure. HISTORY OF PRESENT ILLNESS: Mr. Angel is a 59-year-old male with a history significant for intraparenchymal hemorrhage, hypertension, type 2 diabetes mellitus, epilepsy, and dysphagia, presented from [facility] because of altered mental status. History is obtained from the patient and also review of the records. Per nurse at the rehab center, she got him up on the morning of 12/30/2019 for breakfast and helped him to the bed. Shortly afterwards, the patient became unresponsive and had a spell of staring off in space. He also complained of headache, but no visual impairment. The patient denies any worsening focal numbness, focal paresthesias, nausea, vomiting, chest pain, abdominal pain, or recent illness. He was brought to the emergency room and admitted for further evaluation. The patient was recently started on Keppra 500 mg twice daily for seizures. In the emergency room, he was found to have UTI and Rocephin was given and was admitted for further evaluation. ALLERGIES: NO KNOWN DRUG ALLERGIES. PAST MEDICAL HISTORY: 1. Diabetes mellitus, type 2. 2. Hypertension. 3. Depression. 4. Anxiety. 5. Intraparenchymal hemorrhage secondary to hypertensive emergency. 6. Seizure disorder. 7. Dysphagia. PAST SURGICAL HISTORY: 1. Status post PEG placement. 2. Spinal stenosis status post ACDF C3 through C7 on 12/07. SOCIAL HISTORY: The patient has a history of tobacco since 13 years of age. Denies alcohol or illegal drug use. FAMILY HISTORY: No significant family history of seizures or stroke. HOME MEDICATIONS: Medication Instructions Recorded Confirmed Type Amlodipine [Norvasc] 2.5 mg PO HS 09/08/19 11/26/19 History Lisinopril [Zestril] 10 mg PO DAILY 30 Days #30 tab 09/09/19 11/26/19 Rx tiZANidine HCl [Tizanidine HCl] 4 mg PO HS PRN 11/26/19 11/26/19 History Atenolol [Tenormin] 50 mg PO BID tab 12/02/19 Rx Atorvastatin Calcium [Lipitor] 40 mg PO HS tab 12/02/19 Rx BuPROPion XL [Wellbutrin XL] 150 mg PO DAILY tab 12/02/19 Rx Chlorthalidone [Hygroton] 25 mg PO DAILY tab 12/02/19 Rx Famotidine [Pepcid] 20 mg PO BID tab 12/02/19 Rx Lorazepam [Ativan] 0.5 mg PO Q4H PRN tab 12/02/19 Rx Metoclopramide [Reglan Oral 5 mg PER TUBE TID 7 Days #50 udcup 12/23/19 Rx Solution] Polyethylene Glycol 3350 [Miralax] 17 gm PO DAILY #10 pk 12/23/19 Rx Sertraline HCl [Zoloft] 100 mg PO DAILY #0 12/23/19 11/26/19 Rx metFORMIN [Glucophage] 500 mg PO BID-WM #30 tab 12/23/19 Rx Tamsulosin HCl [Flomax] 0.4 mg PO HS #30 cap 12/25/19 Rx levETIRAcetam [Keppra] 500 mg PO BID #60 tab 12/25/19 Rx Chlorthalidone [Hygroton] 25 mg PO DAILY tab 12/27/19 Rx REVIEW OF SYSTEMS: ROS unobtainable: other (limited due to mental status) VITAL SIGNS: BP: 123/79 HR: 71 RR: 16 Tmax: [] Pox: 98% on RA Wt: 81.65kg PHYSICAL EXAMINATION: HEENT: Normocephalic and atraumatic. CVS: Regular rate and rhythm. CHEST: Clear. ABDOMEN: Soft. NECK: Supple. NEUROLOGIC: Mental status; the patient is alert and oriented to person, place, and time. Speech is clear. Motor; muscle tone and bulk are normal. Moving all 4 extremities . Sensory intact. Cerebellar; finger-nose testing intact. Cranial nerves 2 through 12 intact. Gait deferred due to the patient's safety reasons. DATA REVIEWED: WBC 9.9 thou/uL (4.8-10.8) 12/30/19 10:50 Hgb 11.3 g/dL (14.0-18.0) L 12/30/19 10:50 Hct 34.4 % (42.0-52.0) L 12/30/19 10:50 MCV 92.1 fL (78.0-98.0) 12/30/19 10:50 Plt Count 359 thou/uL (130-400) 12/30/19 10:50 Neutrophils % 71.0 % (42.0-75.0) 12/30/19 10:50 Sodium 135 mmol/L (136-145) L 12/30/19 10:50 Potassium 4.2 mmol/L (3.5-5.1) 12/30/19 10:50 Chloride 94 mmol/L (98-107) L 12/30/19 10:50 Carbon Dioxide 35 mmol/L (23-31) H 12/30/19 10:50 BUN 39 mg/dL (8.4-25.7) H 12/30/19 10:50 Creatinine 1.17 mg/dL (0.7-1.3) 12/30/19 10:50 Glucose 205 mg/dL (80-115) H 12/30/19 10:50 Lactic Acid 1.1 mmol/L (0.5-2.2) 12/30/19 11:09 Calcium 9.2 mg/dL (7.8-10.44) 12/30/19 10:50 Total Bilirubin 0.3 mg/dL (0.2-1.2) 12/30/19 10:50 AST 39 U/L (5-34) H 12/30/19 10:50 ALT 44 U/L (8-55) 12/30/19 10:50 Alkaline Phosphatase 211 U/L (40-110) H 12/30/19 10:50 Serum Total Protein 7.3 g/dL (5.8-8.1) 12/30/19 10:50 Albumin 3.1 g/dL (3.4-4.8) L 12/30/19 10:50 Urine Ketones Negative mg/dL (Negative) 12/30/19 11:05 Urine Blood 2+ (Negative) A 12/30/19 11:05 Urine Nitrite Negative (Negative) 12/30/19 11:05 Ur Leukocyte Esterase 500 Clyde/uL (Negative) A 12/30/19 11:05 Urine RBC 21-50 HPF (0-3) A 12/30/19 11:05 Urine WBC Greater than 50 HPF (0-3) A 12/30/19 11:05 Ur Squamous Epith Cells None Seen HPF (0-3) 12/30/19 11:05 Urine Bacteria 2+ HPF (None Seen) A 12/30/19 11:05 - EKG Interpretation EKG: Normal sinus thythm. inverted T waves in V4-V6. MS 158ms. QTc 439ms. - Radiology Interpretation CT scan - head Status: image reviewed by me, report reviewed by me Additional comment: ASSESSMENT AND PLAN: Mr. Angel is a 59-year-old male who presented with altered mental status . Most likely breakthrough seizure in the setting of urinary tract infection. Consider increasing Keppra to 1 g IV or per PEG tube every 12 hours. Ativan 2 mg IV for seizure greater than 2 minutes. Observe seizure precaution. Neuro checks every 4 hours. Continue medical management per primary team. PT/OT/speech. We will continue to follow. Thank you for the consult. Job ID: [id number] MTDD
[2019-12-31] MEDS: Nystatin 500,000 UNITS/5 ML UDCUP SSW SCH ×2 (16:10→22:58)
[2019-12-31] MEDS: metFORMIN 500 MG TAB PO SCH (16:10)
[2019-12-31 17:38] LABS: SARS-CoV-2 MS2 Positive; SARS-CoV-2 N Gene Negative; SARS-CoV-2 S Gene Negative; SARS-CoV-2 by NAA Not Detected (NotDetected); SARS-CoV-2 orf1ab Negative
[2019-12-31] MEDS: Amlodipine 5 MG TAB PO SCH (22:58)
[2019-12-31] MEDS: Atorvastatin Calcium 40 MG TAB PO SCH (22:58)
[2019-12-31] MEDS: Tamsulosin HCl 0.4 MG CAP PO SCH (22:58)
[2020-01-01] MEDS: Piperacillin/Tazobactam 4.5 GM in Sodium Chloride 0.9% 100 ML IVPB SCH ×3 (03:15→17:10)
[2020-01-01 05:02] LABS: #Eosinphils 0.3 thou/uL (0.0-0.7); #Lymphocytes 1.8 thou/uL (1.20-3.40); #Monocytes 0.9 thou/uL (0.11-0.59); #Neutrophils 6.1 thou/uL (1.40-6.50); %Basophils 0.3 % (0.0-1.0); %Eosinophils 2.8 % (0.0-10.0); %Lymphocytes 19.9 % (21.0-51.0); %Monocytes 9.7 % (0.0-10.0); %Neutrophils 67.3 % (42.0-75.0); Hemoglobin 9.6 g/dL (14.0-18.0); Mean Corpuscular HGB CONC 33.7 g/dL (32.0-36.0); Mean Corpuscular Hemoglobin 30.6 pg (27.0-31.0); Mean Corpuscular Volume 90.9 fL (78.0-98.0); Mean Platelet Volume 8.4 fL (7.4-10.4); Platelet Count 299 thou/uL (130-400); RBC Distribution Width 11.7 % (11.5-14.5); Red Blood Cell (RBC) Count 3.14 mill/uL (4.70-6.10); White Blood Cell (WBC) Count 9.1 thou/uL (4.8-10.8)
[2020-01-01 05:28] LABS: ALT (SGPT) 27 U/L (8-55); AST (SGOT) 26 U/L (5-34); Albumin 2.6 g/dL (3.4-4.8); Alkaline Phosphatase 158 U/L (40-110); Anion Gap 14 mmol/L (10-20); BUN (Urea Nitrogen) 26 mg/dL (8.4-25.7); Bilirubin, Total 0.4 mg/dL (0.2-1.2); Calc. Creatinine Clearance 97 mL/min (70-130); Calcium 8.5 mg/dL (7.8-10.44); Carbon Dioxide 26 mmol/L (23-31); Chloride 102 mmol/L (98-107); Globulin 3.5 g/dL (2.4-3.5); Glucose 139 mg/dL (80-115); Potassium 4.2 mmol/L (3.5-5.1); Protein, Total 6.1 g/dL (5.8-8.1); Sodium 138 mmol/L (136-145)
--- NOTE | 2020-01-01 06:11 | PDOC.FM ---
- Subjective Subjective: Pt is frustrated this morning. He says " You are an asshole. Stop taking my money from me. I don't want to do this anymore. I want my PEG tube out." He is uncooperative with all questions. As per nursing, patient had 3 loose BMs overnight. He is tolerating his PEG tube feeds with 120mL feeds. - Objective MAR Reviewed: Yes Vital Signs & Weight: Vital Signs (12 hours) Temp Pulse Resp BP Pulse Ox 01/01/20 04:00 97.5 F L 79 18 147/84 H 94 L 12/31/19 22:59 66 12/31/19 22:58 66 12/31/19 20:00 98.1 F 66 16 171/101 H 97 Weight Admit Weight 80.422 kg Weight 80.422 kg I&O: 12/30/19 12/31/19 01/01/20 06:59 06:59 06:59 Intake Total 1797 Output Total 1375 Balance 422 Result Diagrams: 01/01/20 04:27 01/01/20 04:27 Phys Exam - Physical Examination Constitutional: NAD HEENT: moist MMs Neck: no JVD Cardiovascular: RRR, no significant murmur Gastrointestinal: soft PEG tube Neurological: moves all 4 limbs at baseline Dx/Plan - Plan Plan: Encephalopathy likely 2/2 seizure, resolved -history of elevated prolactin and similar episodes during recent hospitalization -discharged on Keppra 500mg BID, increase here to 1000mg BID -Brain CT no acute changes -Prolactin on admission 46, Keppra level 24 -will continue seizure precautions and prn ativan -neuro consulted, appreciate the recs UTI -UA suggestive of UTI -patient recently went home on ybarra with plans to follow up with Urology in 1-2 weeks -resume Flomax -Continue Zosyn pending sensitivities given complicated nature of UTI -follow up Ucx and sensitivities Diarrhea -Cdiff stool study, follow up results -enteric precautions until then -D/c Reglan Oral thrush -Nystatin SSW GHASSAN, improved -continue to monitor -d/c MIVF Dysphagia -GI, Case: PEG placed on 12/18 -consult plant control aide: tube feed recs, advance diet as tolerated as per speech Elevated DDimer -2.47 on admission -Venous doppler negative -pending COVID swab given recent exposure with his PT tech at rehab testing positive for COVID Inverted T waves -aware -patient not complaining of chest pain -Trop .024>.023>.022 Spinal Stenosis s/p ACDF C3-C7 on 12/07 -aware, PT/OT -pain: tylenol prn -wear collar and LSO when out of bed, continue work with PT/OT Diabetes Mellitus Type 2 -Hyperglycemia protocol, ACHS accuchecks, mild SSI -restarted home Metformin Anxiety/Depression -sertraline -d/c wellbutrin as this medicine lowers seizure threshold -aware Diet: PEG tube feeds IVF: KVO DVT ppx: lovenox Code Status: DNAR PCP: None Dispo: stroke, obs anticipated LOS <48 hours CM consulted to help with placement hopefully back to [facility]. Palliative consulted to discuss goals of care. Addendum - Attending - Attending Attestation Date/Time: 01/01/20 3341 I personally evaluated the patient and discussed the management with Dr. Greene. I agree with the History, Examination, Assessment and Plan documented above with any addition or exceptions noted below. Patient here for seizure breakthrough in known seizure disorder due to old hemorrhagic CVA. His Keppra has been increased. We are also treating a CAUTI. Hoping to get him back to rehab today if no further neuro recs.
[2020-01-01] MEDS: Famotidine 20 MG TAB PO SCH (08:35)
[2020-01-01] MEDS: Chlorthalidone 25 MG TAB PO SCH (08:35)
[2020-01-01] MEDS: Atenolol 50 MG TAB PO SCH (08:35)
[2020-01-01] MEDS: metFORMIN 500 MG TAB PO SCH ×2 (08:35→17:28)
[2020-01-01] MEDS: Nystatin 500,000 UNITS/5 ML UDCUP SSW SCH ×3 (08:35→17:10)
[2020-01-01] MEDS: levETIRAcetam in NS 1,000 MG in Premix Bag 1 BAG IVPB SCH (08:35)
[2020-01-01] MEDS: Lactated Ringer's 1,000 ML IV SCH (08:36)
[2020-01-01] MEDS: Enoxaparin Sodium 40 MG/0.4 ML SYRINGE SC SCH (08:36)
--- NOTE | 2020-01-01 11:32 | PDOC.NEUPN ---
- Subjective Encounter Date: 01/01/20 Subjective: Patient is extremely somnolent. - Objective Vital Signs & Weight: Vital Signs (12 hours) Temp Pulse Resp BP BP Pulse Ox 01/01/20 08:35 139/79 01/01/20 08:00 98.5 F 75 10 L 139/79 98 01/01/20 04:00 97.5 F L 79 18 147/84 H 94 L Weight Admit Weight 177 lb 4.8 oz Weight 177 lb 4.8 oz I&O: 12/31/19 01/01/20 01/02/20 06:59 06:59 06:59 Intake Total 2397 Output Total 1375 Balance 1022 Result Diagrams: 01/01/20 04:27 01/01/20 04:27 Additional Labs: Accuchecks 01/01/20 01/01/20 01/01/20 10:46 05:08 01:49 POC Glucose 194 H 149 H 105 H 12/31/19 12/31/19 12/31/19 21:12 16:26 03:41 POC Glucose 89 98 101 H Radiology Reviewed by me: Yes EKG Reviewed by me: Yes ROS - Review of Systems ROS unobtainable: due to mental status - Medication Medications: Active Medications Generic Name Dose Route Start Last Admin Trade Name Freq PRN Reason Stop Dose Admin Acetaminophen 650 mg 12/30/19 12:42 12/31/19 13:02 Acetaminophen 325 Mg Tab PO 650 mg Q4H PRN Administration Headache/Fever/Mild Pain (1-3) Amlodipine Besylate 2.5 mg 12/30/19 21:00 12/31/19 22:58 Amlodipine 5 Mg Tab PO 2.5 mg HS ALEXANDREA Administration Atenolol 50 mg 12/30/19 21:00 01/01/20 08:35 Atenolol 50 Mg Tab PO 50 mg BID ALEXANDREA Administration Atorvastatin Calcium 40 mg 12/30/19 21:00 12/31/19 22:58 Atorvastatin Calcium 40 Mg Tab PO 40 mg HS ALEXANDREA Administration Chlorthalidone 25 mg 12/31/19 09:00 01/01/20 08:35 Chlorthalidone 25 Mg Tab PO 25 mg DAILY ALEXANDREA Administration Enoxaparin Sodium 40 mg 12/31/19 09:00 01/01/20 08:36 Enoxaparin Sodium 40 Mg/0.4 Ml Syringe SC 40 mg 0900 ALEXANDREA Administration Famotidine 20 mg 12/30/19 21:00 01/01/20 08:35 Famotidine 20 Mg Tab PO 20 mg BID ALEXANDREA Administration Levetiracetam 1,000 mg/ Device 100 mls @ 200 mls/hr 12/30/19 21:00 01/01/20 08:35 IVPB 100 mls BID ALEXANDREA Administration Piperacillin Sod/Tazobactam 100 mls @ 200 mls/hr 12/30/19 21:00 01/01/20 03:15 Sod 4.5 gm/ Sodium Chloride IVPB 100 mls 0300,0900,1500,2100 ALEXANDREA Administration Metformin HCl 500 mg 12/31/19 17:00 01/01/20 08:35 Metformin 500 Mg Tab PO 500 mg BID-WM ALEXANDREA Administration Nystatin 500,000 units 12/31/19 17:00 01/01/20 08:35 Nystatin 500,000 Units/5 Ml Udcup SSW 500,000 units QID ALEXANDREA Administration Ondansetron HCl 4 mg 12/31/19 03:19 12/31/19 03:23 Ondansetron Pf 4 Mg/2 Ml Vial IVP 4 mg Q6H PRN Administration Nausea/Vomiting Sertraline HCl 100 mg 12/31/19 09:00 01/01/20 08:35 Sertraline Hcl 100 Mg Tab PO 100 mg DAILY ALEXANDREA Administration Sodium Chloride 10 ml 12/30/19 12:42 12/31/19 22:59 Flush - Normal Saline 10 Ml Syringe IVF 10 ml PRN PRN Administration Saline Flush Tamsulosin HCl 0.4 mg 12/30/19 21:00 12/31/19 22:58 Tamsulosin Hcl 0.4 Mg Cap PO 0.4 mg HS ALEXANDREA Administration - Exam General Appearance: NAD Eye: PERRL ENT: normocephalic atraumatic Neck: supple Respiratory: CTAB Cardiovascular: RRR Gastrointestinal: soft Extremities: no cyanosis Skin: normal turgor Neurological: no new deficit Musculoskeletal: normal tone, no muscle wasting PSYCH: not oriented, somnolent, lethargic Results - Labs Result Diagrams: 01/01/20 04:27 01/01/20 04:27 Lab results: WBC 9.1 thou/uL (4.8-10.8) 01/01/20 04:27 Hgb 9.6 g/dL (14.0-18.0) L 01/01/20 04:27 Hct 28.5 % (42.0-52.0) L 01/01/20 04:27 MCV 90.9 fL (78.0-98.0) 01/01/20 04:27 Plt Count 299 thou/uL (130-400) 01/01/20 04:27 Neutrophils % 67.3 % (42.0-75.0) 01/01/20 04:27 Sodium 138 mmol/L (136-145) 01/01/20 04:27 Potassium 4.2 mmol/L (3.5-5.1) 01/01/20 04:27 Chloride 102 mmol/L (98-107) 01/01/20 04:27 Carbon Dioxide 26 mmol/L (23-31) 01/01/20 04:27 BUN 26 mg/dL (8.4-25.7) H 01/01/20 04:27 Creatinine 0.91 mg/dL (0.7-1.3) 01/01/20 04:27 Glucose 139 mg/dL (80-115) H 01/01/20 04:27 Lactic Acid 1.1 mmol/L (0.5-2.2) 12/30/19 11:09 Calcium 8.5 mg/dL (7.8-10.44) 01/01/20 04:27 Total Bilirubin 0.4 mg/dL (0.2-1.2) 01/01/20 04:27 AST 26 U/L (5-34) 01/01/20 04:27 ALT 27 U/L (8-55) 01/01/20 04:27 Alkaline Phosphatase 158 U/L (40-110) H 01/01/20 04:27 Troponin I 0.022 ng/mL (< 0.028) 12/30/19 18:03 Serum Total Protein 6.1 g/dL (5.8-8.1) 01/01/20 04:27 Albumin 2.6 g/dL (3.4-4.8) L 01/01/20 04:27 Urine Ketones Negative mg/dL (Negative) 12/30/19 11:05 Urine Blood 2+ (Negative) A 12/30/19 11:05 Urine Nitrite Negative (Negative) 12/30/19 11:05 Ur Leukocyte Esterase 500 Clyde/uL (Negative) A 12/30/19 11:05 Urine RBC 21-50 HPF (0-3) A 12/30/19 11:05 Urine WBC Greater than 50 HPF (0-3) A 12/30/19 11:05 Ur Squamous Epith Cells None Seen HPF (0-3) 12/30/19 11:05 Urine Bacteria 2+ HPF (None Seen) A 12/30/19 11:05 PN A/P (1) AMS (altered mental status) Code(s): R41.82 - ALTERED MENTAL STATUS, UNSPECIFIED Status: Acute (2) Alkaline phosphatase elevation Code(s): R74.8 - ABNORMAL LEVELS OF OTHER SERUM ENZYMES Status: Acute (3) Anxiety Code(s): F41.9 - ANXIETY DISORDER, UNSPECIFIED Status: Acute (4) Diabetes mellitus Code(s): E11.9 - TYPE 2 DIABETES MELLITUS WITHOUT COMPLICATIONS Status: Acute (5) Generalized weakness Code(s): R53.1 - WEAKNESS Status: Acute (6) Hemorrhagic stroke Code(s): I61.9 - NONTRAUMATIC INTRACEREBRAL HEMORRHAGE, UNSPECIFIED Status: Acute (7) Hypertensive emergency Code(s): I16.1 - HYPERTENSIVE EMERGENCY Status: Acute (8) Intraparenchymal hemorrhage of brain Code(s): I61.9 - NONTRAUMATIC INTRACEREBRAL HEMORRHAGE, UNSPECIFIED Status: Acute (9) Seizure Code(s): R56.9 - UNSPECIFIED CONVULSIONS Status: Acute - Plan Daily Plan: plan discussed w/ family, PT/OT, speech therapy, DVT proph w/SCDs Mr Angel has history of IPH and was consulted for breakthrough seizure. He is extremely somnolent and unable to wake him up. Ongoing EEG did not reveal underlying seizure activity. Consider HCT without contract to assess for acute intracranial pathology. Contnue Keppra 1000 mg per peg tube bid. Observe seizure precautions. Ativan 2 mg IV for seizure greater than 2 minutes. Neurochecks every 4 hours. Continue home medications. Palliative care team on board. PT/OT/Speech. Continue medical management per primary team. DVT prophylaxis. Plan discussed in detail with the nursing staff and the primary team.
[2020-01-01] MEDS ORDERED: Labetalol HCl 100 MG/20 ML VIAL SLOW IVP PRN (11:49)
--- NOTE | 2020-01-01 12:26 | PDOC.EEG ---
Neurology EEG Report - Report Report: This EEG was performed using 24 channel [employer] video digital EEG machine with 24 disc electrodes. This was an extended 2 hours 25 minutes of EEG recording. Digital analysis of the EEG was done for Yuval and seizure detection which revealed no abnormalities. Background: The posterior background rhythm is not observed. Photic stimulation: No response seen with photic stimulation. Hyperventilation: Not performed. Sleep: No stage change observed EEG diagnosis: Intermittent irregular theta activity seen throughout the recording . Absence of posterior background rhythm Clinical interpretation: This EEG is consistent moderate generalized nonspecific cerebral dysfunction.
--- NOTE | 2020-01-01 12:50 | CT ---
Exam: Head CT without contrast HISTORY: Altered mental status COMPARISON: 12/30/2019, 12/24/2019 FINDINGS: Hemorrhage: No intraparenchymal hemorrhage or extra-axial hematoma. Brain parenchyma: Cortical wakefield-white matter differentiation is preserved. No mass effect or midline shift. Basilar cisterns are patent.Stable remote lacunar infarcts. Stable chronic small vessel ischemic changes. Continued decrease of a right deep wakefield matter cavitary lacunar infarct. Ventricular system: Ventricles and sulci are patent and symmetric. Calvarium: Intact. Sinuses and mastoid air cells: Adequate aeration. IMPRESSION: 1. No acute intracranial process. 2. No significant interval change.
--- NOTE | 2020-01-01 15:49 | PDOC.PALCO ---
Palliative Care Consult - Consult Details Requesting Physician: Dr Greene Reason for Consult: goals of care, assistance with communication prognosis/disease - Pertinent HPI 59 year old male who was at [facility] s/p ACDF C3-C& on 12/07 for spinal stenosis. He was up for breakfast, then laid down and was found unresponsive. Transported to the emergency room for further evaluation. On presentation to the emergency room it was thought he was post ictal, positive for headache, negative for fever, pain, dysuria, or any recent falls. Review of document indicate that he had onset of seizure/post ictal episodes and Keppra was initiated. PEG, patient has removed in past. He was admitted to the hospital for further evaluation. - Pertinent PMH DM II, HTN, Depression/anxiety, intraparemchmyal hemorrhage of brain r/t hypertension, seizure, dysphagia - Social History Smoking: dip Alcohol Use: none Drug Use History: none Living Situation: other (Independent prior to rehab) - Medications MAR Reviewed: Yes - Allergies Allergies/Adverse Reactions: Allergies Allergy/AdvReac Type Severity Reaction Status Date / Time No Known Allergies Allergy Verified 09/08/19 23:39 - Subjective Completing EEG on my arrival to assess patient. Lethargic, confused and would drift off to sleep during my assessment. Not currently with capacity to make medical decisions. - ROS Non Response: due to mental status - Objective Vital Signs: Vital Signs - Most Recent Temp Pulse Resp BP Pulse Ox 97.7 F 72 12 158/80 H 98 01/01/20 11:31 01/01/20 12:07 01/01/20 11:31 01/01/20 12:30 01/01/20 11:31 Palliative Performance Scale: 30 - Physical Exam Constitutional: confusion, ill appearing HEENT: moist MMs, sclera anicteric Respiratory: clear to auscultation bilateral, no rhonchi, no wheezing, unlabored breathing Cardiovascular: RRR Gastrointestinal: soft, non-tender Genitourinary: ybarra catheter Musculoskeletal: no cyanosis, no clubbing, diffuse muscle atrophy Deviation from normal: Oriented to self, lethargic - Problem List (1) Dysphagia Code(s): R13.10 - DYSPHAGIA, UNSPECIFIED Current Visit: Yes Status: Acute (2) Declining functional status Code(s): R53.81 - OTHER MALAISE Current Visit: Yes Status: Acute (3) AMS (altered mental status) Code(s): R41.82 - ALTERED MENTAL STATUS, UNSPECIFIED Current Visit: No Status: Acute (4) Generalized weakness Code(s): R53.1 - WEAKNESS Current Visit: No Status: Acute (5) Seizure Code(s): R56.9 - UNSPECIFIED CONVULSIONS Current Visit: No Status: Acute - Plan/Recommendations Plan: At time of assessment patient lethargic, not decisional. Also reviewed with Jayashree YUAN prior to assessment of patient and conversation with patient. Records reviewed. Plan is for him to return to rehab. Lengthy conversation with patient son Dakota Angel. He is an only child, patient is not so by [place] Law he is surrogate decision maker as there [facility] no [facility]. Dakota states he believes his dad will continue to decline, he "hopes" he gains strength at rehab but does not believe so. Dakota is going to discuss with his aunt/patient sister how they can care for him in the home setting with Hospice if he declines. They do not desire to seek care in a [facility] setting. Discussed "what" hospice provides, communicated that he can reach out to correctional case records supervisor at [facility] to further gain assistance and at any time he can ask for a hospice evaluation. Emotional support and Theraputic listening offered. Communicated with Dr Greene [[id number]] minutes spent on this encounter with >50% of the time in counseling and coordination of care. Thank you for this very appropriate consult.
[2020-01-01 15:54] VITALS: TEMP 98.1
[2020-01-01 22:07] VITALS: BP 193/103
--- NOTE | 2020-01-02 23:24 | DIS ---
DATE OF ADMISSION: 12/30/2019 DATE OF DISCHARGE: 01/01/2020 RESIDENT: Daphne Greene M.D., PGY-1. ADMITTING ATTENDING: Dr. Sethi. DISCHARGE ATTENDING: Dr. Graff. CONSULT: Neurology, Case Management, dietitian, PT, OT, Wound Care, Speech, Palliative Care. PROCEDURES: Brain CT on 12/30/2019, which showed mild size decrease of the right basal ganglia cavitation from recent infarction. No acute superimposed hemorrhage or infarct. Venogram on 12/30/2019, which showed normal exam. Brain CT on 01/01/2020, which showed no acute intracranial process and no significant interval change. EEG on 01/01/2020, which showed moderate generalized nonspecific cerebral dysfunction. PRIMARY DIAGNOSIS: Encephalopathy likely secondary to seizure. SECONDARY DIAGNOSES: 1. Urinary tract infection. 2. Diarrhea. 3. Oral thrush. 4. Acute kidney injury. 5. Dysphagia. 6. Elevated D-dimer. 7. Inverted T-waves. 8. Spinal stenosis, status post anterior cervical discectomy and fusion, C3 through C7. 9. Diabetes, type 2. 10. Anxiety, depression. DISCHARGE MEDICATIONS: 1. Chlorthalidone 25 mg p.o. daily. 2. Keppra 1000 mg p.o. b.i.d. 3. Lipitor 40 mg p.o. at bedtime. 4. Amlodipine 2.5 mg p.o. at bedtime. 5. Pepcid 20 mg p.o. b.i.d. 6. Zoloft 100 mg p.o. daily. 7. Zosyn. 8. Atenolol 50 mg p.o. b.i.d. 9. Metformin 500 mg p.o. b.i.d. with meals. 10. Flomax 0.4 mg p.o. at bedtime. Discontinued Medications: 1. Wellbutrin. 2. Reglan. HISTORY OF PRESENT ILLNESS AND HOSPITAL COURSE: The patient is a 59-year-old male, who presented to the ED with chief complaint of altered mental status from [facility]. The patient is accompanied by his son. The nurse at the rehab center got him up on the morning of admission at breakfast to help him back to his bed. Shortly after, patient was unresponsive and brought to the ED. It is not known what time the episode occurred at, but upon presentation, patient seems to be postictal and reports he is having a headache with no visual impairment. The patient denies abdominal pain, dysuria, or fever. He denies any recent falls or head trauma. Question was limited secondary to him being postictal. Patient was recently discharged from the hospital after an extensive stay for hemorrhagic stroke secondary to hypertensive emergency, where he had several episodes like this where he would become unresponsive and it was thought that he was having seizures and he was started on Keppra on previous admission. Throughout hospital stay, patient became back to alert and oriented x3. He is very frustrated with his prognosis and the fact that he is back in the hospital. His vitals remained stable, and he tolerated PEG tube feedings well and he was seen by Neurology, who ruled out any new stroke or extension of his previous bleed. Palliative Care was consulted as patient made many comments about "not wanting to do this anymore" and talked about having his PEG tube pulled and wanting to just go home. It was deemed that the patient and family is not ready for hospice at this time, but they will talk about those possibility. The patient's Keppra was increased to 1000 mg b.i.d. and he had no additional seizure-like episodes. On admission to the ED, the patient's UA was suggestive of UTI. Patient does have a Ybarra in place because of neurogenic bladder. The patient was started on IV Zosyn throughout his stay after receiving Rocephin in the ED. Cultures during stay grew gram-negative rods and after discharge grew Klebsiella oxytoca with 50 to 75,000 colony-forming units. The patient was sent out with IV Zosyn. After discussing with Dr. Bunn at the rehab center, they would be able to follow up and change antibiotics as indicated by sensitivities. Patient also had his ybarra switched out during hospitalization. DISPOSITION: Stable. DISCHARGE INSTRUCTIONS: 1. Location: [facility]. 2. Diet: Tube feeds. 3. Activity: As tolerated. 4. Followup: Follow up with Dr. Ramos, primary care provider as soon as possible and follow up with Dr. Bunn at [facility] next day. Job ID: [id number] [facility]
== END 2020-01-01 18:10 ==
LOC: ERS 10:35 → ERHOLD 12:21 → 2SE 18:52
PROVIDERS: ADMIT Student in an Organized Health Care Education/Training Program; ATTEND Student in an Organized Health Care Education/Training Program
DX: G93.40 Encephalopathy, unspecified (principal); N39.0 Urinary tract infection, site not specified; R19.7 Diarrhea, unspecified; B37.0 Candidal stomatitis; N17.9 Acute kidney failure, unspecified; R13.10 Dysphagia, unspecified; R74.8 Abnormal levels of other serum enzymes; G40.909 Epilepsy, unspecified, not intractable, without status epilepticus; E11.9 Type 2 diabetes mellitus without complications; F41.9 Anxiety disorder, unspecified; F32.9 Major depressive disorder, single episode, unspecified; I10 Essential (primary) hypertension; F17.220 Nicotine dependence, chewing tobacco, uncomplicated; R53.81 Other malaise; G82.50 Quadriplegia, unspecified; N31.9 Neuromuscular dysfunction of bladder, unspecified; Z86.73 Personal history of transient ischemic attack (TIA), and cerebral infarction without residual deficits; Z66 Do not resuscitate; Z79.2 Long term (current) use of antibiotics; Z79.84 Long term (current) use of oral hypoglycemic drugs; Z79.899 Other long term (current) drug therapy; Z93.1 Gastrostomy status; Z98.1 Arthrodesis status; Z20.828 Contact with and (suspected) exposure to other viral communicable diseases
CPT/HCPCS: 36415; 36416; 70450; 80053; 80177; 81003; 81015; 83605; 83735; 84100; 84146; 84443; 84484; 85025; 85379; 87040; 87077; 87086; 87186; 87324; 87449; 87635; 93005; 93010; 93970; 95712; 95819; 95957; 96365; 96372; 96375; 96376; G0378; J0696; J1650; J1953; J2405; J2543; J2765; J3490; U0003

== ENCOUNTER 2020-01-13 10:28 | Emergency (ER) | payer SELFPAY ==
[2020-01-13 11:26] LABS: #Basophils 0.1 thou/uL (0.0-0.2); #Eosinphils 0.2 thou/uL (0.0-0.7); #Lymphocytes 3.1 thou/uL (1.20-3.40); #Monocytes 0.7 thou/uL (0.11-0.59); %Basophils 0.9 % (0.0-1.0); %Eosinophils 2.3 % (0.0-10.0); %Lymphocytes 30.7 % (21.0-51.0); %Monocytes 6.6 % (0.0-10.0); %Neutrophils 59.5 % (42.0-75.0); Bilirubin Negative (Negative); Blood, Urine Negative (Negative); Clarity Clear (Clear); Glucose, Urine (Dipstick) 30 mg/dL (Negative); Hemoglobin 11.7 g/dL (14.0-18.0); Ketone, Urine Negative (Negative); Leukocyte Negative Leu/uL (Negative); Mean Corpuscular Hemoglobin 30.3 pg (27.0-31.0); Mean Platelet Volume 8.5 fL (7.4-10.4); Nitrite Negative (Negative); Platelet Count 278 thou/uL (130-400); Protein, Urine (Dipstick) Negative (Neg-Trace); RBC Distribution Width 12.2 % (11.5-14.5); Red Blood Cell (RBC) Count 3.85 mill/uL (4.70-6.10); Specific Gravity, Urine 1.008 (1.002-1.036); Urobilinogen Normal mg/dL (Less than 2); White Blood Cell (WBC) Count 10.1 thou/uL (4.8-10.8); pH, Urine 7.5 (5.0-9.0)
--- NOTE | 2020-01-13 11:29 | CT ---
CT HEAD WITHOUT IV CONTRAST COMPARISON: 01/01/2020 HISTORY: Altered mental status. TECHNIQUE: Axial CT imaging at 5 mm intervals from vertex through skull base without contrast FINDINGS: There is decreased attenuation in the periventricular white matter which is nonspecific but likely re flective of chronic small vessel ischemic changes. Low-density area left cerebellar hemisphere is again seen likely due to remote area of infarction. Remote lacunar infarctions are seen in each basal ganglia. There is mild cerebral volume loss. The ventricular system is normal in size, shape, and position for the degree of sulcal atrophy. There is no evidence of an acute cortical infarction, hemorrhage, mass effect, or midline shift. Skull base has a normal CT appearance. Visualized paranasal sinuses are clear. Osseous structures appear intact. IMPRESSION: 1. No acute intracranial abnormality demonstrated. 2. Stable chronic changes.
--- NOTE | 2020-01-13 11:50 | RAD ---
EXAM: CHEST ONE VIEW HISTORY: Altered mental status COMPARISON: 12/27/2019 FINDINGS: The cardiac silhouette and pulmonary vasculature are within normal limits. Most inferior aspect left lateral costophrenic angle is excluded from view. Lungs are otherwise clear. Postsurgical changes related to anterior as well as posterior cervical fusion of the visualized lower cervical spine are n oted. Lower posterolateral left-sided rib fractures are again seen. Bilateral glenohumeral osteoarthropathy and acromioclavicular joint osteoarthritis is present. Degenerative changes noted in the spine. No interval change from prior study. IMPRESSION: No acute cardiopulmonary process.
[2020-01-13] MEDS ORDERED: Ondansetron PF 4 MG/2 ML Vial ONE (11:59)
[2020-01-13] MEDS ORDERED: Morphine 2 MG/ML VIAL ONE (11:59)
[2020-01-13 12:03] LABS: ALT (SGPT) 16 U/L (8-55); AST (SGOT) 16 U/L (5-34); Alkaline Phosphatase 155 U/L (40-110); Anion Gap 17 mmol/L (10-20); BUN (Urea Nitrogen) 54 mg/dL (8.4-25.7); Bilirubin, Total 0.4 mg/dL (0.2-1.2); Calc. Creatinine Clearance 0 mL/min (70-130); Calcium 9.3 mg/dL (7.8-10.44); Carbon Dioxide 24 mmol/L (23-31); Chloride 97 mmol/L (98-107); Estimated GFR-MDRD 51; Glucose 139 mg/dL (80-115); Lipase 27 U/L (8-78); Potassium 4.3 mmol/L (3.5-5.1); Protein, Total 7.6 g/dL (5.8-8.1); Sodium 134 mmol/L (136-145)
[2020-01-13 12:20] LABS: Albumin 3.2 g/dL (3.4-4.8); Globulin 4.4 g/dL (2.4-3.5)
== END 2020-01-13 13:18 | disposition home or self-care (01) ==
LOC: ERS 10:28
DX: E86.0 Dehydration (principal); L89.153 Pressure ulcer of sacral region, stage 3; E11.9 Type 2 diabetes mellitus without complications; I10 Essential (primary) hypertension; N17.9 Acute kidney failure, unspecified; Z87.891 Personal history of nicotine dependence
CPT/HCPCS: 36415; 51701; 70450; 71045; 80053; 81003; 83690; 84484; 85025; 87040; 96374; 96375; J2270; J2405

== ENCOUNTER 2020-01-20 09:26 | Outpatient (CLI) | payer SELFPAY ==
--- NOTE | 2020-01-20 10:17 | RAD ---
Cervical spine 3 views: 01/20/2020 COMPARISON: 05/10/2007 HISTORY: Spinal stenosis FINDINGS: Anterior discectomy and fusion hardware is present at the C3-4/C4-5/C5-6/C6-7 levels. Bilat eral posterior fusion hardware is noted at the C3, C4, C5, C6, and C7 levels with bilateral pedicle screws and vertically oriented interlocking rods. The patient is status post bilateral laminectomy at C3, C4, C5, and C6. No prevertebral soft tissue swelling. Cervicothoracic junction appears intact. IMPRESSION: Extensive postoperative change within the cervical spine as detailed above.
--- NOTE | 2020-01-20 10:23 | RAD ---
2 views of the lumbar spine: 01/20/2020 COMPARISON: None HISTORY: Lumbar fracture FINDINGS: Detailed assessment of the lumbar spine is limited secondary to body habitus and cross tabl e supine positioning, especially the lateral view where the L4, L5, and S1 vertebral bodies are not well delineated. Frontal imaging demonstrates prominent lateral osteophyte formation at multiple leve ls within the lumbar spine, most prominent on the right at L2-3 and on the left at L3-4 and L4-5. No displaced fracture is seen. Follow-up CT may be beneficial if clinically warranted. IMPRESSION: 2 view examination of the lumbar spine as detailed above.
== END 2020-01-20 09:27 | disposition home or self-care (01) ==
LOC: TBSIIMAG 09:26
PROVIDERS: ATTEND Surgery
DX: S32.009A Unspecified fracture of unspecified lumbar vertebra, initial encounter for closed fracture (principal); M48.02 Spinal stenosis, cervical region; M25.78 Osteophyte, vertebrae; Z98.1 Arthrodesis status
CPT/HCPCS: 72040; 72100